=== PATIENT | female | born 1975 | race Caucasian/White ===

== ENCOUNTER 2020-03-25 23:53 | Observation (INO) | payer MEDICARE, SELFPAY ==
[2020-03-25 23:46] VITALS: BP 181/83; PULSE 74; RESP 14; TEMP 36.7; O2SAT 97; BMI 26.5
[2020-03-25 23:50] VITALS: BMI 26.5
--- NOTE | 2020-03-25 23:57 | ECG_ITS ---
APPROVED REPORT Exam: Resting ECG HR:73 bpm ECG Measurements Heart Rate 73 AXES HI 184 P QRSd 102 QRS 105 QT 430 T 101 QTc 473 Conclusion Normal sinus rhythm Rightward axis Nonspecific ST abnormality Abnormal ECG Electronically signed by : Evaristo Aguilar, 03/26/2020 21:08:06
[2020-03-26] VITALS (7 sets, daily range): BP systolic 116–179; BP diastolic 41–89; PULSE 59–69; RESP 14–20; TEMP 36.7–37.1; O2SAT 93–98; BMI 24.0
--- NOTE | 2020-03-26 | CA_ITS ---
APPROVED REPORT Exam: Pharmacologic Technologist: Rosalva Wilder Ht: 5 ft 10 in Wt: 168 lbs BSA: 1.94 m2 HR: 58 bpm BP: 157/76 mmHg Indications: Chest pain Medical History Medications: Omeprazole,,,,, Lispro,,,,, Gabapentin,,,,, Carvedilol,,,,, Fluoxetine,,,,, BuMETANIDE,,,,, RIvaROXABAN,,,,, Aripiprazole,,,,, Degludec,,,,, Stress Test Details Test: LEXISCAN Reversal agent Aminophyline 100.0 mg, given intravenously for nausea. HR Resting HR: 59 bpm Max Heart Rate (APMHR): 174 bpm Max HR Achieved: 94 bpm Target HR (85% APMHR): 147 bpm % of APMHR: 54 Recovery HR: 64 bpm BP Resting BP: 157.0/76.0 mmHg Max BP: 183.0/93.0 mmHg Recovery BP: 179.0/76.0 mmHg ECG Clinical Exercise duration: 04:07 min Highest Stage Achieved: Exercise capacity: 1.0 METs Stress ECG Conclusion Resting EKG: Sinus bradycardia, right axis deviation, cannot rule out old lateral SD, NS ST abnormalities inferiorly. Symptoms: Shortness of air, nausea/vomiting, malaise, chest pain Arrhythmias/Ectopy: Occasional PAC. Rare PVC ST-T Changes: Allowing for motion artifact associated with nausea/vomiting, there does not appear to be any significant changes. Conclusion: Unremarkable Lexiscan stress. Myoview images reported separately. Test Summary REST 04:23 . . 59 . 157/ 76 . . Stage 1 . . . . . . . Myoview Injected Stage 1 01:00 . . 82 . . . . Stage 2 01:00 . . 80 . 168/ 82 . . Stage 3 01:00 . . 77 . 183/ 93 . . Stage 4 01:00 . . 60 . . . . Stage 4 01:07 . . 65 . . . Stop exercise at 04:07 RECOVERY 01:00 . . 70 . . . . RECOVERY 02:00 . . 84 . 111/ 81 . . RECOVERY 03:00 . . 69 . 111/ 81 . . RECOVERY 04:00 . . 70 . 111/ 81 . . RECOVERY 05:00 . . 62 . 111/ 81 . . RECOVERY 06:00 . . 62 . 111/ 81 . . RECOVERY 07:00 . . 65 . 111/ 81 . . RECOVERY 08:00 . . 67 . 111/ 81 . . RECOVERY 09:00 . . 68 . 111/ 81 . . RECOVERY 10:00 . . 60 . 111/ 81 . . RECOVERY . . . . . . . Chest pain RECOVERY 11:00 . . 65 . 170/ 66 . . RECOVERY 11:56 . . 66 . 179/ 76 . . Electronically signed by : Bryan Iyer, 03/26/2020 18:13:36
--- NOTE | 2020-03-26 00:11 | XR_ITS ---
PROCEDURE: XR CHEST PORTABLE CLINICAL HISTORY: chest pain COMPARISON: CR CXR CHEST(2 VIEWS-NOT PORTABLE) from 04/17/2013 CR CXR CHEST(2 VIEWS-NOT PORTABLE) from 12/18/2013 CR CXR1 CHEST-PORTABLE from 12/11/2014 FINDINGS: Has been a prior median sternotomy with valve replacement. Pacemaker is present with lead in the region of the right ventricle. There is mild cardiomegaly without failure. Consolidation is noted in the right lower lobe consistent with pneumonia. There is also increased density overlying the left lower chest. This may be due to overlying soft tissue attenuation. Bone plate is present in the lower cervical spine in there is a MALLET AND DIE CUTTER shunt traverses the right hemithorax. No acute bony abnormalities. IMPRESSION: Right lower lobe pneumonia Dictated by: Liam Parrish MD 03/26/2020 05:19 Liam Parrish MD in [place] 03/26/2020 05:19
--- NOTE | 2020-03-26 00:14 | HMH.EDCP ---
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 The time I documented below is in addition to time spent performing reported procedures but includes the following listed in this critical care notation. Medical Decision Making - Medical Records Medical records reviewed: Yes: I reviewed the patient's medical records. - Mp Inquiry Pt receiving controlled substance: No Vital Signs: 03/25/20 23:46 03/26/20 00:46 03/26/20 02:00 Temperature 98.1 F Temperature Source Oral Pulse Rate [Right] 74 69 65 Respiratory Rate 14 Blood Pressure [Right Arm] 181/83 H 116/41 L 179/80 H Blood Pressure Mean [Right Arm] 115 66 113 02 Sat by Pulse Oximetry 97 93 L 98 Oxygen Delivery Method Room Air Room Air 03/26/20 02:30 Temperature Temperature Source Pulse Rate [Right] 67 Respiratory Rate Blood Pressure [Right Arm] 145/76 H Blood Pressure Mean [Right Arm] 99 02 Sat by Pulse Oximetry 93 L Oxygen Delivery Method - Lab Data Lab results reviewed: Yes: I reviewed the patient's lab results. Lab Results 03/26/20 00:25: WBC 10.5, RBC 4.47, Hgb 12.4, Hct 39.7, MCV 88.8, MCH 27.8, MCHC 31.3 L, RDW 16.7, Plt Count 360, MPV 8.0, Neut % (Auto) 75.4, Lymph % (Auto) 18.3, [place] % (Auto) 3.8, Eos % (Auto) 2.0, Baso % (Auto) 0.4, Neut # (Auto) 7.9 H, Lymph # (Auto) 1.9, [place] # (Auto) 0.4, Eos # (Auto) 0.2, Baso # (Auto) 0.0 03/26/20 00:25: Sodium 136, Potassium 3.5, Chloride 104, Carbon Dioxide 24, Anion Gap 11.5, BUN 6 L, Creatinine 0.40 L, Estimated Creat Clear 233, Estimated GFR 172, Est GFR ( Amer) 208, Glucose 334 H, Calcium 8.8, Troponin I < 0.01 03/26/20 00:25: Total Bilirubin 0.3, Direct Bilirubin 0.3, Conjugated Bilirubin 0.0, Indirect Bilirubin 0.0, Unconjugated Bilirubin 0.0, AST 16, ALT 13, Alkaline Phosphatase 128 H, C-Reactive Protein 37.2 H, Total Protein 8.0, Albumin 3.9 03/26/20 00:25: SARS-CoV-2 IgG Ab (Rapid) Positive A, SARS-CoV-2 IgM Ab (Rapid) Positive A 03/26/20 00:25: ESR 84 H 03/26/20 00:25: Procalcitonin < 0.030 03/26/20 01:20: Chlamy pneumoniae PCR Not detected, Adenovirus (PCR) Not detected, B. pertussis DNA (PCR) Not detected, Coronavirus OC43 (PCR) Not detected, Coronavirus HKU1 (PCR) Not detected, Coronavirus 229E (PCR) Not detected, SARS-CoV-2 (PCR) Not detected, Coronavirus NL63 (PCR) Not detected, Human Metapneumovir PCR Not detected, Influenza A (H1) PCR Not detected, Influ A (H1N1/09) PCR Not detected, Influenza A (H3) PCR Not detected, Influenza Type A (PCR) Not detected, Influenza Type B (PCR) Not detected, M. pneumoniae (PCR) Not detected, Parainfluenza 1 (PCR) Not detected, Parainfluenza 2 (PCR) Not detected, Parainfluenza 3 (PCR) Not detected, Parainfluenza 4 (PCR) Not detected, RSV (PCR) Not detected, Entero/Rhino (PCR) Not detected 03/26/20 02:45: Troponin I < 0.01 Result diagrams: 03/26/20 00:25 03/26/20 00:25 Orders (Tests/Meds): ED MEDICATIONS Generic Name Dose Route Start Last Admin Trade Name Freq PRN Reason Stop Dose Admin Sodium Chloride 1,000 mls @ 999 mls/hr 03/25/20 23:45 03/26/20 00:01 Sod Chlor 0.9% 1000ml Bag IV 03/26/20 00:45 999 mls/hr .Q1H1M ALEX Administration Sodium Chloride 8 ml 03/25/20 23:57 Sodium Chloride 0.9% 10ml Vial IV 0
[2020-03-26 00:39] LABS: Basophils % 0.4 % (0.1-2.0); Eosinophils # 0.2 K/mm3 (0.0-0.4); Hematocrit 39.7 % (37.0-47.0); Hemoglobin 12.4 g/dL (12.2-16.2); Lymphocytes # 1.9 K/mm3 (0.7-4.5); Lymphocytes % 18.3 % (10-50); Mean Corpuscular HGB Conc 31.3 g/dL (31.8-35.4); Mean Corpuscular Hemoglobin 27.8 pg (27.0-31.2); Mean Corpuscular Volume 88.8 fl (81-99); Monocytes # 0.4 K/mm3 (0.1-1.0); Monocytes % 3.8 % (1.7-9.3); Neutrophils # 7.9 K/mm3 (1.8-7.8); Neutrophils % 75.4 % (37.0-80.0); Platelet Count 360 K/mm3 (142-424); Red Blood Count 4.47 M/mm3 (4.20-5.40); Red Cell Distribution Width 16.7 % (11.5-17.5); White Blood Count 10.5 K/mm3 (4.8-10.8)
[2020-03-26 00:46] LABS: Alanine Aminotransferase 13 U/L (12-78); Albumin Level 3.9 g/dl (3.5-5.0); Alkaline Phosphatase 128 U/L (38-126); Anion Gap 11.5 mEq/L (5-15); Aspartate Amino Transferase 16 U/L (14-36); Bilirubin,Direct 0.3 mg/dl (0.0-0.4); Bilirubin,Total 0.3 mg/dl (0.2-1.3); Blood Urea Nitrogen 6 mg/dl (7-17); Calcium 8.8 mg/dl (8.4-10.2); Carbon Dioxide 24 mmol/L (22.0-30.0); Chloride 104 mmol/L (98-107); Creatinine Clearance Estimated 233 mL/min (50-200); Estimated Glomerular Filt Rate 172 ml/min (>60); GFR (African American) 208 ML/MIN (>60); Glucose 334 mg/dl (74-100); Potassium 3.5 mmoL/L (3.5-5.1); Sodium 136 mmol/L (136-145)
[2020-03-26 00:51] LABS: C-Reactive Protein 37.2 mg/L (0-4)
[2020-03-26 01:13] LABS: Coronavirus 19 IgG Antibody Positive (Negative)
[2020-03-26 01:14] LABS: Coronavirus 19 IgM Antibody Positive (Negative)
[2020-03-26 01:17] LABS: Procalcitonin < 0.030 ng/mL (0.0-2.0); Troponin I < 0.01 ng/ml (0.00-0.034)
[2020-03-26 01:43] LABS: Erythrocyte Sedimentation Rate 84 mm/hr (0-20)
[2020-03-26 02:44] LABS: Adenovirus,PCR Not Detected (NotDetected); Bordetella Pertussis Not Detected (NotDetected); Chlamydophila Pneumoniae, PCR Not Detected (NotDetected); Coronavirus 19, PCR Not Detected (NotDetected); Coronavirus 229E Not Detected (NotDetected); Coronavirus NL63 Not Detected (NotDetected); Coronavirus OC43 Not Detected (NotDetected); Coronovirus HKU1,PCR Not Detected (NotDetected); Human Metapneumovirus Not Detected (NotDetected); Influenza A, PCR Not Detected (NotDetected); Influenza AH1, 2009 Not Detected (NotDetected); Influenza AH1, PCR Not Detected (NotDetected); Influenza AH3,PCR Not Detected (NotDetected); Influenza B, PCR Not Detected (NotDetected); Mycoplasma Pneumoniae, PCR Not Detected (NotDetected); Parainfluenza 1, PCR Not Detected (NotDetected); Parainfluenza 2, PCR Not Detected (NotDetected); Parainfluenza 3, PCR Not Detected (NotDetected); Parainfluenza 4, PCR Not Detected (NotDetected); Respiratory Syncytial Virus Not Detected (NotDetected); Rhinovirus/Enterovirus Not Detected (NotDetected)
[2020-03-26 03:20] LABS: Troponin I < 0.01 ng/ml (0.00-0.034)
--- NOTE | 2020-03-26 03:20 | PC.NURSE ---
paged dr hooper for service call.
--- NOTE | 2020-03-26 03:21 | PC.NURSE ---
CRISTI Solares on phone with dr hooper @ this time
[2020-03-26 03:53] LABS: Hemoglobin A1C 10.1 % (4.0-6.0)
--- NOTE | 2020-03-26 04:07 | PC.NURSE ---
spoke with sandie for admit
--- NOTE | 2020-03-26 04:16 | PC.NURSE ---
patient up to floor via wheelchair.
[2020-03-26 06:26] LABS: POC Glucose,Bedside 204 (70-110)
--- NOTE | 2020-03-26 08:00 | CA_ITS ---
APPROVED REPORT EXAM: Comprehensive 2D, Doppler, and color-flow Echocardiogram Engineer Steam: Jana Brooke CRT Ht: 5 ft 10 in Wt: 185lbs BSA: 2.02 BP: 145/76 mmHg Indications: Chest Pain, smoker, DM, Defib, MVR x 2 in 2018 Pig valve 2D Dimensions LVOT 1.97 cm (M/F) 1.5-2.5 M-Mode Dimensions LA Diam 3.44 cm (1.9-4.0) LVDd 4.87 cm (3.5-5.7) Ao Diam 3.01 cm (2.0-3.7) LVDs 2.97 cm (3.5-5.7) IVSd 1.25 cm (0.6-1.1) PWd 1.07 cm (0.6-1.1) EF (Teich) 69.20% FS 39.00% EDV (Teich) 111.20 mL ESV (Teich) 34.20 mL LV Diastology E Decel Time 286.00 (160-240 msec) E/A Ratio 2.73 MED E' 6.90 (< 7 cm/sec) MED A' 3.50 cm/s E'/MED E' Ratio 26.68 (>14) LAT E' 7.10 (<10 cm/sec) LAT A' 3.40 cm/s E/LAT E' Ratio 25.93 (>14) Aortic Valve LVOT Max 161.20 (70-110 cm/s) LVOT VTI 35.05 cm AoV Peak Sherif. 201.40 (50-130 cm/s) AO Peak GR. 16.20 mmHg AO Mean GR. 6.80 (<5 mmHg) AO VTI 36.72 (18-25 cm) NIHARIKA (VTI) 2.91 (2.5-4.5 cm2) Mitral Valve MV E Max Sherif. 184.10 (40-130 cm/s) MV A Velocity 67.40 (40-130 cm/s) E/A Ratio 2.73 MV Decel. Time 286.00 (160-240 ms) MV Mean Gr. 5.30 (<2mmHg) MV PHT 84.00 ms Pulmonary Valve PV Peak Velocity 158.70 (50-150 cm/s) Tricuspid Valve TR P. Velocity 427.60 cm/s Left Ventricle Left atrium is mildly enlarged, left ventricle is normal size, there is no concentric left ventricular hypertrophy, visually estimated ejection fraction 55%, there is abnormal septal motion. Diastolic parameters are inconclusive. Right Ventricle Right atrium and right ventricle are normal size and contractility there is a pacemaker or AICD leads in the right ventricle. Aortic Valve Aortic valve is minimally thickened and fibrosed, there is no aortic stenosis or aortic insufficiency. Mitral Valve There is a bioprosthetic valve in the mitral position, the valve is well-seated, the mean gradient and pressure half-time is not accurately calculated to evaluate prosthetic valve function. There is no significant mitral regurgitation. Tricuspid Valve Tricuspid valve is grossly normal, there is mild tricuspid regurgitation, tricuspid regurgitation jet velocity is inadequate for calculation of the right ventricular systolic pressure. Pulmonic Valve Pulmonic valve is poorly visualized. Great Vessels Aortic root is normal size. Pericardium No significant pericardial effusion noted. Conclusion 1. Mildly enlarged left atrium, normal left ventricular size, preserved left ventricular systolic function, visually estimated ejection fraction 55% with abnormal septal motion. Diastolic parameters are inconclusive. 2. Bioprosthetic valve in the mitral position, the mean gradient and pressure half-time is not calculated accurately to evaluate valvular function, repeat study focused on mitral inflow velocities and pressure half-time is recommended. There is no significant mitral regurgitation. 3. Mild tricuspid regurgitation. 4. No significant pericardial effusion noted. Electronically signed by : Bryan Iyer, 03/27/2020 06:19:13
--- NOTE | 2020-03-26 08:32 | NM_ITS ---
APPROVED REPORT Exam: Nuclear Stress Test Indication: Chest pain, SOB, Fatigue, CAD, CABG, HTN, DM, High cholesterol, Tobacco use, Family history Patient Location: Outpatient Stress Tech: Rosalvakaren Wilder AR Tech:RACHELE KanT, RT (R)(N) Ht: 5 ft 10 in Wt: 165 lbs Bra Size: 42D HR: 58 bpm BP: 157/76 mmHg BSA: 1.92 m2 BMI: 23.6 History: Chest pain, SOB, Fatigue, CAD, CABG, HTN, DM, High cholesterol, Tobacco use, Family history Procedure: Patient received a 0.4 mg of intravenous Lexiscan, resting heart rate 58 bpm, resting blood pressure 157/76 mmHg, with Lexiscan maximum heart rate achived was 84 bpm which is % of the maximum predicted heart rate and blood pressure was 168/82 mmHg. Cardiac Stress and Resting SPECT Images: Cardiac Stress and Resting SPECT images were obtained using technetium 99m Myoview 32.3 mCi stress and 10.64 mCi at rest. EF 57% with no wall motion abnormalities No fixed or reversible defects Conclusion: EF 57% with no wall motion abnormalities No fixed or reversible defects Electronically signed by : Liam Parrish MD 03/26/2020 15:11:50
--- NOTE | 2020-03-26 08:35 | HMH.CNCARD ---
History of Present Illness Consult date: 03/26/20 Requesting physician: Blayne Borges Consult reason: chest pain Chief complaint: chest pain History of present illness: This is a 45-year-old white female who presented to the emergency department with complaints of chest pain. The patient states that she woke up in the middle of the night with sudden onset of chest pain. She states that this was a sharp, stabbing, pressure sensation in the substernal aspect of her chest. She states that the pain did not radiate. It was associated with shortness of breath, nausea, vomiting and diaphoresis. The patient states that the pain was an 8 out of 10 in intensity. Nothing worsened the chest pain and nothing was helping to improve the chest pain. She states that it lasted for at least an hour before her chest pain resolved. She states that she is still having intermittent episodes of the chest pain. She also has some fluttering of the heart. She denies any fever, chills, diarrhea, PND or orthopnea. The patient does have a history of valvular heart disease and is status post permanent pacemaker placement. She did undergo left cardiac catheterization in 2015 here at [facility] and was found to have normal coronary arteries. She states that she smokes 1 pack/day. She is diabetic with a hemoglobin A1c of 10.1. She reports that her father had heart disease as well. She has known hypertension, hyperlipidemia, and diabetes. She has recently moved back to [place] from [place] and does not have any physicians currently and states that she does not know when she had her last cardiology evaluation or pacemaker interrogation. [facility] History I have reviewed the patient's past medical history: Yes Medical History: Reports:: Congestive Heart Failure, Diabetes Mellitus Type 2, Hyperlipidemia, Hypertension, Internal Pacemaker, MRSA Denies:: Cancer, Diabetes Mellitus Type 1 *Have you ever received a pneumonia vaccine?: Yes *Have you received a flu vaccine this season?: Yes Laterality Cases: Bilateral: Tonsillectomy Other Surgeries: Yes: Cardiac Catheterization, Cholecystectomy, , Hysterectomy-Total, Mitral Valve Replacement, Pacemaker Amputation: No Fractures: No - *Social History Last grade of school completed: High school graduate Smoking Status: Current every day smoker # Packs/Day (cigarettes): 1 Alcohol Intake: former *Occupational Status:: disabled Household Members: significant other, children *Travel in the last 8 weeks: None Family Hx:: Diabetes, Heart Attack, Hypertension, Stroke Meds Home Medications Medication Instructions Recorded Confirmed Type ARIPiprazole [Aripiprazole 20mg 20 mg PO DAILY 03/26/20 03/26/20 History Tablet] Bumetanide 2 mg PO DAILY 03/26/20 03/26/20 History Fluoxetine HCl 40 mg PO DAILY 03/26/20 03/26/20 History Gabapentin [Gabapentin 400mg Cap] 400 mg PO DAILY 03/26/20 03/26/20 History Insulin Degludec [Tresiba] 0 unit SQ DAILY 03/26/20 03/26/20 History Insulin Lispro [Humalog] 0 unit SQ DAILY 03/26/20 03/26/20 History Omeprazole [Omeprazole 40mg 40 mg PO DAILY 03/26/20 03/26/20 History Capsule] Rivaroxaban [Xarelto 20mg Tablet*] 20 mg PO DAILY 03/26/20 03/26/20 History carvediloL [Carvedilol 6.25mg Tab] 1.5 tab PO BID 03/26/20 03/26/20 History Allergies Allergy/AdvReac Type Severity Reaction Status Date / Time morphine [MORPHINE] Allergy Mild Verified 03/26/20 00:01 hydrocodone [From LORTAB] Allergy Unknown Verified 03/26/20 00:01 ketorolac [From TORADOL] Allergy Unknown Verified 03/26/20 00:01 azithromycin Allergy Verified 03/26/20 07:27 bupropion [From Wellbutrin] Allergy Verified 03/26/20 07:27 Exam Vital signs and Labs for Last 24 Hours: Temp Pulse Resp BP Pulse Ox 98.8 F 66 20 161/87 H 97 03/26/20 04:45 03/26/20 04:45 03/26/20 04:45 03/26/20 04:45 03/26/20 04:45 Laboratory Results - last 24 hr 03/26/20 00:25: WBC 10.5, RBC 4.47, Hgb 12.4,
--- NOTE | 2020-03-26 08:44 | HMH.PHAVTE ---
[facility] Pharmacy VTE Monitoring - Patient Demographics Admission date: 03/26/20 Report Date: 03/26/20 Time: 08:44 Allergies/Adverse Reactions: Patient Allergies morphine [MORPHINE] Allergy (Mild, Verified 03/26/20 00:01) hydrocodone [From LORTAB] Allergy (Unknown, Verified 03/26/20 00:01) ketorolac [From TORADOL] Allergy (Unknown, Verified 03/26/20 00:01) azithromycin Allergy (Verified 03/26/20 07:27) bupropion [From Wellbutrin] Allergy (Verified 03/26/20 07:27) Height: 1.78 m Weight: 76.204 kg Patient Problems: Current Active Problems Chest pain (Acute) Diabetes (Acute) Tobacco use (Acute) - VTE Risk Labs: VTE Related Lab Results Hgb 12.4 g/dL (12.2-16.2) 03/26/20 00:25 Hct 39.7 % (37.0-47.0) 03/26/20 00:25 Plt Count 360 K/mm3 (142-424) 03/26/20 00:25 BUN 6 mg/dl (7-17) L 03/26/20 00:25 Creatinine 0.40 mg/dl (0.52-1.04) L 03/26/20 00:25 Estimated Creat Clear 233 mL/min (50-200) 03/26/20 00:25 Was VTE Risk Assessment Performed: Yes VTE Score: 7 VTE Risk Level: Moderate Risk Clinical Trial Participant: No - Prophylaxis VTE Prophylaxis Ordered?: Yes Types of VTE Prophylaxis: TEDS Knee High
[2020-03-26 08:58] LABS: Troponin I < 0.01 ng/ml (0.00-0.034)
--- NOTE | 2020-03-26 10:08 | HMH.HP ---
*Admission Date: 03/26/20 <ChiDonna - 03/26/20 10:21> *Chief complaint: Chest pain <ChiYeseniaDonna 03/26/20 10:21> *History of present illness: Ms. Shaikh is a 45-year-old female who has recently moved to [place] and has been here about a month who presented to [facility] last night after awakening with midsternal sharp chest pain. She denies radiation but the pain was associated with shortness of breath, nausea, palpitations, and diaphoresis. She is unable to tell me how long the pain lasted but is not present now. She arrived to this room about 0500 and has been sleeping; She does have a history of previous SC with valvular heart replacement in 2018 and also has a pacer/defibrillator. She has a history of at fib. She was hospitalized in December 2019 with Covid pneumonia. Cardiology has seen the pt and notes a Left cardiac cath in 2014 at [facility] with normal coronary arteries. She does have a Positive family History. Pt also has a history of DM and now with A1C of 10.1, HTN, HLD , AVM and pseudotumor cerebri. She has recently moved back to this area from [place] and does not have a physician. She does not recall when she last saw her cleaning attendant On admission electrolytes are normal. Blood sugar was 334. Kidney function is not elevated. A1c is 10.1. Liver function studies show a slightly elevated alkaline phosphatase at 128 and otherwise normal. Troponin I 0.01x2. Echocardiogram is pending chest x-ray shows prior median sternotomy with valve replacement. Pacemaker is present. There is mild cardiomegaly without failure. Consolidation is noted in the right lower lobe consistent with a pneumonia. After evaluation in the emergency room she was admitted with a cardiology consult. <AlonYeseniaDonna 03/26/20 10:53> [facility] History Medical History: Reports:: Congestive Heart Failure, Diabetes Mellitus Type 2, Hyperlipidemia, Hypertension, Internal Pacemaker, MRSA Denies:: Cancer, Diabetes Mellitus Type 1 <Donna Chi 03/26/20 10:53> *Have you ever received a pneumonia vaccine?: Yes <Donna Chi 03/26/20 10:21> *Have you received a flu vaccine this season?: Yes <Donna Chi 03/26/20 10:21> Other Medical History: Reports: Arthritis <Donna Chi 03/26/20 10:21> Comment:: AVM; pseudotumor cercbri <Donna Chi 03/26/20 10:53> Laterality Cases: Bilateral: Tonsillectomy <Donna Chi 03/26/20 10:21> Other Surgeries: Yes: Cardiac Catheterization, Cholecystectomy, , Hysterectomy-Total, Mitral Valve Replacement, Pacemaker <Donna Chi 03/26/20 10:21> Amputation: No <Donna Chi 03/26/20 10:21> Fractures: No <Donna Chi 03/26/20 10:21> - *Social History Last grade of school completed: High school graduate <Donna Chi 03/26/20 10:21> Smoking Status: Current every day smoker <Donna Chi 03/26/20 10:21> # Packs/Day (cigarettes): 1 <Donna Chi 03/26/20 10:21> Alcohol Intake: former <Donna Chi 03/26/20 10:21> *Occupational Status:: disabled <Donna Chi 03/26/20 10:21> Household Members: significant other, children <Donna Chi 03/26/20 10:21> *Travel in the last 8 weeks: None <Donna Chi 03/26/20 10:21> Family Hx:: Diabetes, Heart Attack, Hypertension, Stroke <Donna Chi 03/26/20 10:21> Review of Systems - Constitutional Denies headache(s), Denies weakness <Donna Chi 03/26/20 10:21> - Eyes Denies change in vision <Donna Chi 03/26/20 10:21> - ENT Denies ear pain, Denies post nasal drip, Denies sore throat <Donna Chi 03/26/20 10:21> - *Cardiovascular Reports chest pain, Reports shortness of breath <Donna Chi 03/26/20 10:21> - *Respiratory Reports shortness of breath, Denies cough <Donna Chi 03/26/20 10:21> - *Gastrointestinal Reports nausea, Reports vomiting, Denies abdominal pain, Denies change in stools <Donna Chi - 03/26/20 10:21> - *Genitourinary Denies difficult
[2020-03-26 10:29] LABS: Alanine Aminotransferase 11 U/L (12-78); Albumin Level 3.8 g/dl (3.5-5.0); Alkaline Phosphatase 113 U/L (38-126); Aspartate Amino Transferase 18 U/L (14-36); Bilirubin,Direct 0.3 mg/dl (0.0-0.4); Bilirubin,Indirect 0.2 mg/dL (0.0-0.9); Bilirubin,Total 0.5 mg/dl (0.2-1.3); Bilirubin,Unconjugated 0.1 mg/dL (0.0-1.1); Total Protein,Serum 8.2 g/dl (6.3-8.2)
[2020-03-26 11:43] LABS: Microscopic, Urine URINE MICROSCOPIC (MICROSCOPIC)
[2020-03-26 11:58] LABS: Amphetamine/Metha Screen,Urine Negative ng/ml (<1000); Barbiturates Screen,Urine Negative ng/ml (<200)
[2020-03-26 11:59] LABS: Benzodiazepines Screen,Urine Negative ng/ml (<200)
[2020-03-26 12:02] LABS: Cannabinoid Screen,Urine Positive ng/ml (<50); Cocaine Screen,Urine Negative ng/ml (<300)
[2020-03-26 12:03] LABS: Methadone Screen,Urine Negative ng/ml (<300)
[2020-03-26 12:04] LABS: Opiate Screen,Urine Negative ng/ml (<300)
--- NOTE | 2020-03-26 12:04 | HMH.PHAINT ---
MEDICATION RECONCILIATION COMPLETED ON PATIENT BY CALLING [facility] AND [facility] IN [place]. PATIENT HAS HISTORY OF NON-COMPLIANCE. UPDATED HOME MED LIST FROM MOST RECENT FILLS. -PATTI RAMIREZ PHARMD
[2020-03-26 12:05] LABS: Appearance,Urine CLEAR (Clear); Bilirubin,Urine Negative (Negative); Blood, Urine Negative (Negative); Color,Urine YELLOW (Yellow); Glucose,Urine (UA) TRACE (Negative); Ketones,Urine Negative (Negative); Leukocyte Esterase,Urine Negative (Negative); Nitrate,Urine Negative (Negative); Phencyclidine Screen,Urine Negative ng/ml (<25); Protein,Urine Negative (Negative); Specific Gravity, Urine 1.015 (1.005-1.030); Squamous Epithelial Cell,Urine Occasional #/hpf (0-5); Urobilinogen,Urine 0.2 EU/dl (0.2)
[2020-03-26 16:16] LABS: Mycoplasma Pneumo IGM (Rapid) Reactive (Non-Reactiv)
--- NOTE | 2020-03-26 17:34 | PC.NURSE ---
PATIENT ARRIVED ON FLOOR FROM RADIOLOGY, PATIENT REQUESTED THIS RN. WHEN THIS RN APPROACHED PATIENT WAS SITTING UP IN BED CRYING REQUESTING PAIN MEDICATION. PATIENT STATED ANYTHING BUT TYLENOL. THIS RN SPOKE WITH DR. DORSEY, ORDERED HOME DOSE OF SUBOXONE. THIS RN EXPLAINED WHAT MEDICATION WAS BEING ORDERED AND PATIENT STATED, OH, THAT'S FOR PAIN. THIS RN STATED THAT IS WHAT THE MD ORDERED. PATIENT STATED OKAY. WHEN THIS RN HANDED THE MEDICATION PATIENT ASKED, WHAT IS THIS? THIS RN STATED,IT IS YOUR SUBOXONE. PATIENT ASKED, HOW MUCH? THIS RN STATED 3 JUST LIKE WHAT YOU TAKE AT HOME. PATIENT STATED I AM OUT OF HERE, I TAKE 20/8. THIS RN STATED, YOUR HOME LIST STATES 3. PATIENT STATED NO, IT IS 12/8. THIS RN OFFERED TO PHONE MD AND REQUEST A DOSE CHANGE. PATIENT STATED, NO, I CAN TAKE THIS AT HOME WITH MY TYLENOL. THIS RN SPOKE WITH DR. DORSEY, INFORMED MD THAT PATIENT WAS LEAVING [place]. PER MD, MAKE A FOLLOW UP APPOINTMENT WITH DR. DEL REAL. APPOINTMENT MADE, PROVIDED FOR PATIENT BEFORE LEAVING.
--- NOTE | 2020-03-27 12:48 | HMH.DCSUM ---
General - General Admission date:: 03/26/20 Discharge date: 03/26/20 HPI HPI: Ms. Shaikh is a 45-year-old female who has recently moved to [place] and has been here about a month who presented to [facility] last night after awakening with midsternal sharp chest pain. She denies radiation but the pain was associated with shortness of breath, nausea, palpitations, and diaphoresis. She is unable to tell me how long the pain lasted but is not present now. She arrived to this room about 0500 and has been sleeping; She does have a history of previous CA with valvular heart replacement in 2018 and also has a pacer/defibrillator. She has a history of at fib. She was hospitalized in December 2019 with Covid pneumonia. Cardiology has seen the pt and notes a Left cardiac cath in 2014 at [facility] with normal coronary arteries. She does have a Positive family History. Pt also has a history of DM and now with A1C of 10.1, HTN, HLD , AVM and pseudotumor cerebri. She has recently moved back to this area from [place] and does not have a physician. 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 Blood sugar was 334. Kidney function is not elevated. A1c is 10.1. Liver function studies show a slightly elevated alkaline phosphatase at 128 and otherwise normal. Troponin I 0.01x2. Echocardiogram is pending chest x-ray shows prior median sternotomy with valve replacement. Pacemaker is present. There is mild cardiomegaly without failure. Consolidation is noted in the right lower lobe consistent with a pneumonia. After evaluation in the emergency room she was admitted with a cardiology consult. Hospital Course Hospital Course: Cardiology saw the patient and planned a stress test. She was started on Levaquin for her pneumonia as well as duo nebs. Her blood pressure was elevated and she was started on Norvasc 10 mg daily in addition to her carvedilol. Her Myoview showed an EF of 57% with no wall motion abnormalities and no fixed or reversible defects. Cardiology had no further recommendations from a cardiac standpoint and felt she could follow-up in their clinic in 1 to 2 weeks. Her echo showed an EF of 55% with abnormal septal motion. The patient was apparently on Suboxone at home and called requesting pain medication. Dr. Crow was contacted and her home dose of Suboxone was ordered. Apparently, when the patient was given her Suboxone, she stated she was leaving and she left AMA. Objective Vital signs: Temp Pulse Resp BP Pulse Ox 98.1 F 59 L 18 139/74 98 03/26/20 08:00 03/26/20 08:00 03/26/20 08:00 03/26/20 08:00 03/26/20 08:00 Narrative: - Constitutional no acute distress Comments: Walk to the bathroom during exam and did well without chest pain. - *Routine HEENT Exam Head: Present: normocephalic, atraumatic Eye: Present: PERRL ENT: Present: mucous membranes moist, oropharynx clear - *Routine Neck Exam Present: supple. Absent: carotid bruit, lymphadenopathy, thyromegaly - *Routine Respiratory Exam Present: CTA bilaterally (Anteriorly and posteriorly) - *Routine Cardiovascular Exam Present: RRR Comments: Monitor showing sinus rhythm. - *Routine Abdominal Exam Present: soft, normoactive bowel sounds. Absent: tenderness, distended - *Routine Extremities Exam Present: pulses intact. Absent: edema, calf tenderness - *Routine Neurological Exam Present: alert, oriented X3 Results Labs on day of discharge: Labs from last 24 hours 03/26/20 03/26/20 14:30 14:30 Lactate 1.0 Mycoplasma pneumon IgM Reactive A DS: Diagnosis - Discharge Diagnosis (1) Chest pain Status: Acute (2) HTN (hypertension) Status: Chronic (3) HLD (hyperlipidemia) Status: Chronic (4) Pacemaker Status: Chronic (5) Abnormal EKG Status: Acute (6) Diabetes Status: Chronic
== END 2020-03-26 15:15 | disposition left against medical advice (07) ==
LOC: ER 03-26 01:17 → 2ND 03-26 03:26
PROVIDERS: Nurse Practitioner Family; Admitting Provider Family Medicine; Emergency Provider Emergency Medicine; Visit Provider Family Medicine
DX: I48.0 Paroxysmal atrial fibrillation (principal); R07.9 Chest pain, unspecified; I11.0 Hypertensive heart disease with heart failure; I50.9 Heart failure, unspecified; E11.9 Type 2 diabetes mellitus without complications; Z95.810 Presence of automatic (implantable) cardiac defibrillator; Z72.0 Tobacco use; Z88.5 Allergy status to narcotic agent; Z88.8 Allergy status to other drugs, medicaments and biological substances; Z79.01 Long term (current) use of anticoagulants; Z79.4 Long term (current) use of insulin; Z79.899 Other long term (current) drug therapy
CPT/HCPCS: 36415; 71045; 78452; 80048; 80076; 80305; 81001; 82962; 83036; 83605; 84145; 84484; 85025; 85651; 86140; 86328; 86738; 87040; 87581; 87633; 87798; 93005; 93017; 93306; 96365; 96375; 99284; A9502; G0378; J2785

== ENCOUNTER 2020-04-01 14:19 | Emergency (ER) | payer MEDICARE, SELFPAY ==
[2020-04-01 14:25] VITALS: BP 145/98; PULSE 87; RESP 16; TEMP 36.6; O2SAT 98; BMI 28.7
--- NOTE | 2020-04-01 15:13 | XR_ITS ---
PROCEDURE: XR FOOT RT MIN 3V CLINICAL INDICATION: foot pain COMPARISON: CR FTR3 FOOT-RT-3 VIEWS from 03/18/2012 CR FTL3 FOOT-LT-3 VIEWS from 09/06/2013 FINDINGS: No fracture or dislocation. No lytic or blastic change. There is normal mineralization. The joint spaces are well-preserved. No significant degenerative/arthritic changes. No erosive changes evident. Other findings:There is nonspecific small area of calcification along the plantar surface the foot at the area of the plantar fascia posteriorly not significantly changed. Mild osteoarthritic changes are present at the talonavicular and navicular cuneiform joint. IMPRESSION: No change no acute finding Dictated by: Liam Parrish MD 04/01/2020 16:26 Liam Parrish MD in [place] 04/01/2020 16:26
[2020-04-01 15:16] VITALS: BP 118/74; PULSE 82; RESP 16; TEMP 36.9; O2SAT 94; BMI 23.5
--- NOTE | 2020-04-01 15:45 | HMH.EDUTC ---
[facility] [place] Clinical Impression: Right foot pain Disposition: Home, Self-Care Condition on Discharge: Good Instructions: DI for Foot Pain Additional Instructions: Rest the extremity, Elevate the extremity as tolerated while you are resting. Continue to take tylenol for pain. Follow up with Dr. Carpenter (podiatry). I put in a referral but you need to call his office and schedule an appointment. Follow up with your regular doctor. GO TO THE ER FOR ANY WORSENING SYMPTOMS Referrals: PCP,No [Primary Care Provider] - Sonia Carpenter DPM [Staff Physician] - Time of Disposition: 16:06 Medical Decision Making - Medical Records Medical records reviewed: No: I reviewed the patient's medical records. - Mp Inquiry Pt receiving controlled substance: No Vital Signs: 04/01/20 14:25 04/01/20 15:16 04/01/20 16:12 Temperature 98 F 98.5 F 98.3 F Temperature Source Oral Oral Pulse Rate 83 Pulse Rate [Right] 87 82 Respiratory Rate 16 16 16 Blood Pressure 120/76 Blood Pressure [Right Arm] 145/98 H 118/74 Blood Pressure Mean [Right Arm] 113 88 Blood Pressure Source [Right Arm] Automatic Cuff Blood Pressure Position [Right Arm] Sitting 02 Sat by Pulse Oximetry 98 94 L Oxygen Delivery Method Room Air Room Air - Radiology Data #1 Image(s): Foot/Toes Image Reviewed: Yes I reviewed the patient's radiology image, Yes I have reviewed radiologist's interpretation Preliminary Findings: Normal/NAD, No Fracture Seen PROCEDURE: XR FOOT RT MIN 3V CLINICAL INDICATION: foot pain COMPARISON: CR FTR3 FOOT-RT-3 VIEWS from 03/18/2012 CR FTL3 FOOT-LT-3 VIEWS from 09/06/2013 FINDINGS: No fracture or dislocation. No lytic or blastic change. There is normal mineralization. The joint spaces are well-preserved. No significant degenerative/arthritic changes. No erosive changes evident. Other findings:There is nonspecific small area of calcification along the plantar surface the foot at the area of the plantar fascia posteriorly not significantly changed. Mild osteoarthritic changes are present at the talonavicular and navicular cuneiform joint. IMPRESSION: No change no acute finding Dictated by: Liam Parrish MD 04/01/2020 16:26 Liam Parrish MD in [place] 04/01/2020 16:26 [facility] [place] - General Stated complaint: AO 03/29/20 0800 injury right foot Time Seen by Provider: 04/01/20 15:45 Mode of Arrival: Ambulatory Source of Information: Patient Limitations: No Limitations Description of Symptoms (Recalled from Triage Doc. by RN): when pt stepped out of bed this morning her right foot was hurting and she was having trouble putting weight on it. no injury known. HEENT Symptoms (Recalled from RN notes): No Resp Symptoms (Recalled from RN notes): No Skin Symptoms (Recalled from RN notes): No MS Symptoms (Recalled from RN notes): Yes (right foot pain) Functional Status (Recalled from RN notes): na - History of Present Illness Provider Complaint: she states that for the past 2 days she has had left foot pain. She denies any known injury. She states her pain began when she put her foot on the floor first thing that morning. - Related Data Home Medications Medication Instructions Recorded Confirmed ARIPiprazole [Aripiprazole 20mg 20 mg PO DAILY 03/26/20 03/26/20 Tablet] Bumetanide 2 mg PO BID 03/26/20 03/26/20 Buprenorphine HCl/Naloxone HCl 1 each SL DAILY 03/26/20 03/26/20 [Suboxone 12 mg-3 mg Sl Film] Fluoxetine HCl 80 mg PO DAILY 03/26/20 03/26/20 Gabapentin [Gabapentin 400mg Cap] 800 mg PO TID 03/26/20 03/26/20 Insulin Degludec [Tresiba] 76 unit SQ DAILY 03/26/20 03/26/20 Insulin Lispro [Humalog] 0 unit SQ DAILY 03/26/20 03/26/20 Omeprazole [Omeprazole 40mg 40 mg PO DAILY 03/26/20 03/26/20 Capsule] Rivaroxaban [Xarelto 20mg Tablet*] 20 mg PO QPMWM 03/26/20 03/26/20 carvediloL [Carvedilol 6.25mg Tab] 9.375 mg PO BID 03/26/20 03/26/20
[2020-04-01 16:12] VITALS: BP 120/76; PULSE 83; RESP 16; TEMP 36.8
== END 2020-04-01 16:13 | disposition home or self-care (01) ==
PROVIDERS: Emergency Provider Nurse Practitioner Family
DX: M79.671 Pain in right foot (principal); E11.9 Type 2 diabetes mellitus without complications; E78.5 Hyperlipidemia, unspecified; I10 Essential (primary) hypertension; I50.9 Heart failure, unspecified; Z95.0 Presence of cardiac pacemaker; F17.210 Nicotine dependence, cigarettes, uncomplicated; Z79.899 Other long term (current) drug therapy
CPT/HCPCS: G0463; 73630; 99202

== ENCOUNTER 2020-04-27 17:33 | Emergency (ER) | payer MEDICARE, SELFPAY ==
[2020-04-27 17:36] VITALS: BP 134/80; PULSE 97; RESP 18; TEMP 36.6; O2SAT 97; BMI 22.9
[2020-04-27 18:06] VITALS: BP 160/96; PULSE 94; RESP 18; O2SAT 98
[2020-04-27 18:14] LABS: Microscopic, Urine URINE MICROSCOPIC (MICROSCOPIC)
[2020-04-27 18:15] LABS: Appearance,Urine CLEAR (Clear); Blood, Urine 1+ (Negative); Color,Urine YELLOW (Yellow); Glucose,Urine (UA) 2+ (Negative); Ketones,Urine 1+ (Negative); Leukocyte Esterase,Urine Negative (Negative); Nitrate,Urine Negative (Negative); Protein,Urine 3+ (Negative); Specific Gravity, Urine >= 1.030 (1.005-1.030); Urobilinogen,Urine 0.2 EU/dl (0.2)
[2020-04-27 18:16] LABS: Basophils # 0.1 K/mm3 (0-0.2); Basophils % 0.7 % (0.1-2.0); Chloride 103 mmol/L (98-107); Eosinophils # 0.1 K/mm3 (0.0-0.4); Eosinophils % 0.7 % (0.1-12.0); Hematocrit 50.8 % (37.0-47.0); Hemoglobin 16.1 g/dL (12.2-16.2); Lymphocytes # 1.9 K/mm3 (0.7-4.5); Lymphocytes % 16.4 % (10-50); Mean Corpuscular HGB Conc 31.8 g/dL (31.8-35.4); Mean Corpuscular Hemoglobin 28.1 pg (27.0-31.2); Mean Corpuscular Volume 88.4 fl (81-99); Mean Platelet Volume 9.4 fl (7.4-10.4); Monocytes # 0.5 K/mm3 (0.1-1.0); Monocytes % 4.1 % (1.7-9.3); Neutrophils # 9.1 K/mm3 (1.8-7.8); Neutrophils % 78.1 % (37.0-80.0); Platelet Count 353 K/mm3 (142-424); Potassium 4.5 mmoL/L (3.5-5.1); Red Blood Count 5.74 M/mm3 (4.20-5.40); Red Cell Distribution Width 16.7 % (11.5-17.5); Sodium 137 mmol/L (136-145); White Blood Count 11.6 K/mm3 (4.8-10.8)
[2020-04-27 18:19] LABS: Alanine Aminotransferase 19 U/L (12-78); Albumin Level 5.4 g/dl (3.5-5.0); Alkaline Phosphatase 164 U/L (38-126); Anion Gap 18.5 mEq/L (5-15); Aspartate Amino Transferase 36 U/L (14-36); Bilirubin,Total 1.1 mg/dl (0.2-1.3); Blood Urea Nitrogen 17 mg/dl (7-17); Carbon Dioxide 20 mmol/L (22.0-30.0); Creatinine Clearance Estimated 161 mL/min (50-200); Estimated Glomerular Filt Rate 133 ml/min (>60); GFR (African American) 161 ML/MIN (>60); Globulin 5.5 g/dL (1.3-3.2); Total Protein,Serum 10.9 g/dl (6.3-8.2)
[2020-04-27 18:20] LABS: Bilirubin,Urine Negative (Negative); Calcium 10.5 mg/dl (8.4-10.2); Glucose 395 mg/dl (74-100)
[2020-04-27 18:23] LABS: Amorphous Sediment,Urine 1+ /lpf; Hyaline Casts,Urine Occasional #/lpf (0); Mucus,Urine 1+ /lpf; WBC,Urine Occasional #/hpf (0-3)
[2020-04-27 18:27] LABS: Barbiturates Screen,Urine Negative ng/ml (<200); Benzodiazepines Screen,Urine Negative ng/ml (<200)
[2020-04-27 18:28] LABS: Amphetamine/Metha Screen,Urine Negative ng/ml (<1000)
[2020-04-27 18:29] LABS: Cannabinoid Screen,Urine Positive ng/ml (<50); Cocaine Screen,Urine Negative ng/ml (<300)
[2020-04-27 18:30] VITALS: BP 169/87; PULSE 98; RESP 19; O2SAT 97
[2020-04-27 18:30] LABS: Methadone Screen,Urine Negative ng/ml (<300); Opiate Screen,Urine Negative ng/ml (<300)
[2020-04-27 18:31] LABS: Phencyclidine Screen,Urine Negative ng/ml (<25)
[2020-04-27 18:40] LABS: Acetone, Serum (Rapid) None Detected (None Detect)
[2020-04-27 18:46] LABS: VBG Base Excess -4.1 mmol/L (-2.4-2.3); VBG Oxygen Saturation 98.3 % (50-70); VBG PCO2 24.7 mmol/L (35-51); VBG Total CO2 19.8 mmol/L (23-27)
--- NOTE | 2020-04-27 18:48 | PC.NURSE ---
Dr Noonan speaking with Dr Steen at this time.
--- NOTE | 2020-04-27 18:55 | HMH.EDGENADL ---
ED Disposition Clinical Impression: Opiate withdrawal, Hyperglycemia Disposition: Home, Self-Care Condition on Discharge: Good Instructions: DI for Drug or Alcohol Withdrawal, DI for Hyperglycemia -- Adult Additional Instructions: Oxycodone as prescribed. Zofran as needed for nausea and vomiting. See Dr. Bingham in his office on Wednesday. Additional instructions for CONTROLLED SUBSTANCES: You have been prescribed a medication that is a controlled substance. Controlled substances include pain medications known as opiates and sedative nerve medications known as benzodiazepines. Tramadol, fioricet, and gabapentin are also controlled substances. Some common opiates include: Codeine (such as Tylenol #3) Hydrocodone (Vicodin, Lortab, Lorcet, [place]) Oxycodone (Percocet, Percodan, Oxycodone, Oxy IR) Some common benzodiazepines include: Diazepam (Valium) Lorazepam (Ativan) Alprazolam (Xanax) Clonazepam (Klonopin) Oxazepam (Serax) All of these controlled substances are highly addictive and frequently abused. Misuse can and frequently does lead to addiction as well as overdose and . Medication should be stored in a locked cabinet or other secure storage unit. Do not store the medication in a motor vehicle. Short term supplies, 3 days or less, are prescribed because of the highly addictive nature of the medication. Any of the controlled substance medication NOT taken should be disposed of properly and NOT SAVED. The recommended method of disposing of unused medications is: Place the medicines in a sealable plastic bag. If the medicine is a solid, crush it or add water to dissolve it. Add something undesirable (cat litter, coffee grounds, etc.) Dispose of sealed bag in household trash Do not flush or pour unused medicines down a sink or drain. Controlled substances should not be shared, given away or sold. Because of the addictive nature and frequent abuse, these medications are sometimes stolen. These medications should be kept in a safe place where they cannot be stolen. Do not keep them in your car or purse. Lost or stolen prescriptions for controlled substances WILL NOT BE REFILLED in this emergency department, regardless of whether a police report was filed. Prescriptions: Oxycodone HCl [Oxycodone 5mg tab (IR)] 5 mg PO Q6H #12 tablet Transmission Status: Sent to [facility] #[id number] Ondansetron [Zofran 4mg ODT] 4 mg PO TIDP PRN #10 tab.rapdis PRN Reason: Nausea And Vomiting [id number] Referrals: PCP,No [Primary Care Provider] - Vicente Bingham MD [Staff Physician] - (See on Wednesday04/29/20) - Critical Care Critical Care Time: No Attestation: On 04/27/20, the high probability of a clinically significant, sudden or life threatening deterioration of the following system(s) required my full and direct attention, intervention and personal management. The time I documented below is in addition to time spent performing reported procedures but includes the following listed in this critical care notation. Medical Decision Making - Mp Inquiry Pt receiving controlled substance: Yes Mp was queried for this patient: Yes Risks and benefits of using a controlled substance: were discussed with pt by me Vital Signs: 04/27/20 17:36 04/27/20 18:06 04/27/20 18:30 Temperature 97.9 F Temperature Source Oral Pulse Rate [Left Radial] 97 H 94 H 98 H Respiratory Rate 18 18 19 Blood Pressure [Right Arm] 134/80 160/96 H 169/87 H Blood Pressure Mean [Right Arm] 98 117 114 Blood Pressure Source [Right Arm] Automatic Cuff Automatic Cuff Automatic Cuff Blood Pressure Position [Right Arm] Sitting Sitting Sitting 02 Sat by Pulse Oximetry 97 98 97 Oxygen Delivery Method Room Air Room Air Room Air - Lab Data Lab Results 04/27/20 18:00: Urine Color Yellow, Urine Appearance Clear, Urine pH 6.0, Ur Specific [place] >= 1.030, Urine Protein
[2020-04-27 19:33] VITALS: BP 154/88; PULSE 92; RESP 16; TEMP 36.6; O2SAT 97
== END 2020-04-27 19:36 | disposition home or self-care (01) ==
PROVIDERS: Emergency Provider Emergency Medicine
DX: F11.23 Opioid dependence with withdrawal (principal); E11.65 Type 2 diabetes mellitus with hyperglycemia; I10 Essential (primary) hypertension; E78.5 Hyperlipidemia, unspecified; F12.10 Cannabis abuse, uncomplicated; Z95.0 Presence of cardiac pacemaker; F17.210 Nicotine dependence, cigarettes, uncomplicated; Z88.5 Allergy status to narcotic agent; Z79.899 Other long term (current) drug therapy
CPT/HCPCS: 80053; 80305; 81001; 82009; 82803; 85025; 96365; 96372; 96375; 99283; J2405

== ENCOUNTER 2020-04-29 14:53 | Emergency (ER) | payer MEDICARE, SELFPAY ==
[2020-04-29 14:54] VITALS: BP 125/68; PULSE 107; RESP 24; TEMP 36.6; O2SAT 98; BMI 23.5
[2020-04-29 15:25] VITALS: BP 132/66; PULSE 90; RESP 18; O2SAT 99
[2020-04-29 15:25] LABS: Basophils # 0.1 K/mm3 (0-0.2); Basophils % 0.6 % (0.1-2.0); Eosinophils # 0.1 K/mm3 (0.0-0.4); Eosinophils % 1.3 % (0.1-12.0); Hematocrit 51.8 % (37.0-47.0); Hemoglobin 16.2 g/dL (12.2-16.2); Lymphocytes # 2.1 K/mm3 (0.7-4.5); Lymphocytes % 22.3 % (10-50); Mean Corpuscular HGB Conc 31.2 g/dL (31.8-35.4); Mean Corpuscular Hemoglobin 27.9 pg (27.0-31.2); Mean Corpuscular Volume 89.5 fl (81-99); Mean Platelet Volume 8.2 fl (7.4-10.4); Monocytes # 0.4 K/mm3 (0.1-1.0); Monocytes % 4.6 % (1.7-9.3); Neutrophils # 6.8 K/mm3 (1.8-7.8); Neutrophils % 71.1 % (37.0-80.0); Platelet Count 302 K/mm3 (142-424); Red Blood Count 5.78 M/mm3 (4.20-5.40); Red Cell Distribution Width 16.7 % (11.5-17.5); White Blood Count 9.6 K/mm3 (4.8-10.8)
[2020-04-29 15:37] LABS: Anion Gap 16.7 mEq/L (5-15); Blood Urea Nitrogen 21 mg/dl (7-17); Calcium 10.3 mg/dl (8.4-10.2); Carbon Dioxide 24 mmol/L (22.0-30.0); Chloride 99 mmol/L (98-107); Creatinine Clearance Estimated 118 mL/min (50-200); Estimated Glomerular Filt Rate 90 ml/min (>60); GFR (African American) 109 ML/MIN (>60); Glucose 372 mg/dl (74-100); Potassium 3.7 mmoL/L (3.5-5.1); Sodium 136 mmol/L (136-145)
--- NOTE | 2020-04-29 15:37 | HMH.EDNVD ---
ED Disposition Clinical Impression: Drug-induced nausea and vomiting Diabetes Qualifiers: Diabetes mellitus type: type 1 Diabetes mellitus complication status: with other specified complication Qualified Code(s): E10.69 - Type 1 diabetes mellitus with other specified complication Disposition: Left Against Medical Advice Condition on Discharge: unchanged, patient eloped Instructions: DI for Nausea -- Adult Referrals: PCP,Ariane [Primary Care Provider] - Vicente Bingham MD [Staff Physician] - - Critical Care Critical Care Time: No Attestation: On 04/29/20, the high probability of a clinically significant, sudden or life threatening deterioration of the following system(s) required my full and direct attention, intervention and personal management. The time I documented below is in addition to time spent performing reported procedures but includes the following listed in this critical care notation. Medical Decision Making - Medical Records Medical records reviewed: Yes: I reviewed the patient's medical records. - Mp Inquiry Pt receiving controlled substance: No Mp was queried for this patient: Yes Reference #:: [id number] Vital Signs: 04/29/20 14:54 04/29/20 15:25 Temperature 98 F Temperature Source Oral Pulse Rate [Radial] 107 H 90 Respiratory Rate 24 18 Blood Pressure [Right Arm] 125/68 132/66 Blood Pressure Mean [Right Arm] 87 88 Blood Pressure Position [Right Arm] Sitting 02 Sat by Pulse Oximetry 98 99 Oxygen Delivery Method Room Air - Lab Data Lab Results 04/29/20 15:10: WBC 9.6, RBC 5.78 H, Hgb 16.2, Hct 51.8 H, MCV 89.5, MCH 27.9, MCHC 31.2 L, RDW 16.7, Plt Count 302, MPV 8.2, Neut % (Auto) 71.1, Lymph % (Auto) 22.3, [place] % (Auto) 4.6, Eos % (Auto) 1.3, Baso % (Auto) 0.6, Neut # (Auto) 6.8, Lymph # (Auto) 2.1, [place] # (Auto) 0.4, Eos # (Auto) 0.1, Baso # (Auto) 0.1 04/29/20 15:10: Sodium 136, Potassium 3.7, Chloride 99, Carbon Dioxide 24, Anion Gap 16.7 H, BUN 21 H, Creatinine 0.70 D, Estimated Creat Clear 118, Estimated GFR 90, Est GFR ( Amer) 109 D, Glucose 372 H, Calcium 10.3 H 04/29/20 15:10: Lipase 181 04/29/20 16:21: VBG pH 7.34, VBG pCO2 41.4, VBG pO2 37.2, VBG HCO3 21.8 L, VBG Total CO2 23.1, VBG O2 Saturation 72.6 H, VBG Base Excess -4.0 L Result diagrams: 04/29/20 15:10 04/29/20 15:10 Orders (Tests/Meds): ED MEDICATIONS Discontinued Medications Generic Name Dose Route Start Last Admin Trade Name Freq PRN Reason Stop Dose Admin Acetaminophen 1,000 mg 04/29/20 16:51 04/29/20 17:00 Acetaminophen 500mg Tab PO 04/29/20 16:52 Not Given ONCE ONE Sodium Chloride 1,000 mls @ 999 mls/hr 04/29/20 15:15 04/29/20 15:14 Sod Chlor 0.9% 1000ml Bag IV 04/29/20 16:15 999 mls/hr .Q1H1M ALEX Administration Ondansetron HCl 4 mg 04/29/20 15:08 04/29/20 15:14 Ondansetron 4mg/2ml Vial IV 04/29/20 15:09 4 mg ONCE ONE Administration Promethazine HCl 25 mg 04/29/20 15:24 04/29/20 15:34 Promethazine Hcl 25mg/Ml 1ml Vial IV 04/29/20 15:25 25 mg ONCE ONE Administration Sodium Chloride 25 ml 04/29/20 15:24 04/29/20 15:34 Sodium Chloride 0.9% 25ml Bag IV 04/29/20 15:25 25 ml ONCE ONE Administration ORDERS Category Date Time Status Acetone, Serum (Rapid) Stat Lab 04/29/20 15:10 Received Urinalysis and Microscopic Stat Lab 04/29/20 16:21 Ordered - Reevaluation(s) Time: 17:01 Reevaluation #1: Patient does have elevated glucose as well as a slightly elevated anion gap. I am concerned for possible DKA. Patient was administered fluids. Patient states that she needs something for pain. I did explain to the patient that based on her medication allergies as well as being on Suboxone, I do not believe is appropriate to administer opiate analgesics. The patient states that she needs to have Dilaudid right now. I explained to the patient that this is inappropriate. I would like to continue her medical work-up and add
[2020-04-29 15:42] LABS: Lipase 181 U/L (23-300)
[2020-04-29 16:30] LABS: VBG HCO3 21.8 mmol/L (23-30); VBG Oxygen Saturation 72.6 % (50-70); VBG PCO2 41.4 mmol/L (35-51); VBG PH 7.34 mmol/L (7.31-7.41); VBG PO2 37.2 mmol/L (28-40); VBG Total CO2 23.1 mmol/L (23-27)
--- NOTE | 2020-04-29 17:01 | PC.NURSE ---
p[t refused her tylenol she wanted something to fix her withdrawls , she said they gave me Dilaudid last time i want that again . I advised her that not every MD was gonna order the same meds . she said i want to leave I can get tylenol at home. became very agitated i removed her IV and she walked out
[2020-04-29 17:10] LABS: Acetone, Serum (Rapid) None Detected (None Detect)
[2020-04-29 17:13] VITALS: BP 135/78; PULSE 78; RESP 16; TEMP 36.6; O2SAT 98
== END 2020-04-29 17:15 | disposition left against medical advice (07) ==
PROVIDERS: Emergency Provider Emergency Medicine
DX: R11.2 Nausea with vomiting, unspecified (principal); I10 Essential (primary) hypertension; E78.5 Hyperlipidemia, unspecified; Z95.0 Presence of cardiac pacemaker; E11.65 Type 2 diabetes mellitus with hyperglycemia; I50.9 Heart failure, unspecified; F12.10 Cannabis abuse, uncomplicated; F17.210 Nicotine dependence, cigarettes, uncomplicated
CPT/HCPCS: 80048; 82009; 82803; 83690; 85025; 96365; 96375; 99282; J2405

== ENCOUNTER 2020-05-26 10:32 | Emergency (ER) | payer MEDICARE, SELFPAY ==
[2020-05-26 10:33] VITALS: BP 113/62; PULSE 77; RESP 20; TEMP 36.8; O2SAT 98; BMI 26.5
--- NOTE | 2020-05-26 10:54 | ECG_ITS ---
APPROVED REPORT Exam: Resting ECG HR:79 bpm ECG Measurements Heart Rate 79 AXES PA 144 P QRSd 102 QRS 108 QT 416 T 97 QTc 477 Conclusion Normal sinus rhythm Rightward axis Borderline ECG Electronically signed by : Evaristo Aguilar, 05/26/2020 21:07:35
[2020-05-26 11:00] VITALS: BP 113/62; PULSE 70; RESP 19; O2SAT 95; BMI 26.6
--- NOTE | 2020-05-26 11:00 | HMH.EDGENADL ---
ED Disposition Clinical Impression: CAP (community acquired pneumonia) Qualifiers: Laterality: unspecified laterality Qualified Code(s): J18.9 - Pneumonia, unspecified organism Disposition: Home, Self-Care Condition on Discharge: Fair Instructions: DI for Pneumonia -- Adult Additional Instructions: Levaquin as prescribed. Tessalon Perles for cough. Rest and drink plenty of fluids. Tylenol as needed. You are being provided with a list of physicians available for follow-up of your condition. Please call a physician on this list to arrange a follow-up appointment as soon as possible. Prescriptions: levoFLOXacin [Levaquin 500mg tab] 500 mg PO DAILY #9 tab Transmission Status: Pending to [facility] #[id number] Referrals: PCP,No [Primary Care Provider] - - Critical Care Critical Care Time: No Attestation: On 05/26/20, the high probability of a clinically significant, sudden or life threatening deterioration of the following system(s) required my full and direct attention, intervention and personal management. The time I documented below is in addition to time spent performing reported procedures but includes the following listed in this critical care notation. Medical Decision Making - Medical Records Medical records reviewed: Yes: I reviewed the patient's medical records. MR Comment: Seen by me on 04/27/2020 for opiate withdrawal. She was supposed to see Dr. Bingham 2 days after that, but did not. She says she still does not have a primary care provider. She was seen here on 04/29/2020 in the emergency department for symptoms of opiate withdrawal and signed out AGAINST MEDICAL ADVICE. Admitted to this hospital on 03/26/2020 for chest pain, signed out AGAINST MEDICAL ADVICE. - Mp Inquiry Pt receiving controlled substance: No Vital Signs: 05/26/20 10:33 Temperature 98.3 F Temperature Source Oral Pulse Rate [Left Radial] 77 Respiratory Rate 20 Blood Pressure [Right Arm] 113/62 Blood Pressure Mean [Right Arm] 79 Blood Pressure Source [Right Arm] Automatic Cuff Blood Pressure Position [Right Arm] Sitting 02 Sat by Pulse Oximetry 98 Oxygen Delivery Method Room Air - Lab Data Lab Results 05/26/20 10:50: Troponin I < 0.01 05/26/20 10:50: Lactate 1.0 05/26/20 10:50: WBC 6.8, RBC 5.37, Hgb 14.7, Hct 47.8 H, MCV 88.9, MCH 27.3, MCHC 30.7 L, RDW 16.6, Plt Count 314, MPV 7.6, Neut % (Auto) 77.1, Lymph % (Auto) 15.6, [place] % (Auto) 5.5, Eos % (Auto) 1.4, Baso % (Auto) 0.5, Neut # (Auto) 5.3, Lymph # (Auto) 1.1, [place] # (Auto) 0.4, Eos # (Auto) 0.1, Baso # (Auto) 0.0 05/26/20 10:50: Sodium 135 L, Potassium 3.6, Chloride 104, Carbon Dioxide 22, Anion Gap 12.6, BUN 7, Creatinine 0.50 L, Estimated Creat Clear 166, Estimated GFR 133, Est GFR ( Amer) 161, Glucose 308 H, Calcium 9.4, Total Bilirubin 0.6, AST 28, ALT 15, Alkaline Phosphatase 184 H, Total Protein 9.3 H, Albumin 4.4, Globulin 4.9 H, Albumin/Globulin Ratio 0.9 L Result diagrams: 05/26/20 10:50 05/26/20 10:50 Orders (Tests/Meds): ED MEDICATIONS Discontinued Medications Generic Name Dose Route Start Last Admin Trade Name Freq PRN Reason Stop Dose Admin Ketorolac Tromethamine 30 mg 05/26/20 11:11 05/26/20 11:27 Ketorolac 30mg/Ml Vial IV 05/26/20 11:12 30 mg ONCE ONE Administration Ondansetron HCl 4 mg 05/26/20 11:11 05/26/20 11:27 Ondansetron 4mg/2ml Vial IV 05/26/20 11:12 4 mg ONCE ONE Administration ORDERS Category Date Time Status Full Resp Panel w/COVID ([facility]) Routine Lab 05/26/20 10:50 Received Troponin I Q3H Lab 05/26/20 14:15 Ordered Troponin I Q3H Lab 05/26/20 17:15 Ordered Blood Culture Stat Micro 05/26/20 11:01 Received - Radiology Data #1 Image(s): Chest Image Reviewed: Yes I reviewed the patient's radiology image, Yes I have reviewed radiologist's interpretation PROCEDURE: XR CHEST 2V CLINICAL HISTORY: soa Shortness of air, smoker COMPARISON: CR CXR CHEST(2 VIEWS-N
--- NOTE | 2020-05-26 11:01 | XR_ITS ---
PROCEDURE: XR CHEST 2V CLINICAL HISTORY: soa Shortness of air, smoker COMPARISON: CR CXR CHEST(2 VIEWS-NOT PORTABLE) from 12/18/2013 CR CXR1 CHEST-PORTABLE from 12/11/2014 CR XR CHEST PORTABLE from 03/26/2020 FINDINGS: There has been a prior median sternotomy with mitral valve replacement. Right ventricular pacemaker present from left subclavian approach. Normal heart size. A EEG TECHNOLOGIST shunt traverses the right hemithorax. Mild atelectatic changes are present in the right in left lower lobe. Increased markings are present in the lower lobes on both sides and may be related to areas of atelectasis and/or infiltrate. No acute bony findings. Bone plate is present along the lower cervical spine IMPRESSION: Postsurgical changes with patchy density in both lower lobes which may indicate bilateral infiltrates and/or atelectatic change Dictated by: Liam Parrish MD 05/26/2020 11:49 Liam Parrish MD in [place] 05/26/2020 11:49
[2020-05-26 11:07] LABS: Adenovirus,PCR Not Detected (NotDetected); Bordetella Pertussis Not Detected (NotDetected); Chlamydophila Pneumoniae, PCR Not Detected (NotDetected); Coronavirus 19, PCR Not Detected (NotDetected); Coronavirus 229E Not Detected (NotDetected); Coronavirus NL63 Not Detected (NotDetected); Coronavirus OC43 Not Detected (NotDetected); Coronovirus HKU1,PCR Not Detected (NotDetected); Human Metapneumovirus Not Detected (NotDetected); Influenza A, PCR Not Detected (NotDetected); Influenza AH1, 2009 Not Detected (NotDetected); Influenza AH1, PCR Not Detected (NotDetected); Influenza AH3,PCR Not Detected (NotDetected); Influenza B, PCR Not Detected (NotDetected); Mycoplasma Pneumoniae, PCR Not Detected (NotDetected); Parainfluenza 1, PCR Not Detected (NotDetected); Parainfluenza 2, PCR Not Detected (NotDetected); Parainfluenza 3, PCR Not Detected (NotDetected); Parainfluenza 4, PCR Not Detected (NotDetected); Respiratory Syncytial Virus Not Detected (NotDetected)
--- NOTE | 2020-05-26 11:27 | PC.NURSE ---
pt gone to xray
[2020-05-26 11:30] VITALS: BP 127/81; PULSE 71; RESP 20; O2SAT 94
[2020-05-26 11:33] LABS: Troponin I < 0.01 ng/ml (0.00-0.034)
[2020-05-26 11:43] LABS: Basophils % 0.5 % (0.1-2.0); Eosinophils # 0.1 K/mm3 (0.0-0.4); Eosinophils % 1.4 % (0.1-12.0); Hematocrit 47.8 % (37.0-47.0); Hemoglobin 14.7 g/dL (12.2-16.2); Lymphocytes # 1.1 K/mm3 (0.7-4.5); Lymphocytes % 15.6 % (10-50); Mean Corpuscular HGB Conc 30.7 g/dL (31.8-35.4); Mean Corpuscular Hemoglobin 27.3 pg (27.0-31.2); Mean Corpuscular Volume 88.9 fl (81-99); Mean Platelet Volume 7.6 fl (7.4-10.4); Monocytes # 0.4 K/mm3 (0.1-1.0); Monocytes % 5.5 % (1.7-9.3); Neutrophils # 5.3 K/mm3 (1.8-7.8); Neutrophils % 77.1 % (37.0-80.0); Platelet Count 314 K/mm3 (142-424); Red Blood Count 5.37 M/mm3 (4.20-5.40); Red Cell Distribution Width 16.6 % (11.5-17.5); White Blood Count 6.8 K/mm3 (4.8-10.8)
[2020-05-26 11:46] LABS: Alanine Aminotransferase 15 U/L (12-78); Albumin Level 4.4 g/dl (3.5-5.0); Albumin/Globulin Ratio 0.9 (1.1-1.8); Alkaline Phosphatase 184 U/L (38-126); Anion Gap 12.6 mEq/L (5-15); Aspartate Amino Transferase 28 U/L (14-36); Bilirubin,Total 0.6 mg/dl (0.2-1.3); Blood Urea Nitrogen 7 mg/dl (7-17); Calcium 9.4 mg/dl (8.4-10.2); Carbon Dioxide 22 mmol/L (22.0-30.0); Chloride 104 mmol/L (98-107); Creatinine Clearance Estimated 166 mL/min (50-200); Estimated Glomerular Filt Rate 133 ml/min (>60); GFR (African American) 161 ML/MIN (>60); Globulin 4.9 g/dL (1.3-3.2); Glucose 308 mg/dl (74-100); Potassium 3.6 mmoL/L (3.5-5.1); Sodium 135 mmol/L (136-145); Total Protein,Serum 9.3 g/dl (6.3-8.2)
[2020-05-26 12:15] VITALS: BP 123/76; PULSE 75; RESP 18; O2SAT 96
--- NOTE | 2020-05-26 13:04 | PC.NURSE ---
pt states that her IV is burning and she wants the antibiotic stopped and wants it taken out. She does not want to be restuck for an IV
[2020-05-26 13:06] VITALS: BP 109/69; PULSE 76; RESP 19; TEMP 36.8; O2SAT 98
[2020-05-26 13:47] LABS: Rhinovirus/Enterovirus Detected (NotDetected)
== END 2020-05-26 13:08 | disposition home or self-care (01) ==
PROVIDERS: Emergency Provider Emergency Medicine
DX: J18.9 Pneumonia, unspecified organism (principal); B34.8 Other viral infections of unspecified site; I50.9 Heart failure, unspecified; Z95.2 Presence of prosthetic heart valve; I10 Essential (primary) hypertension; E78.5 Hyperlipidemia, unspecified
CPT/HCPCS: 71046; 80053; 83605; 84484; 85025; 87040; 87581; 87633; 87798; 93005; 96365; 96375; 99284; J1956; J2405

== ENCOUNTER 2020-06-12 18:30 | Emergency (ER) | payer MEDICARE, SELFPAY ==
--- NOTE | 2020-06-12 18:40 | XR_ITS ---
PROCEDURE: XR WRIST LT MIN 3V CLINICAL INDICATION: FALL Posttraumatic pain COMPARISON: No exams were available for comparison FINDINGS: No fracture or dislocation. No lytic or blastic change. There is normal mineralization. The joint spaces are well-preserved. No significant degenerative/arthritic changes. No erosive changes evident. Other findings:None. IMPRESSION: No acute findings. Dictated by: Liam Parrish MD 06/13/2020 05:38 Liam Parrish MD in [place] 06/13/2020 05:38
[2020-06-12 19:09] VITALS: BP 124/65; PULSE 65; RESP 19; TEMP 36.8; O2SAT 99; BMI 22.9
--- NOTE | 2020-06-12 19:20 | HMH.EDUTC ---
[facility] [place] Disposition Clinical Impression: Left wrist sprain Qualifiers: Encounter type: initial encounter Qualified Code(s): S63.502A - Unspecified sprain of left wrist, initial encounter Disposition: Home, Self-Care Condition on Discharge: Good Instructions: DI for Wrist Sprain, How To Perform RICE (Rest, Ice, Compress, Elevate) Additional Instructions: *RICE, Rest the extremity, Ice 15-20 minutes 3-4 times daily, Compress- wear the ganesh wrap as discussed as much as possible to help reduce swelling and pain, Elevate the extremity when at rest *Ganesh wrap/Velcro wrist splint is for support and help control swelling, use it except in the shower. Be sure that is not to tight but not to loose either *Elevate when resting *Ibuprofen every 6-8 hours as needed for pain an inflammation. If need something more can take Tylenol in between doses of Ibuprofen to help Immediately follow up with your family doctor for new or worsening of symptoms, or no noticeable improvement over the next 3-5 days Call back to the [facility] tomorrow for official Radiology Reading of your xray Return if needed Straight to ER if any life threatening symptoms Referrals: PCP,No [Primary Care Provider] - As needed Time of Disposition: 19:25 Medical Decision Making - Mp Inquiry Pt receiving controlled substance: No Mp was queried for this patient: No Vital Signs: 06/12/20 19:09 06/12/20 19:27 Temperature 98.3 F 98.3 F Temperature Source Oral Oral Pulse Rate 65 Pulse Rate [Right Brachial] 65 Respiratory Rate 19 19 Blood Pressure 124/65 Blood Pressure [Right Arm] 124/65 Blood Pressure Mean [Right Arm] 84 Blood Pressure Source Automatic Cuff Blood Pressure Source [Right Arm] Automatic Cuff Blood Pressure Position Sitting Blood Pressure Position [Right Arm] Sitting 02 Sat by Pulse Oximetry 99 Oxygen Delivery Method Room Air Room Air Orders (Tests/Meds): ORDERS Category Date Time Status XR wrist LT min 3V Stat Exams 06/12/20 18:40 Taken - Radiology Data #1 Image(s): Wrist Image Reviewed: Yes I reviewed the patient's radiology image Preliminary Findings: No Fracture Seen will place in velcro wrist splint and have patient call back to [facility] for official reading of xray [facility] [place] HPI - General Stated complaint: Fell hurt left wrist Time Seen by Provider: 06/12/20 19:20 Mode of Arrival: Ambulatory Source of Information: Patient Limitations: No Limitations Description of Symptoms (Recalled from Triage Doc. by RN): Fell at home around 1830 and hurt left wrist HEENT Symptoms (Recalled from RN notes): No Resp Symptoms (Recalled from RN notes): No Skin Symptoms (Recalled from RN notes): No MS Symptoms (Recalled from RN notes): Yes Functional Status (Recalled from RN notes): wnl - History of Present Illness Provider Complaint: Patient states that she fell about 30 min prior to arrival States that she loss her balance and fell on her left wrist area States that ever since she has been having pain with certain ways she moves it States that she is able to move her fingers but pain in wrist is shooting into her hand and she wanted to get it checked - Related Data Home Medications Medication Instructions Recorded Confirmed ARIPiprazole [Aripiprazole 20mg 20 mg PO DAILY 03/26/20 04/27/20 Tablet] Bumetanide 2 mg PO BID 03/26/20 04/27/20 Buprenorphine HCl/Naloxone HCl 1 each SL DAILY 03/26/20 04/27/20 [Suboxone 12 mg-3 mg Sl Film] Fluoxetine HCl 80 mg PO DAILY 03/26/20 04/27/20 Gabapentin [Gabapentin 400mg Cap] 800 mg PO TID 03/26/20 04/27/20 Insulin Degludec [Tresiba] 76 unit SQ DAILY 03/26/20 04/27/20 Insulin Lispro [Humalog] 0 unit SQ DAILY 03/26/20 04/27/20 Omeprazole [Omeprazole 40mg 40 mg PO DAILY 03/26/20 04/27/20 Capsule] Rivaroxaban [Xarelto 20mg Tablet*] 20 mg PO QPMWM 03/26/20 04/27/20 carvediloL [Carvedilol 6.25mg Tab] 9.375 mg PO BID 03/26/20 04/27/20 Previous Rx's Medication Instructions Recorded On
[2020-06-12 19:27] VITALS: BP 124/65; PULSE 65; RESP 19; TEMP 36.8; O2SAT 99
== END 2020-06-12 19:38 | disposition home or self-care (01) ==
PROVIDERS: Emergency Provider Nurse Practitioner
DX: S63.502A Unspecified sprain of left wrist, initial encounter (principal); W01.0XXA Fall on same level from slipping, tripping and stumbling without subsequent striking against object, initial encounter; Y92.019 Unspecified place in single-family (private) house as the place of occurrence of the external cause; E78.5 Hyperlipidemia, unspecified; I10 Essential (primary) hypertension; E11.9 Type 2 diabetes mellitus without complications; I50.9 Heart failure, unspecified; Z95.0 Presence of cardiac pacemaker; F17.210 Nicotine dependence, cigarettes, uncomplicated; Z88.5 Allergy status to narcotic agent; Z79.899 Other long term (current) drug therapy
CPT/HCPCS: 73110; 99202; G0463

== ENCOUNTER 2020-08-26 12:49 | Emergency (ER) | payer MEDICARE, SELFPAY ==
[2020-08-26] VITALS (8 sets, daily range): BP systolic 146–183; BP diastolic 71–104; PULSE 55–65; RESP 11–20; TEMP 36.7–36.8; O2SAT 96–99; BMI 21.8
--- NOTE | 2020-08-26 12:48 | ECG_ITS ---
APPROVED REPORT Exam: Resting ECG HR:64 bpm ECG Measurements Heart Rate 64 AXES QRSd 102 QRS 104 QT 478 T 84 QTc 493 Conclusion Undetermined rhythm Rightward axis Prolonged QT Abnormal ECG Electronically signed by : Evaristo Aguilar, 08/26/2020 17:39:53
--- NOTE | 2020-08-26 12:56 | XR_ITS ---
PROCEDURE: XR CHEST PORTABLE CLINICAL HISTORY: cp Chest pain COMPARISON: CR CXR1 CHEST-PORTABLE from 12/11/2014 CR XR CHEST PORTABLE from 03/26/2020 CR XR CHEST 2V from 05/26/2020 FINDINGS: Prior median sternotomy with mitral valve replacement. Pacemaker is present from left subclavian approach with the tip overlying the right ventricle area. There is a right sided HEAD MILLER shunt traversing the hemithorax. Heart size is normal. No evidence of CHF. The lungs are clear without infiltrates, suspicious nodules, or pleural effusions. Bone plate is present over the lower cervical spine. IMPRESSION: Postsurgical changes, no acute finding Dictated by: Liam Parrish MD 08/26/2020 13:33 Liam Parrish MD in [place] 08/26/2020 13:33
--- NOTE | 2020-08-26 12:58 | HMH.EDCP ---
ED Disposition Clinical Impression: Atypical chest pain Disposition: Home, Self-Care Condition on Discharge: Good Instructions: DI for Atypical Chest Pain Prescriptions: Ondansetron [Zofran 4mg ODT] 4 mg PO TIDP PRN #12 tab PRN Reason: Nausea Prescription Printed Referrals: Provider,Janae, [Primary Care Provider] - Evaristo Salazar MD [Staff Physician] - 3 days - Critical Care Critical Care Time: No Attestation: On , the high probability of a clinically significant, sudden or life threatening deterioration of the following system(s) required my full and direct attention, intervention and personal management. The time I documented below is in addition to time spent performing reported procedures but includes the following listed in this critical care notation. Medical Decision Making - Medical Records Medical records reviewed: Yes: I reviewed the patient's medical records. - Mp Inquiry Pt receiving controlled substance: No Vital Signs: 08/26/20 12:50 08/26/20 13:15 08/26/20 13:30 Temperature 98.2 F Temperature Source Oral Pulse Rate 57 L Pulse Rate [Right] 65 Respiratory Rate 14 12 12 Blood Pressure 146/104 H 158/85 H Blood Pressure [Right Arm] 174/74 H Blood Pressure Mean Blood Pressure Mean [Right Arm] 107 02 Sat by Pulse Oximetry 97 98 Oxygen Delivery Method Room Air 08/26/20 13:51 08/26/20 14:00 08/26/20 14:30 Temperature Temperature Source Pulse Rate 55 L 61 55 L Pulse Rate [Right] Respiratory Rate 11 L 15 17 Blood Pressure 183/85 H 165/84 H 163/81 H Blood Pressure [Right Arm] Blood Pressure Mean 103 108 Blood Pressure Mean [Right Arm] 02 Sat by Pulse Oximetry 99 97 Oxygen Delivery Method 08/26/20 15:00 Temperature Temperature Source Pulse Rate 57 L Pulse Rate [Right] Respiratory Rate 18 Blood Pressure 155/82 H Blood Pressure [Right Arm] Blood Pressure Mean 100 Blood Pressure Mean [Right Arm] 02 Sat by Pulse Oximetry 97 Oxygen Delivery Method - Lab Data Lab results reviewed: Yes: I reviewed the patient's lab results. Lab Results 08/26/20 13:16: WBC 8.1, RBC 4.98, Hgb 14.1, Hct 44.9, MCV 90.3, MCH 28.4, MCHC 31.4 L, RDW 16.4, Plt Count 332, MPV 7.6, Neut % (Auto) 70.8, Lymph % (Auto) 20.8, [place] % (Auto) 6.5, Eos % (Auto) 1.1, Baso % (Auto) 0.8, Neut # (Auto) 5.7, Lymph # (Auto) 1.7, [place] # (Auto) 0.5, Eos # (Auto) 0.1, Baso # (Auto) 0.1 08/26/20 13:16: Sodium 138, Potassium 4.0, Chloride 103, Carbon Dioxide 25, Anion Gap 14.0, BUN 11, Creatinine 0.60, Estimated Creat Clear 128, Estimated GFR 108, Est GFR ( Amer) 130, Glucose 169 H, Calcium 9.1, Total Bilirubin 0.6, AST 21, ALT 15, Alkaline Phosphatase 167 H, Troponin I < 0.01, Total Protein 8.9 H, Albumin 4.6, Globulin 4.3 H, Albumin/Globulin Ratio 1.1, Lipase 93 08/26/20 16:30: Troponin I < 0.01 Result diagrams: 08/26/20 13:16 08/26/20 13:16 Orders (Tests/Meds): ED MEDICATIONS Discontinued Medications Generic Name Dose Route Start Last Admin Trade Name Freq PRN Reason Stop Dose Admin Aspirin 325 mg 08/26/20 12:56 08/26/20 13:21 Aspirin 325mg Tablet PO 08/26/20 12:57 325 mg ONCE ONE Administration Sodium Chloride 500 mls @ 999 mls/hr 08/26/20 13:00 08/26/20 13:19 Sod Chlor 0.9% 1000ml Bag IV 08/26/20 13:30 999 mls/hr .Q31M ALEX Administration Ondansetron HCl 4 mg 08/26/20 12:56 08/26/20 13:20 Ondansetron 4mg/2ml Vial IV 08/26/20 12:57 4 mg ONCE ONE Administration Ondansetron HCl 4 mg 08/26/20 16:35 08/26/20 16:36 Ondansetron 4mg/2ml Vial IV 08/26/20 16:36 4 mg ONCE ONE Administration ORDERS Category Date Time Status Troponin I Q3H Lab 08/26/20 19:00 Ordered Medical Decision Narrative: Benign exam. Atypical chest pain pattern. Patient reports not having insulin for 6 months, however glucose is 157 here. Will not obtain a DKA work-up. We will do normal ACS rule out evaluation and a
--- NOTE | 2020-08-26 13:20 | PC.NURSE ---
Rad at bedside
[2020-08-26 13:40] LABS: Chloride 103 mmol/L (98-107); Sodium 138 mmol/L (136-145)
[2020-08-26 13:43] LABS: Alanine Aminotransferase 15 U/L (12-78); Alkaline Phosphatase 167 U/L (38-126); Aspartate Amino Transferase 21 U/L (14-36); Basophils # 0.1 K/mm3 (0-0.2); Basophils % 0.8 % (0.1-2.0); Bilirubin,Total 0.6 mg/dl (0.2-1.3); Blood Urea Nitrogen 11 mg/dl (7-17); Calcium 9.1 mg/dl (8.4-10.2); Carbon Dioxide 25 mmol/L (22.0-30.0); Creatinine Clearance Estimated 128 mL/min (50-200); Eosinophils # 0.1 K/mm3 (0.0-0.4); Eosinophils % 1.1 % (0.1-12.0); Estimated Glomerular Filt Rate 108 ml/min (>60); GFR (African American) 130 ML/MIN (>60); Glucose 169 mg/dl (74-100); Hematocrit 44.9 % (37.0-47.0); Hemoglobin 14.1 g/dL (12.2-16.2); Lipase 93 U/L (23-300); Lymphocytes # 1.7 K/mm3 (0.7-4.5); Lymphocytes % 20.8 % (10-50); Mean Corpuscular HGB Conc 31.4 g/dL (31.8-35.4); Mean Corpuscular Hemoglobin 28.4 pg (27.0-31.2); Mean Corpuscular Volume 90.3 fl (81-99); Mean Platelet Volume 7.6 fl (7.4-10.4); Monocytes # 0.5 K/mm3 (0.1-1.0); Monocytes % 6.5 % (1.7-9.3); Neutrophils # 5.7 K/mm3 (1.8-7.8); Neutrophils % 70.8 % (37.0-80.0); Platelet Count 332 K/mm3 (142-424); Red Blood Count 4.98 M/mm3 (4.20-5.40); Red Cell Distribution Width 16.4 % (11.5-17.5); White Blood Count 8.1 K/mm3 (4.8-10.8)
[2020-08-26 13:44] LABS: Albumin Level 4.6 g/dl (3.5-5.0); Albumin/Globulin Ratio 1.1 (1.1-1.8); Globulin 4.3 g/dL (1.3-3.2); Total Protein,Serum 8.9 g/dl (6.3-8.2)
[2020-08-26 14:00] LABS: Troponin I < 0.01 ng/ml (0.00-0.034)
[2020-08-26 17:11] LABS: Troponin I < 0.01 ng/ml (0.00-0.034)
[2020-08-26 20:42] LABS: POC Glucose,Bedside 157 (70-110)
== END 2020-08-26 17:45 | disposition home or self-care (01) ==
PROVIDERS: Emergency Provider Emergency Medicine
DX: R07.89 Other chest pain (principal); I48.0 Paroxysmal atrial fibrillation; I10 Essential (primary) hypertension; E78.5 Hyperlipidemia, unspecified; I50.9 Heart failure, unspecified; E11.9 Type 2 diabetes mellitus without complications; Z88.5 Allergy status to narcotic agent; Z79.84 Long term (current) use of oral hypoglycemic drugs
CPT/HCPCS: 71045; 80053; 82962; 83690; 84484; 85025; 93005; 96365; 96375; 99282; 99283; J2405

== ENCOUNTER 2020-09-07 17:53 | Emergency (ER) | payer MEDICARE, SELFPAY ==
[2020-09-07 17:58] VITALS: BP 137/63; PULSE 73; RESP 20; TEMP 37.3; O2SAT 97; BMI 22.4
--- NOTE | 2020-09-07 18:02 | XR_ITS ---
PROCEDURE INFORMATION: Exam: XR Right Ribs with PA Chest Exam date and time: 09/07/2020 6:02 PM Age: 45 years old Clinical indication: Chest wall pain; Right; Prior surgery; Surgery date: 6+ months; Surgery type: Pacemaker and shunt TECHNIQUE: Imaging protocol: XR Right ribs with PA chest. Views: 3 views COMPARISON: CR XR CHEST PORTABLE 08/26/2020 1:23 PM FINDINGS: Tubes, catheters and devices: Catheter tubing projects over the right neck, thorax, and abdomen, likely ventriculoperitoneal shunt tubing. Left subclavian transvenous single lead AICD/pacemaker. Lungs: Calcified right hilar lymph nodes, compatible with prior granulomatous disease. Calcified granulomas within the right lower lobe. Mild bibasilar streaky linear and minimal ground-glass opacities, likely areas of atelectasis/scarring and/or minimal pneumonitis. Pleural spaces: No pneumothorax. Heart/Mediastinum: See Lungs finding. Bones/joints: Surgical changes of prior anterior cervical discectomy and fusion. Changes of prior sternotomy and aortic valve repair. Multilevel thoracic spine degenerative disc disease. IMPRESSION: 1. Mild bibasilar streaky linear and minimal ground-glass opacities, likely areas of atelectasis/scarring and/or minimal pneumonitis. 2. Left subclavian transvenous single lead AICD/pacemaker. No pneumothorax.
--- NOTE | 2020-09-07 18:21 | HMH.EDUTC ---
[facility] [place] Clinical Impression: Contusion of rib on right side Qualifiers: Encounter type: initial encounter Qualified Code(s): S20.211A - Contusion of right front wall of thorax, initial encounter Disposition: Home, Self-Care Condition on Discharge: Good Instructions: DI for Rib Contusion Additional Instructions: rest rotate heat and Ice with cold pack for 20 minutes remove may repeat for comfort every hour- make sure skin is back to room temp before place heat or ice Tylenol every 4 hours as needed as long as her primary care has told he was okayed for you to take both. If improving any do not need to follow-up you can bring begin exercising 2-3 weeks after injury. Follow-up immediately if new or worsening symptoms or no noticeable improvement over the next 3-5 days. follow up with pcp Referrals: Provider,Referral, [Primary Care Provider] - Time of Disposition: 18:40 Medical Decision Making - Mp Inquiry Pt receiving controlled substance: No Vital Signs: 09/07/20 17:58 Temperature 99.1 F Temperature Source Oral Pulse Rate [Left] 73 Respiratory Rate 20 Blood Pressure [Right Arm] 137/63 Blood Pressure Mean [Right Arm] 87 02 Sat by Pulse Oximetry 97 Oxygen Delivery Method Room Air Orders (Tests/Meds): ORDERS Category Date Time Status XR ribs RT min 3V w CXR1V Stat Exams 09/07/20 18:02 Taken - Radiology Data #1 Image(s): Chest Image Reviewed: Yes I reviewed the patient's radiology image w/the ED provider Preliminary Findings: Normal/NAD [facility] [place] - General Chief complaint: [facility] Stated complaint: AO 09/07@1500 injured r Ribs Time Seen by Provider: 09/07/20 18:27 Mode of Arrival: Ambulatory Source of Information: Patient Limitations: No Limitations Description of Symptoms (Recalled from Triage Doc. by RN): pt was leaning over her center console and fell with all her weight on her right ribs. pt is having sharp, shooting and throbbing pain 10/10. pt is breathing shallow. HEENT Symptoms (Recalled from RN notes): No Resp Symptoms (Recalled from RN notes): No Skin Symptoms (Recalled from RN notes): No MS Symptoms (Recalled from RN notes): Yes (R rib pain) Functional Status (Recalled from RN notes): na - History of Present Illness Provider Complaint: 45 yr old female presents for rt rib pain.pt states was leaning over her center console and fell with all her weight on her right ribs. pt is having sharp, shooting and throbbing pain 10/10. pain with breathing - Related Data Previous Rx's Medication Instructions Recorded carvedilol 6.25 mg tablet 6.25 mg PO BID #60 tab 08/29/20 rivaroxaban 20 mg tablet 20 mg PO DAILY #30 tab 09/03/20 Allergies Allergy/AdvReac Type Severity Reaction Status Date / Time morphine [MORPHINE] Allergy Mild Verified 09/07/20 18:28 hydrocodone [From LORTAB] Allergy Unknown Verified 09/07/20 18:28 azithromycin Allergy Verified 09/07/20 18:28 bupropion [From Wellbutrin] Allergy Verified 09/07/20 18:28 - Worker's Comp Is this a Worker's Comp case?: No H History - Hepatitis A Screen Drug use history?: No High risk sexual behaviors?: No History of sexually transmitted infection?: No Currently employed?: No Childcare worker?: No Do you have indoor plumbing?: Yes Do you have electricity?: Yes Attestation statement:: This patient has been screened for Hepatitis A risk factors. I have reviewed the patient's past medical history: Yes Medical History: Reports:: Atrial Fibrillation, Congestive Heart Failure, Diabetes Mellitus Type 2, Hyperlipidemia, Hypertension, Internal Pacemaker, MRSA, Palpitations Denies:: Cancer, Diabetes Mellitus Type 1 Other Medical History: Reports: Arthritis Comment: AVM; pseudotumor cercbri Laterality Cases: Bilateral: Tonsillectomy Other Surgeries: Yes: Cardiac Catheterization, Cardiac Surgery, Cholecystectomy, , Hysterectomy-Total, Mitral Valve Replacement, Pacemaker Amputation: N
[2020-09-07 18:35] VITALS: BP 000/00; PULSE 79; RESP 21; TEMP 37.2
== END 2020-09-07 18:44 | disposition home or self-care (01) ==
PROVIDERS: Emergency Provider Nurse Practitioner Family
DX: S20.211A Contusion of right front wall of thorax, initial encounter (principal); W22.8XXA Striking against or struck by other objects, initial encounter; Y92.9 Unspecified place or not applicable; I48.91 Unspecified atrial fibrillation; E11.9 Type 2 diabetes mellitus without complications; I10 Essential (primary) hypertension; E78.5 Hyperlipidemia, unspecified; I50.9 Heart failure, unspecified; F17.210 Nicotine dependence, cigarettes, uncomplicated; Z79.899 Other long term (current) drug therapy
CPT/HCPCS: G0463; 71101; 99202

== ENCOUNTER 2020-09-12 11:23 | Emergency (ER) | payer MEDICARE, SELFPAY ==
[2020-09-12] VITALS (8 sets, daily range): BP systolic 89–211; BP diastolic 46–100; PULSE 56–68; RESP 15–20; TEMP 36.5; O2SAT 97–99; BMI 22.4; BMI 34.3
--- NOTE | 2020-09-12 11:21 | ECG_ITS ---
APPROVED REPORT Exam: Resting ECG HR:60 bpm ECG Measurements Heart Rate 60 AXES NH 162 P -9 QRSd 94 QRS 105 QT 514 T 94 QTc 514 Conclusion Normal sinus rhythm Rightward axis Anterior changes are old Prolonged QT Abnormal ECG Electronically signed by : Evaristo Aguilar, 09/14/2020 15:24:59
--- NOTE | 2020-09-12 11:26 | XR_ITS ---
PROCEDURE: XR CHEST 2V CLINICAL HISTORY: chest pain COMPARISON: CR XR CHEST 2V from 05/26/2020 CR XR CHEST PORTABLE from 08/26/2020 CR XR RIBS RT MIN 3V W CXR1V from 09/07/2020 FINDINGS: Median sternotomy and mediastinal clips are noted. Aortic valve replacement is noted. Single-chamber pacemaker is noted. There is a tubing noted projecting over the right hemithorax extending from the neck to the upper abdomen, partially visualized, likely represents a SUGARCANE PLANTER shunt. The cardiomediastinal silhouette and pulmonary vascularity are within normal limits. Bilateral mid and lower zone atelectasis, demonstrates no significant interval change compared to prior study. Visualized osseous structures are otherwise unremarkable IMPRESSION: . status post CABG. Bilateral mid and lower zone atelectasis. No significant interval change compared to prior studies. Dictated by: Shauna Gomez 09/12/2020 12:13 Shauna Gomez in [place] 09/12/2020 12:13
[2020-09-12 11:34] LABS: Basophils % 0.4 % (0.1-2.0); Eosinophils # 0.1 K/mm3 (0.0-0.4); Hematocrit 45.4 % (37.0-47.0); Hemoglobin 14.2 g/dL (12.2-16.2); Lymphocytes # 1.4 K/mm3 (0.7-4.5); Lymphocytes % 14.5 % (10-50); Mean Corpuscular HGB Conc 31.3 g/dL (31.8-35.4); Mean Corpuscular Hemoglobin 28.5 pg (27.0-31.2); Mean Corpuscular Volume 90.9 fl (81-99); Mean Platelet Volume 8.1 fl (7.4-10.4); Monocytes # 0.5 K/mm3 (0.1-1.0); Monocytes % 5.5 % (1.7-9.3); Neutrophils # 7.5 K/mm3 (1.8-7.8); Neutrophils % 78.7 % (37.0-80.0); Platelet Count 296 K/mm3 (142-424); Red Cell Distribution Width 16.4 % (11.5-17.5); White Blood Count 9.5 K/mm3 (4.8-10.8)
[2020-09-12 11:42] LABS: Anion Gap 15.7 mEq/L (5-15); Blood Urea Nitrogen 7 mg/dl (7-17); Calcium 9.2 mg/dl (8.4-10.2); Carbon Dioxide 23 mmol/L (22.0-30.0); Chloride 102 mmol/L (98-107); Creatinine Clearance Estimated 201 mL/min (50-200); Estimated Glomerular Filt Rate 133 ml/min (>60); GFR (African American) 161 ML/MIN (>60); Glucose 277 mg/dl (74-100); Potassium 3.7 mmoL/L (3.5-5.1); Sodium 137 mmol/L (136-145)
[2020-09-12 11:47] LABS: Lipase 101 U/L (23-300)
[2020-09-12 11:55] LABS: Troponin I < 0.01 ng/ml (0.00-0.034)
--- NOTE | 2020-09-12 12:02 | PC.NURSE ---
Pt to rad
--- NOTE | 2020-09-12 12:08 | PC.NURSE ---
Pt returned from rad
--- NOTE | 2020-09-12 12:12 | HMH.EDCP ---
ED Disposition Clinical Impression: Dyspepsia Nausea & vomiting Qualifiers: Vomiting type: unspecified Vomiting Intractability: non-intractable Qualified Code(s): R11.2 - Nausea with vomiting, unspecified HTN (hypertension) Qualifiers: Hypertension type: primary hypertension Qualified Code(s): I10 - Essential (primary) hypertension Disposition: Home, Self-Care Condition on Discharge: Good Instructions: DI for Dyspepsia Prescriptions: Promethazine HCl [Phenergan 25mg tab] 25 mg PO Q6H PRN #10 tab PRN Reason: Nausea And Vomiting Transmission Status: Pending to [facility] #[id number] Referrals: Provider,Referral, [Primary Care Provider] - - Critical Care Critical Care Time: No Attestation: On 09/12/20, the high probability of a clinically significant, sudden or life threatening deterioration of the following system(s) required my full and direct attention, intervention and personal management. The time I documented below is in addition to time spent performing reported procedures but includes the following listed in this critical care notation. Medical Decision Making - Medical Records Medical records reviewed: Yes: I reviewed the patient's medical records. - Mp Inquiry Pt receiving controlled substance: No Vital Signs: 09/12/20 11:23 09/12/20 11:31 09/12/20 12:00 Temperature 97.7 F Temperature Source Oral Pulse Rate 61 56 L Pulse Rate [Right Radial] 60 Respiratory Rate 20 15 16 Blood Pressure 208/87 H 201/96 H Blood Pressure [Left Arm] 210/100 H Blood Pressure [Right Arm] 202/88 H Blood Pressure Mean 182 150 Blood Pressure Mean [Left Arm] 136 Blood Pressure Mean [Right Arm] 126 Blood Pressure Source [Left Arm] Manual Cuff/ Auscultation Blood Pressure Source [Right Arm] Automatic Cuff Blood Pressure Position [Left Arm] Sitting Blood Pressure Position [Right Arm] Sitting 02 Sat by Pulse Oximetry 99 98 97 Oxygen Delivery Method Room Air 09/12/20 12:30 09/12/20 13:00 Temperature Temperature Source Pulse Rate 62 61 Pulse Rate [Right Radial] Respiratory Rate 18 18 Blood Pressure 211/100 H 206/91 H Blood Pressure [Left Arm] Blood Pressure [Right Arm] Blood Pressure Mean 137 129 Blood Pressure Mean [Left Arm] Blood Pressure Mean [Right Arm] Blood Pressure Source [Left Arm] Blood Pressure Source [Right Arm] Blood Pressure Position [Left Arm] Blood Pressure Position [Right Arm] 02 Sat by Pulse Oximetry 99 99 Oxygen Delivery Method - Lab Data Lab Results 09/12/20 11:25: WBC 9.5, RBC 5.00, Hgb 14.2, Hct 45.4, MCV 90.9, MCH 28.5, MCHC 31.3 L, RDW 16.4, Plt Count 296, MPV 8.1, Neut % (Auto) 78.7, Lymph % (Auto) 14.5, [place] % (Auto) 5.5, Eos % (Auto) 1.0, Baso % (Auto) 0.4, Neut # (Auto) 7.5, Lymph # (Auto) 1.4, [place] # (Auto) 0.5, Eos # (Auto) 0.1, Baso # (Auto) 0.0 09/12/20 11:25: Sodium 137, Potassium 3.7, Chloride 102, Carbon Dioxide 23, Anion Gap 15.7 H, BUN 7, Creatinine 0.50 L, Estimated Creat Clear 201, Estimated GFR 133, Est GFR ( Amer) 161, Glucose 277 H, Calcium 9.2, Troponin I < 0.01 09/12/20 11:25: Lipase 101 09/12/20 11:25: Acetone Level None detected 09/12/20 12:43: VBG pH 7.50 H, VBG pCO2 26.2 L, VBG pO2 51.2 H, VBG HCO3 19.8 L, VBG Total CO2 20.6 L, VBG O2 Saturation 90.4 H, VBG Base Excess -3.4 L Result diagrams: 09/12/20 11:25 09/12/20 11:25 Orders (Tests/Meds): ED MEDICATIONS Generic Name Dose Route Start Last Admin Trade Name Freq PRN Reason Stop Dose Admin Sodium Chloride 10 ml 09/12/20 12:58 Sodium Chloride 0.9% 10ml Vial IV 10/12/20 12:57 NEEDED PRN to Dilute Lorazepam inj Discontinued Medications Generic Name Dose Route Start Last Admin Trade Name Freq PRN Reason Stop Dose Admin Acetaminophen 650 mg 09/12/20 12:46 09/12/20 12:48 Acetaminophen 325mg Tab PO 09/12/20 12:47 650 mg ONCE ONE Administration Aspirin 324 mg 09/12/20 11:41 09/12/20 11:41
[2020-09-12 12:57] LABS: Acetone, Serum (Rapid) None Detected (None Detect)
[2020-09-12 12:59] LABS: VBG Base Excess -3.4 mmol/L (-2.4-2.3); VBG HCO3 19.8 mmol/L (23-30); VBG Oxygen Saturation 90.4 % (50-70); VBG PCO2 26.2 mmol/L (35-51); VBG PO2 51.2 mmol/L (28-40); VBG Total CO2 20.6 mmol/L (23-27)
--- NOTE | 2020-09-12 13:09 | PC.NURSE ---
Dr Chew spoke with Ashlee Paniagua with cardiology, she is in with pt at this time.
--- NOTE | 2020-09-12 14:14 | PC.NURSE ---
Pt called for a ride. Sitting in bed with no complaints at this time.
== END 2020-09-12 14:23 | disposition home or self-care (01) ==
PROVIDERS: Emergency Provider Emergency Medicine
DX: R10.13 Epigastric pain (principal); I10 Essential (primary) hypertension; E78.5 Hyperlipidemia, unspecified; I48.0 Paroxysmal atrial fibrillation; F17.210 Nicotine dependence, cigarettes, uncomplicated; Z79.899 Other long term (current) drug therapy
CPT/HCPCS: 71046; 80048; 82009; 82803; 83690; 84484; 85025; 93005; 96365; 96366; 96375; 99283

== ENCOUNTER 2020-10-10 13:47 | Emergency (ER) | payer MEDICARE, SELFPAY ==
[2020-10-10 14:12] VITALS: BP 146/87; PULSE 63; RESP 16; TEMP 36.8; O2SAT 98; BMI 24.7
--- NOTE | 2020-10-10 15:07 | HMH.EDUTC ---
[facility] [place]ression: Otitis media Qualifiers: Otitis media type: suppurative Chronicity: acute Laterality: bilateral Recurrence: non-recurrent Spontaneous tympanic membrane rupture: without spontaneous rupture Qualified Code(s): H66.003 - Acute suppurative otitis media without spontaneous rupture of ear drum, bilateral Disposition: Home, Self-Care Condition on Discharge: Good Instructions: Middle Ear Infection Additional Instructions: Drink plenty of fluids. Take tylenol or ibuprofen for pain or fever. Take the medications as directed. Follow up with your regular doctor. GO TO THE ER FOR ANY WORSENING SYMPTOMS Follow your diabetic diet closely while you are on the steroids (prednisone). Prescriptions: Amoxicillin/Potassium Clav [Augmentin 875-125 Tablet] 1 tab PO Q12H 10 Days #20 tab Transmission Status: Received by [facility] [employer] predniSONE [Deltasone 10mg tablet] 10 mg PO BID 8 Days #4 tab Transmission Status: Received by [facility] Referrals: Provider,Referral, MD [Primary Care Provider] - Time of Disposition: 15:15 Medical Decision Making - Medical Records Medical records reviewed: No: I reviewed the patient's medical records. - Mp Inquiry Pt receiving controlled substance: No Vital Signs: 10/10/20 14:12 10/10/20 15:15 Temperature 98.2 F 98.2 F Temperature Source Oral Pulse Rate 63 Pulse Rate [Left Radial] 63 Respiratory Rate 16 16 Blood Pressure 146/87 H Blood Pressure [Left Arm] 146/87 H Blood Pressure Mean [Left Arm] 106 Blood Pressure Source [Left Arm] Automatic Cuff Blood Pressure Position [Left Arm] Sitting 02 Sat by Pulse Oximetry 98 Oxygen Delivery Method Room Air [facility] [place] - General Stated complaint: left ear pain Time Seen by Provider: 10/10/20 15:07 Mode of Arrival: Ambulatory Source of Information: Patient Limitations: No Limitations Description of Symptoms (Recalled from Triage Doc. by RN): pt c/o L ear and jaw pain for approx 3 days. Denies fevers. HEENT Symptoms (Recalled from RN notes): Yes (c/o L ear pain and jaw pain) Resp Symptoms (Recalled from RN notes): No Skin Symptoms (Recalled from RN notes): No MS Symptoms (Recalled from RN notes): No Functional Status (Recalled from RN notes): n/a - History of Present Illness Provider Complaint: She c/o left ear pain for the past 3 days. She states that it is sore around her ear also. She denies any discharge from her ear. - Related Data Previous Rx's Medication Instructions Recorded carvedilol 6.25 mg tablet 6.25 mg PO BID #60 tab 08/29/20 rivaroxaban 20 mg tablet 20 mg PO DAILY #30 tab 09/03/20 Promethazine HCl [Phenergan 25mg 25 mg PO Q6H PRN #10 tab 09/12/20 tab] Amoxicillin/Potassium Clav 1 tab PO Q12H 10 Days #20 tab 10/10/20 [Augmentin 875-125 Tablet] predniSONE [Deltasone 10mg tablet] 10 mg PO BID 8 Days #4 tab 10/10/20 Allergies Allergy/AdvReac Type Severity Reaction Status Date / Time morphine [MORPHINE] Allergy Mild Verified 09/07/20 18:28 hydrocodone [From LORTAB] Allergy Unknown Verified 09/07/20 18:28 azithromycin Allergy Verified 09/07/20 18:28 bupropion [From Wellbutrin] Allergy Verified 09/07/20 18:28 - Worker's Comp Is this a Worker's Comp case?: No [facility] History - Hepatitis A Screen Drug use history?: No High risk sexual behaviors?: No History of sexually transmitted infection?: No Currently employed?: No Childcare worker?: No Do you have indoor plumbing?: Yes Do you have electricity?: Yes Attestation statement:: This patient has been screened for Hepatitis A risk factors. I have reviewed the patient's past medical history: Yes Medical History: Reports:: Atrial Fibrillation, Congestive Heart Failure, Diabetes Mellitus Type 1, Diabetes Mellitus Type 2, Hyperlipidemia, Hypertension, Internal Pacemaker, MRSA, Palpitations Denies:: Cancer Other Medical History: Reports: Arthritis Comment: KENA
[2020-10-10 15:15] VITALS: BP 146/87; PULSE 63; RESP 16; TEMP 36.8; O2SAT 98
== END 2020-10-10 15:18 | disposition home or self-care (01) ==
PROVIDERS: Emergency Provider Nurse Practitioner Family
DX: H66.003 Acute suppurative otitis media without spontaneous rupture of ear drum, bilateral (principal); E11.9 Type 2 diabetes mellitus without complications; I10 Essential (primary) hypertension; I48.0 Paroxysmal atrial fibrillation; I50.9 Heart failure, unspecified; F17.210 Nicotine dependence, cigarettes, uncomplicated
CPT/HCPCS: G0463; 99202

== ENCOUNTER 2020-10-13 11:38 | Emergency (ER) | payer MEDICARE, SELFPAY ==
--- NOTE | 2020-10-13 11:31 | ECG_ITS ---
APPROVED REPORT Exam: Resting ECG HR:57 bpm ECG Measurements Heart Rate 57 AXES [place] 172 P QRSd 98 QRS 92 QT 510 T 95 QTc 496 Conclusion Sinus bradycardia Rightward axis Old anteroseptal changes Abnormal ECG Electronically signed by : Evaristo Aguilar MD 10/14/2020 18:03:05
[2020-10-13 11:39] VITALS: BP 181/73; PULSE 62; RESP 18; TEMP 36.6; O2SAT 97; BMI 23.5
--- NOTE | 2020-10-13 11:43 | XR_ITS ---
PROCEDURE INFORMATION: Exam: XR Chest Exam date and time: 10/13/2020 11:43 AM Age: 45 years old Clinical indication: Prior surgery; Surgery date: 6+ months; Surgery type: Cabg, cardiac stents, pacemaker. ; Patient HX: Cough, smoker, chest hurts. TECHNIQUE: Imaging protocol: XR of the chest. Views: 1 view. COMPARISON: CR XR CHEST 2V 09/12/2020 11:56 AM FINDINGS: Tubes, catheters and devices: Pacer stable. BUTCHER FISH shunt noted. Lungs: Airspace opacities right base and left mid and lower lung zones compatible with multifocal pneumonia. Recommend follow-up to resolution. Pleural spaces: Unremarkable. No pleural effusion. No pneumothorax. Heart/Mediastinum: Unremarkable. No cardiomegaly. Bones/joints: Median sternotomy wires. IMPRESSION: Airspace opacities right base and left mid and lower lung zones compatible with multifocal pneumonia. Recommend follow-up to resolution.
[2020-10-13 11:45] VITALS: BP 177/89; PULSE 47; RESP 12; O2SAT 95
[2020-10-13 11:51] LABS: Basophils # 0.1 K/mm3 (0-0.2); Basophils % 0.6 % (0.1-2.0); Eosinophils # 0.1 K/mm3 (0.0-0.4); Hematocrit 49.5 % (37.0-47.0); Hemoglobin 15.3 g/dL (12.2-16.2); Lymphocytes # 1.4 K/mm3 (0.7-4.5); Lymphocytes % 13.9 % (10-50); Mean Corpuscular Hemoglobin 29.5 pg (27.0-31.2); Mean Corpuscular Volume 95.3 fl (81-99); Mean Platelet Volume 8.4 fl (7.4-10.4); Monocytes # 0.5 K/mm3 (0.1-1.0); Monocytes % 4.5 % (1.7-9.3); Neutrophils % 79.9 % (37.0-80.0); Platelet Count 328 K/mm3 (142-424); Red Blood Count 5.19 M/mm3 (4.20-5.40); Red Cell Distribution Width 15.8 % (11.5-17.5)
[2020-10-13 11:54] LABS: Chloride 104 mmol/L (98-107); Potassium 3.6 mmoL/L (3.5-5.1); Sodium 142 mmol/L (136-145)
[2020-10-13 11:57] LABS: Alanine Aminotransferase 21 U/L (12-78); Albumin Level 4.3 g/dl (3.5-5.0); Alkaline Phosphatase 178 U/L (38-126); Anion Gap 19.6 mEq/L (5-15); Aspartate Amino Transferase 25 U/L (14-36); Bilirubin,Total 0.6 mg/dl (0.2-1.3); Blood Urea Nitrogen 11 mg/dl (7-17); Calcium 9.1 mg/dl (8.4-10.2); Carbon Dioxide 22 mmol/L (22.0-30.0); Creatinine Clearance Estimated 118 mL/min (50-200); Estimated Glomerular Filt Rate 90 ml/min (>60); GFR (African American) 109 ML/MIN (>60); Globulin 4.3 g/dL (1.3-3.2); Glucose 283 mg/dl (74-100); Lipase 96 U/L (23-300); Total Protein,Serum 8.6 g/dl (6.3-8.2)
--- NOTE | 2020-10-13 11:57 | HMH.EDCP ---
ED Disposition Clinical Impression: Chronic abdominal pain Chest pain Qualifiers: Chest pain type: unspecified Qualified Code(s): R07.9 - Chest pain, unspecified Disposition: Left Against Medical Advice Condition on Discharge: Fair Instructions: DI for Chronic Pain -- Adult Referrals: Provider,Referral, [Primary Care Provider] - - Critical Care Critical Care Time: No Attestation: On 10/13/20, the high probability of a clinically significant, sudden or life threatening deterioration of the following system(s) required my full and direct attention, intervention and personal management. The time I documented below is in addition to time spent performing reported procedures but includes the following listed in this critical care notation. Medical Decision Making - Medical Records Medical records reviewed: Yes: I reviewed the patient's medical records. - Mp Inquiry Pt receiving controlled substance: No Vital Signs: 10/13/20 11:39 10/13/20 11:45 10/13/20 12:00 Temperature 97.8 F Temperature Source Oral Pulse Rate 47 L Pulse Rate [Right] 62 Respiratory Rate 18 12 14 Blood Pressure 177/89 H 177/89 H Blood Pressure [Right Arm] 181/73 H Blood Pressure Mean 127 Blood Pressure Mean [Right Arm] 109 02 Sat by Pulse Oximetry 97 95 Oxygen Delivery Method Room Air - Lab Data Lab Results 10/13/20 11:40: WBC 10.0, RBC 5.19, Hgb 15.3, Hct 49.5 H, MCV 95.3, MCH 29.5, MCHC 31.0 L, RDW 15.8, Plt Count 328, MPV 8.4, Neut % (Auto) 79.9, Lymph % (Auto) 13.9, [place] % (Auto) 4.5, Eos % (Auto) 1.0, Baso % (Auto) 0.6, Neut # (Auto) 8.0 H, Lymph # (Auto) 1.4, [place] # (Auto) 0.5, Eos # (Auto) 0.1, Baso # (Auto) 0.1 10/13/20 11:40: Sodium 142, Potassium 3.6, Chloride 104, Carbon Dioxide 22, Anion Gap 19.6 H, BUN 11, Creatinine 0.70, Estimated Creat Clear 118, Estimated GFR 90, Est GFR ( Amer) 109, Glucose 283 H, Calcium 9.1, Total Bilirubin 0.6, AST 25, ALT 21, Alkaline Phosphatase 178 H, Troponin I < 0.01, Total Protein 8.6 H, Albumin 4.3, Globulin 4.3 H, Albumin/Globulin Ratio 1.0 L, Lipase 96 Result diagrams: 10/13/20 11:40 10/13/20 11:40 Orders (Tests/Meds): ED MEDICATIONS Discontinued Medications Generic Name Dose Route Start Last Admin Trade Name Freq PRN Reason Stop Dose Admin Haloperidol Lactate 2 mg 10/13/20 13:14 10/13/20 13:20 Haloperidol Lactate 5 Mg/Ml Vial IV 10/13/20 13:15 2 mg ONCE ONE Administration Sodium Chloride 1,000 mls @ 999 mls/hr 10/13/20 11:45 10/13/20 12:05 Sod Chlor 0.9% 1000ml Bag IV 10/13/20 12:45 999 mls/hr .Q1H1M ALEX Administration Promethazine HCl 25 mg 10/13/20 11:43 10/13/20 12:06 Promethazine Hcl 25mg/Ml 1ml Vial IV 10/13/20 11:44 25 mg ONCE ONE Administration Sodium Chloride 25 ml 10/13/20 11:43 10/13/20 12:06 Sodium Chloride 0.9% 25ml Bag IV 10/13/20 11:44 25 ml ONCE ONE Administration ORDERS Category Date Time Status Troponin I Q3H Lab 10/13/20 14:45 Ordered Troponin I Q3H Lab 10/13/20 17:45 Ordered Urinalysis and Microscopic Stat Lab 10/13/20 11:43 Ordered - Radiology Data #1 Image(s): Chest Image Reviewed: Yes I reviewed the patient's radiology results, Yes I reviewed the patient's radiology image, Yes I have reviewed radiologist's interpretation IMPRESSION: Airspace opacities right base and left mid and lower lung zones compatible with multifocal pneumonia. Recommend follow-up to resolution. - Reevaluation(s) Time: 14:07 Reevaluation #1: On reevaluation, patient is feeling much better. She still has not provided urine. Patient states that she wants to leave right now. She is feeling just fine. I did explain to the patient that I would like to finish her work-up as well as getting respiratory swab given her multifocal pneumonia. Patient states that she is not staying anymore. She wants to sign out AGAINST MEDICAL ADVICE. Medical Decision Narrative: Is a 45-
[2020-10-13 12:00] VITALS: BP 177/89; RESP 14
[2020-10-13 12:10] LABS: Troponin I < 0.01 ng/ml (0.00-0.034)
[2020-10-13 13:16] VITALS: BP 197/96; PULSE 56; RESP 16; O2SAT 99
--- NOTE | 2020-10-13 14:13 | PC.NURSE ---
Pt states that she doesnt feel good and she wants to go home. States we havent done anything for her. Instructed she can always return if needed. MD ward
[2020-10-13 14:17] VITALS: BP 197/96; PULSE 56; RESP 16; TEMP 36.6; O2SAT 99
== END 2020-10-13 14:22 | disposition left against medical advice (07) ==
PROVIDERS: Emergency Provider Emergency Medicine
DX: R10.13 Epigastric pain (principal); R07.9 Chest pain, unspecified; E78.5 Hyperlipidemia, unspecified; I48.0 Paroxysmal atrial fibrillation; I10 Essential (primary) hypertension; Z87.442 Personal history of urinary calculi; F17.210 Nicotine dependence, cigarettes, uncomplicated; E11.65 Type 2 diabetes mellitus with hyperglycemia; Z88.5 Allergy status to narcotic agent; Z79.899 Other long term (current) drug therapy
CPT/HCPCS: 71045; 80053; 83690; 84484; 85025; 93005; 96365; 96375; 99283

== ENCOUNTER 2020-10-31 16:05 | Emergency (ER) | payer MEDICARE, SELFPAY ==
[2020-10-31 16:06] VITALS: BP 169/87; PULSE 82; RESP 16; TEMP 36.6; O2SAT 97; BMI 24.3
--- NOTE | 2020-10-31 16:23 | HMH.EDGENADL ---
ED Disposition Clinical Impression: Opiate withdrawal Disposition: Home, Self-Care Condition on Discharge: Good Additional Instructions: You have been evaluated for symptoms of withdrawal. Please take Suboxone as needed. Follow-up with your primary care doctor and the recovery clinic. Return to the emergency department for any new or worsening symptoms. Prescriptions: Buprenorphine HCl/Naloxone HCl [Suboxone 4 mg-1 mg Sl Film] 1 each SL DAILY #7 film Prescription Printed Referrals: Provider,Referral, [Primary Care Provider] - Time of Disposition: 16:31 - Critical Care Critical Care Time: No Attestation: On 10/31/20, the high probability of a clinically significant, sudden or life threatening deterioration of the following system(s) required my full and direct attention, intervention and personal management. The time I documented below is in addition to time spent performing reported procedures but includes the following listed in this critical care notation. Medical Decision Making - Medical Records Medical records reviewed: Yes: I reviewed the patient's medical records. - Mp Inquiry Pt receiving controlled substance: No Orders (Tests/Meds): ED MEDICATIONS Generic Name Dose Route Start Last Admin Trade Name Freq PRN Reason Stop Dose Admin Buprenorphine/Naloxone 0.5 each 10/31/20 16:30 Buprenorphine/Naloxone 8mg/2mg Odt SL 10/31/20 16:31 ONCE ONE Medical Decision Narrative: In summary this is a 45-year-old female with history of opiate use disorder presenting to the emergency department with feelings of withdrawal, tremulousness. Patient clinically stable on arrival. Vital signs within normal limits. Patient states her feelings are of withdrawal. She denies chest pain or shortness of breath. Doubt other acute abnormality. Will try treating with sublingual Suboxone and reassess. Patient given 4 mg. On reassessment, patient feeling better. Counseled her that we can give her a short course of Suboxone. Recommended she follow-up with her primary care doctor and the recovery clinic. She expressed understanding. Stable for discharge General Adult HPI - General Stated complaint: withdraw from seboxin Time Seen by Provider: 10/31/20 16:23 Mode of Arrival: Ambulatory Source of Information: Patient Limitations: No Limitations - History of Present Illness HPI narrative: 45-year-old female with history of opiate use disorder presenting to the emergency department with jitters and symptoms of withdrawal. She used IV heroin for years. Has not used illicit drugs in almost 1 year. She was going to a recovery clinic where they are prescribing Suboxone. She started out at 16 mg daily, decided to wean herself down. Over the last month she has gone from 16-8 down to 2. She stopped going to her clinic, because she cannot afford it. Now she is out of Suboxone. Feels like she is withdrawing. She feels tremulous, nauseous, uneasy, anxious. No other signs of illness like fevers or chills. No abdominal pain or chest pain. - Related Data Previous Rx's Medication Instructions Recorded carvedilol 6.25 mg tablet 6.25 mg PO BID #60 tab 08/29/20 rivaroxaban 20 mg tablet 20 mg PO DAILY #30 tab 09/03/20 Promethazine HCl [Phenergan 25mg 25 mg PO Q6H PRN #10 tab 09/12/20 tab] Amoxicillin/Potassium Clav 1 tab PO Q12H 10 Days #20 tab 10/10/20 [Augmentin 875-125 Tablet] predniSONE [Deltasone 10mg tablet] 10 mg PO BID 8 Days #4 tab 10/10/20 Buprenorphine HCl/Naloxone HCl 1 each SL DAILY #7 film 10/31/20 [Suboxone 4 mg-1 mg Sl Film] Allergies Allergy/AdvReac Type Severity Reaction Status Date / Time morphine [MORPHINE] Allergy Mild Verified 09/07/20 18:28 hydrocodone [From LORTAB] Allergy Unknown Verified 09/07/20 18:28 azithromycin Allergy Verified 09/07/20 18:28 bupropion [From Wellbutrin] Allergy Verified 09/07/20 18:28 [facility] History - Hepatitis A Screen Attestation statement:: This pa
[2020-10-31 16:49] VITALS: BP 160/82; PULSE 87; RESP 16; TEMP 36.6; O2SAT 98
== END 2020-10-31 16:51 | disposition home or self-care (01) ==
PROVIDERS: Emergency Provider Emergency Medicine
DX: F11.23 Opioid dependence with withdrawal (principal); F41.9 Anxiety disorder, unspecified; I10 Essential (primary) hypertension; I48.0 Paroxysmal atrial fibrillation; E11.9 Type 2 diabetes mellitus without complications; I50.9 Heart failure, unspecified; E78.5 Hyperlipidemia, unspecified; Z88.5 Allergy status to narcotic agent; Z79.899 Other long term (current) drug therapy
CPT/HCPCS: 99282; J0574

== ENCOUNTER 2020-12-12 15:08 | Emergency (ER) | payer MEDICARE, SELFPAY ==
[2020-12-12 15:20] VITALS: BP 183/96; PULSE 59; RESP 17; TEMP 36.6; O2SAT 98; BMI 23.5
--- NOTE | 2020-12-12 15:23 | HMH.EDGENADL ---
ED Disposition Clinical Impression: Migraine Qualifiers: Migraine type: without aura Status migrainosus presence: with status migrainosus Intractability: intractable Qualified Code(s): G43.011 - Migraine without aura, intractable, with status migrainosus Disposition: Home, Self-Care Condition on Discharge: Fair Instructions: DI for Migraine Additional Instructions: Additional instructions for HEADACHE: See a primary care physician and neurologist Dr. Hernández as soon as possible for further evaluation. Return immediately if worsening headache, vomiting, problems with vision or speech, fever, numbness or weakness of the extremities, neck pain or stiffness. You are being provided with a list of physicians available for follow-up of your condition. Please call a physician on this list to arrange a follow-up appointment as soon as possible. Referrals: Provider,MD Janae [Primary Care Provider] - Kamala Hernández MD [Staff Physician] - - Critical Care Critical Care Time: No Attestation: On 12/12/20, the high probability of a clinically significant, sudden or life threatening deterioration of the following system(s) required my full and direct attention, intervention and personal management. The time I documented below is in addition to time spent performing reported procedures but includes the following listed in this critical care notation. Medical Decision Making - Mp Inquiry Pt receiving controlled substance: Yes Mp was queried for this patient: Yes Risks and benefits of using a controlled substance: were discussed with pt by me Vital Signs: 12/12/20 15:20 12/12/20 15:45 Temperature 97.9 F Temperature Source Oral Pulse Rate 77 Pulse Rate [Right Radial] 59 L Respiratory Rate 17 Blood Pressure 151/72 H Blood Pressure [Right Arm] 183/96 H Blood Pressure Mean [Right Arm] 125 Blood Pressure Source [Right Arm] Automatic Cuff Blood Pressure Position [Right Arm] Sitting 02 Sat by Pulse Oximetry 98 99 Oxygen Delivery Method Room Air - Lab Data Lab Results 12/12/20 15:25: WBC 7.8, RBC 5.07, Hgb 15.3, Hct 47.1 H, MCV 92.9, MCH 30.1, MCHC 32.4, RDW 15.3, Plt Count 355, MPV 8.4, Neut % (Auto) 74.3, Lymph % (Auto) 18.6, [place] % (Auto) 5.6, Eos % (Auto) 0.6, Baso % (Auto) 0.8, Neut # (Auto) 5.8, Lymph # (Auto) 1.5, [place] # (Auto) 0.4, Eos # (Auto) 0.1, Baso # (Auto) 0.1 12/12/20 15:25: Sodium 139, Potassium 3.9, Chloride 99, Carbon Dioxide 26, Anion Gap 17.9 H, BUN 5 L, Creatinine 0.50 L, Estimated Creat Clear 165, Estimated GFR 133, Est GFR ( Amer) 161, Glucose 145 H, Calcium 9.3, Total Bilirubin 0.8, AST 25, ALT 18, Alkaline Phosphatase 194 H, Total Protein 9.8 H, Albumin 4.7, Globulin 5.1 H, Albumin/Globulin Ratio 0.9 L Result diagrams: 12/12/20 15:25 12/12/20 15:25 Orders (Tests/Meds): ED MEDICATIONS Discontinued Medications Generic Name Dose Route Start Last Admin Trade Name Freq PRN Reason Stop Dose Admin Diphenhydramine HCl 25 mg 12/12/20 15:38 12/12/20 15:47 Diphenhydramine 50mg/Ml Vial IV 12/12/20 15:39 25 mg ONCE ONE Administration Hydromorphone HCl 1 mg 12/12/20 15:38 12/12/20 15:48 Hydromorphone 2mg/Ml Syringe IV 12/12/20 15:39 1 mg ONCE ONE Administration Prochlorperazine Edisylate 10 mg 12/12/20 15:38 12/12/20 15:49 Prochlorperazine 10mg/2ml Vial IV 12/12/20 15:39 10 mg ONCE ONE Administration - CT Data CT Scan: Head Time Received: 17:[address] Reviewed: Yes: I have viewed the radiologist's interpretation Findings Narrative: PROCEDURE INFORMATION: Exam: CT Head Without Contrast Exam date and time: 12/12/2020 3:29 PM Age: 45 years old Clinical indication: Pain; Headache; Migraine; Prior surgery TECHNIQUE: Imaging protocol: Computed tomography of the head without contrast. Radiation optimization: All CT scans at this facility use at least one of these dose optimization techniques: automated exposure control;
--- NOTE | 2020-12-12 15:29 | CT_ITS ---
PROCEDURE INFORMATION: Exam: CT Head Without Contrast Exam date and time: 12/12/2020 3:29 PM Age: 45 years old Clinical indication: Pain; Headache; Migraine; Prior surgery TECHNIQUE: Imaging protocol: Computed tomography of the head without contrast. Radiation optimization: All CT scans at this facility use at least one of these dose optimization techniques: automated exposure control; mA and/or kV adjustment per patient size (includes targeted exams where dose is matched to clinical indication); or iterative reconstruction. COMPARISON: [facility] CT HEAD W/O CONTRAST 02/26/2015 6:30 AM FINDINGS: Brain: Normal. No hemorrhage. Unremarkable white matter. No mass effect. Cerebral ventricles: Shunt catheter enters the right frontal region with tip in the region of the 3rd ventricle. Paranasal sinuses: Visualized sinuses are unremarkable. No fluid levels. Mastoid air cells: Visualized mastoid air cells are well aerated. Bones/joints: Unremarkable. No acute fracture. Soft tissues: Unremarkable. IMPRESSION: Shunt catheter enters the right frontal region with tip in the region of the 3rd ventricle but no evidence of acute intracranial pathology.
--- NOTE | 2020-12-12 15:31 | PC.NURSE ---
Spoke with vladislav with radiology to request ct head.
[2020-12-12 15:45] VITALS: BP 151/72; PULSE 77; O2SAT 99
[2020-12-12 15:47] LABS: Chloride 99 mmol/L (98-107); Potassium 3.9 mmoL/L (3.5-5.1); Sodium 139 mmol/L (136-145)
[2020-12-12 15:49] LABS: Blood Urea Nitrogen 5 mg/dl (7-17)
[2020-12-12 15:50] LABS: Alanine Aminotransferase 18 U/L (12-78); Albumin Level 4.7 g/dl (3.5-5.0); Albumin/Globulin Ratio 0.9 (1.1-1.8); Alkaline Phosphatase 194 U/L (38-126); Anion Gap 17.9 mEq/L (5-15); Aspartate Amino Transferase 25 U/L (14-36); Bilirubin,Total 0.8 mg/dl (0.2-1.3); Calcium 9.3 mg/dl (8.4-10.2); Carbon Dioxide 26 mmol/L (22.0-30.0); Creatinine Clearance Estimated 165 mL/min (50-200); Estimated Glomerular Filt Rate 133 ml/min (>60); GFR (African American) 161 ML/MIN (>60); Globulin 5.1 g/dL (1.3-3.2); Glucose 145 mg/dl (74-100); Total Protein,Serum 9.8 g/dl (6.3-8.2)
[2020-12-12 15:51] LABS: Basophils # 0.1 K/mm3 (0-0.2); Basophils % 0.8 % (0.1-2.0); Eosinophils # 0.1 K/mm3 (0.0-0.4); Eosinophils % 0.6 % (0.1-12.0); Hematocrit 47.1 % (37.0-47.0); Hemoglobin 15.3 g/dL (12.2-16.2); Lymphocytes # 1.5 K/mm3 (0.7-4.5); Lymphocytes % 18.6 % (10-50); Mean Corpuscular HGB Conc 32.4 g/dL (31.8-35.4); Mean Corpuscular Hemoglobin 30.1 pg (27.0-31.2); Mean Corpuscular Volume 92.9 fl (81-99); Mean Platelet Volume 8.4 fl (7.4-10.4); Monocytes # 0.4 K/mm3 (0.1-1.0); Monocytes % 5.6 % (1.7-9.3); Neutrophils # 5.8 K/mm3 (1.8-7.8); Neutrophils % 74.3 % (37.0-80.0); Platelet Count 355 K/mm3 (142-424); Red Blood Count 5.07 M/mm3 (4.20-5.40); Red Cell Distribution Width 15.3 % (11.5-17.5); White Blood Count 7.8 K/mm3 (4.8-10.8)
--- NOTE | 2020-12-12 16:17 | PC.NURSE ---
Ptis going to CT.
[2020-12-12 17:50] VITALS: BP 140/73; PULSE 51; RESP 17; TEMP 36.7; O2SAT 97
== END 2020-12-12 17:50 | disposition home or self-care (01) ==
PROVIDERS: Emergency Provider Emergency Medicine
DX: G43.011 Migraine without aura, intractable, with status migrainosus (principal); Z95.2 Presence of prosthetic heart valve; I48.0 Paroxysmal atrial fibrillation; Z79.01 Long term (current) use of anticoagulants; E11.9 Type 2 diabetes mellitus without complications; E78.5 Hyperlipidemia, unspecified; I10 Essential (primary) hypertension; F17.210 Nicotine dependence, cigarettes, uncomplicated; Z79.899 Other long term (current) drug therapy
CPT/HCPCS: 70450; 80053; 85025; 96374; 96375; 96376; 99283

== ENCOUNTER 2020-12-26 12:50 | Emergency (ER) | payer MEDICARE, SELFPAY ==
[2020-12-26 12:55] VITALS: BP 182/80; PULSE 71; RESP 20; TEMP 36.8; O2SAT 97; BMI 23.2
--- NOTE | 2020-12-26 13:15 | XR_ITS ---
PROCEDURE: XR CHEST 2V CLINICAL HISTORY: cough, congestion COMPARISON: CR XR RIBS RT MIN 3V W CXR1V from 09/07/2020 CR XR CHEST 2V from 09/12/2020 CR XR CHEST PORTABLE from 10/13/2020 FINDINGS: There has been a prior median sternotomy with mitral valve replacement. There is an RV pacemaker present from left subclavian approach. A STOCK ASSOCIATE shunt traverses the right hemithorax. There is mild cardiomegaly without failure. Right lower lobe pneumonia is present and appears slightly improved compared to 10/13/2020. Left lower lobe pneumonia has improved. No effusions apparent. Bone plate overlies the lower cervical spine. IMPRESSION: Persistent but improved right lower lobe pneumonia. Prior MVR with cardiomegaly. Dictated by: Liam Parrish MD 12/26/2020 13:45 Liam Parrish MD in [place] 12/26/2020 13:45
--- NOTE | 2020-12-26 13:36 | HMH.EDUTC ---
[facility] [place] Clinical Impression: Pneumonia Qualifiers: Pneumonia type: due to unspecified organism Laterality: right Lung location: lower lobe of lung Qualified Code(s): J18.9 - Pneumonia, unspecified organism Disposition: Home, Self-Care Condition on Discharge: Good Instructions: Pneumonia-Adult, Albuterol Oral Inhalation, Levofloxacin Additional Instructions: ? Start antibiotic today. Be sure to complete entire prescription even if feeling better ? Monitor temp. Tylenol every 4 hours as needed and / or ibuprofen every 6 hours as needed ( As long as your primary care physician has told you that it ok to take both. For fever/aches/pains ER if no less than 101 despite Tylenol or Motrin ? Humidifier/vaporizer or hot steamy shower ? Inhaler every 4-6 hours as needed like we discussed. If unsure how to use it, ask pharmacist to demonstrate how. Should help open airways and improve cough, wheezing, and shortness of breath Follow up IMMEDIATELY for new or worsening of symptoms OR no noticeable improvement over the next 48-72 hours. 911 immediately for any life threatening symptoms such as chest pain or difficulty breathing Prescriptions: Albuterol Sulfate [Proventil-HFA 90mcg/puff Inh] 1 - 2 puffs IH Q6HP PRN #1 each PRN Reason: Shortness Of Breath Transmission Status: Received by [facility] levoFLOXacin [Levaquin 750mg tablet] 750 mg PO DAILY 7 Days #7 tab Transmission Status: Received by [facility] Referrals: Provider,Referral, [Primary Care Provider] - As needed Time of Disposition: 14:01 Medical Decision Making - Mp Inquiry Pt receiving controlled substance: No Mp was queried for this patient: No Vital Signs: 12/26/20 12:55 12/26/20 14:14 Temperature 98.2 F 98.2 F Temperature Source Oral Pulse Rate 71 Pulse Rate [Left Brachial] 71 Respiratory Rate 20 20 Blood Pressure 182/80 H Blood Pressure [Left Arm] 182/80 H Blood Pressure Mean [Left Arm] 114 Blood Pressure Source [Left Arm] Automatic Cuff Blood Pressure Position [Left Arm] Sitting 02 Sat by Pulse Oximetry 97 Oxygen Delivery Method Room Air Orders (Tests/Meds): ED MEDICATIONS Discontinued Medications Generic Name Dose Route Start Last Admin Trade Name Freq PRN Reason Stop Dose Admin Albuterol/Ipratropium 3 ml 12/26/20 13:52 12/26/20 13:45 Ipratropium/Albuterol 3 Ml Neb IH 12/26/20 13:53 3 ml ONCE ONE Administration Methylprednisolone Sodium Succinate 125 mg 12/26/20 13:58 12/26/20 14:10 Methylprednisolone Sod Succ 125mg Vial IM 12/26/20 13:59 125 mg ONCE ONE Administration - Radiology Data #1 Image(s): Chest Image Reviewed: Yes I have reviewed radiologist's interpretation IMPRESSION: Persistent but improved right lower lobe pneumonia. Prior MVR with cardiomegaly. Medical Decision Narrative: Medication discussed with pharmacy [facility] [place] - General Stated complaint: possible pna Time Seen by Provider: 12/26/20 13:36 Mode of Arrival: Ambulatory Source of Information: Patient Limitations: No Limitations Description of Symptoms (Recalled from Triage Doc. by RN): PATIENT C/O PRODUCTIVE COUGH, CONGESTION, SOA, AND UPPER BACK PAIN SINCE WEDNESDAY. SHE REPORTS HISTORY OF PNEUMONIA HEENT Symptoms (Recalled from RN notes): Yes Resp Symptoms (Recalled from RN notes): Yes Skin Symptoms (Recalled from RN notes): No MS Symptoms (Recalled from RN notes): No Functional Status (Recalled from RN notes): WNL - History of Present Illness Provider Complaint: Patient state that she is an everday smoker States that on Wednesday she started having a productive cough, nasal congestion, sore throat and pain in her upper back at times when she takes deep breath States that she has had pneumonia in the past and didnt want to wait to long for it to get bad so she came on in wanting to get checked - Related Data Previous Rx's Medication Instructions Recorded ca
[2020-12-26 14:14] VITALS: BP 182/80; PULSE 71; RESP 20; TEMP 36.8; O2SAT 97
== END 2020-12-26 14:21 | disposition home or self-care (01) ==
PROVIDERS: Emergency Provider Nurse Practitioner
DX: J18.9 Pneumonia, unspecified organism (principal); E11.9 Type 2 diabetes mellitus without complications; E78.5 Hyperlipidemia, unspecified; I48.91 Unspecified atrial fibrillation; I10 Essential (primary) hypertension; F17.210 Nicotine dependence, cigarettes, uncomplicated; Z20.822 Contact with and (suspected) exposure to COVID-19
CPT/HCPCS: G0463; 71046; 96372; 99202; C9803; U0003; U0005

== ENCOUNTER 2020-12-28 10:37 | Emergency (ER) | payer MEDICARE, SELFPAY ==
--- NOTE | 2020-12-28 10:37 | ECG_ITS ---
APPROVED REPORT Exam: Resting ECG HR:76 bpm ECG Measurements Heart Rate 76 AXES MS 180 P QRSd 94 QRS 99 QT 446 T 91 QTc 501 Conclusion Sinus rhythm with premature atrial complexes with aberrant conduction Rightward axis Prolonged QT Abnormal ECG Electronically signed by : Evaristo Aguilar MD 12/28/2020 22:14:18
[2020-12-28 10:42] VITALS: BP 160/95; PULSE 80; RESP 18; TEMP 36.5; O2SAT 99; BMI 23.2
--- NOTE | 2020-12-28 10:50 | XR_ITS ---
PROCEDURE INFORMATION: Exam: XR Chest Exam date and time: 12/28/2020 10:50 AM Age: 45 years old Clinical indication: Shortness of breath; Prior surgery; Surgery date: 6+ months; Surgery type: Pacemaker; Additional info: Cp, current pneumonia TECHNIQUE: Imaging protocol: XR of the chest. Views: 2 views. COMPARISON: CR XR CHEST 2V 12/26/2020 1:15 PM FINDINGS: Tubes, catheters and devices: Cardiac rhythm maintenance device is in place. Partially imaged PHARMACEUTICAL PROCESS ENGINEER shunt tubing projecting over the right hemithorax. Lungs: Similar right lower lobe airspace opacity. Similar interstitial opacities in the mid and lower left lung. Pleural spaces: Unremarkable. No pleural effusion. No pneumothorax. Heart/Mediastinum: Prior aortic valve replacement. Bones/joints: ACDF hardware in the cervical spine. IMPRESSION: Similar multifocal pneumonia.
[2020-12-28 10:59] LABS: Basophils # 0.1 K/mm3 (0-0.2); Basophils % 0.5 % (0.1-2.0); Eosinophils # 0.1 K/mm3 (0.0-0.4); Eosinophils % 1.2 % (0.1-12.0); Hematocrit 46.3 % (37.0-47.0); Hemoglobin 14.5 g/dL (12.2-16.2); Lymphocytes % 17.9 % (10-50); Mean Corpuscular HGB Conc 31.3 g/dL (31.8-35.4); Mean Corpuscular Volume 95.8 fl (81-99); Mean Platelet Volume 8.5 fl (7.4-10.4); Monocytes # 0.5 K/mm3 (0.1-1.0); Monocytes % 4.9 % (1.7-9.3); Neutrophils # 8.2 K/mm3 (1.8-7.8); Neutrophils % 75.4 % (37.0-80.0); Platelet Count 310 K/mm3 (142-424); Red Blood Count 4.83 M/mm3 (4.20-5.40); Red Cell Distribution Width 16.2 % (11.5-17.5); White Blood Count 10.9 K/mm3 (4.8-10.8)
--- NOTE | 2020-12-28 11:13 | HMH.EDCP ---
ED Disposition Clinical Impression: Right lower lobe pneumonia Qualifiers: Pneumonia type: due to unspecified organism Qualified Code(s): J18.9 - Pneumonia, unspecified organism Disposition: Home, Self-Care Condition on Discharge: Good Instructions: Pneumonia-Adult Referrals: Provider,Referral, [Primary Care Provider] - - Critical Care Critical Care Time: No Attestation: On 12/28/20, the high probability of a clinically significant, sudden or life threatening deterioration of the following system(s) required my full and direct attention, intervention and personal management. The time I documented below is in addition to time spent performing reported procedures but includes the following listed in this critical care notation. Medical Decision Making - Medical Records Medical records reviewed: Yes: I reviewed the patient's medical records. - Mp Inquiry Pt receiving controlled substance: No Vital Signs: 12/28/20 10:42 Temperature 97.7 F Temperature Source Oral Pulse Rate [Right Radial] 80 Respiratory Rate 18 Blood Pressure [Right Arm] 160/95 H Blood Pressure Mean [Right Arm] 116 Blood Pressure Source [Right Arm] Automatic Cuff Blood Pressure Position [Right Arm] Sitting 02 Sat by Pulse Oximetry 99 Oxygen Delivery Method Room Air - Lab Data Lab Results 12/28/20 10:50: WBC 10.9 H, RBC 4.83, Hgb 14.5, Hct 46.3, MCV 95.8, MCH 30.0, MCHC 31.3 L, RDW 16.2, Plt Count 310, MPV 8.5, Neut % (Auto) 75.4, Lymph % (Auto) 17.9, [place] % (Auto) 4.9, Eos % (Auto) 1.2, Baso % (Auto) 0.5, Neut # (Auto) 8.2 H, Lymph # (Auto) 2.0, [place] # (Auto) 0.5, Eos # (Auto) 0.1, Baso # (Auto) 0.1 12/28/20 10:50: Sodium 139, Potassium 3.9, Chloride 102, Carbon Dioxide 26, Anion Gap 14.9, BUN 9, Creatinine 0.50 L, Estimated Creat Clear 163, Estimated GFR 133, Est GFR ( Amer) 161, Glucose 182 H, Calcium 9.3, Troponin I < 0.01 Result diagrams: 12/28/20 10:50 12/28/20 10:50 Orders (Tests/Meds): ED MEDICATIONS Discontinued Medications Generic Name Dose Route Start Last Admin Trade Name Freq PRN Reason Stop Dose Admin Albuterol/Ipratropium 3 ml 12/28/20 11:10 12/28/20 11:33 Ipratropium/Albuterol 3 Ml Neb IH 12/28/20 11:11 3 ml ONCE ONE Administration ORDERS Category Date Time Status XR chest 2V Stat Exams 12/28/20 10:50 Taken Troponin I Q3H Lab 12/28/20 14:00 Ordered Troponin I Q3H Lab 12/28/20 17:00 Ordered - Radiology Data #1 Image(s): Chest Image Reviewed: Yes I reviewed the patient's radiology results, Yes I reviewed the patient's radiology image Persistent right lower lobe pneumonia - ECG Data Tracing #1 I reviewed this ECG and interpreted as documented below: Normal ventricular rate of 76 bpm, SC interval 180 ms, prolonged QTC at 501 ms. Sinus rhythm with occasional premature atrial conduction, nonspecific changes. ECG initial impression date: 12/28/20 ECG initial impression time: 10:37 - Reevaluation(s) Time: 11:53 Reevaluation #1: On reevaluation, the patient is feeling much better. She has no evidence of hypoxia at this time. We did ambulate the patient and there is no respiratory distress. She will continue her antibiotic therapy as well as her bronchodilators. She was given strict return precautions. Verbalized understanding. Medical Decision Narrative: 45-year-old female presenting with some chest tightness and cough. Findings are consistent with bronchitis. Patient apparently diagnosed with pneumonia. There is no hypoxia or respiratory distress. Work-up initiated. Chest Pain HPI - General Chief Complaint: Chest Pain Stated Complaint: chest pain, back pain congestion Time Seen by Provider: 12/28/20 11:14 Mode of Arrival: Ambulatory Limitations: No Limitations Description of Symptoms (Recalled from ER Triage Doc. by RN): PT STATES THAT SHE WAS DX WITH PNEUMONIA ON WEDNESDAY. ADVISES THAT SINCE, HER INHALER HASNT BEEN WORKING EFFECTIVELY AND C
[2020-12-28 11:24] LABS: Anion Gap 14.9 mEq/L (5-15); Blood Urea Nitrogen 9 mg/dl (7-17); Calcium 9.3 mg/dl (8.4-10.2); Carbon Dioxide 26 mmol/L (22.0-30.0); Chloride 102 mmol/L (98-107); Creatinine Clearance Estimated 163 mL/min (50-200); Estimated Glomerular Filt Rate 133 ml/min (>60); GFR (African American) 161 ML/MIN (>60); Glucose 182 mg/dl (74-100); Potassium 3.9 mmoL/L (3.5-5.1); Sodium 139 mmol/L (136-145)
[2020-12-28 11:37] LABS: Troponin I < 0.01 ng/ml (0.00-0.034)
[2020-12-28 12:22] VITALS: BP 156/84; PULSE 69; RESP 18; TEMP 36.8; O2SAT 95
== END 2020-12-28 12:23 | disposition home or self-care (01) ==
PROVIDERS: Emergency Provider Emergency Medicine; PCP Nurse Practitioner Family
DX: J18.9 Pneumonia, unspecified organism (principal); I48.91 Unspecified atrial fibrillation; E78.5 Hyperlipidemia, unspecified; F17.210 Nicotine dependence, cigarettes, uncomplicated
CPT/HCPCS: 71046; 80048; 84484; 85025; 93005; 99283

== ENCOUNTER 2021-01-01 08:50 | Inpatient (IN) | payer MEDICARE, SELFPAY ==
[2021-01-01] VITALS (9 sets, daily range): BP systolic 142–225; BP diastolic 74–96; PULSE 55–78; RESP 18–19; TEMP 36.3–36.6; O2SAT 94–99; BMI 23.5
[2021-01-01 09:37] LABS: Microscopic, Urine URINE MICROSCOPIC (MICROSCOPIC)
[2021-01-01 09:42] LABS: Appearance,Urine CLEAR (Clear); Bilirubin,Urine Negative (Negative); Blood, Urine TRACE-I (Negative); Color,Urine YELLOW (Yellow); Glucose,Urine (UA) 2+ (Negative); Ketones,Urine Negative (Negative); Leukocyte Esterase,Urine Negative (Negative); Nitrate,Urine Negative (Negative); Protein,Urine 1+ (Negative); Specific Gravity, Urine 1.025 (1.005-1.030); Urobilinogen,Urine 0.2 EU/dl (0.2)
[2021-01-01 09:46] LABS: Basophils # 0.1 K/mm3 (0-0.2); Basophils % 0.9 % (0.1-2.0); Eosinophils # 0.2 K/mm3 (0.0-0.4); Eosinophils % 1.8 % (0.1-12.0); Hematocrit 46.7 % (37.0-47.0); Hemoglobin 14.7 g/dL (12.2-16.2); Mean Corpuscular HGB Conc 31.4 g/dL (31.8-35.4); Mean Corpuscular Hemoglobin 29.5 pg (27.0-31.2); Mean Corpuscular Volume 94.2 fl (81-99); Monocytes # 0.6 K/mm3 (0.1-1.0); Monocytes % 5.6 % (1.7-9.3); Neutrophils # 8.3 K/mm3 (1.8-7.8); Neutrophils % 73.7 % (37.0-80.0); Platelet Count 345 K/mm3 (142-424); Red Blood Count 4.96 M/mm3 (4.20-5.40); Red Cell Distribution Width 16.2 % (11.5-17.5); White Blood Count 11.2 K/mm3 (4.8-10.8)
[2021-01-01 09:51] LABS: Alanine Aminotransferase 17 U/L (12-78); Albumin Level 4.4 g/dl (3.5-5.0); Albumin/Globulin Ratio 1.1 (1.1-1.8); Alkaline Phosphatase 179 U/L (38-126); Anion Gap 15.7 mEq/L (5-15); Aspartate Amino Transferase 25 U/L (14-36); Bilirubin,Total 0.6 mg/dl (0.2-1.3); Blood Urea Nitrogen 11 mg/dl (7-17); Calcium 9.2 mg/dl (8.4-10.2); Carbon Dioxide 22 mmol/L (22.0-30.0); Chloride 103 mmol/L (98-107); Creatinine Clearance Estimated 206 mL/min (50-200); Estimated Glomerular Filt Rate 172 ml/min (>60); GFR (African American) 208 ML/MIN (>60); Globulin 4.1 g/dL (1.3-3.2); Glucose 269 mg/dl (74-100); Lipase 127 U/L (23-300); Potassium 3.7 mmoL/L (3.5-5.1); Sodium 137 mmol/L (136-145); Total Protein,Serum 8.5 g/dl (6.3-8.2)
[2021-01-01 09:52] LABS: Lactic Acid 1.4 mmol/L (0.7-2.1)
[2021-01-01 10:00] LABS: Bacteria,Urine Trace /lpf; RBC,Urine Occasional #/hpf (0-3)
--- NOTE | 2021-01-01 10:19 | CT_ITS ---
PROCEDURE: CT ABDOMEN PELVIS W CON CLINICAL INDICATION: nausea, flank pain COMPARISON: CT ABDPELW/O CT ABD PELVIS W/O CONTRAST from 08/07/2016 TECHNIQUE: IV Contrast: 75ML Isovue 370 Oral Contrast None Axial images obtained with sagittal and coronal reformats. All CT scans at the facility use one or more dose reduction, viz: automated exposure control, ma/kV adjustment per patient size (including targeted exams where dose is matched to indication, i.e. head), or iterative reconstruction technique. FINDINGS: LOWER THORAX: Atelectatic changes are present in both lower lobes and right middle lobe. Artifact is present from patient's pacemaker device. The there is a small amount of perihepatic fluid. The liver is somewhat enlarged measuring 24 cm transverse dimension and 20 cm cephalad caudad. Minimal irregularity of the surface of the liver noted. This raises the suspicion early cirrhosis. There is fatty infiltration of the liver. No focal liver lesion apparent. Unremarkable appearing spleen. The left adrenal gland is enlarged maintaining an adrenal form shape not significantly changed. Unremarkable pancreas. There has been a prior cholecystectomy. The common bile duct and central biliary radicles are slightly prominent. Nonobstructing stones are present involving the left kidney with a 4 mm stone in the mid polar region and a 3 mm stone in the lower pole on the left. No definite ureteral calculus. No hydronephrosis. 3 mm stone lower pole right kidney. A INSURANCE RATER shunt traverses the anterior abdominal wall in the right entering the abdomen to the right of the umbilicus. The shunt is curled in the right lower quadrant with tip in the region the right lower quadrant. No evidence of appendicitis. Small amount fluid is present in the left pericolic gutter. No evidence of diverticulitis. Small amount fluid is present in the pelvis. In the mid abdominal region there are some minimally prominent small bowel loops containing fecal in appearing material. No transition point identified. No acute bony anomalies. Small sclerotic focus involves the left femoral head consistent with a bone island. IMPRESSION: 1. Bilateral renal calculi. No obstructing ureteral calculus evident. 2. Hepatomegaly with some minimal irregularity of the liver surface which could be seen with early cirrhosis. There is a small amount of ascites in the abdomen and pelvis. 3. Mildly prominent small bowel loops in the mid to lower abdominal region a with small bowel feces sign suggesting prolonged transit. No transition point identified. Ileus or partial obstruction would be a consideration. 4. Other nonacute findings as described above. Dictated by: Liam Parrish MD 01/01/2021 13:18 Liam Parrish MD in [place] 01/01/2021 13:18
--- NOTE | 2021-01-01 11:08 | PC.NURSE ---
Pt is on way to CT
--- NOTE | 2021-01-01 11:21 | PC.NURSE ---
Pt is back from CT
--- NOTE | 2021-01-01 12:53 | PC.NURSE ---
contacted radiology to request reading on pt CT abd/pelvis per ER MD request. Spoke with Krishna
--- NOTE | 2021-01-01 13:26 | PC.NURSE ---
waiting magnetic resonance imaging coordinator back from dr. hooks, surgery magnetic resonance imaging coordinator
--- NOTE | 2021-01-01 14:29 | PC.NURSE ---
speaking with Dr. Osorio
--- NOTE | 2021-01-01 14:42 | PC.NURSE ---
notified care management of admission
[2021-01-01 14:52] LABS: Coronavirus 19, PCR Not Detected (NotDetected); Influenza A, PCR Not Detected (NotDetected); Influenza B, PCR Not Detected (NotDetected)
--- NOTE | 2021-01-01 14:56 | PC.NURSE ---
CRISTI MAZARIEGOS speaking with Dr. Osorio again at this time
--- NOTE | 2021-01-01 15:01 | HMH.GSHP ---
HPI HPI: This is a 45-year-old female who presented to emergency department with increasing abdominal pain with some associated nausea/emesis. No fevers. Evaluation included a CT scan that showed mildly prominent small bowel loops consistent with ileus versus partial obstruction. The surgical service was consulted for possible observation admission. [facility] History Medical History: Reports:: Atrial Fibrillation, Congestive Heart Failure, Diabetes Mellitus Type 1, Diabetes Mellitus Type 2, Hyperlipidemia, Hypertension, Internal Pacemaker, MRSA, Palpitations Denies:: Cancer *Have you ever received a pneumonia vaccine?: No *Have you received a flu vaccine this season?: No Other Medical History: Reports: Arthritis Laterality Cases: Bilateral: Tonsillectomy Other Surgeries: Yes: Cardiac Catheterization, Cardiac Surgery, Cholecystectomy, , Hysterectomy-Total, Mitral Valve Replacement, Pacemaker Amputation: No Fractures: No - *Social History Smoking Status: Current every day smoker Tobacco Type: cigarettes # Packs/Day (cigarettes): 1 Alcohol Intake: never Substance Use Type: former substance user *Occupational Status:: other Household Members: significant other, children *Travel in the last 8 weeks: None Family Hx:: Coronary Artery Disease, Diabetes Review of Systems - Constitutional Denies chills - Eyes Denies change in vision - ENT Denies difficulty swallowing - *Cardiovascular Denies chest pain - *Respiratory Denies cough - *Gastrointestinal Reports abdominal pain, Reports nausea, Reports vomiting - *Genitourinary Denies blood in urine - *Musculoskeletal Denies tingling - Integumentary/Breasts Denies itching - *Neurologic Denies confusion - Psychiatric Denies behavioral changes, Denies confusion, Denies difficulty concentrating - Endocrine Denies cold intolerance - Hematologic/Lymphatic Denies easy bleeding - Allergic/Immunologic Denies wheezing Meds Home Medications Medication Instructions Recorded Confirmed Type carvedilol 6.25 mg tablet 6.25 mg PO BID #60 tab 08/29/20 08/29/20 Rx rivaroxaban 20 mg tablet 20 mg PO DAILY #30 tab 09/03/20 Rx Promethazine HCl [Phenergan 25mg 25 mg PO Q6H PRN #10 tab 09/12/20 Rx tab] Amoxicillin/Potassium Clav 1 tab PO Q12H 10 Days #20 tab 10/10/20 Rx [Augmentin 875-125 Tablet] predniSONE [Deltasone 10mg tablet] 10 mg PO BID 8 Days #4 tab 10/10/20 Rx Buprenorphine HCl/Naloxone HCl 1 each SL DAILY #7 film 10/31/20 Rx [Suboxone 4 mg-1 mg Sl Film] Albuterol Sulfate [Proventil-HFA 1 - 2 puffs IH Q6HP PRN #1 each 12/26/20 Rx 90mcg/puff Inh] levoFLOXacin [Levaquin 750mg 750 mg PO DAILY 7 Days #7 tab 12/26/20 Rx tablet] Allergies Allergy/AdvReac Type Severity Reaction Status Date / Time morphine [MORPHINE] Allergy Mild Verified 01/01/21 11:42 hydrocodone [From LORTAB] Allergy Unknown Verified 01/01/21 11:42 azithromycin Allergy Verified 01/01/21 11:42 bupropion [From Wellbutrin] Allergy Verified 01/01/21 11:42 Exam Vital signs and Labs for Last 24 Hours: Temp Pulse Resp BP Pulse Ox 97.9 F 55 L 18 159/74 H 96 01/01/21 09:03 01/01/21 11:32 01/01/21 09:03 01/01/21 11:32 01/01/21 11:32 Laboratory Results - last 24 hr 01/01/21 09:24: Urine Color Yellow, Urine Appearance Clear, Urine pH 8.0, Ur Specific [place] 1.025, Urine Protein 1+, Urine Glucose (UA) 2+, Urine Ketones Negative, Urine Blood Trace-i, Urine Nitrate Negative, Urine Bilirubin Negative, Urine Urobilinogen 0.2, Ur Leukocyte Esterase Negative, Urine RBC Occasional, Urine WBC 3-5, Ur Squamous Epith Cells 3-5, Urine Bacteria Trace 01/01/21 09:24: WBC 11.2 H, RBC 4.96, Hgb 14.7, Hct 46.7, MCV 94.2, MCH 29.5, MCHC 31.4 L, RDW 16.2, Plt Count 345, MPV 9.0, Neut % (Auto) 73.7, Lymph % (Auto) 18.0, [place] % (Auto) 5.6, Eos % (Auto) 1.8, Baso % (Auto) 0.9, Neut # (Auto) 8.3 H, Lymph # (Auto) 2.0, [place] # (Auto) 0.6, Eos # (Auto) 0.2, Bas
--- NOTE | 2021-01-01 15:06 | FL_ITS ---
PROCEDURE INFORMATION: Exam: FL Small Intestine Exam date and time: 01/01/2021 3:06 PM Age: 45 years old Clinical indication: Pain: Abdominal pain, R/O small bowel obstruction per surgeon Dr hooks. ; Additional info: Possible small bowel obstruction TECHNIQUE: Imaging protocol: Radiologic examination, small intestine, includes multiple serial images. Fluoroscopy is included if performed. COMPARISON: CT ABDOMEN PELVIS W CON 01/01/2021 11:13 AM RADIATION DOSE METRICS: Fluoroscopy time (seconds): Not provided Number of fluoro spot images: 14 Reference air kerma (XAVI): Not provided FINDINGS: Meter Technician: Unremarkable. Shunt tubing tip projects near midline in the pelvis. Intestine: Mildly dilated fluid-filled small bowel in the mid abdomen and pelvis as seen on CT scan. Unremarkable small bowel fold pattern. No stricture was identified. Transit time to the colon was within normal limits. IMPRESSION: Redemonstration of mildly dilated segments of small bowel. Differential considerations include mild ileus, partial obstruction, or the baseline appearance for this patient. There is no evidence for high-grade small-bowel obstruction.
--- NOTE | 2021-01-01 15:08 | PC.NURSE ---
Dr. Osorio at [facility]
--- NOTE | 2021-01-01 15:19 | PC.NURSE ---
PT taken to xray and then to be transported to [facility]
--- NOTE | 2021-01-01 16:04 | PC.NURSE ---
Calling report on pt nurse did not answer
--- NOTE | 2021-01-01 16:24 | PC.NURSE ---
Called report to jackson PRESCOTT
--- NOTE | 2021-01-01 16:53 | PC.NURSE ---
Through out the pts stay she kept taking off her b/p cuff, and pulse ox. She was in pain and kept moving around and rolling body in a ball which affected her b/p cuffs. I kept trying to reeducate as to why she needed to keep them on, but she was in pain and didn't want to wear them.
[2021-01-01 18:10] LABS: Lactic Acid 0.9 mmol/L (0.7-2.1); Magnesium 1.5 mg/dl (1.6-2.3)
[2021-01-01 19:01] LABS: POC Glucose,Bedside 193 (70-110)
--- NOTE | 2021-01-01 19:09 | PC.NURSE ---
Called Dr. Osorio ordnance truck installation supervisor in [place] to pt still having pain in abd and R flank. Pt states the toradol hasnt helped pain. Dr. Osorio did schedule toradol, states she has already had hersuboxone today( which he ordered), xarelto to begin now and coreg now, per apr.
[2021-01-02 01:44] LABS: POC Glucose,Bedside 164 (70-110)
[2021-01-02 04:00] VITALS: BP 108/49; PULSE 56; RESP 19; TEMP 36.7; O2SAT 100
[2021-01-02 04:59] VITALS: BMI 23.1
--- NOTE | 2021-01-02 05:11 | PC.NURSE ---
NO ACUTE CHANGES. PT HAS C/O DISCOMFORT TO BACK AND ABDOMEN THIS SHIFT. HAS ALSO C/O NAUSEA. NO EMESIS NOTED. MEDICATED PER APR. PT HAD A SHOWER THIS SHIFT. SHE STATES THAT SHE HAS HAD 2 LOOSE STOOLS. NOT OBSERVED BY STAFF. VSS. BP HAS IMPROVED. nO OTHER CONCERNS. WILL CONTINUE TO MONITOR.
--- NOTE | 2021-01-02 06:00 | XR_ITS ---
PROCEDURE INFORMATION: Exam: XR Complete Acute Abdomen Series Including Chest Exam date and time: 01/02/2021 6:00 AM Age: 45 years old Clinical indication: Pain and screening exam; Other: Possible sbo; Abdominal pain; Generalized; Prior surgery; Surgery type: Hysterectomy, gallbladder; Additional info: Ileus vs. Partial sbo TECHNIQUE: Imaging protocol: XR complete acute abdomen series, including 2 or more views of the abdomen and a single view chest. COMPARISON: CT ABDOMEN PELVIS W CON 01/01/2021 11:13 AM FINDINGS: Tubes, catheters and devices: Cardiac pacing device. PAN TANK WORKER shunt. Lungs: Lungs clear. Pleural spaces: Normal. No pleural effusions. No pneumothorax. Heart/Mediastinum: Cardiac silhouette nonenlarged. Gastrointestinal tract: Small residual contrast in gastric lumen. Little or no contrast remaining in the mostly airless small bowel. Majority of contrast throughout the length of the colon. Mid descending peristalsis. Intraperitoneal space: No free air. Vasculature: Aortic valvuloplasty ring. Bones/joints: Sternotomy wires. Cervical fixation hardware. Bones unremarkable. Soft tissues: Normal. IMPRESSION: No evidence of bowel obstruction.
--- NOTE | 2021-01-02 06:26 | HMH.GSPN ---
Subjective Patient reports: feels better, flatus, bowel movement Narrative: Currently without nausea Progress Note: A&P (1) Abdominal pain Status: Acute (2) Nausea & vomiting Status: Acute (3) Ileus Status: Acute Assessment and Plan for All Diagnoses:: Overall, she has shown significant improvement since admission. Films reveal that she does not have a complete small bowel obstruction. Contrast is noted within the colon. Nausea/vomiting significantly improved. Slowly increase diet Exam Vital signs and Labs for Last 24 Hours: Temp Pulse Resp BP Pulse Ox 98.1 F 56 L 19 108/49 L 100 01/02/21 04:00 01/02/21 04:00 01/02/21 04:00 01/02/21 04:00 01/02/21 04:00 Laboratory Results - last 24 hr 01/01/21 09:24: Urine Color Yellow, Urine Appearance Clear, Urine pH 8.0, Ur Specific [place] 1.025, Urine Protein 1+, Urine Glucose (UA) 2+, Urine Ketones Negative, Urine Blood Trace-i, Urine Nitrate Negative, Urine Bilirubin Negative, Urine Urobilinogen 0.2, Ur Leukocyte Esterase Negative, Urine RBC Occasional, Urine WBC 3-5, Ur Squamous Epith Cells 3-5, Urine Bacteria Trace 01/01/21 09:24: WBC 11.2 H, RBC 4.96, Hgb 14.7, Hct 46.7, MCV 94.2, MCH 29.5, MCHC 31.4 L, RDW 16.2, Plt Count 345, MPV 9.0, Neut % (Auto) 73.7, Lymph % (Auto) 18.0, [place] % (Auto) 5.6, Eos % (Auto) 1.8, Baso % (Auto) 0.9, Neut # (Auto) 8.3 H, Lymph # (Auto) 2.0, [place] # (Auto) 0.6, Eos # (Auto) 0.2, Baso # (Auto) 0.1 01/01/21 09:24: Sodium 137, Potassium 3.7, Chloride 103, Carbon Dioxide 22, Anion Gap 15.7 H, BUN 11, Creatinine 0.40 L, Estimated Creat Clear 206, Estimated GFR 172, Est GFR ( Amer) 208, Glucose 269 H, Calcium 9.2, Total Bilirubin 0.6, AST 25, ALT 17, Alkaline Phosphatase 179 H, Total Protein 8.5 H, Albumin 4.4, Globulin 4.1 H, Albumin/Globulin Ratio 1.1, Lipase 127 01/01/21 09:24: Lactate 1.4 01/01/21 14:43: SARS-CoV-2 (PCR) Not detected, Influenza A Untype (PCR) Not detected, Influenza Type B (PCR) Not detected 01/01/21 17:50: Lactate 0.9 01/01/21 17:50: Magnesium 1.5 L 01/01/21 18:54: POC Glucose 193 H 01/02/21 01:32: POC Glucose 164 H I & O for Last 24 hours: Intake & Output 12/30/20 12/31/20 01/01/21 01/02/21 11:59 11:59 11:59 11:59 Intake Total 0 / 0 Balance 0 / 0 Weight 164 lb 162 lb Radiology Reports for the Last 24 Hours: Contrast within colon noted on follow-up small bowel series and morning flat/upright films. - Constitutional no acute distress - *Routine Respiratory Exam Absent: respiratory distress - *Routine Cardiovascular Exam Absent: tachycardia - *Routine Abdominal Exam Present: soft
[2021-01-02 06:29] LABS: POC Glucose,Bedside 166 (70-110)
[2021-01-02 07:09] LABS: Anion Gap 15.4 mEq/L (5-15); Blood Urea Nitrogen 12 mg/dl (7-17); Calcium 8.9 mg/dl (8.4-10.2); Carbon Dioxide 25 mmol/L (22.0-30.0); Chloride 96 mmol/L (98-107); Creatinine Clearance Estimated 116 mL/min (50-200); Estimated Glomerular Filt Rate 90 ml/min (>60); GFR (African American) 109 ML/MIN (>60); Glucose 181 mg/dl (74-100); Potassium 3.4 mmoL/L (3.5-5.1); Sodium 133 mmol/L (136-145)
--- NOTE | 2021-01-02 07:16 | HMH.PHAVTE ---
[facility] VTE Monitoring - Patient Demographics Admission date: 01/01/21 Report Date: 01/02/21 Time: 07:16 Allergies/Adverse Reactions: Patient Allergies morphine [MORPHINE] Allergy (Mild, Verified 01/01/21 11:42) hydrocodone [From LORTAB] Allergy (Unknown, Verified 01/01/21 11:42) azithromycin Allergy (Verified 01/01/21 11:42) bupropion [From Wellbutrin] Allergy (Verified 01/01/21 11:42) Height: 1.78 m Weight: 73.482 kg Patient Problems: Current Active Problems Nausea & vomiting (Acute) Abdominal pain (Acute) Ileus (Acute) Small bowel obstruction (Acute) - VTE Risk Labs: VTE Related Lab Results Hgb 14.7 g/dL (12.2-16.2) 01/01/21 09:24 Hct 46.7 % (37.0-47.0) 01/01/21 09:24 Plt Count 345 K/mm3 (142-424) 01/01/21 09:24 BUN 11 mg/dl (7-17) 01/01/21 09:24 Creatinine 0.40 mg/dl (0.52-1.04) L 01/01/21 09:24 Estimated Creat Clear 206 mL/min (50-200) 01/01/21 09:24 - Prophylaxis VTE Prophylaxis Ordered?: Yes Types of VTE Prophylaxis: TEDS Knee High, Pharmacological Location of Applied Device: Bilateral Lower Extremeties Pharmacologic Type: Other (XARELTO)
[2021-01-02 08:00] VITALS: BP 105/52; PULSE 62; RESP 16; TEMP 36.8; O2SAT 96
--- NOTE | 2021-01-02 09:53 | HMH.PHAINT ---
Verified home medication list with patient and pharmacy
--- NOTE | 2021-01-02 13:53 | HMH.DCSUM ---
General - General Admission date:: 01/01/21 Discharge date: 01/02/21 HPI HPI: This is a 45-year-old female who presented to emergency department with increasing abdominal pain with some associated nausea/emesis. No fevers. No diarrhea. Last bowel movement on day of evaluation. She states that her bowel movement was pretty normal . Evaluation in the emergency department included a CT scan that showed mildly prominent small bowel loops consistent with ileus versus partial obstruction. The surgical service was consulted for possible observation admission. Hospital Course Hospital Course: The patient convalesced well. She had significant improvement with regard to her pain and nausea within 12 hours of admission. A small bowel follow-through followed by flat/upright films showed no sign of obstruction. Contrast well within the colon was confirmed. At the time of discharge she was afebrile with stable and normal vital signs. She was tolerating advancement of her diet. Objective Vital signs: Temp Pulse Resp BP Pulse Ox 98.3 F 62 16 105/52 L 96 01/02/21 08:00 01/02/21 08:00 01/02/21 08:00 01/02/21 08:00 01/02/21 08:00 no acute distress - *Routine HEENT Exam Head: Present: normocephalic Eye: Present: EOMI ENT: Present: mucous membranes moist - *Routine Neck Exam Present: full ROM - Routine Chest/Breast/Axilla Exam Chest wall: Absent: tenderness - *Routine Respiratory Exam Absent: respiratory distress - *Routine Cardiovascular Exam Absent: tachycardia - *Routine Abdominal Exam Present: soft - *Routine Rectal Exam Patient deferred: visual exam - *Routine Exam Patient deferred: external exam - *Routine Extremities Exam Absent: cyanosis - Routine Back/Spine/Pelvis Exam Back/Spine: Present: full ROM - *Routine Skin Exam Present: intact - *Routine Neurological Exam Present: alert - Routine Psychiatric Exam Absent: agitated Results Labs on day of discharge: Labs from last 24 hours 01/02/21 01/02/21 01/02/21 06:25 05:41 01:32 Sodium 133 L Potassium 3.4 L Chloride 96 L Carbon Dioxide 25 Anion Gap 15.4 H BUN 12 Creatinine 0.70 D Estimated Creat Clear 116 Estimated GFR 90 Est GFR ( Amer) 109 D Glucose 181 H D POC Glucose 166 H 164 H Lactate Calcium 8.9 Magnesium SARS-CoV-2 (PCR) Influenza A Untype (PCR) Influenza Type B (PCR) 01/01/21 01/01/21 01/01/21 18:54 17:50 17:50 Sodium Potassium Chloride Carbon Dioxide Anion Gap BUN Creatinine Estimated Creat Clear Estimated GFR Est GFR ( Amer) Glucose POC Glucose 193 H Lactate 0.9 Calcium Magnesium 1.5 L SARS-CoV-2 (PCR) Influenza A Untype (PCR) Influenza Type B (PCR) 01/01/21 14:43 Sodium Potassium Chloride Carbon Dioxide Anion Gap BUN Creatinine Estimated Creat Clear Estimated GFR Est GFR ( Amer) Glucose POC Glucose Lactate Calcium Magnesium SARS-CoV-2 (PCR) Not detected Influenza A Untype (PCR) Not detected Influenza Type B (PCR) Not detected Preliminary micro results at discharge 01/01/21 09:24 Urine Culture - Preliminary Urethra NO GROWTH AFTER 24 HOURS DS: Diagnosis - Discharge Diagnosis (1) Abdominal pain Status: Acute (2) Nausea & vomiting Status: Acute (3) Ileus Status: Acute Discharge Plan - Patient Discharge Instructions ACTIVITY: Continue current activity DIET: advance to your usual diet Patient Instructions: DI for Diarrhea and Traveler's Diarrhea -- Adult, DI for Diarrhea and Traveler's Diarrhea -- Child, DI for Nausea -- Adult, DI for Nausea -- Child - Follow up Plan Follow up with: Provider,ReferralMD [Primary Care Provider] - Mars Osorio MD [Staff Physician] - 1 week Disposition: Home, Self-Care Condition at discharge:: Improved Home Medications:
--- NOTE | 2021-03-19 12:16 | HMH.EDGENADL ---
ED Disposition Clinical Impression: Small bowel obstruction Disposition: Admitted As Inpatient Condition on Discharge: Good Time of Disposition: 09:55 - Critical Care Critical Care Time: No Attestation: On 01/01/21, the high probability of a clinically significant, sudden or life threatening deterioration of the following system(s) required my full and direct attention, intervention and personal management. The time I documented below is in addition to time spent performing reported procedures but includes the following listed in this critical care notation. Medical Decision Making - Medical Records Medical records reviewed: Yes: I reviewed the patient's medical records. - Mp Inquiry Pt receiving controlled substance: No Vital Signs: 01/01/21 09:03 01/01/21 10:26 01/01/21 10:30 Temperature 97.9 F Temperature Source Oral Pulse Rate Pulse Rate [Right Radial] 67 Respiratory Rate 18 Blood Pressure 221/88 H 214/92 H Blood Pressure [Right Arm] 142/96 H Blood Pressure Mean 110 132 Blood Pressure Mean [Right Arm] 111 Blood Pressure Source [Right Arm] Manual Cuff/ Doppler Blood Pressure Position [Right Arm] Supine 02 Sat by Pulse Oximetry 99 Oxygen Delivery Method Room Air 01/01/21 10:45 01/01/21 11:00 01/01/21 11:25 Temperature Temperature Source Pulse Rate 59 L 60 60 Pulse Rate [Right Radial] Respiratory Rate Blood Pressure 160/92 H 191/87 H Blood Pressure [Right Arm] Blood Pressure Mean 138 121 Blood Pressure Mean [Right Arm] Blood Pressure Source [Right Arm] Blood Pressure Position [Right Arm] 02 Sat by Pulse Oximetry 94 L 96 98 Oxygen Delivery Method Room Air 01/01/21 11:32 Temperature Temperature Source Pulse Rate 55 L Pulse Rate [Right Radial] Respiratory Rate Blood Pressure 159/74 H Blood Pressure [Right Arm] Blood Pressure Mean 106 Blood Pressure Mean [Right Arm] Blood Pressure Source [Right Arm] Blood Pressure Position [Right Arm] 02 Sat by Pulse Oximetry 96 Oxygen Delivery Method Room Air - Lab Data Lab results reviewed: Yes: I reviewed the patient's lab results. Lab Results 01/01/21 09:24: Urine Color Yellow, Urine Appearance Clear, Urine pH 8.0, Ur Specific [place] 1.025, Urine Protein 1+, Urine Glucose (UA) 2+, Urine Ketones Negative, Urine Blood Trace-i, Urine Nitrate Negative, Urine Bilirubin Negative, Urine Urobilinogen 0.2, Ur Leukocyte Esterase Negative, Urine RBC Occasional, Urine WBC 3-5, Ur Squamous Epith Cells 3-5, Urine Bacteria Trace 01/01/21 09:24: WBC 11.2 H, RBC 4.96, Hgb 14.7, Hct 46.7, MCV 94.2, MCH 29.5, MCHC 31.4 L, RDW 16.2, Plt Count 345, MPV 9.0, Neut % (Auto) 73.7, Lymph % (Auto) 18.0, [place] % (Auto) 5.6, Eos % (Auto) 1.8, Baso % (Auto) 0.9, Neut # (Auto) 8.3 H, Lymph # (Auto) 2.0, [place] # (Auto) 0.6, Eos # (Auto) 0.2, Baso # (Auto) 0.1 01/01/21 09:24: Sodium 137, Potassium 3.7, Chloride 103, Carbon Dioxide 22, Anion Gap 15.7 H, BUN 11, Creatinine 0.40 L, Estimated Creat Clear 206, Estimated GFR 172, Est GFR ( Amer) 208, Glucose 269 H, Calcium 9.2, Total Bilirubin 0.6, AST 25, ALT 17, Alkaline Phosphatase 179 H, Total Protein 8.5 H, Albumin 4.4, Globulin 4.1 H, Albumin/Globulin Ratio 1.1, Lipase 127 01/01/21 09:24: Lactate 1.4 01/01/21 14:43: SARS-CoV-2 (PCR) Not detected, Influenza A Untype (PCR) Not detected, Influenza Type B (PCR) Not detected 01/01/21 17:50: Lactate 0.9 01/01/21 17:50: Magnesium 1.5 L 01/01/21 18:54: POC Glucose 193 H Result diagrams: 01/01/21 09:24 01/02/21 06:25 Orders (Tests/Meds): ED MEDICATIONS Discontinued Medications Generic Name Dose Route Start Last Admin Trade Name Freq PRN Reason Stop Dose Admin Acetaminophen 1,000 mg 01/01/21 10:24 01/01/21 10:41 Acetaminophen 500mg Tab PO 01/01/21 10:25 1,000 mg ONCE ONE Administration Acetaminophen 650 mg 01/01/21 17:12 01/01/21 21:25 Acetaminophen 325mg Tab PO 01/31/21 17:11 650 mg
== END 2021-01-02 14:40 | disposition home or self-care (01) | DRG 390 ==
LOC: ER 08:57 → 2ND 14:51
PROVIDERS: Admitting Provider Surgery; Emergency Provider Student in an Organized Health Care Education/Training Program; Visit Provider Surgery
DX: K56.7 Ileus, unspecified (principal); I11.0 Hypertensive heart disease with heart failure; I50.9 Heart failure, unspecified; E11.9 Type 2 diabetes mellitus without complications; I48.91 Unspecified atrial fibrillation; F17.210 Nicotine dependence, cigarettes, uncomplicated; E78.5 Hyperlipidemia, unspecified
CPT/HCPCS: 74021; 74177; 74250; 80048; 80053; 81001; 82962; 83605; 83690; 83735; 85025; 87086; 96365; 96375; 96376; 99284; C9803; G0378; J0574; J2405; Q9967; U0003; U0005

== ENCOUNTER 2021-02-10 13:10 | Emergency (ER) | payer MEDICARE, SELFPAY ==
[2021-02-10 15:25] VITALS: BP 228/106; PULSE 75; RESP 18; TEMP 36.6; O2SAT 97; BMI 25.8
[2021-02-10 15:31] VITALS: BP 186/94; PULSE 67; RESP 16; O2SAT 98
--- NOTE | 2021-02-10 15:41 | XR_ITS ---
PROCEDURE: XR THORACIC SPINE 2V CLINICAL INDICATION: back pain COMPARISON: No exams were available for comparison FINDINGS: No fracture or dislocation. No lytic or blastic change. There is normal mineralization. There is mild midthoracic curvature convex left. There is normal alignment. Incidental note is made of prior MVR, prior median sternotomy, RV pacemaker present, FISH CLEANER MACHINE TENDER shunt the right thoracic approach, and prior anterior cervical disc fusion Other findings:None. IMPRESSION: Minimal midthoracic curvature convex left otherwise negative Dictated by: Liam Parrish MD 02/10/2021 16:29 Liam Parrish MD in [place] 02/10/2021 16:29
--- NOTE | 2021-02-10 15:41 | XR_ITS ---
PROCEDURE: XR LUMBAR SPINE 2-3V CLINICAL INDICATION: back pain COMPARISON: No exams were available for comparison FINDINGS: Normal alignment. No acute fracture or dislocation. There are small anterior osteophytes involving the lumbar vertebra. The disc spaces are well preserved. A LICENSED MARINE ENGINEER shunt is traversing the right hemithorax. The tip is in the region of the right lower quadrant Other findings: A faint calcific density overlies the medial aspect of the right kidney at 4 mm. A 2 mm calcific density overlies the left kidney. IMPRESSION: Minimal degenerative change of the lumbar spine. No acute finding. Bilateral nephrolithiasis Dictated by: Liam Parrish MD 02/10/2021 16:32 Liam Parrish MD in [place] 02/10/2021 16:32
--- NOTE | 2021-02-10 15:41 | HMH.EDGENADL ---
ED Disposition Clinical Impression: Lumbar back pain Disposition: Home, Self-Care Condition on Discharge: Fair Instructions: DI for Low Back Pain, DI for Back Pain With Sciatica Additional Instructions: You have been evaluated for lumbar back pain with radiculopathy. Please take anti-inflammatories like ibuprofen every 6 hours. Take prednisone. Follow-up with your primary care doctor in 1 to 2 days for symptom recheck. Return to the emergency department for any new or worsening symptoms, numbness, weakness, tingling in your legs, difficulty going to the bathroom, fevers, other concerns. Prescriptions: Ibuprofen [Ibuprofen 600mg Tablet] 600 mg PO Q6 #12 tab Transmission Status: Received by [facility] Oxycodone HCl/Acetaminophen [Percocet 5/325mg tablet] 1 tab PO Q6H PRN #6 tab PRN Reason: Severe Pain Transmission Status: Sent to [facility] predniSONE [Prednisone 20mg Tab] 20 mg PO DAILY #5 tab Transmission Status: Received by [facility] Referrals: Era Ricardo APRN [Primary Care Provider] - Time of Disposition: 17:23 - Critical Care Critical Care Time: No Attestation: On 02/10/21, the high probability of a clinically significant, sudden or life threatening deterioration of the following system(s) required my full and direct attention, intervention and personal management. The time I documented below is in addition to time spent performing reported procedures but includes the following listed in this critical care notation. Medical Decision Making - Medical Records Medical records reviewed: Yes: I reviewed the patient's medical records. - Mp Inquiry Pt receiving controlled substance: No Vital Signs: 02/10/21 15:25 02/10/21 15:31 02/10/21 16:34 Temperature 97.9 F Temperature Source Oral Pulse Rate 67 64 Pulse Rate [Left Radial] 75 Respiratory Rate 18 16 20 Blood Pressure 186/94 H 164/81 H Blood Pressure [Right Arm] 228/106 H Blood Pressure Mean 117 108 Blood Pressure Mean [Right Arm] 146 Blood Pressure Source [Right Arm] Automatic Cuff Blood Pressure Position [Right Arm] Sitting 02 Sat by Pulse Oximetry 97 98 99 Oxygen Delivery Method Room Air 02/10/21 17:00 02/10/21 17:30 Temperature Temperature Source Pulse Rate 60 61 Pulse Rate [Left Radial] Respiratory Rate 16 Blood Pressure 161/81 H 148/81 H Blood Pressure [Right Arm] Blood Pressure Mean 115 103 Blood Pressure Mean [Right Arm] Blood Pressure Source [Right Arm] Blood Pressure Position [Right Arm] 02 Sat by Pulse Oximetry 97 92 L Oxygen Delivery Method - Lab Data Lab Results 02/10/21 16:45: Urine Color Yellow, Urine Appearance Clear, Urine pH 7.0, Ur Specific [place] <= 1.005, Urine Protein Negative, Urine Glucose (UA) Negative, Urine Ketones Negative, Urine Blood Negative, Urine Nitrate Negative, Urine Bilirubin Negative, Urine Urobilinogen 0.2, Ur Leukocyte Esterase Negative, Urine RBC None, Urine WBC None, Ur Squamous Epith Cells None, Urine Bacteria None Orders (Tests/Meds): ED MEDICATIONS Generic Name Dose Route Start Last Admin Trade Name Freq PRN Reason Stop Dose Admin Methocarbamol 500 mg 02/10/21 21:00 02/10/21 15:48 Methocarbamol 500mg Tablet PO 03/12/21 20:59 500 mg BID ALEX Administration Discontinued Medications Generic Name Dose Route Start Last Admin Trade Name Freq PRN Reason Stop Dose Admin Hydromorphone HCl 1 mg 02/10/21 15:42 02/10/21 15:48 Hydromorphone 2mg/Ml Syringe IV 02/10/21 15:43 1 mg ONCE ONE Administration - Radiology Data #1 Image(s): T-Spine, L-Spine Image Reviewed: Yes I reviewed the patient's radiology results, Yes I reviewed the patient's radiology image Preliminary Findings: Normal/NAD IMPRESSION: Minimal degenerative change of the lumbar spine. No acute finding. Bilateral nephrolithiasis Medical Decision Narrative: In summary thi
[2021-02-10 16:34] VITALS: BP 164/81; PULSE 64; RESP 20; O2SAT 99
[2021-02-10 17:00] VITALS: BP 161/81; PULSE 60; RESP 16; O2SAT 97
[2021-02-10 17:08] LABS: Microscopic, Urine URINE MICROSCOPIC (MICROSCOPIC)
[2021-02-10 17:10] LABS: Appearance,Urine CLEAR (Clear); Bilirubin,Urine Negative (Negative); Blood, Urine Negative (Negative); Color,Urine YELLOW (Yellow); Glucose,Urine (UA) Negative (Negative); Ketones,Urine Negative (Negative); Leukocyte Esterase,Urine Negative (Negative); Nitrate,Urine Negative (Negative); Protein,Urine Negative (Negative); Specific Gravity, Urine <= 1.005 (1.005-1.030); Urobilinogen,Urine 0.2 EU/dl (0.2)
[2021-02-10 17:30] VITALS: BP 148/81; PULSE 61; O2SAT 92
[2021-02-10 18:28] VITALS: BP 150/80; PULSE 62; RESP 18; TEMP 36.6; O2SAT 93
== END 2021-02-10 18:29 | disposition home or self-care (01) ==
PROVIDERS: Emergency Provider Emergency Medicine; PCP Nurse Practitioner Family
DX: M54.50 Low back pain, unspecified (principal); E11.9 Type 2 diabetes mellitus without complications; I48.0 Paroxysmal atrial fibrillation; I10 Essential (primary) hypertension; E78.5 Hyperlipidemia, unspecified; I25.2 Old myocardial infarction; Z95.0 Presence of cardiac pacemaker; F17.210 Nicotine dependence, cigarettes, uncomplicated
CPT/HCPCS: 72070; 72100; 81001; 96374; 99282

== ENCOUNTER 2021-02-15 09:14 | Emergency (ER) | payer MEDICARE, SELFPAY ==
[2021-02-15 09:30] VITALS: BMI 26.5
[2021-02-15 09:46] VITALS: BP 154/64; PULSE 75; RESP 18; O2SAT 98; BMI 26.5
--- NOTE | 2021-02-15 10:43 | HMH.EDGENADL ---
ED Disposition Clinical Impression: Low back pain Qualifiers: Chronicity: acute Back pain laterality: midline Sciatica presence: with sciatica Sciatica laterality: sciatica of left side Qualified Code(s): M54.42 - Lumbago with sciatica, left side Disposition: Home, Self-Care Condition on Discharge: Fair Instructions: DI for Back Pain With Sciatica Additional Instructions: Percocet as needed for pain. Zofran as needed for nausea. Follow-up with your primary care provider Wednesday. Additional instructions for BACK PAIN: See your physician as soon as possible for further evaluation. Return immediately if back pain becomes intolerable, or if fever, numbness or weakness of your legs, loss of control of your bowels or bladder. Additional instructions for CONTROLLED SUBSTANCES: You have been prescribed a medication that is a controlled substance. Controlled substances include pain medications known as opiates and sedative nerve medications known as benzodiazepines. Tramadol, fioricet, and gabapentin are also controlled substances. Some common opiates include: Codeine (such as Tylenol #3) Hydrocodone (Vicodin, Lortab, Lorcet, [place]) Oxycodone (Percocet, Percodan, Oxycodone, Oxy IR) Some common benzodiazepines include: Diazepam (Valium) Lorazepam (Ativan) Alprazolam (Xanax) Clonazepam (Klonopin) Oxazepam (Serax) All of these controlled substances are highly addictive and frequently abused. Misuse can and frequently does lead to addiction as well as overdose and . Medication should be stored in a locked cabinet or other secure storage unit. Do not store the medication in a motor vehicle. Short term supplies, 3 days or less, are prescribed because of the highly addictive nature of the medication. Any of the controlled substance medication NOT taken should be disposed of properly and NOT SAVED. The recommended method of disposing of unused medications is: Place the medicines in a sealable plastic bag. If the medicine is a solid, crush it or add water to dissolve it. Add something undesirable (cat litter, coffee grounds, etc.) Dispose of sealed bag in household trash Do not flush or pour unused medicines down a sink or drain. Controlled substances should not be shared, given away or sold. Because of the addictive nature and frequent abuse, these medications are sometimes stolen. These medications should be kept in a safe place where they cannot be stolen. Do not keep them in your car or purse. Lost or stolen prescriptions for controlled substances WILL NOT BE REFILLED in this emergency department, regardless of whether a police report was filed. Prescriptions: Oxycodone HCl/Acetaminophen [Percocet 5/325mg tablet] 1 tab PO Q6HP PRN #10 tablet PRN Reason: Moderate To Severe Pain Transmission Status: Sent to [facility] Referrals: Era Ricardo APRN [Primary Care Provider] - - Critical Care Critical Care Time: No Attestation: On 02/15/21, the high probability of a clinically significant, sudden or life threatening deterioration of the following system(s) required my full and direct attention, intervention and personal management. The time I documented below is in addition to time spent performing reported procedures but includes the following listed in this critical care notation. Medical Decision Making - Medical Records Medical records reviewed: Yes: I reviewed the patient's medical records. MR Comment: Reviewed emergency department note from 02/10/2021. Reviewed labs and x-ray reports of the thoracic and lumbar spine. Discharged with prescriptions for prednisone, Percocet, ibuprofen. - Mp Inquiry Pt receiving controlled substance: Yes Mp was queried for this patient: Yes Risks and benefits of using a controlled substance: were discussed with pt by me Vital Signs: 02/15/21 09:46 Pulse Rate [Right Radial] 75 Respiratory Rate 18 Blood Pressure [Right Arm] 154/64
--- NOTE | 2021-02-15 10:57 | CT_ITS ---
PROCEDURE INFORMATION: Exam: CT Lumbar Spine Without Contrast Exam date and time: 02/15/2021 10:57 AM Age: 46 years old Clinical indication: Pain; Other: Mid to low; Prior surgery; Surgery date: 6+ months; Surgery type: Cervical trifusio, brain shunt; Additional info: Baback pain, nerve pain down arms and into L leg. Doctor is concerned about spinal epidural hematomack pain, nerve pain down arms and into L leg TECHNIQUE: Imaging protocol: Computed tomography images of the lumbar spine without contrast. Radiation optimization: All CT scans at this facility use at least one of these dose optimization techniques: automated exposure control; mA and/or kV adjustment per patient size (includes targeted exams where dose is matched to clinical indication); or iterative reconstruction. COMPARISON: CR XR LUMBAR SPINE 2-3V 02/10/2021 3:50 PM FINDINGS: Vertebrae: No acute fracture. Normal alignment. Discs/Spinal canal/Neural foramina: No focal disk protrussion. No foraminal or canal impingement. Soft tissues: Unremarkable. IMPRESSION: Unremarkable lumbar spine.
--- NOTE | 2021-02-15 10:57 | CT_ITS ---
PROCEDURE INFORMATION: Exam: CT Cervical Spine Without Contrast Exam date and time: 02/15/2021 10:57 AM Age: 46 years old Clinical indication: Other: Mid to low back pain; Prior surgery; Surgery date: 6+ months; Surgery type: Cervicle trifusion, brain shunt; Additional info: Back pain, nerve pain down arms and into L legback pain, nerve pain down arms and into L leg. Doctor is concerned about spinal epidural hematoma TECHNIQUE: Imaging protocol: Computed tomography images of the cervical spine without contrast. Radiation optimization: All CT scans at this facility use at least one of these dose optimization techniques: automated exposure control; mA and/or kV adjustment per patient size (includes targeted exams where dose is matched to clinical indication); or iterative reconstruction. COMPARISON: [facility] CT CERVICAL SPINE W/O CONT 02/26/2015 6:30 AM FINDINGS: Bones/joints: Anterior cervical fusion plate spanning C4, C5, C6, and C7. No evidence of loosening or infection of the hardware. Normal alignment. No fractures. Discs/Spinal canal/Neural foramina: Unremarkable. No spinal stenosis. No foraminal narrowing. No obvious disc protrusions. No obvious epidural collections. Lungs: Lung apices are normal. Soft tissues: Unremarkable. IMPRESSION: 1. Anterior cervical fusion without evidence of complication. 2. No fractures or dislocations. 3. Evaluation is limited without intravenous contrast, but no obvious epidural collections.
--- NOTE | 2021-02-15 10:57 | CT_ITS ---
PROCEDURE INFORMATION: Exam: CT Thoracic Spine Without Contrast Exam date and time: 02/15/2021 10:57 AM Age: 46 years old Clinical indication: Prior surgery; Surgery date: 6+ months; Surgery type: C-spine trifusion, brain shunt; Patient HX: Mid ot low back pain lt side numbness; Additional info: Back pain, nerve pain down arms and into L leg. Doctor is concerned about spinal epidural hematoma TECHNIQUE: Imaging protocol: Computed tomography images of the thoracic spine without contrast. Radiation optimization: All CT scans at this facility use at least one of these dose optimization techniques: automated exposure control; mA and/or kV adjustment per patient size (includes targeted exams where dose is matched to clinical indication); or iterative reconstruction. COMPARISON: CR XR THORACIC SPINE 2V 02/10/2021 3:47 PM FINDINGS: Vertebrae: No acute fracture. Normal alignment. Discs/Spinal canal/Neural foramina: No significant disc protrusion. No severe spinal canal stenosis. No significant neural foraminal narrowing. Soft tissues: Unremarkable. IMPRESSION: Unremarkable thoracic spine.
[2021-02-15 11:36] LABS: Basophils # 0.2 K/mm3 (0-0.2); Basophils % 1.9 % (0.1-2.0); Eosinophils # 0.2 K/mm3 (0.0-0.4); Eosinophils % 1.6 % (0.1-12.0); Hematocrit 48.6 % (37.0-47.0); Hemoglobin 15.1 g/dL (12.2-16.2); Lymphocytes # 1.8 K/mm3 (0.7-4.5); Lymphocytes % 18.6 % (10-50); Mean Corpuscular HGB Conc 31.2 g/dL (31.8-35.4); Mean Corpuscular Hemoglobin 29.7 pg (27.0-31.2); Mean Corpuscular Volume 95.4 fl (81-99); Mean Platelet Volume 8.2 fl (7.4-10.4); Monocytes # 0.7 K/mm3 (0.1-1.0); Monocytes % 6.9 % (1.7-9.3); Neutrophils # 6.7 K/mm3 (1.8-7.8); Platelet Count 324 K/mm3 (142-424); Red Blood Count 5.09 M/mm3 (4.20-5.40); Red Cell Distribution Width 16.9 % (11.5-17.5); White Blood Count 9.5 K/mm3 (4.8-10.8)
[2021-02-15 11:38] LABS: Anion Gap 12.7 mEq/L (5-15); Blood Urea Nitrogen 12 mg/dl (7-17); Calcium 9.3 mg/dl (8.4-10.2); Carbon Dioxide 25 mmol/L (22.0-30.0); Chloride 101 mmol/L (98-107); Creatinine Clearance Estimated 154 mL/min (50-200); Estimated Glomerular Filt Rate 107 ml/min (>60); GFR (African American) 130 ML/MIN (>60); Glucose 269 mg/dl (74-100); Potassium 3.7 mmoL/L (3.5-5.1); Sodium 135 mmol/L (136-145)
[2021-02-15 11:45] LABS: Activated Partial Thrombo Time 30.5 seconds (22.8-30.6); INR 1.05 (0.9-1.1); Prothrombin Time 11.8 seconds (10.1-12.5)
[2021-02-15 12:16] LABS: Erythrocyte Sedimentation Rate 16 mm/hr (0-20)
--- NOTE | 2021-02-15 13:59 | PC.NURSE ---
pt is going to CT
--- NOTE | 2021-02-15 14:03 | CT_ITS ---
PROCEDURE INFORMATION: Exam: CT Lumbar Spine With Contrast Exam date and time: 02/15/2021 2:03 PM Age: 46 years old Clinical indication: Low back pain; Patient HX: Cervical trifusion and brain shunt TECHNIQUE: Imaging protocol: Computed tomography images of the lumbar spine with intravenous contrast. Radiation optimization: All CT scans at this facility use at least one of these dose optimization techniques: automated exposure control; mA and/or kV adjustment per patient size (includes targeted exams where dose is matched to clinical indication); or iterative reconstruction. Contrast material: ISOVUE; Contrast volume: 75 ml; Contrast route: IV; COMPARISON: CT LUMBAR SPINE WO CON 02/15/2021 11:56 AM FINDINGS: Vertebrae: No acute fracture. Normal alignment. Discs/Spinal canal/Neural foramina: No focal disk protrussion. No foraminal or canal impingement. Soft tissues: Unremarkable. IMPRESSION: Unremarkable lumbar spine.
--- NOTE | 2021-02-15 15:00 | PC.NURSE ---
pt continues to c/o back pain
--- NOTE | 2021-02-15 16:00 | PC.NURSE ---
pt updated on plan of care continues to c/o pain
[2021-02-15 16:30] VITALS: BP 153/83; PULSE 63; O2SAT 94
[2021-02-15 17:00] VITALS: BP 160/63
[2021-02-15 17:41] VITALS: BP 152/78; PULSE 78; RESP 16; TEMP 36.6; O2SAT 98
== END 2021-02-15 17:44 | disposition home or self-care (01) ==
PROVIDERS: Emergency Provider Emergency Medicine; PCP Nurse Practitioner Family
DX: M54.42 Lumbago with sciatica, left side (principal); I10 Essential (primary) hypertension; E11.9 Type 2 diabetes mellitus without complications; I48.0 Paroxysmal atrial fibrillation; E78.5 Hyperlipidemia, unspecified; Z95.0 Presence of cardiac pacemaker; I25.2 Old myocardial infarction; F17.210 Nicotine dependence, cigarettes, uncomplicated; Z79.899 Other long term (current) drug therapy; Z88.5 Allergy status to narcotic agent
CPT/HCPCS: 72125; 72128; 72131; 72132; 80048; 85025; 85610; 85651; 85730; 86140; 96365; 96375; 96376; 99283; J2405

== ENCOUNTER 2021-03-14 18:58 | Emergency (ER) | payer MEDICARE, SELFPAY ==
[2021-03-14 18:59] VITALS: BP 185/78; PULSE 68; RESP 22; TEMP 36.8; O2SAT 98; BMI 23.2
--- NOTE | 2021-03-14 19:08 | ECG_ITS ---
APPROVED REPORT Exam: Resting ECG HR:69 bpm ECG Measurements Heart Rate 69 AXES NV 178 P -62 QRSd 118 QRS 104 QT 445 T 93 QTc 464 Conclusion ECTOPIC ATRIAL RHYTHM RIGHT AXIS DEVIATION [QRS AXIS > 100] MODERATE INTRAVENTRICULAR CONDUCTION DELAY [110+ ms QRS DURATION] MINIMAL ST DEPRESSION [0.025+ mV ST DEPRESSION] ABNORMAL ECG UNCONFIRMED REPORT Electronically signed by : Evaristo Aguilar MD 03/15/2021 13:46:02
--- NOTE | 2021-03-14 19:22 | CT_ITS ---
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 Radiation optimization: All CT scans at this facility use at least one of these dose optimization techniques: automated exposure control; mA and/or kV adjustment per patient size (includes targeted exams where dose is matched to clinical indication); or iterative reconstruction. COMPARISON: CT HEAD/BRAIN WO CON 12/12/2020 4:24 PM FINDINGS: Brain: No large territorial infarction. No hemorrhage. No mass effect or midline shift. Cerebral ventricles: Ventriculostomy catheter tip terminating near the 3rd ventricle. No ventriculomegaly. Paranasal sinuses: No fluid levels. Mastoid air cells: Visualized mastoid air cells are well aerated. Bones/joints: Evidence of prior Chiari decompression. Soft tissues: No significant soft tissue abnormality. IMPRESSION: No acute intracranial abnormality.
--- NOTE | 2021-03-14 19:22 | CT_ITS ---
PROCEDURE INFORMATION: Exam: CT Angiography Head With Contrast, Arteriography Exam date and time: 03/14/2021 7:22 PM Age: 46 years old Clinical indication: Numbness; Prior surgery; Surgery type: Chairi malformation. Shunt. Fusion c-spine; Additional info: L arm and leg numbness; Migraine; HX hydroceph TECHNIQUE: Imaging protocol: Computed tomography angiography of the head with contrast. Exam focused on the arteries. 3D rendering (Not supervised by radiologist): MIP and/or 3D reconstructed images were created by the technologist. Radiation optimization: All CT scans at this facility use at least one of these dose optimization techniques: automated exposure control; mA and/or kV adjustment per patient size (includes targeted exams where dose is matched to clinical indication); or iterative reconstruction. Contrast material: ISOVUE 370; Contrast volume: 100 ml; Contrast route: INTRAVENOUS (IV); COMPARISON: CT HEAD/BRAIN WO CON 03/14/2021 7:49 PM FINDINGS: ANTERIOR CIRCULATION: Right internal carotid artery: Unremarkable. Intracranial segment is patent with no significant stenosis. No aneurysm. Right middle cerebral artery: Unremarkable. No occlusion or significant stenosis. No aneurysm. Right anterior cerebral artery: Unremarkable. No occlusion or significant stenosis. No aneurysm. Left internal carotid artery: Unremarkable. Intracranial segment is patent with no significant stenosis. No aneurysm. Left middle cerebral artery: Unremarkable. No occlusion or significant stenosis. No aneurysm. Left anterior cerebral artery: Unremarkable. No occlusion or significant stenosis. No aneurysm. POSTERIOR CIRCULATION: Right vertebral artery: Unremarkable. No occlusion or significant stenosis. No aneurysm. Left vertebral artery: Unremarkable. No occlusion or significant stenosis. No aneurysm. Basilar artery: Unremarkable. No occlusion or significant stenosis. No aneurysm. Right posterior cerebral artery: Unremarkable. No occlusion or significant stenosis. No aneurysm. Left posterior cerebral artery: Unremarkable. No occlusion or significant stenosis. No aneurysm. Brain: No acute intracranial hemorrhage. No significant white matter disease. No edema. Cerebral ventricles: No ventriculomegaly. Bones/joints: No acute fracture. Soft tissues: Unremarkable. IMPRESSION: No large vessel stenosis or occlusion.
--- NOTE | 2021-03-14 19:25 | HMH.EDGENADL ---
ED Disposition Clinical Impression: Migraine aura, persistent Qualifiers: Status migrainosus presence: with status migrainosus Intractability: not intractable Qualified Code(s): G43.501 - Persistent migraine aura without cerebral infarction, not intractable, with status migrainosus Disposition: Home, Self-Care Condition on Discharge: Good Instructions: Migraine -- Adult, DI for Migraine Referrals: Era Ricardo APRN [Primary Care Provider] - Time of Disposition: 20:55 - Critical Care Critical Care Time: No Attestation: On 03/14/21, the high probability of a clinically significant, sudden or life threatening deterioration of the following system(s) required my full and direct attention, intervention and personal management. The time I documented below is in addition to time spent performing reported procedures but includes the following listed in this critical care notation. Medical Decision Making - Medical Records Medical records reviewed: Yes: I reviewed the patient's medical records. - Mp Inquiry Pt receiving controlled substance: No Vital Signs: 03/14/21 18:59 Temperature 98.2 F Temperature Source Oral Pulse Rate [Right] 68 Respiratory Rate 22 Blood Pressure [Right Arm] 185/78 H Blood Pressure Mean [Right Arm] 113 Blood Pressure Source [Right Arm] Automatic Cuff 02 Sat by Pulse Oximetry 98 Oxygen Delivery Method Room Air - Lab Data Lab results reviewed: Yes: I reviewed the patient's lab results. Lab Results 03/14/21 19:15: WBC 8.2, RBC 5.08, Hgb 15.4, Hct 49.4 H, MCV 97.4, MCH 30.3, MCHC 31.1 L, RDW 16.5, Plt Count 320, MPV 8.2, Neut % (Auto) 68.5, Lymph % (Auto) 24.1, [place] % (Auto) 5.7, Eos % (Auto) 0.6, Baso % (Auto) 1.0, Neut # (Auto) 5.6, Lymph # (Auto) 2.0, [place] # (Auto) 0.5, Eos # (Auto) 0.1, Baso # (Auto) 0.1 03/14/21 19:15: Sodium 136, Potassium 3.2 L, Chloride 95 L, Carbon Dioxide 31 H, Anion Gap 13.2, BUN 10, Creatinine 0.80, Estimated Creat Clear 101, Estimated GFR 77, Est GFR ( Amer) 93, Glucose 247 H, Calcium 9.5, Total Bilirubin 0.7, AST 25, ALT 22, Alkaline Phosphatase 140 H, C-Reactive Protein 20.4 H, Total Protein 8.7 H, Albumin 4.7, Globulin 4.0 H, Albumin/Globulin Ratio 1.2 Result diagrams: 03/14/21 19:15 03/14/21 19:15 Orders (Tests/Meds): ED MEDICATIONS Generic Name Dose Route Start Last Admin Trade Name Freq PRN Reason Stop Dose Admin Lactated Ringer's 1,000 mls @ 999 mls/hr 03/14/21 19:30 03/14/21 19:54 Lactated Ringer's 1000 Ml Bag IV 03/14/21 20:30 999 mls/hr .Q1H1M ALEX Administration Discontinued Medications Generic Name Dose Route Start Last Admin Trade Name Freq PRN Reason Stop Dose Admin Diphenhydramine HCl 25 mg 03/14/21 19:23 03/14/21 19:53 Diphenhydramine 50mg/Ml Vial IV 03/14/21 19:24 25 mg ONCE ONE Administration Iopamidol 100 ml 03/14/21 20:03 03/14/21 20:04 Iopamidol-370 (76%);100ml Bottle IV 03/14/21 20:04 100 ml ONCE ONE Administration Ketorolac Tromethamine 30 mg 03/14/21 19:23 03/14/21 19:54 Ketorolac 30mg/Ml Vial IV 03/14/21 19:24 30 mg ONCE ONE Administration Metoclopramide HCl 10 mg 03/14/21 19:23 03/14/21 19:53 Metoclopramide Hcl 10mg/2ml Vial IVP 03/14/21 19:24 10 mg ONCE ONE Administration Sodium Chloride 50 ml 03/14/21 20:03 03/14/21 20:04 0.9 % Sodium Chloride 50 Ml Vial IV 03/14/21 20:04 50 ml ONCE ONE Administration Sodium Chloride 10 ml 03/14/21 20:03 03/14/21 20:04 Sodium Chloride 0.9% 10ml Syr (Rad Only) IV 03/14/21 20:04 10 ml ONCE ONE Administration ORDERS Category Date Time Status C-Reactive Protein Stat Lab 03/14/21 19:15 Received Complete Blood Count Auto Diff Stat Lab 03/14/21 19:15 Results Comprehensive Metabolic Panel Stat Lab 03/14/21 19:15 Received Erythrocyte Sedimentation Rate Stat Lab 03/14/21 19:15 Results Procalcitonin Stat Lab 03/14/21 19:15 Received Medical Decision Narrative: 46-year-old female
[2021-03-14 20:32] LABS: Basophils # 0.1 K/mm3 (0-0.2); Eosinophils # 0.1 K/mm3 (0.0-0.4); Eosinophils % 0.6 % (0.1-12.0); Hematocrit 49.4 % (37.0-47.0); Hemoglobin 15.4 g/dL (12.2-16.2); Lymphocytes % 24.1 % (10-50); Mean Corpuscular HGB Conc 31.1 g/dL (31.8-35.4); Mean Corpuscular Hemoglobin 30.3 pg (27.0-31.2); Mean Corpuscular Volume 97.4 fl (81-99); Mean Platelet Volume 8.2 fl (7.4-10.4); Monocytes # 0.5 K/mm3 (0.1-1.0); Monocytes % 5.7 % (1.7-9.3); Neutrophils # 5.6 K/mm3 (1.8-7.8); Neutrophils % 68.5 % (37.0-80.0); Platelet Count 320 K/mm3 (142-424); Red Blood Count 5.08 M/mm3 (4.20-5.40); Red Cell Distribution Width 16.5 % (11.5-17.5); White Blood Count 8.2 K/mm3 (4.8-10.8)
[2021-03-14 20:37] LABS: Alanine Aminotransferase 22 U/L (12-78); Albumin Level 4.7 g/dl (3.5-5.0); Albumin/Globulin Ratio 1.2 (1.1-1.8); Alkaline Phosphatase 140 U/L (38-126); Anion Gap 13.2 mEq/L (5-15); Aspartate Amino Transferase 25 U/L (14-36); Bilirubin,Total 0.7 mg/dl (0.2-1.3); Blood Urea Nitrogen 10 mg/dl (7-17); Calcium 9.5 mg/dl (8.4-10.2); Carbon Dioxide 31 mmol/L (22.0-30.0); Chloride 95 mmol/L (98-107); Creatinine Clearance Estimated 101 mL/min (50-200); Estimated Glomerular Filt Rate 77 ml/min (>60); GFR (African American) 93 ML/MIN (>60); Glucose 247 mg/dl (74-100); Potassium 3.2 mmoL/L (3.5-5.1); Sodium 136 mmol/L (136-145); Total Protein,Serum 8.7 g/dl (6.3-8.2)
[2021-03-14 20:42] LABS: C-Reactive Protein 20.4 mg/L (0-4)
[2021-03-14 21:07] LABS: Erythrocyte Sedimentation Rate 11 mm/hr (0-20)
[2021-03-14 21:25] VITALS: BP 180/70; PULSE 78; RESP 20; TEMP 36.7; O2SAT 98
== END 2021-03-14 21:35 | disposition home or self-care (01) ==
PROVIDERS: Emergency Medicine; Emergency Provider Emergency Medicine; PCP Nurse Practitioner Family
DX: G43.501 Persistent migraine aura without cerebral infarction, not intractable, with status migrainosus (principal); I48.0 Paroxysmal atrial fibrillation; E11.9 Type 2 diabetes mellitus without complications; E78.5 Hyperlipidemia, unspecified; I10 Essential (primary) hypertension; Z95.0 Presence of cardiac pacemaker; I25.2 Old myocardial infarction; F17.210 Nicotine dependence, cigarettes, uncomplicated
CPT/HCPCS: 70450; 70496; 80053; 84145; 85025; 85651; 86140; 93005; 96365; 96375; 99283; Q9967

== ENCOUNTER 2021-03-30 12:09 | Emergency (ER) | payer MEDICARE, SELFPAY ==
[2021-03-30] VITALS (15 sets, daily range): BP systolic 144–226; BP diastolic 87–119; PULSE 62–71; RESP 15–22; TEMP 36.4; O2SAT 95–100; BMI 25.8
--- NOTE | 2021-03-30 12:53 | HMH.EDGENADL ---
ED Disposition Clinical Impression: Neck pain, Left arm pain, Hypertension, uncontrolled Headache Qualifiers: Headache type: unspecified Headache chronicity pattern: acute headache Intractability: not intractable Qualified Code(s): R51.9 - Headache, unspecified Vomiting Qualifiers: Vomiting type: unspecified Nausea presence: with nausea Qualified Code(s): R11.2 - Nausea with vomiting, unspecified Disposition: Home, Self-Care Condition on Discharge: Fair Instructions: DI for Vomiting -- Adult, DI for Headache, DI for Chronic Neck Pain, DI for High Blood Pressure Additional Instructions: Take your regularly scheduled blood pressure medication this evening. Robaxin and Zofran as needed. Call your primary care provider tomorrow to arrange appointment this week for further care. Prescriptions: methocarbamoL [Methocarbamol] 750 mg PO TIDP PRN #10 tab PRN Reason: Muscle Spasm Transmission Status: Pending to [id number] Ondansetron [Zofran 4mg ODT] 4 mg PO TIDP PRN #10 tab PRN Reason: Nausea And Vomiting Transmission Status: Pending to [facility] Referrals: Era Ricardo APRN [Primary Care Provider] - - Critical Care Critical Care Time: No Attestation: On 03/30/21, the high probability of a clinically significant, sudden or life threatening deterioration of the following system(s) required my full and direct attention, intervention and personal management. The time I documented below is in addition to time spent performing reported procedures but includes the following listed in this critical care notation. Medical Decision Making - Medical Records Medical records reviewed: Yes: I reviewed the patient's medical records. MR Comment: Reviewed discharge summary from recent admission at [facility] 02/26/2021 through 03/07/2021. Reviewed imaging performed. Had CTs and MRIs of her entire of her spine as well as MRI of brain with and without contrast. The patient has failed to follow-up appointments scheduled since then. Also seen by me in this emergency department on 02/15/20[address]s of her entire spine. Seen in this emergency department on 03/14/[address] angiogram of brain. - Mp Inquiry Pt receiving controlled substance: Yes Mp was queried for this patient: Yes Risks and benefits of using a controlled substance: were discussed with pt by me Vital Signs: 03/30/21 12:10 03/30/21 12:21 03/30/21 12:25 Temperature 97.6 F Temperature Source Oral Pulse Rate 62 67 Pulse Rate [Left Radial] 66 Respiratory Rate 18 16 17 Blood Pressure 226/98 H 144/119 H Blood Pressure [Right Arm] 144/119 H Blood Pressure Mean 140 127 Blood Pressure Mean [Right Arm] 127 Blood Pressure Source Blood Pressure Source [Right Arm] Automatic Cuff Blood Pressure Position Blood Pressure Position [Right Arm] Sitting 02 Sat by Pulse Oximetry 100 99 100 Oxygen Delivery Method Room Air 03/30/21 12:33 03/30/21 13:01 03/30/21 13:36 Temperature Temperature Source Pulse Rate 63 64 69 Pulse Rate [Left Radial] Respiratory Rate 15 15 22 Blood Pressure 223/102 H 204/94 H 205/102 H Blood Pressure [Right Arm] Blood Pressure Mean 142 130 151 Blood Pressure Mean [Right Arm] Blood Pressure Source Blood Pressure Source [Right Arm] Blood Pressure Position Blood Pressure Position [Right Arm] 02 Sat by Pulse Oximetry 100 100 98 Oxygen Delivery Method 03/30/21 13:48 03/30/21 13:58 03/30/21 14:00 Temperature Temperature Source Pulse Rate 64 69 Pulse Rate [Left Radial] Respiratory Rate 21 15 Blood Pressure 224/94 H 218/108 H 212/101 H Blood Pressure [Right Arm] Blood Pressure Mean 137 138 Blood Pressure Mean [Right Arm] Blood Pressure Source Manual Cuff/ Auscultation Automatic Cuff Blood Pressure Source [Right Arm] Blood Pressure Position Sitting Supine Blood Pressure Position [Right Arm] 02 Sat b
[2021-03-30 12:56] LABS: Chloride 100 mmol/L (98-107); Sodium 132 mmol/L (136-145)
[2021-03-30 12:57] LABS: Basophils # 0.1 K/mm3 (0-0.2); Basophils % 1.5 % (0.1-2.0); Eosinophils # 0.1 K/mm3 (0.0-0.4); Eosinophils % 1.5 % (0.1-12.0); Hematocrit 52.4 % (37.0-47.0); Hemoglobin 16.3 g/dL (12.2-16.2); Lymphocytes # 1.2 K/mm3 (0.7-4.5); Lymphocytes % 15.3 % (10-50); Mean Corpuscular HGB Conc 31.2 g/dL (31.8-35.4); Mean Corpuscular Hemoglobin 29.6 pg (27.0-31.2); Mean Platelet Volume 8.4 fl (7.4-10.4); Monocytes # 0.4 K/mm3 (0.1-1.0); Monocytes % 5.7 % (1.7-9.3); Neutrophils # 5.9 K/mm3 (1.8-7.8); Platelet Count 267 K/mm3 (142-424); Potassium 3.4 mmoL/L (3.5-5.1); Red Blood Count 5.52 M/mm3 (4.20-5.40); Red Cell Distribution Width 16.2 % (11.5-17.5); White Blood Count 7.8 K/mm3 (4.8-10.8)
[2021-03-30 12:59] LABS: Alanine Aminotransferase 24 U/L (12-78); Albumin Level 4.9 g/dl (3.5-5.0); Alkaline Phosphatase 206 U/L (38-126); Anion Gap 13.4 mEq/L (5-15); Aspartate Amino Transferase 31 U/L (14-36); Bilirubin,Total 1.2 mg/dl (0.2-1.3); Blood Urea Nitrogen 9 mg/dl (7-17); Calcium 9.9 mg/dl (8.4-10.2); Carbon Dioxide 22 mmol/L (22.0-30.0); Creatinine Clearance Estimated 179 mL/min (50-200); Estimated Glomerular Filt Rate 132 ml/min (>60); GFR (African American) 160 ML/MIN (>60); Globulin 4.7 g/dL (1.3-3.2); Glucose 309 mg/dl (74-100); Total Protein,Serum 9.6 g/dl (6.3-8.2)
== END 2021-03-30 16:15 | disposition home or self-care (01) ==
PROVIDERS: Emergency Provider Emergency Medicine; PCP Nurse Practitioner Family
DX: R51.9 Headache, unspecified (principal); M79.602 Pain in left arm; I10 Essential (primary) hypertension; R11.10 Vomiting, unspecified
CPT/HCPCS: 80053; 85025; 96365; 96375; 96376; 99282; J2405

== ENCOUNTER 2021-06-09 11:03 | Emergency (ER) | payer MEDICARE, SELFPAY ==
[2021-06-09] VITALS (8 sets, daily range): BP systolic 104–219; BP diastolic 58–88; PULSE 55–76; RESP 18–20; TEMP 36.5; O2SAT 94–100; BMI 24.3
--- NOTE | 2021-06-09 11:03 | ECG_ITS ---
APPROVED REPORT Exam: Resting ECG HR:53 bpm ECG Measurements Heart Rate 53 AXES SD 173 P -61 QRSd 114 QRS 99 QT 527 T 94 QTc 511 Conclusion SINUS BRADYCARDIA BORDERLINE RIGHT AXIS DEVIATION [QRS AXIS > 90] MODERATE INTRAVENTRICULAR CONDUCTION DELAY [110+ ms QRS DURATION] PROLONGED QT INTERVAL CRITICAL TEST RESULT UNCONFIRMED REPORT Electronically signed by : Evaristo Aguilar MD 06/11/2021 10:14:36
--- NOTE | 2021-06-09 11:11 | XR_ITS ---
FINAL REPORT CLINICAL HISTORY: cough COMPARISON: January 02, 2021 FINDINGS: A right shunt catheter is present. Cardiomegaly is noted. There has been prior median sternotomy. There is worsening right base atelectasis or pneumonia. There is no pleural effusion. There is no pneumothorax. Postoperative changes are seen in the lower cervical spine. IMPRESSION: Worsening right lung base atelectasis or pneumonia. Reviewed, Interpreted and Dictated by Gareth Serrano III, MD Transcribed by Farhan Kraus Authenticated by Gareth Serrano III, MD on 06/09/2021 12:35:[address] [facility]
[2021-06-09 11:52] LABS: Basophils # 0.1 K/mm3 (0-0.2); Eosinophils # 0.1 K/mm3 (0.0-0.4); Eosinophils % 0.6 % (0.1-12.0); Hematocrit 46.6 % (37.0-47.0); Hemoglobin 15.3 g/dL (12.2-16.2); Lymphocytes % 10.5 % (10-50); Mean Corpuscular HGB Conc 32.8 g/dL (31.8-35.4); Mean Corpuscular Hemoglobin 31.2 pg (27.0-31.2); Mean Platelet Volume 8.8 fl (7.4-10.4); Monocytes # 0.4 K/mm3 (0.1-1.0); Monocytes % 4.6 % (1.7-9.3); Neutrophils # 7.7 K/mm3 (1.8-7.8); Neutrophils % 83.3 % (37.0-80.0); Platelet Count 271 K/mm3 (142-424); Red Blood Count 4.91 M/mm3 (4.20-5.40); Red Cell Distribution Width 15.9 % (11.5-17.5); White Blood Count 9.2 K/mm3 (4.8-10.8)
[2021-06-09 11:54] LABS: Chloride 104 mmol/L (98-107)
[2021-06-09 11:55] LABS: Chloride 102 mmol/L (98-107); Potassium 3.3 mmoL/L (3.5-5.1); Sodium 135 mmol/L (136-145)
[2021-06-09 11:56] LABS: Potassium 3.3 mmoL/L (3.5-5.1); Sodium 134 mmol/L (136-145)
[2021-06-09 11:57] LABS: Blood Urea Nitrogen 10 mg/dl (7-17)
[2021-06-09 11:58] LABS: Alanine Aminotransferase 27 U/L (12-78); Alkaline Phosphatase 179 U/L (38-126); Anion Gap 13.3 mEq/L (5-15); Aspartate Amino Transferase 30 U/L (14-36); Blood Urea Nitrogen 9 mg/dl (7-17); Calcium 8.5 mg/dl (8.4-10.2); Carbon Dioxide 21 mmol/L (22.0-30.0); Carbon Dioxide 22 mmol/L (22.0-30.0); Creatinine Clearance Estimated 212 mL/min (50-200); Estimated Glomerular Filt Rate 171 ml/min (>60); GFR (African American) 207 ML/MIN (>60); Glucose 273 mg/dl (74-100)
[2021-06-09 11:59] LABS: Albumin Level 4.6 g/dl (3.5-5.0); Calcium 8.6 mg/dl (8.4-10.2); Globulin 4.6 g/dL (1.3-3.2); Glucose 274 mg/dl (74-100); Lipase 92 U/L (23-300); Total Protein,Serum 9.2 g/dl (6.3-8.2)
[2021-06-09 12:07] LABS: NT Pro Brain Natriuretic Pep. 693 pg/mL (0-125)
[2021-06-09 12:10] LABS: Troponin I < 0.01 ng/ml (0.00-0.034)
--- NOTE | 2021-06-09 12:17 | HMH.EDCP ---
ED Disposition Clinical Impression: Vomiting Qualifiers: Vomiting type: unspecified Nausea presence: with nausea Qualified Code(s): R11.2 - Nausea with vomiting, unspecified CAP (community acquired pneumonia) Qualifiers: Laterality: right Lung location: lower lobe of lung Qualified Code(s): J18.9 - Pneumonia, unspecified organism Disposition: Home, Self-Care Condition on Discharge: Good Instructions: Pneumonia-Adult Prescriptions: Doxycycline Monohydrate [Doxycycline [place] 100mg Tab] 100 mg PO Q12 #20 tab Transmission Status: Pending to [facility] Promethazine HCl [Phenergan 25mg tab] 25 mg PO BID #12 tab Transmission Status: Pending to [facility] Referrals: Provider,Referral, [Primary Care Provider] - - Critical Care Critical Care Time: No Attestation: On 06/09/21, the high probability of a clinically significant, sudden or life threatening deterioration of the following system(s) required my full and direct attention, intervention and personal management. The time I documented below is in addition to time spent performing reported procedures but includes the following listed in this critical care notation. Medical Decision Making - Medical Records Medical records reviewed: Yes: I reviewed the patient's medical records. - Mp Inquiry Pt receiving controlled substance: No Vital Signs: 06/09/21 11:04 06/09/21 12:00 06/09/21 12:31 Temperature 97.7 F Temperature Source Oral Pulse Rate 60 Pulse Rate [Left Radial] 55 L Respiratory Rate 20 Blood Pressure 186/81 H 123/60 Blood Pressure [Right Arm] 219/88 H Blood Pressure Mean 116 81 Blood Pressure Mean [Right Arm] 131 Blood Pressure Source [Right Arm] Automatic Cuff Blood Pressure Position [Right Arm] Sitting 02 Sat by Pulse Oximetry 100 94 L 98 Oxygen Delivery Method Room Air 06/09/21 13:00 06/09/21 13:30 Temperature Temperature Source Pulse Rate 74 68 Pulse Rate [Left Radial] Respiratory Rate 18 Blood Pressure 141/70 H 142/75 H Blood Pressure [Right Arm] Blood Pressure Mean 88 94 Blood Pressure Mean [Right Arm] Blood Pressure Source [Right Arm] Blood Pressure Position [Right Arm] 02 Sat by Pulse Oximetry 100 98 Oxygen Delivery Method - Lab Data Lab Results 06/09/21 11:34: Sodium 135 L, Potassium 3.3 L, Chloride 104, Carbon Dioxide 21 L, Anion Gap 13.3, BUN 10, Creatinine 0.40 L, Estimated Creat Clear 212, Estimated GFR 171, Est GFR ( Amer) 207, Glucose 273 H, Calcium 8.5, Troponin I < 0.01 06/09/21 11:34: WBC 9.2, RBC 4.91, Hgb 15.3, Hct 46.6, MCV 95.0, MCH 31.2, MCHC 32.8, RDW 15.9, Plt Count 271, MPV 8.8, Neut % (Auto) 83.3 H, Lymph % (Auto) 10.5, [place] % (Auto) 4.6, Eos % (Auto) 0.6, Baso % (Auto) 1.0, Neut # (Auto) 7.7, Lymph # (Auto) 1.0, [place] # (Auto) 0.4, Eos # (Auto) 0.1, Baso # (Auto) 0.1 06/09/21 11:34: Sodium 134 L, Potassium 3.3 L, Chloride 102, Carbon Dioxide 22, Anion Gap 13.3, BUN 9, Creatinine 0.40 L, Estimated Creat Clear 212, Estimated GFR 171, Est GFR ( Amer) 207, Glucose 274 H, Calcium 8.6, Total Bilirubin 1.0, AST 30, ALT 27, Alkaline Phosphatase 179 H, NT-Pro-B Natriuret Pep 693 H, Total Protein 9.2 H, Albumin 4.6, Globulin 4.6 H, Albumin/Globulin Ratio 1.0 L, Lipase 92 06/09/21 14:20: Troponin I < 0.01 Result diagrams: 06/09/21 11:34 06/09/21 11:34 Orders (Tests/Meds): ED MEDICATIONS Generic Name Dose Route Start Last Admin Trade Name Freq PRN Reason Stop Dose Admin Sodium Chloride 10 ml 06/09/21 11:11 Sodium Chloride 0.9% 10ml Flush Syringe IV 07/09/21 11:10 NEEDED PRN Maintain IV Site Sodium Chloride 10 ml 06/09/21 11:12 Sodium Chloride 0.9% 10ml Vial IV 07/09/21 11:11 NEEDED PRN to Dilute Lorazepam inj Discontinued Medications Generic Name Dose Route Start Last Admin Trade Name Freq PRN Reason Stop Dose Admin Diphenhydramine HCl 25 mg 06/09/21 11:11
[2021-06-09 15:02] LABS: Troponin I < 0.01 ng/ml (0.00-0.034)
== END 2021-06-09 15:27 | disposition home or self-care (01) ==
PROVIDERS: Emergency Provider Emergency Medicine
DX: J18.9 Pneumonia, unspecified organism (principal); R00.2 Palpitations; R11.2 Nausea with vomiting, unspecified; I11.0 Hypertensive heart disease with heart failure; I50.9 Heart failure, unspecified; I48.91 Unspecified atrial fibrillation; I25.2 Old myocardial infarction; E78.5 Hyperlipidemia, unspecified; E11.9 Type 2 diabetes mellitus without complications; M19.90 Unspecified osteoarthritis, unspecified site; F17.210 Nicotine dependence, cigarettes, uncomplicated; Z79.51 Long term (current) use of inhaled steroids; Z79.84 Long term (current) use of oral hypoglycemic drugs; Z79.899 Other long term (current) drug therapy; Z88.0 Allergy status to penicillin; Z88.1 Allergy status to other antibiotic agents; Z88.3 Allergy status to other anti-infective agents; Z88.5 Allergy status to narcotic agent; Z88.6 Allergy status to analgesic agent; Z88.8 Allergy status to other drugs, medicaments and biological substances; Z95.0 Presence of cardiac pacemaker; Z86.14 Personal history of Methicillin resistant Staphylococcus aureus infection; Z82.49 Family history of ischemic heart disease and other diseases of the circulatory system
CPT/HCPCS: 36415; 71045; 80048; 80053; 83690; 83880; 84484; 85025; 93005; 96374; 96375; 99285

== ENCOUNTER 2021-06-11 09:13 | Inpatient (IN) | payer MEDICARE, SELFPAY ==
[2021-06-11] VITALS (22 sets, daily range): BP systolic 82–235; BP diastolic 49–119; PULSE 66–88; RESP 16–17; TEMP 36.4–36.9; O2SAT 92–100; BMI 22.9
--- NOTE | 2021-06-11 09:23 | PC.NURSE ---
Ramya Beebe RN at BS
--- NOTE | 2021-06-11 09:29 | HMH.EDGENADL ---
ED Disposition Clinical Impression: Intractable vomiting, Abdominal pain, left upper quadrant, Pulmonary infiltrates, Uncontrolled hypertension Pulmonary edema Qualifiers: Chronicity: acute Qualified Code(s): J81.0 - Acute pulmonary edema Disposition: Admitted as Observation Condition on Discharge: Fair - Critical Care Critical Care Time: Yes Attestation: On 06/11/21, the high probability of a clinically significant, sudden or life threatening deterioration of the following system(s) required my full and direct attention, intervention and personal management. The time I documented below is in addition to time spent performing reported procedures but includes the following listed in this critical care notation. Total Critical Care Time: 45 Vital system(s) involved:: Circulatory Failure My critical care processes included: Assessment & monitoring of V/S, Initial and Re-exams, Data Review/Interpretation, Coordinating Care, Medication Orders and management, Documentation Medical Decision Making - Medical Records Medical records reviewed: Yes: I reviewed the patient's medical records. MR Comment: Reviewed most recent echocardiogram result, see below. - Mp Inquiry Pt receiving controlled substance: Yes Mp was queried for this patient: Yes Risks and benefits of using a controlled substance: were not discussed with pt by me Vital Signs: 06/11/21 09:28 06/11/21 09:30 06/11/21 10:00 Temperature 98.5 F Temperature Source Oral Pulse Rate 68 71 Pulse Rate [Left Radial] 70 Respiratory Rate 17 Blood Pressure 233/113 H 235/98 H Blood Pressure [Right Arm] 207/119 H Blood Pressure Mean 143 Blood Pressure Mean [Right Arm] 148 Blood Pressure Source Blood Pressure Position 02 Sat by Pulse Oximetry 100 99 99 Oxygen Delivery Method Room Air Room Air 06/11/21 10:39 06/11/21 11:56 06/11/21 12:21 Temperature Temperature Source Pulse Rate 71 70 73 Pulse Rate [Left Radial] Respiratory Rate Blood Pressure 198/86 H 209/96 H 213/94 H Blood Pressure [Right Arm] Blood Pressure Mean 142 116 Blood Pressure Mean [Right Arm] Blood Pressure Source Blood Pressure Position 02 Sat by Pulse Oximetry 98 95 Oxygen Delivery Method Room Air Room Air 06/11/21 12:30 06/11/21 13:00 06/11/21 13:28 Temperature Temperature Source Pulse Rate 66 78 Pulse Rate [Left Radial] Respiratory Rate 16 Blood Pressure 202/94 H 215/108 H 174/96 H Blood Pressure [Right Arm] Blood Pressure Mean 130 124 Blood Pressure Mean [Right Arm] Blood Pressure Source Automatic Cuff Blood Pressure Position Sitting 02 Sat by Pulse Oximetry 94 L 95 Oxygen Delivery Method Room Air Room Air - Lab Data Lab Results 06/11/21 09:30: WBC 6.8 D, RBC 5.10, Hgb 15.9, Hct 49.4 H, MCV 96.8, MCH 31.1, MCHC 32.2, RDW 16.0, Plt Count 248, MPV 8.7, Neut % (Auto) 73.2, Lymph % (Auto) 17.1, [place] % (Auto) 6.6, Eos % (Auto) 1.1, Baso % (Auto) 2.0, Neut # (Auto) 5.0, Lymph # (Auto) 1.2, [place] # (Auto) 0.4, Eos # (Auto) 0.1, Baso # (Auto) 0.1 06/11/21 09:30: Sodium 137, Potassium 3.3 L, Chloride 104, Carbon Dioxide 24, Anion Gap 12.3, BUN 17 D, Creatinine 0.50 L D, Estimated Creat Clear 159, Estimated GFR 132, Est GFR ( Amer) 160 D, Glucose 253 H, Calcium 8.6, Total Bilirubin 0.6, AST 25, ALT 23, Alkaline Phosphatase 159 H, Troponin I < 0.01, Total Protein 8.7 H, Albumin 4.5, Globulin 4.2 H, Albumin/Globulin Ratio 1.1, Lipase 131 06/11/21 09:30: NT-Pro-B Natriuret Pep 607 H 06/11/21 09:52: Urine Color Yellow, Urine Appearance Clear, Urine pH 7.5, Ur Specific [place] 1.020, Urine Protein 1+, Urine Glucose (UA) 2+, Urine Ketones Negative, Urine Blood Negative, Urine Nitrate Negative, Urine Bilirubin Negative, Urine Urobilinogen 0.2, Ur Leukocyte Esterase Negative, Urine RBC None, Urine WBC 3-5, Ur Squamous Epith Cells 3-5, Urine Bacteria 2+ 06/11/21 09:52: Urine Opiates Screen Negative, Urine Methadone Scree
--- NOTE | 2021-06-11 09:33 | PC.NURSE ---
ED MD at BS; Family at BS
--- NOTE | 2021-06-11 09:41 | CT_ITS ---
FINAL REPORT CLINICAL HISTORY: LUQ abdo pain, vomiting, hematemesis COMPARISON: 01/01/2021 FINDINGS: CT OF THE ABDOMEN AND PELVIS WITH CONTRAST Axial CT images of the abdomen and pelvis were obtained after the administration of oral and iv contrast. Coronal reformatted images were also obtained and reviewed.This study was performed with techniques to keep radiation doses as low as reasonably achievable (ALARA). Individualized dose reduction techniques using automated exposure control or adjustment of mA and/or kV according to the patient's size were employed. Abdomen: There are ground-glass opacities and interstitial thickening in the lung bases favored to represent pulmonary edema. The heart is normal in size. The liver has an unremarkable appearance, without evidence of mass or biliary ductal dilatation. There is a small amount of ascites in the right perihepatic region. The patient is status post cholecystectomy. The spleen is unremarkable. There is mild bilateral adrenal gland enlargement favored to represent hyperplasia. The pancreas has an unremarkable appearance. There is a 15 mm cyst in the posterior right kidney. There are several less than 3 mm nonobstructing left renal stones. There are moderate vascular calcifications. There is moderate stenosis of the left common iliac artery. There is no free fluid or adenopathy. A shunt catheter is present. Pelvis: The appendix normal. The patient is status post hysterectomy. The urinary bladder is unremarkable. No inflammatory process is seen. There is no evidence of mass or adenopathy. There is no evidence of bowel obstruction. IMPRESSION: Pulmonary edema. Small amount of ascites in the right perihepatic region. Renal cyst. 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 Reviewed, Interpreted and Dictated by Gareth Serrano III, MD Transcribed by Luz Marina Suazo Authenticated by Gareth Serrano III, MD on 06/11/2021 11:12:37 AM [facility]
[2021-06-11 09:48] LABS: Chloride 104 mmol/L (98-107)
--- NOTE | 2021-06-11 09:48 | PC.NURSE ---
Ramya Beebe RN at BS
[2021-06-11 09:49] LABS: Potassium 3.3 mmoL/L (3.5-5.1); Sodium 137 mmol/L (136-145)
[2021-06-11 09:51] LABS: Blood Urea Nitrogen 17 mg/dl (7-17); Creatinine Clearance Estimated 159 mL/min (50-200); Estimated Glomerular Filt Rate 132 ml/min (>60); GFR (African American) 160 ML/MIN (>60)
[2021-06-11 09:52] LABS: Alanine Aminotransferase 23 U/L (12-78); Albumin Level 4.5 g/dl (3.5-5.0); Albumin/Globulin Ratio 1.1 (1.1-1.8); Alkaline Phosphatase 159 U/L (38-126); Anion Gap 12.3 mEq/L (5-15); Aspartate Amino Transferase 25 U/L (14-36); Basophils # 0.1 K/mm3 (0-0.2); Bilirubin,Total 0.6 mg/dl (0.2-1.3); Calcium 8.6 mg/dl (8.4-10.2); Carbon Dioxide 24 mmol/L (22.0-30.0); Eosinophils # 0.1 K/mm3 (0.0-0.4); Eosinophils % 1.1 % (0.1-12.0); Globulin 4.2 g/dL (1.3-3.2); Glucose 253 mg/dl (74-100); Hematocrit 49.4 % (37.0-47.0); Hemoglobin 15.9 g/dL (12.2-16.2); Lipase 131 U/L (23-300); Lymphocytes # 1.2 K/mm3 (0.7-4.5); Lymphocytes % 17.1 % (10-50); Mean Corpuscular HGB Conc 32.2 g/dL (31.8-35.4); Mean Corpuscular Hemoglobin 31.1 pg (27.0-31.2); Mean Corpuscular Volume 96.8 fl (81-99); Mean Platelet Volume 8.7 fl (7.4-10.4); Monocytes # 0.4 K/mm3 (0.1-1.0); Monocytes % 6.6 % (1.7-9.3); Neutrophils % 73.2 % (37.0-80.0); Platelet Count 248 K/mm3 (142-424); Total Protein,Serum 8.7 g/dl (6.3-8.2); White Blood Count 6.8 K/mm3 (4.8-10.8)
[2021-06-11 09:58] LABS: Microscopic, Urine URINE MICROSCOPIC (MICROSCOPIC)
[2021-06-11 09:59] LABS: Appearance,Urine CLEAR (Clear); Bilirubin,Urine Negative (Negative); Blood, Urine Negative (Negative); Color,Urine YELLOW (Yellow); Glucose,Urine (UA) 2+ (Negative); Ketones,Urine Negative (Negative); Leukocyte Esterase,Urine Negative (Negative); Nitrate,Urine Negative (Negative); PH,Urine 7.5 (5.0-8.5); Protein,Urine 1+ (Negative); Urobilinogen,Urine 0.2 EU/dl (0.2)
--- NOTE | 2021-06-11 10:07 | ECG_ITS ---
APPROVED REPORT Exam: Resting ECG HR:70 bpm ECG Measurements Heart Rate 70 AXES QRSd 113 QRS 96 QT 439 T 80 QTc 459 Conclusion ATRIAL FIBRILLATION BORDERLINE RIGHT AXIS DEVIATION [QRS AXIS > 90] MODERATE INTRAVENTRICULAR CONDUCTION DELAY [110+ ms QRS DURATION] MINIMAL ST DEPRESSION [0.025+ mV ST DEPRESSION] ABNORMAL RHYTHM ECG UNCONFIRMED REPORT Electronically signed by : Evaristo Aguilar MD 06/12/2021 11:48:59
[2021-06-11 10:08] LABS: Troponin I < 0.01 ng/ml (0.00-0.034)
[2021-06-11 10:12] LABS: Bacteria,Urine 2+ /lpf
--- NOTE | 2021-06-11 11:09 | PC.NURSE ---
Pt rang call light and requested additional pain medicine at this time. Notified MD. No new orders at this time.
--- NOTE | 2021-06-11 11:19 | XR_ITS ---
FINAL REPORT CLINICAL HISTORY: possible pulm edema on CT abdo COMPARISON: June 09, 2021 FINDINGS: A single view of the chest was obtained. A left subclavian ICD is noted. The heart is normal in size. The patient is status post median sternotomy. There is worsening pulmonary opacity worrisome for pulmonary edema. There is no pneumothorax. There is no acute osseous abnormality. There are postoperative changes in the lower cervical spine. A shunt catheter is noted. IMPRESSION: Worsening pulmonary opacity, worrisome for pulmonary edema. Reviewed, Interpreted and Dictated by Gareth Serrano III, MD Transcribed by Luz Marina Suazo Authenticated by Gareth Serrano III, MD on 06/11/2021 01:36:58 PM [facility]
--- NOTE | 2021-06-11 11:24 | PC.NURSE ---
Notified lab of BNP add on
[2021-06-11 11:46] LABS: NT Pro Brain Natriuretic Pep. 607 pg/mL (0-125)
--- NOTE | 2021-06-11 12:01 | PC.NURSE ---
Paged on service for ED
--- NOTE | 2021-06-11 12:08 | PC.NURSE ---
CRISTI MAZARIEGOS speaking with Dr Espinoza
--- NOTE | 2021-06-11 12:16 | PC.NURSE ---
patient ambulatory to restroom without complications
--- NOTE | 2021-06-11 12:18 | PC.NURSE ---
notified care management of admission, spoke with laura
--- NOTE | 2021-06-11 12:19 | PC.NURSE ---
patient back from restroom back to ED room 6 without complications
--- NOTE | 2021-06-11 12:19 | PC.NURSE ---
Pt has been up to bathroom multiple times but has no new needs at this time. Advised her she was going to be admitted.
[2021-06-11 12:25] LABS: Coronavirus 19, PCR Not Detected (NotDetected); Influenza A, PCR Not Detected (NotDetected); Influenza B, PCR Not Detected (NotDetected)
--- NOTE | 2021-06-11 12:25 | PC.NURSE ---
ED MD at for update on POC
[2021-06-11 12:34] LABS: Benzodiazepines Screen,Urine Negative ng/ml (<200)
[2021-06-11 12:35] LABS: Amphetamine/Metha Screen,Urine Negative ng/ml (<1000)
[2021-06-11 12:36] LABS: Barbiturates Screen,Urine Negative ng/ml (<200); Cannabinoid Screen,Urine Positive ng/ml (<50)
[2021-06-11 12:37] LABS: Cocaine Screen,Urine Negative ng/ml (<300); Methadone Screen,Urine Negative ng/ml (<300)
[2021-06-11 12:38] LABS: Opiate Screen,Urine Negative ng/ml (<300)
[2021-06-11 12:39] LABS: Phencyclidine Screen,Urine Negative ng/ml (<25)
--- NOTE | 2021-06-11 13:01 | PC.NURSE ---
pt given lunch tray, pt states she is not hungry at this time, tray placed on bedside table for pt. will continue to monitor
--- NOTE | 2021-06-11 13:09 | PC.NURSE ---
report given to nataliia marley on OB unit at this time
--- NOTE | 2021-06-11 13:10 | PC.NURSE ---
notified ER of bp gave verbal order for hydralazine 10 mg IVP once
--- NOTE | 2021-06-11 13:29 | HMH.PHAVTE ---
[facility] VTE Monitoring - Patient Demographics Admission date: 06/11/21 Report Date: 06/11/21 Time: 13:29 Allergies/Adverse Reactions: Patient Allergies morphine [MORPHINE] Allergy (Mild, Verified 01/01/21 11:42) hydrocodone [From LORTAB] Allergy (Unknown, Verified 01/01/21 11:42) azithromycin Allergy (Verified 01/01/21 11:42) bupropion [From Wellbutrin] Allergy (Verified 01/01/21 11:42) Height: 1.78 m Weight: 72.575 kg Patient Problems: Current Active Problems Hypertension, uncontrolled (Acute) Intractable vomiting (Acute) Abdominal pain, left upper quadrant (Acute) Pulmonary infiltrates (Acute) - VTE Risk Labs: VTE Related Lab Results Hgb 15.9 g/dL (12.2-16.2) 06/11/21 09:30 Hct 49.4 % (37.0-47.0) H 06/11/21 09:30 Plt Count 248 K/mm3 (142-424) 06/11/21 09:30 BUN 17 mg/dl (7-17) D 06/11/21 09:30 Creatinine 0.50 mg/dl (0.52-1.04) L D 06/11/21 09:30 Estimated Creat Clear 159 mL/min (50-200) 06/11/21 09:30 - Prophylaxis VTE Prophylaxis Ordered?: Yes Types of VTE Prophylaxis: TEDS Knee High Location of Applied Device: Bilateral Lower Extremeties
--- NOTE | 2021-06-11 13:41 | PC.NURSE ---
notified donell in OB of most recent bp after medication
--- NOTE | 2021-06-11 15:29 | HMH.HP ---
*Admission Date: 06/11/21 *Chief complaint: vomiting, abdominal pain, diarrhea, chest pain *History of present illness: States that she has been sick since Wednesday, 2 days ago. Complains of intractable vomiting, left upper quadrant pain. States this morning she vomited up what she thinks was a small amount of blood, she thinks maybe 1 tablespoon. Denies any melena or hematochezia. Seen in this emergency department 2 days ago for the symptoms. Diagnosed with pneumonia. She is on doxycycline and Zofran. States Zofran is not helping. Unable to hold down her medicines because of vomiting. Pulmonary infiltrates noted 2 days ago by radiologist on chest x-ray, treated as pneumonia. Today both the CT scan of the abdomen and the chest x-ray are read as most likely pulmonary edema. She will be given a dose of Lasix. Patient states she has a history of congestive heart failure, but is not on any diuretics. I also note that she has a listed diagnosis of diabetes. She says she was previously on medications for that but no longer has to take diabetes medications. (above as per ER physician) Further to above history, the patient has had 2 heart attacks and 4 strokes in the past. She also has rheumatic heart disease and pseudotumor cerebri. Most of her specialist are at . She states she was seeing Dr. Cortes for cardiology but they no longer take her insurance. She has been diagnosed with heart failure in the past but does not currently take any diuretics. Her blood pressure has been elevated. [facility] History I have reviewed the patient's past medical history: Yes Medical History: Reports:: Atrial Fibrillation, Cardiomyopathy, Congestive Heart Failure, Cerebrovascular Accident, Diabetes Mellitus Type 2, Hyperlipidemia, Hypertension, Internal Pacemaker, Myocardial Infarction, Palpitations, Valvular Heart Disease Denies:: Cancer, Diabetes Mellitus Type 1, MRSA *Have you ever received a pneumonia vaccine?: Yes *Have you received a flu vaccine this season?: Yes Other Medical History: Reports: Arthritis Laterality Cases: Bilateral: Tonsillectomy Other Surgeries: Yes: Cardiac Catheterization, Cardiac Surgery, Cholecystectomy, , Hysterectomy-Total, Mitral Valve Replacement, Open Heart Surgery (x2 4 months apart in 2018), Pacemaker Amputation: No Fractures: No - *Social History Last grade of school completed: High school graduate Smoking Status: Current every day smoker Tobacco Type: cigarettes # Packs/Day (cigarettes): 1 Alcohol Intake: never Substance Use Type: opiates, painkillers, prescription drug *Occupational Status:: disabled Housing: house Household Members: children *Travel in the last 8 weeks: None Family Hx:: Diabetes, Heart Attack Review of Systems - Constitutional Denies chills, Denies fever(s) - Eyes Denies blurry vision, Denies double vision - ENT Reports dizziness, Denies nasal congestion, Denies sore throat - *Cardiovascular Reports chest pain, Reports shortness of breath, Denies leg swelling - *Respiratory Reports cough, Reports shortness of breath, Reports excessive phlegm production - *Gastrointestinal Reports abdominal pain (left sided), Reports loose stools, Reports nausea, Reports vomiting - *Genitourinary Reports other (urinary frequency), Denies difficulty urinating - *Musculoskeletal Denies body aches - *Neurologic Reports headache(s), Reports dizziness Meds Home Medications Medication Instructions Recorded Confirmed Type Albuterol Sulfate [Proventil-HFA 1 - 2 puffs IH Q6HP PRN #1 each 12/26/20 06/11/21 Rx 90mcg/puff Inh] Fluticasone Propion/Salmeterol 1 puff PO Q12 01/01/21 06/11/21 History [Fluticasone-Salmeterol 250-50] Omeprazole [Omeprazole 40mg 40 mg PO DAILY 01/01/21 06/11/21 History Capsule] Rivaroxaban [Xarelto 20mg Tablet*] 20 mg PO DAILY 01/01/21 06/11/21 History Doxycycline Monohydrate 100 mg PO BID 06/11/21 06/11/21 History [Doxycycline [place] 100mg Ta
--- NOTE | 2021-06-11 15:35 | PC.NURSE ---
pt requesting to get into shower. iv wrapped. pt just received iv pain medication and promethazine. educated her on this and getting up- pt in shower now.
--- NOTE | 2021-06-11 17:33 | PC.NURSE ---
paged dr terry r/t bp
--- NOTE | 2021-06-11 17:56 | PC.NURSE ---
PATIENT LYING IN BED ASLEEP. WOKEN UP FOR BP. UPDATED ON POC AND PATIENT AGREEABLE. NO DISTRESS NOTED. BP STILL ELEVATED.
--- NOTE | 2021-06-11 18:30 | PC.NURSE ---
PT TRANSFERRED TO ROOM 219. JESSICA TO CALL FOR REPORT
[2021-06-12] VITALS (11 sets, daily range): BP systolic 97–152; BP diastolic 45–85; PULSE 58–70; RESP 16–22; TEMP 36.6–37.2; O2SAT 94–99; BMI 22.8
--- NOTE | 2021-06-12 05:21 | PC.NURSE ---
Pt has c/o abdominal pain. She describes it as sharp and throbbing. Pt has requested pain medication x2. She also has had n/v. Green bile noted. Pt is scheduled phenergan. She has remained off Nipride gtt. Pt was started on Nipride early in shift and gtt was discontinued within 45 min. VS currently stable. MD Espinoza notified of pt status this shift. New orders received to start pt on carvedilol 3.125 mg BID. 1/2 NS @ 125 ml/hr. Pt has been up to BR. Has had a shower. She has also had chicken broth. No other concerns. Will continue to monitor.
[2021-06-12 07:07] LABS: Basophils # 0.1 K/mm3 (0-0.2); Basophils % 1.3 % (0.1-2.0); Eosinophils # 0.1 K/mm3 (0.0-0.4); Hematocrit 46.6 % (37.0-47.0); Hemoglobin 14.7 g/dL (12.2-16.2); Lymphocytes # 1.6 K/mm3 (0.7-4.5); Lymphocytes % 17.8 % (10-50); Mean Corpuscular HGB Conc 31.6 g/dL (31.8-35.4); Mean Corpuscular Hemoglobin 31.2 pg (27.0-31.2); Mean Corpuscular Volume 98.7 fl (81-99); Mean Platelet Volume 9.5 fl (7.4-10.4); Monocytes # 0.9 K/mm3 (0.1-1.0); Monocytes % 9.4 % (1.7-9.3); Neutrophils # 6.5 K/mm3 (1.8-7.8); Neutrophils % 70.6 % (37.0-80.0); Platelet Count 235 K/mm3 (142-424); Red Blood Count 4.72 M/mm3 (4.20-5.40); Red Cell Distribution Width 16.2 % (11.5-17.5); White Blood Count 9.2 K/mm3 (4.8-10.8)
[2021-06-12 07:18] LABS: Chloride 99 mmol/L (98-107); Sodium 135 mmol/L (136-145)
[2021-06-12 07:21] LABS: Blood Urea Nitrogen 17 mg/dl (7-17); Creatinine Clearance Estimated 66 mL/min (50-200); Estimated Glomerular Filt Rate 48 ml/min (>60); GFR (African American) 58 ML/MIN (>60)
[2021-06-12 07:22] LABS: Anion Gap 12.8 mEq/L (5-15); Calcium 7.9 mg/dl (8.4-10.2); Carbon Dioxide 26 mmol/L (22.0-30.0); Glucose 139 mg/dl (74-100)
[2021-06-12 08:09] LABS: Potassium 2.8 mmoL/L (3.5-5.1)
--- NOTE | 2021-06-12 09:55 | HMH.ACPN2 ---
Internal Medicine - PN: Subj *Date: 06/12/21 *Time: 09:55 Interval history: Overall the patient is improved this morning, but continues to complain of abdominal cramping. I do not think she is vomiting anymore however. The Phenergan was scheduled and seems to be effective. She has no cardiac complaints. She has no respiratory complaints. Exam Vital signs and Labs for Last 24 Hours: Temp Pulse Resp BP Pulse Ox 98.5 F 60 22 151/79 H 96 06/12/21 04:00 06/12/21 08:08 06/12/21 08:00 06/12/21 08:00 06/12/21 08:08 Laboratory Results - last 24 hr 06/11/21 09:30: WBC 6.8 D, RBC 5.10, Hgb 15.9, Hct 49.4 H, MCV 96.8, MCH 31.1, MCHC 32.2, RDW 16.0, Plt Count 248, MPV 8.7, Neut % (Auto) 73.2, Lymph % (Auto) 17.1, [place] % (Auto) 6.6, Eos % (Auto) 1.1, Baso % (Auto) 2.0, Neut # (Auto) 5.0, Lymph # (Auto) 1.2, [place] # (Auto) 0.4, Eos # (Auto) 0.1, Baso # (Auto) 0.1 06/11/21 09:30: Troponin I < 0.01 06/11/21 09:30: NT-Pro-B Natriuret Pep 607 H 06/11/21 09:52: Urine Color Yellow, Urine Appearance Clear, Urine pH 7.5, Ur Specific [place] 1.020, Urine Protein 1+, Urine Glucose (UA) 2+, Urine Ketones Negative, Urine Blood Negative, Urine Nitrate Negative, Urine Bilirubin Negative, Urine Urobilinogen 0.2, Ur Leukocyte Esterase Negative, Urine RBC None, Urine WBC 3-5, Ur Squamous Epith Cells 3-5, Urine Bacteria 2+ 06/11/21 09:52: Urine Opiates Screen Negative, Urine Methadone Screen Negative, Ur Barbituates Screen Negative, Ur Phencyclidine Scrn Negative, Ur Amphetamines Screen Negative, U Benzodiazepines Scrn Negative, Urine Cocaine Screen Negative, U Marijuana (THC) Screen Positive H 06/11/21 12:18: SARS-CoV-2 (PCR) Not detected, Influenza A Untype (PCR) Not detected, Influenza Type B (PCR) Not detected 06/12/21 05:52: WBC 9.2 D, RBC 4.72, Hgb 14.7, Hct 46.6, MCV 98.7, MCH 31.2, MCHC 31.6 L, RDW 16.2, Plt Count 235, MPV 9.5, Neut % (Auto) 70.6, Lymph % (Auto) 17.8, [place] % (Auto) 9.4 H, Eos % (Auto) 1.0, Baso % (Auto) 1.3, Neut # (Auto) 6.5, Lymph # (Auto) 1.6, [place] # (Auto) 0.9, Eos # (Auto) 0.1, Baso # (Auto) 0.1 06/12/21 05:52: Sodium 135 L, Potassium 2.8 L*, Chloride 99, Carbon Dioxide 26, Anion Gap 12.8, BUN 17, Creatinine 1.20 H D, Estimated Creat Clear 66, Estimated GFR 48 L, Est GFR ( Amer) 58 L D, Glucose 139 H D, Calcium 7.9 L I & O for Last 24 hours: Intake & Output 06/09/21 06/10/21 06/11/21 06/12/21 11:59 11:59 11:59 11:59 Weight 160 lb 160 lb 1 oz - Constitutional no acute distress, mild distress - *Routine HEENT Exam Head: Present: normocephalic Eye: Present: EOMI, PERRL ENT: Present: mucous membranes moist - *Routine Neck Exam Present: supple. Absent: JVD, lymphadenopathy - *Routine Respiratory Exam Present: CTA bilaterally - *Routine Cardiovascular Exam Present: RRR - *Routine Abdominal Exam Present: soft, normoactive bowel sounds. Absent: tenderness - *Routine Extremities Exam Absent: cyanosis, clubbing, edema - *Routine Skin Exam Present: warm. Absent: rash - *Routine Neurological Exam Present: alert, oriented X3 Assessment and Plan (1) Abdominal pain, left upper quadrant Status: Acute Category: Medical Code(s): R10.12 - Left upper quadrant pain (2) Intractable vomiting Status: Acute Category: Medical Code(s): R11.10 - Vomiting, unspecified (3) Hypertension, uncontrolled Status: Acute Category: Medical Code(s): I10 - Essential (primary) hypertension (4) Pulmonary edema Status: Acute Qualifiers: Chronicity: acute Qualified Code(s): J81.0 - Acute pulmonary edema Category: Medical Code(s): J81.1 - Chronic pulmonary edema (5) Pulmonary infiltrates Status: Acute Category: Medical Code(s): R91.8 - Other nonspecific abnormal finding of lung field (6) Atypical chest pain Status: Acute Category: Medical Code(s): R07.89 - Other chest pain (7) Hyperglycemia Status: Acute Category: Medical Code(s): R73.9 - Hyperglycemia,
--- NOTE | 2021-06-12 11:50 | PC.NURSE ---
Clarified with dr terry at approx 1015 that pt is able to be transferred out of stepdown to regular tele bed.
--- NOTE | 2021-06-12 11:57 | HMH.CNCARD ---
History of Present Illness Consult date: 06/12/21 Requesting physician: Will Espinoza Consult reason: chest pain, shortness of breath Chief complaint: N/V, SOB and chest pain History of present illness: This is a 46-year-old white female who presented to the emergency department with complaints of nausea, vomiting chest pain and shortness of breath. The patient states that on Wednesday of this week she got to feeling sick. She was having nausea and vomiting with left upper quadrant pain. She came to the emergency department 2 days prior to admission and was told she had pneumonia. She was given antibiotics and Zofran and discharged home. The patient states that her symptoms continued to worsen. She states that yesterday she started vomiting and had a small amount of blood. She states that she did not feel well she was having a lot of pressure in her chest with shortness of breath especially on exertion. She states that her symptoms got severe and she came back to the emergency department. The patient was found to be in pulmonary edema and had a malignantly elevated blood pressure. The patient was given IV Lasix. She states that her chest pain has resolved but she is still really short of breath. She states that this is significantly worsened with exertion. It improves with rest but does not completely resolve at times. She states that she still does not feel very well. She was started on night pride drip yesterday and her blood pressure significantly improved and the night pride drip was stopped. She is now on carvedilol today and while I am in the room with her her blood pressure is 119 systolic. She denies any fever, chills, PND or orthopnea. The patient does have a history of coronary artery disease and is status post AICD placement. She states that she has been getting an alert on her AICD every day at 11 AM. [facility] History I have reviewed the patient's past medical history: Yes Medical History: Reports:: Atrial Fibrillation, Cardiomyopathy, Congestive Heart Failure, Cerebrovascular Accident, Diabetes Mellitus Type 2, Hyperlipidemia, Hypertension, Internal Pacemaker, Myocardial Infarction, Palpitations, Valvular Heart Disease Denies:: Cancer, Diabetes Mellitus Type 1, MRSA *Have you ever received a pneumonia vaccine?: Yes *Have you received a flu vaccine this season?: Yes Other Medical History: Reports: Arthritis Laterality Cases: Bilateral: Tonsillectomy Other Surgeries: Yes: Cardiac Catheterization, Cardiac Surgery, Cholecystectomy, , Hysterectomy-Total, Mitral Valve Replacement, Open Heart Surgery (x2 4 months apart in 2018), Pacemaker Amputation: No Fractures: No - *Social History Last grade of school completed: High school graduate Smoking Status: Current every day smoker Tobacco Type: cigarettes # Packs/Day (cigarettes): 1 Alcohol Intake: never Substance Use Type: opiates, painkillers, prescription drug *Occupational Status:: disabled Housing: house Household Members: children *Travel in the last 8 weeks: None Family Hx:: Diabetes, Heart Attack Meds Home Medications Medication Instructions Recorded Confirmed Type Albuterol Sulfate [Proventil-HFA 1 - 2 puffs IH Q6HP PRN #1 each 12/26/20 06/11/21 Rx 90mcg/puff Inh] Fluticasone Propion/Salmeterol 1 puff PO BID 01/01/21 06/12/21 History [Fluticasone-Salmeterol 250-50] Omeprazole [Omeprazole 40mg 40 mg PO DAILY 01/01/21 06/11/21 History Capsule] Rivaroxaban [Xarelto 20mg Tablet*] 20 mg PO DAILY 01/01/21 06/11/21 History Doxycycline Monohydrate 100 mg PO BID 06/11/21 06/11/21 History [Doxycycline [place] 100mg Tab] Fluoxetine HCl [Prozac] 60 mg PO DAILY 06/11/21 06/12/21 History Promethazine HCl [Phenergan 25mg 12.5 mg PO Q6HP PRN 06/11/21 06/12/21 History tab] Atorvastatin Calcium [Lipitor 80mg 80 mg PO HS 06/12/21 06/12/21 History Tablet*] carvediloL [Carvedilol 6.25mg Tab] 6.25 mg PO BID 06/12/21 06/12/21 History Allergi
--- NOTE | 2021-06-12 11:59 | CA_ITS ---
APPROVED REPORT EXAM: Comprehensive 2D, Doppler, and color-flow Echocardiogram Commonwealth Attorney: Christina Elmore RT(R) Ht: 5 ft 8 in Wt: 160lbs BSA: 1.86 BP: 151/79 mmHg Indications: smoker, palpiations, DM, SOB, hyperlipidemia, CHF, MVR x 2 pig valve (2018), AICD, AFIB, hx CM 2D Dimensions LVOT 1.59 cm (M/F) 1.5-2.5 LVEF (Gerber's) 57.00 % F: 54 - 74 LV Volume 102.50 mL F: 46 - 106 LV Volume Index 55.10 mL/m2 F: 29 - 61 M-Mode Dimensions RVDd 3.19 cm (0.9-2.6) LA Diam 2.97 cm (1.9-4.0) LVDd 5.61 cm (3.5-5.7) Ao Diam 2.21 cm (2.0-3.7) LVDs 4.17 cm (3.5-5.7) IVSd 0.68 cm (0.6-1.1) PWd 0.64 cm (0.6-1.1) EF (Teich) 49.90% FS 25.70% EDV (Teich) 154.30 mL ESV (Teich) 77.30 mL LV Diastology E Decel Time 367.00 (160-240 msec) E/A Ratio 2.6 MED E' 6.80 (< 7 cm/sec) E'/MED E' Ratio 27.71 (>14) LAT E' 5.30 (<10 cm/sec) E/LAT E' Ratio 35.55 (>14) Aortic Valve AO VTI 133.06 (18-25 cm) Mitral Valve MV E Max Sherif. 188.00 (40-130 cm/s) MV A Velocity 72.00 (40-130 cm/s) E/A Ratio 2.63 MV Decel. Time 367.00 (160-240 ms) MV PHT 107.00 ms Left Ventricle Left atrium is mildly enlarged, left ventricle is normal size, there is no concentric left ventricular hypertrophy, estimated ejection fraction 55% with no regional wall motion abnormality, diastolic parameters are inconclusive. Right Ventricle Right atrium and right ventricle are mildly enlarged with normal contractility. Aortic Valve Aortic valve is minimally thickened and fibrosed there is no aortic stenosis or aortic insufficiency. Mitral Valve There is bioprosthetic valve noted in the mitral position, the mitral inflow velocities are not accurately recorded, the valve area is 2.2 cm by pressure half-time, there appears to be no significant mitral inflow obstruction, there is no significant mitral regurgitation. Tricuspid Valve Tricuspid valve grossly normal, there is mild tricuspid regurgitation, tricuspid regurgitation jet velocity is inadequate for calculation of the right ventricular systolic pressure. Pulmonic Valve Pulmonic valve is poorly visualized. Great Vessels Aortic root is normal size. Inferior vena cava is normal size with normal inspiratory collapse. Pericardium No significant pericardial effusion noted. Conclusion 1. Mild biatrial enlargement, normal left ventricular size, estimated ejection fraction 55% with no regional wall motion abnormality, diastolic parameters are inconclusive. 2. Bioprosthetic valve in the mitral position likely normal function, valve area is 2.2 cm By pressure half-time. There is no significant mitral regurgitation seen. 3. Mild tricuspid regurgitation. 4. No significant pericardial effusion. 5. Right ventricle is mildly enlarged with normal contractility. 6. Inferior vena cava is normal size with normal inspiratory collapse. Electronically signed by : Bryan Iyer MD 06/13/2021 09:30:02
--- NOTE | 2021-06-12 13:40 | HMH.PHAINT ---
Home medication list was verified using the [employer] claim history, med-rec from patient's PCP, and information provided by the patient.
--- NOTE | 2021-06-12 14:16 | PC.NURSE ---
0840 notified c amandeep maldonado face to face of pt critical lab value: k+ 2.8
--- NOTE | 2021-06-12 18:21 | PC.NURSE ---
intake noted to be from multiple shifts, pt has rested in bed for most of this shift. she has requested pain medication every 4 hours when it is available. pt has also eaten solid foods at mealtimes and states that she feels worse after eating. states that she tolerates chicken broth/clears well without pain. lung sounds are clear, bowel sounds are active.
[2021-06-13] VITALS: BP 140/71; PULSE 53; PULSE 60; RESP 21; TEMP 36.7; O2SAT 99
[2021-06-13 04:00] VITALS: BP 182/75; PULSE 50; PULSE 61; RESP 20; TEMP 36.6; O2SAT 99
[2021-06-13 05:00] VITALS: BMI 23.3
[2021-06-13 07:01] LABS: Chloride 103 mmol/L (98-107); Potassium 3.3 mmoL/L (3.5-5.1); Sodium 136 mmol/L (136-145)
[2021-06-13 07:04] LABS: Anion Gap 12.3 mEq/L (5-15); Blood Urea Nitrogen 32 mg/dl (7-17); Carbon Dioxide 24 mmol/L (22.0-30.0); Creatinine Clearance Estimated 101 mL/min (50-200); Estimated Glomerular Filt Rate 77 ml/min (>60); GFR (African American) 93 ML/MIN (>60); Glucose 192 mg/dl (74-100)
[2021-06-13 07:14] LABS: Chol/HDL Ratio 5.1 (1-3.5); Cholesterol 216 mg/dl (140-200); HDL Cholesterol 42 mg/dl (40-60); Triglycerides 214 mg/dl (30-150); VLDL Cholesterol 43 mg/dL (0-40)
[2021-06-13 07:25] LABS: Direct LDL Cholesterol 121.34 mg/dL (100-129)
[2021-06-13 07:27] LABS: Basophils # 0.2 K/mm3 (0-0.2); Basophils % 2.7 % (0.1-2.0); Eosinophils # 0.1 K/mm3 (0.0-0.4); Eosinophils % 2.1 % (0.1-12.0); Hematocrit 46.1 % (37.0-47.0); Hemoglobin 14.7 g/dL (12.2-16.2); Lymphocytes # 2.1 K/mm3 (0.7-4.5); Lymphocytes % 30.6 % (10-50); Mean Corpuscular HGB Conc 31.8 g/dL (31.8-35.4); Mean Corpuscular Hemoglobin 30.4 pg (27.0-31.2); Mean Corpuscular Volume 95.8 fl (81-99); Mean Platelet Volume 9.1 fl (7.4-10.4); Monocytes # 0.6 K/mm3 (0.1-1.0); Monocytes % 8.8 % (1.7-9.3); Neutrophils # 3.8 K/mm3 (1.8-7.8); Neutrophils % 55.8 % (37.0-80.0); Platelet Count 250 K/mm3 (142-424); Red Blood Count 4.82 M/mm3 (4.20-5.40); Red Cell Distribution Width 15.9 % (11.5-17.5); White Blood Count 6.8 K/mm3 (4.8-10.8)
[2021-06-13 08:00] VITALS: BP 146/73; PULSE 102; PULSE 56; RESP 18; TEMP 37.3; O2SAT 98
[2021-06-13 08:08] VITALS: PULSE 56; O2SAT 96
--- NOTE | 2021-06-13 10:21 | HMH.ACPN2 ---
Internal Medicine - PN: Subj *Date: 06/13/21 *Time: 10:34 Interval history: The patient states she is feeling a little bit better today. She has had no vomiting but continues with left middle quadrant abdominal pain. She was able to sleep last night but still cannot eat. Exam Vital signs and Labs for Last 24 Hours: Temp Pulse Resp BP Pulse Ox 99.2 F 102 H 18 146/73 H 98 06/13/21 08:00 06/13/21 08:00 06/13/21 08:00 06/13/21 08:00 06/13/21 08:00 Laboratory Results - last 24 hr 06/13/21 05:41: WBC 6.8 D, RBC 4.82, Hgb 14.7, Hct 46.1, MCV 95.8, MCH 30.4, MCHC 31.8, RDW 15.9, Plt Count 250, MPV 9.1, Neut % (Auto) 55.8, Lymph % (Auto) 30.6, [place] % (Auto) 8.8, Eos % (Auto) 2.1, Baso % (Auto) 2.7 H, Neut # (Auto) 3.8, Lymph # (Auto) 2.1, [place] # (Auto) 0.6, Eos # (Auto) 0.1, Baso # (Auto) 0.2 06/13/21 05:41: Sodium 136, Potassium 3.3 L, Chloride 103, Carbon Dioxide 24, Anion Gap 12.3, BUN 32 H D, Creatinine 0.80 D, Estimated Creat Clear 101, Estimated GFR 77, Est GFR ( Amer) 93 D, Glucose 192 H D, Calcium 8.0 L 06/13/21 05:41: Triglycerides 214 H, Cholesterol 216 H, LDL Cholesterol Direct 121.34, VLDL Cholesterol 43 H, HDL Cholesterol 42, Cholesterol/HDL Ratio 5.1 H I & O for Last 24 hours: Intake & Output 06/10/21 06/11/21 06/12/21 06/13/21 11:59 11:59 11:59 11:59 Intake Total 1420 / 1420 Output Total 1500 / 1500 Balance -80 / -80 Weight 160 lb 160 lb 0.889 oz 163 lb Microbiology Reports for the Last 24 Hours: Microbiology 06/11/21 09:52 Urine,Clean Catch Urine Culture - Final NO GROWTH AFTER 48 HOURS - Constitutional no acute distress - *Routine Respiratory Exam Present: CTA bilaterally - *Routine Cardiovascular Exam Present: RRR - *Routine Abdominal Exam Present: soft, normoactive bowel sounds, tenderness (Left middle quadrant) - *Routine Extremities Exam Absent: cyanosis, clubbing, edema - *Routine Skin Exam Present: warm. Absent: rash - *Routine Neurological Exam Present: alert, oriented X3 Assessment and Plan (1) Pulmonary edema Status: Acute Qualifiers: Chronicity: acute Qualified Code(s): J81.0 - Acute pulmonary edema Category: Medical Code(s): J81.1 - Chronic pulmonary edema (2) Abdominal pain, left upper quadrant Status: Acute Category: Medical Code(s): R10.12 - Left upper quadrant pain (3) Intractable vomiting Status: Acute Category: Medical Code(s): R11.10 - Vomiting, unspecified (4) Hypertension, uncontrolled Status: Acute Category: Medical Code(s): I10 - Essential (primary) hypertension (5) Pulmonary infiltrates Status: Acute Category: Medical Code(s): R91.8 - Other nonspecific abnormal finding of lung field (6) Atypical chest pain Status: Acute Category: Medical Code(s): R07.89 - Other chest pain (7) Hyperglycemia Status: Acute Category: Medical Code(s): R73.9 - Hyperglycemia, unspecified (8) S/P MVR (mitral valve replacement) Status: Chronic Category: Surgical Code(s): Z95.2 - Presence of prosthetic heart valve (9) HLD (hyperlipidemia) Status: Chronic Qualifiers: Hyperlipidemia type: unspecified Qualified Code(s): E78.5 - Hyperlipidemia, unspecified Category: Medical Code(s): E78.5 - Hyperlipidemia, unspecified (10) HTN (hypertension) Status: Chronic Qualifiers: Hypertension type: primary hypertension Qualified Code(s): I10 - Essential (primary) hypertension Category: Medical Code(s): I10 - Essential (primary) hypertension (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
--- NOTE | 2021-06-13 10:43 | HMH.PNCARD ---
Subjective Date: 06/13/21 Time: 09:00 Principal diagnosis: chf, pulmon edema Interval history: This is a 46-year-old white female presented to the emergency department complaints of nausea, vomiting, chest pain and shortness of breath. The patient was found to be in pulmonary edema and also had a malignantly elevated blood pressure. Her blood pressure has now improved but is still on the high side today after starting carvedilol. The patient is getting IV diuresis with Lasix for the pulmonary edema. She denies any chest pain or pressure this morning. She states that she is still short really short of breath with exertion but she is laying flat when I walk in the room without any difficulty breathing. She has no edema. The patient still states that she is very nauseated and feels like she is going to vomit. She denies any fever or chills. Exam Vital signs and Labs for Last 24 Hours: Temp Pulse Resp BP Pulse Ox 99.2 F 102 H 18 146/73 H 98 06/13/21 08:00 06/13/21 08:00 06/13/21 08:00 06/13/21 08:00 06/13/21 08:00 Laboratory Results - last 24 hr 06/13/21 05:41: WBC 6.8 D, RBC 4.82, Hgb 14.7, Hct 46.1, MCV 95.8, MCH 30.4, MCHC 31.8, RDW 15.9, Plt Count 250, MPV 9.1, Neut % (Auto) 55.8, Lymph % (Auto) 30.6, [place] % (Auto) 8.8, Eos % (Auto) 2.1, Baso % (Auto) 2.7 H, Neut # (Auto) 3.8, Lymph # (Auto) 2.1, [place] # (Auto) 0.6, Eos # (Auto) 0.1, Baso # (Auto) 0.2 06/13/21 05:41: Sodium 136, Potassium 3.3 L, Chloride 103, Carbon Dioxide 24, Anion Gap 12.3, BUN 32 H D, Creatinine 0.80 D, Estimated Creat Clear 101, Estimated GFR 77, Est GFR ( Amer) 93 D, Glucose 192 H D, Calcium 8.0 L 06/13/21 05:41: Triglycerides 214 H, Cholesterol 216 H, LDL Cholesterol Direct 121.34, VLDL Cholesterol 43 H, HDL Cholesterol 42, Cholesterol/HDL Ratio 5.1 H I & O for Last 24 hours: Intake & Output 06/10/21 06/11/21 06/12/21 06/13/21 23:59 23:59 23:59 23:59 Intake Total 1130 / 1130 290 / 290 Output Total 900 / 900 600 / 600 Balance 230 / 230 -310 / -310 Weight 160 lb 160 lb 0.889 oz 163 lb Microbiology Reports for the Last 24 Hours: Microbiology 06/11/21 09:52 Urine,Clean Catch Urine Culture - Final NO GROWTH AFTER 48 HOURS Narrative: Echo shows: 1. Mild biatrial enlargement, normal left ventricular size, estimated ejection fraction 55% with no regional wall motion abnormality, diastolic parameters are inconclusive. 2. Bioprosthetic valve in the mitral position likely normal function, valve area is 2.2 cm By pressure half-time. There is no significant mitral regurgitation seen. 3. Mild tricuspid regurgitation. 4. No significant pericardial effusion. 5. Right ventricle is mildly enlarged with normal contractility. 6. Inferior vena cava is normal size with normal inspiratory collapse. - Constitutional no acute distress, average body habitus - *Routine HEENT Exam Head: Present: normocephalic, atraumatic Eye: Present: EOMI, PERRL ENT: Present: mucous membranes moist - *Routine Neck Exam Present: supple, full ROM, carotid bruit (Left carotid bruit), normal carotid upstroke. Absent: lymphadenopathy - *Routine Respiratory Exam Present: CTA bilaterally - *Routine Cardiovascular Exam Present: RRR, Normal S1, Normal S2. Absent: murmur - *Routine Abdominal Exam Present: soft, normoactive bowel sounds. Absent: tenderness, distended - *Routine Extremities Exam Present: full ROM, pulses intact, normal capillary refill. Absent: cyanosis, clubbing, edema - *Routine Skin Exam Present: intact, warm. Absent: erythema, rash - *Routine Neurological Exam Present: alert, oriented X3, CN II-XII intact. Absent: sensory deficit, motor deficit Progress Note: A&P (1) CHF (congestive heart failure) Status: Acute (2) Pulmonary edema Status: Acute (3) Abdominal pain, left upper quadrant Status: Acute (4) Intractable vomiting Status: Acute (5) Pulmonary
--- NOTE | 2021-06-13 11:01 | CA_ITS ---
FINAL REPORT TECHNIQUE: Color Doppler, duplex Doppler and levin scale sonography of the bilateral neck arterial vasculature was performed. Velocities were measured in the carotid arteries. Stenosis evaluation based on the validated velocity criteria. CLINICAL HISTORY: Left carotid bruit,SMOKER,HTN,HLD,DM FINDINGS: The peak systolic velocity of the right common carotid artery is 77 cm/s. The peak systolic velocity of the right internal carotid artery is 143 cm/s and end diastolic velocity 32 cm/s. The ICA/CCA ratio is 1.94. A mild amount of plaque is present. The right external carotid artery is patent. The right vertebral artery is patent with antegrade flow. The peak systolic velocity of the left common carotid artery is 92 cm/s. The peak systolic velocity of the left internal carotid artery is 98 cm/s and end diastolic velocity 23 cm/s. The ICA/CCA ratio is 1.07. A mild amount of plaque is present. The left external carotid artery is patent.The left vertebral artery is patent with antegrade flow. IMPRESSION: Less than 50% bilateral carotid stenosis. Bilateral patent vertebral arteries with antegrade flow. Reviewed, Interpreted and Dictated by Gareth Serrano III, MD Transcribed by Siomara Espinoza Authenticated by Gareth Serrano III, MD on 06/13/2021 12:49:17 PM [facility]
[2021-06-13 12:00] VITALS: BP 147/65; PULSE 55; PULSE 57; RESP 20; TEMP 36.6; O2SAT 99
--- NOTE | 2021-06-13 14:22 | PC.NURSE ---
1418 Pt called out for nurse to come to room. pt states that the pain medication (administered 15min prior at 1403) was not working for her. she wants to go home. if she is going to be miserable, she would rather go home and be miserable
--- NOTE | 2021-06-17 13:33 | HMH.DCSUM ---
General - General Admission date:: 06/11/21 Discharge date: 06/13/21 HPI HPI: States that she has been sick since Wednesday, 2 days ago. Complains of intractable vomiting, left upper quadrant pain. States this morning she vomited up what she thinks was a small amount of blood, she thinks maybe 1 tablespoon. Denies any melena or hematochezia. Seen in this emergency department 2 days ago for the symptoms. Diagnosed with pneumonia. She is on doxycycline and Zofran. States Zofran is not helping. Unable to hold down her medicines because of vomiting. Pulmonary infiltrates noted 2 days ago by radiologist on chest x-ray, treated as pneumonia. Today both the CT scan of the abdomen and the chest x-ray are read as most likely pulmonary edema. She will be given a dose of Lasix. Patient states she has a history of congestive heart failure, but is not on any diuretics. I also note that she has a listed diagnosis of diabetes. She says she was previously on medications for that but no longer has to take diabetes medications. (above as per ER physician) Further to above history, the patient has had 2 heart attacks and 4 strokes in the past. She also has rheumatic heart disease and pseudotumor cerebri. Most of her specialists are at . She states she was seeing Dr. Cortes for cardiology but they no longer take her insurance. She has been diagnosed with heart failure in the past but does not currently take any diuretics. Her blood pressure has been elevated. Hospital Course Hospital Course: The patient continued with elevated blood pressures and was transferred to the medical floor from the OB unit. A nitroprusside drip was ordered and Phenergan dosing was scheduled for vomiting. She continued to complain of abdominal pain but had no respiratory complaints. Her diet was advanced. Cardiology was consulted. She had been given a dose of IV Lasix and did diurese well. They started her on Lasix 40 mg IV twice daily for diuresis. Her IV fluids were discontinued. Her nitroprusside drip was stopped as her blood pressure improved. She was started on carvedilol 3.125 mg twice daily. The patient's AICD was interrogated. She did have some episodes of atrial fibrillation. She had an echo showing an EF of 55%. She also had a left carotid bruit and a carotid duplex was ordered. It showed less than 50% bilateral carotid stenosis. Cardiology switched the patient over to oral Lasix. The patient's vomiting subsided, but her abdominal pain continued. She had difficulty eating. She was taking Dilaudid regularly and her dose was decreased. She was encouraged to be up and about. After her pain medication dose was decreased, the patient left AMA. . Objective Vital signs: Temp Pulse Resp BP Pulse Ox 97.8 F 57 L 20 147/65 H 99 06/13/21 12:00 06/13/21 12:00 06/13/21 12:00 06/13/21 12:00 06/13/21 12:00 Narrative: - Constitutional no acute distress - *Routine HEENT Exam Head: Present: normocephalic Eye: Present: EOMI, PERRL ENT: Present: mucous membranes dry - *Routine Neck Exam Present: supple. Absent: lymphadenopathy - *Routine Respiratory Exam Present: rhonchi (bilaterally) - *Routine Cardiovascular Exam Present: RRR - *Routine Abdominal Exam Present: soft, normoactive bowel sounds, tenderness (left upper and lower quadrants) - *Routine Rectal Exam Rectal:: deferred - *Routine Genitalia Exam Genitalia:: deferred - *Routine Extremities Exam Absent: cyanosis, clubbing, edema - *Routine Skin Exam Present: warm. Absent: rash - *Routine Neurological Exam Present: alert, oriented X3 DS: Diagnosis - Discharge Diagnosis (1) CHF (congestive heart failure) Status: Acute (2) Pulmonary edema Status: Acute (3) Abdominal pain, left upper quadrant Status: Acute (4) Intractable vomiting Status: Acute (5) Pulmonary infiltrates Status: Acute (6) Atypical chest pain Status:
== END 2021-06-13 17:30 | disposition left against medical advice (07) | DRG 391 ==
LOC: ER 12:17 → OB 12:55 → 2ND 06-12 03:14 → OB 06-12 15:35 → ICU 06-13 07:27 → 2ND 06-13 07:53
PROVIDERS: Nurse Practitioner Family; Admitting Provider Family Medicine; Emergency Provider Emergency Medicine; PCP Nurse Practitioner Family; Visit Provider Family Medicine
DX: R10.12 Left upper quadrant pain (principal); J81.0 Acute pulmonary edema; J18.9 Pneumonia, unspecified organism; Z20.822 Contact with and (suspected) exposure to COVID-19; E11.9 Type 2 diabetes mellitus without complications; I11.0 Hypertensive heart disease with heart failure; I50.9 Heart failure, unspecified; I48.0 Paroxysmal atrial fibrillation; E87.6 Hypokalemia; Z95.2 Presence of prosthetic heart valve; I25.2 Old myocardial infarction; R09.89 Other specified symptoms and signs involving the circulatory and respiratory systems; I65.23 Occlusion and stenosis of bilateral carotid arteries
CPT/HCPCS: 36415; 71045; 74177; 80048; 80053; 80061; 80305; 81001; 83690; 83880; 84484; 85025; 87086; 93005; 93306; 93880; 96374; 96375; 99285; 99291; C9803; J2405; Q9967; U0003; U0005

== ENCOUNTER 2021-06-13 18:59 | Emergency (ER) | payer MEDICARE, SELFPAY ==
[2021-06-13 19:00] VITALS: PULSE 70; RESP 18; TEMP 36.7; O2SAT 100; BMI 23.6
--- NOTE | 2021-06-13 20:10 | ECG_ITS ---
APPROVED REPORT Exam: Resting ECG HR:67 bpm ECG Measurements Heart Rate 67 AXES SC 138 P -67 QRSd 114 QRS 101 QT 453 T 80 QTc 468 Conclusion JUNCTIONAL RHYTHM RIGHT AXIS DEVIATION [QRS AXIS > 100] MODERATE INTRAVENTRICULAR CONDUCTION DELAY [110+ ms QRS DURATION] ABNORMAL ECG UNCONFIRMED REPORT Electronically signed by : Evaristo Aguilar MD 06/14/2021 12:07:25
--- NOTE | 2021-06-13 20:39 | HMH.EDNVD ---
ED Disposition Clinical Impression: Abdominal pain, left upper quadrant HTN (hypertension) Qualifiers: Hypertension type: primary hypertension Qualified Code(s): I10 - Essential (primary) hypertension Disposition: Home, Self-Care Condition on Discharge: Fair Instructions: DI for Nausea -- Adult Additional Instructions: see pcp for follow up Referrals: Era Ricardo APRN [Primary Care Provider] - - Critical Care Critical Care Time: No Attestation: On 06/13/21, the high probability of a clinically significant, sudden or life threatening deterioration of the following system(s) required my full and direct attention, intervention and personal management. The time I documented below is in addition to time spent performing reported procedures but includes the following listed in this critical care notation. Medical Decision Making - Medical Records Medical records reviewed: Yes: I reviewed the patient's medical records. - Mp Inquiry Pt receiving controlled substance: No Vital Signs: 06/13/21 19:00 Temperature 98.1 F Temperature Source Oral Pulse Rate [Left] 70 Respiratory Rate 18 02 Sat by Pulse Oximetry 100 Oxygen Delivery Method Room Air - Lab Data Lab results reviewed: Yes: I reviewed the patient's lab results. - ECG Data Tracing #1 Normal Sinus Rhythm: Yes Ischemic changes: non-specific ST-T wave changes Medical Decision Narrative: pt declined eval and admit at this time Nausea/Vomiting/Diarrhea HPI - General Chief complaint: Nausea/Vomiting/Diarrhea Stated complaint: vomiting, stomach pain Time Seen by Provider: 06/13/21 20:39 Mode of Arrival: Ambulatory Source of Information: Patient, Medical Record Limitations: No Limitations Description of Symptoms (Recalled from ER Triage Doc. by RN): pt states she signed out AMA today and was unable to sustain a self care - History of Present Illness HPI Narrative: left ama today because needed to go home sec to daughters prom - pt has abd pain and has elevated bp - MD complaint: vomiting, abdominal pain Onset (ago): hour(s) Associated Abdominal Pain: Yes Location of pain: diffuse Severity: moderate Associated symptoms: denies other symptoms - Related Data Home Medications Medication Instructions Recorded Confirmed Fluticasone Propion/Salmeterol 1 puff PO Q12H 01/01/21 06/12/21 [Fluticasone-Salmeterol 250-50] Rivaroxaban [Xarelto 20mg Tablet*] 20 mg PO DAILY 01/01/21 06/11/21 Doxycycline Monohydrate 100 mg PO BID 06/11/21 06/11/21 [Doxycycline [place] 100mg Tab] Promethazine HCl [Phenergan 25mg 25 mg PO BIDP PRN 06/11/21 06/12/21 tab] Albuterol Sulfate [Proventil-HFA 1 - 2 puffs IH Q4HP PRN 06/12/21 06/12/21 90mcg/puff Inh] Atorvastatin Calcium [Lipitor 80mg 80 mg PO HS 06/12/21 06/12/21 Tablet*] Buprenorphine HCl/Naloxone HCl 2 tab SL DAILY 06/12/21 06/12/21 [Buprenorphine-Nalox 8-2 mg Tab] Fluoxetine HCl [Prozac] 60 mg PO DAILY 06/12/21 06/12/21 Omeprazole [Omeprazole 40mg 40 mg PO AM 06/12/21 06/12/21 Capsule] carvediloL [Carvedilol 6.25mg Tab] 6.25 mg PO BID 06/12/21 06/12/21 Allergies Allergy/AdvReac Type Severity Reaction Status Date / Time morphine [MORPHINE] Allergy Mild Verified 01/01/21 11:42 hydrocodone [From LORTAB] Allergy Unknown Verified 01/01/21 11:42 azithromycin Allergy Verified 01/01/21 11:42 bupropion [From Wellbutrin] Allergy Verified 01/01/21 11:42 ketorolac AdvReac Verified 06/13/21 20:32 [facility] History - Hepatitis A Screen Drug use history?: No High risk sexual behaviors?: No History of sexually transmitted infection?: No Currently employed?: No Childcare worker?: No Do you have indoor plumbing?: Yes Do you have electricity?: Yes Attestation statement:: This patient has been screened for Hepatitis A risk factors. I have reviewed the patient's past medical history: Yes Medical History: Reports:: Atrial Fibrillation, Cardiomyopathy
[2021-06-13 21:39] VITALS: BP 141/75; PULSE 72; RESP 16; TEMP 36.7; O2SAT 99
== END 2021-06-13 21:40 | disposition home or self-care (01) ==
PROVIDERS: Emergency Provider Emergency Medicine; PCP Nurse Practitioner Family
DX: R10.12 Left upper quadrant pain (principal); I10 Essential (primary) hypertension; R11.2 Nausea with vomiting, unspecified; I48.91 Unspecified atrial fibrillation; E11.9 Type 2 diabetes mellitus without complications; Z79.899 Other long term (current) drug therapy; E78.5 Hyperlipidemia, unspecified; I25.2 Old myocardial infarction; F17.210 Nicotine dependence, cigarettes, uncomplicated
CPT/HCPCS: 93005; 96374; 96375; 99284

== ENCOUNTER 2021-06-14 13:40 | Observation (INO) | payer MEDICARE, SELFPAY ==
[2021-06-14] VITALS (8 sets, daily range): BP systolic 108–174; BP diastolic 60–83; PULSE 64–86; RESP 16–21; TEMP 37–37.1; O2SAT 95–100; BMI 23.6; BMI 22.6
--- NOTE | 2021-06-14 13:58 | HMH.EDGENADL ---
ED Disposition Clinical Impression: Vomiting Qualifiers: Vomiting type: unspecified Nausea presence: unspecified Qualified Code(s): R11.10 - Vomiting, unspecified Disposition: Admitted As Inpatient Condition on Discharge: [facility] - Critical Care Critical Care Time: No Attestation: On 06/14/21, the high probability of a clinically significant, sudden or life threatening deterioration of the following system(s) required my full and direct attention, intervention and personal management. The time I documented below is in addition to time spent performing reported procedures but includes the following listed in this critical care notation. Medical Decision Making - Mp Inquiry Pt receiving controlled substance: No Vital Signs: 06/14/21 13:41 06/14/21 15:31 06/14/21 17:56 Temperature 98.6 F Temperature Source Oral Pulse Rate 85 86 Pulse Rate [Radial] 65 Respiratory Rate 16 18 16 Blood Pressure 136/71 128/63 Blood Pressure [Right Arm] 174/83 H Blood Pressure Mean 92 84 Blood Pressure Mean [Right Arm] 113 Blood Pressure Position [Right Arm] Sitting 02 Sat by Pulse Oximetry 98 100 98 Oxygen Delivery Method Room Air 06/14/21 18:01 06/14/21 18:30 06/14/21 19:21 Temperature Temperature Source Pulse Rate 83 72 64 Pulse Rate [Radial] Respiratory Rate 16 21 16 Blood Pressure 121/60 108/60 L 109/66 L Blood Pressure [Right Arm] Blood Pressure Mean 74 71 75 Blood Pressure Mean [Right Arm] Blood Pressure Position [Right Arm] 02 Sat by Pulse Oximetry 98 96 95 Oxygen Delivery Method 06/14/21 19:35 Temperature 98.7 F Temperature Source Oral Pulse Rate 73 Pulse Rate [Radial] Respiratory Rate 16 Blood Pressure 109/66 L Blood Pressure [Right Arm] Blood Pressure Mean Blood Pressure Mean [Right Arm] Blood Pressure Position [Right Arm] 02 Sat by Pulse Oximetry Oxygen Delivery Method Room Air - Lab Data Lab Results 06/14/21 14:04: VBG pH 7.48 H, VBG pCO2 27.3 L, VBG pO2 63.6 H, VBG HCO3 20.0 L, VBG Total CO2 20.9 L, VBG O2 Saturation 94.4 H, VBG Base Excess -3.4 L 06/14/21 14:50: Urine Color Yellow, Urine Appearance Clear, Urine pH 7.5, Ur Specific [place] 1.015, Urine Protein 3+, Urine Glucose (UA) 3+, Urine Ketones Negative, Urine Blood 1+, Urine Nitrate Negative, Urine Bilirubin Negative, Urine Urobilinogen 0.2, Ur Leukocyte Esterase Negative, Urine RBC Occasional, Urine WBC Occasional, Ur Squamous Epith Cells 3-5, Urine Bacteria None 06/14/21 14:50: WBC 15.5 H D, RBC 5.76 H, Hgb 17.8 H, Hct 53.3 H, MCV 92.6, MCH 31.0, MCHC 33.4, RDW 15.8, Plt Count 313 D, MPV 9.1, Neut % (Auto) 82.5 H, Lymph % (Auto) 8.6 L, [place] % (Auto) 6.0, Eos % (Auto) 0.7, Baso % (Auto) 2.4 H, Neut # (Auto) 12.8 H, Lymph # (Auto) 1.3, [place] # (Auto) 0.9, Eos # (Auto) 0.1, Baso # (Auto) 0.4 H, Total Counted 100, Neutrophils % (Manual) 76, Lymphocytes % (Manual) 17, Monocytes % (Manual) 4, Eosinophils % (Manual) 1, Basophils % (Manual) 2.0 H, Platelet Estimate Normal, RBC Morphology Normal 06/14/21 14:50: Sodium 134 L, Potassium 4.2 D, Chloride 100, Carbon Dioxide 20 L, Anion Gap 18.2 H, BUN 15 D, Creatinine 0.40 L D, Estimated Creat Clear 205, Estimated GFR 171, Est GFR ( Amer) 207 D, Glucose 286 H, Calcium 10.4 H, Total Bilirubin 2.2 H, AST 38 H, ALT 29, Alkaline Phosphatase 190 H, Total Protein 9.9 H, Albumin 5.2 H, Globulin 4.7 H, Albumin/Globulin Ratio 1.1 06/14/21 14:50: Lipase 158 06/14/21 14:50: Lactate 2.1 06/14/21 14:50: Acetone Level None detected 06/14/21 18:05: SARS-CoV-2 (PCR) Not detected, Influenza A Untype (PCR) Not detected, Influenza Type B (PCR) Not detected 06/14/21 19:25: Lactate 1.9 Result diagrams: 06/14/21 14:50 06/14/21 14:50 Orders (Tests/Meds): ED MEDICATIONS Generic Name Dose Route Start Last Admin Trade Name Freq PRN Reason Stop Dose Admin Hydromorphone HCl 0.5 mg 06/14/21 20:13 Hydromorphone 2mg/Ml Syringe IV 07/14/21 20:12 Q3HP PRN FOR [place]
[2021-06-14 14:58] LABS: Microscopic, Urine URINE MICROSCOPIC (MICROSCOPIC)
[2021-06-14 15:01] LABS: Basophils # 0.4 K/mm3 (0-0.2); Basophils % 2.4 % (0.1-2.0); Eosinophils # 0.1 K/mm3 (0.0-0.4); Eosinophils % 0.7 % (0.1-12.0); Hematocrit 53.3 % (37.0-47.0); Hemoglobin 17.8 g/dL (12.2-16.2); Lymphocytes # 1.3 K/mm3 (0.7-4.5); Lymphocytes % 8.6 % (10-50); Mean Corpuscular HGB Conc 33.4 g/dL (31.8-35.4); Mean Corpuscular Volume 92.6 fl (81-99); Mean Platelet Volume 9.1 fl (7.4-10.4); Monocytes # 0.9 K/mm3 (0.1-1.0); Neutrophils # 12.8 K/mm3 (1.8-7.8); Neutrophils % 82.5 % (37.0-80.0); Platelet Count 313 K/mm3 (142-424); Red Blood Count 5.76 M/mm3 (4.20-5.40); Red Cell Distribution Width 15.8 % (11.5-17.5); White Blood Count 15.5 K/mm3 (4.8-10.8)
[2021-06-14 15:10] LABS: Lactic Acid 2.1 mmol/L (0.7-2.1); MANUAL DIFFERENTIAL MANUAL DIFFERENTIAL (MANUAL DIFF)
[2021-06-14 15:14] LABS: Alanine Aminotransferase 29 U/L (12-78); Albumin Level 5.2 g/dl (3.5-5.0); Albumin/Globulin Ratio 1.1 (1.1-1.8); Alkaline Phosphatase 190 U/L (38-126); Anion Gap 18.2 mEq/L (5-15); Aspartate Amino Transferase 38 U/L (14-36); Bilirubin,Total 2.2 mg/dl (0.2-1.3); Blood Urea Nitrogen 15 mg/dl (7-17); Calcium 10.4 mg/dl (8.4-10.2); Carbon Dioxide 20 mmol/L (22.0-30.0); Chloride 100 mmol/L (98-107); Creatinine Clearance Estimated 205 mL/min (50-200); Estimated Glomerular Filt Rate 171 ml/min (>60); GFR (African American) 207 ML/MIN (>60); Globulin 4.7 g/dL (1.3-3.2); Glucose 286 mg/dl (74-100); Potassium 4.2 mmoL/L (3.5-5.1); Sodium 134 mmol/L (136-145); Total Protein,Serum 9.9 g/dl (6.3-8.2)
[2021-06-14 15:29] LABS: Lipase 158 U/L (23-300)
--- NOTE | 2021-06-14 15:53 | PC.NURSE ---
Pt given PO challenge
[2021-06-14 16:07] LABS: Appearance,Urine CLEAR (Clear); Bilirubin,Urine Negative (Negative); Blood, Urine 1+ (Negative); Color,Urine YELLOW (Yellow); Glucose,Urine (UA) 3+ (Negative); Ketones,Urine Negative (Negative); Leukocyte Esterase,Urine Negative (Negative); Nitrate,Urine Negative (Negative); PH,Urine 7.5 (5.0-8.5); Protein,Urine 3+ (Negative); Specific Gravity, Urine 1.015 (1.005-1.030); Urobilinogen,Urine 0.2 EU/dl (0.2)
--- NOTE | 2021-06-14 16:14 | PC.NURSE ---
Pt re assessed for po todd she said first drink stayed down so far, told her to try another drink
[2021-06-14 16:42] LABS: Acetone, Serum (Rapid) None Detected (None Detect)
[2021-06-14 16:43] LABS: RBC,Urine Occasional #/hpf (0-3); WBC,Urine Occasional #/hpf (0-3)
[2021-06-14 16:59] LABS: Eosinophils % 1 % (0-3); Lymphocytes % 17 % (10-50); Monocytes % 4 % (2-9); Neutrophils % 76 % (42-76); Platelet Estimate Normal; RBC Morphology Normal; Total Cells Counted 100
--- NOTE | 2021-06-14 17:06 | PC.NURSE ---
9472 DR. DORSEY ON FOR SERVICE , PAGED AT THIS TIME
--- NOTE | 2021-06-14 17:09 | PC.NURSE ---
Dr Smith speaking with Dr Crow
--- NOTE | 2021-06-14 17:11 | PC.NURSE ---
1710 CORRECTIONAL MAINTENANCE TECHNICIAN NOTIFIED OF ADMISSION
--- NOTE | 2021-06-14 17:13 | PC.NURSE ---
art installer contacted for bed, pt to be admitted to 208, admissions notified
[2021-06-14 17:18] LABS: VBG Base Excess -3.4 mmol/L (-2.4-2.3); VBG Oxygen Saturation 94.4 % (50-70); VBG PCO2 27.3 mmol/L (35-51); VBG PH 7.48 mmol/L (7.31-7.41); VBG PO2 63.6 mmol/L (28-40); VBG Total CO2 20.9 mmol/L (23-27)
[2021-06-14 18:14] LABS: Coronavirus 19, PCR Not Detected (NotDetected); Influenza A, PCR Not Detected (NotDetected); Influenza B, PCR Not Detected (NotDetected)
--- NOTE | 2021-06-14 18:37 | PC.NURSE ---
REPORT CALLED TO FLOOR
--- NOTE | 2021-06-14 18:44 | PC.NURSE ---
COVID SWAB NOT RESULTED AT THIS TIME
[2021-06-14 18:57] LABS: Reflex Lactic Add Lactic Reflex
--- NOTE | 2021-06-14 19:27 | PC.NURSE ---
PT ARRIVED TO FLOOR VIA W/C FROM ED W/STAFF @ 192
[2021-06-14 19:42] LABS: Lactic Acid Follow Up (RFLX 1) 1.9 mmol/L (0.7-2.1)
[2021-06-15 04:00] VITALS: BP 118/62; PULSE 60; RESP 20; TEMP 36.7; O2SAT 100
[2021-06-15 05:00] VITALS: BMI 22.4
[2021-06-15 07:47] LABS: Basophils # 0.1 K/mm3 (0-0.2); Basophils % 0.6 % (0.1-2.0); Eosinophils # 0.2 K/mm3 (0.0-0.4); Eosinophils % 2.3 % (0.1-12.0); Hematocrit 47.7 % (37.0-47.0); Lymphocytes # 2.5 K/mm3 (0.7-4.5); Lymphocytes % 27.1 % (10-50); Mean Corpuscular HGB Conc 32.7 g/dL (31.8-35.4); Mean Corpuscular Volume 91.9 fl (81-99); Mean Platelet Volume 8.6 fl (7.4-10.4); Monocytes # 0.9 K/mm3 (0.1-1.0); Monocytes % 9.5 % (1.7-9.3); Neutrophils # 5.5 K/mm3 (1.8-7.8); Neutrophils % 60.5 % (37.0-80.0); Platelet Count 228 K/mm3 (142-424); Red Blood Count 5.19 M/mm3 (4.20-5.40); Red Cell Distribution Width 14.9 % (11.5-17.5); White Blood Count 9.1 K/mm3 (4.8-10.8)
[2021-06-15 07:52] VITALS: O2SAT 98
[2021-06-15 07:57] LABS: Chloride 102 mmol/L (98-107); Hemoglobin 15.8 g/dL (12.2-16.2); Sodium 135 mmol/L (136-145)
[2021-06-15 08:00] VITALS: BP 104/52; PULSE 60; RESP 17; TEMP 36.8; O2SAT 99
[2021-06-15 08:00] LABS: Blood Urea Nitrogen 26 mg/dl (7-17); Creatinine Clearance Estimated 87 mL/min (50-200); Estimated Glomerular Filt Rate 67 ml/min (>60); GFR (African American) 81 ML/MIN (>60); Potassium 3.5 mmoL/L (3.5-5.1)
[2021-06-15 08:01] LABS: Anion Gap 11.5 mEq/L (5-15); Calcium 8.2 mg/dl (8.4-10.2); Carbon Dioxide 25 mmol/L (22.0-30.0); Glucose 144 mg/dl (74-100)
--- NOTE | 2021-06-15 10:59 | HMH.HP ---
*Chief complaint: Nausea and vomiting *History of present illness: 46-year-old female presents emergency department with history of gastroparesis with many episodes of vomiting overnight.The patient was recently admitted to [facility] with the symptoms along with shortness of breath. She was receiving Dilaudid for pain but when this dose was decreased the patient left AGAINST MEDICAL ADVICE. Patient on that admission had CT abdomen pelvis which was nonactionable. Patient had elevated white blood cell count in ER which is nonspecific. Negative urinalysis and nonactionable metabolic panel. Patient was given Dilaudid for pain control and Phenergan for antiemesis control with patient unable to tolerate p.o. and ultimately readmitted to the hospital for further treatment. The patient has cardiac history with a mitral valve replacement. She denies shortness of breath or chest pain at this admission. [facility] History Medical History: Reports:: Atrial Fibrillation, Cardiomyopathy, Congestive Heart Failure, Cerebrovascular Accident, Diabetes Mellitus Type 2, Hyperlipidemia, Hypertension, Internal Pacemaker, Myocardial Infarction, Palpitations, Valvular Heart Disease Denies:: Cancer, Diabetes Mellitus Type 1, MRSA *Have you ever received a pneumonia vaccine?: No *Have you received a flu vaccine this season?: Yes Other Medical History: Reports: Arthritis Laterality Cases: Bilateral: Tonsillectomy Other Surgeries: Yes: Cardiac Catheterization, Cardiac Surgery, Cholecystectomy, , Hysterectomy-Total, Mitral Valve Replacement, Open Heart Surgery, Pacemaker Amputation: No Fractures: No - *Social History Smoking Status: Current every day smoker Tobacco Type: cigarettes # Packs/Day (cigarettes): 2 Alcohol Intake: never Substance Use Type: opiates *Occupational Status:: disabled Housing: house Household Members: family *Travel in the last 8 weeks: None Family Hx:: Diabetes, Heart Attack Review of Systems - Constitutional Denies body ache(s), Denies chills, Denies fever(s) - Eyes Denies blurry vision - ENT Denies abnormal hearing, Denies dizziness, Denies difficulty swallowing - *Cardiovascular Denies chest pain - *Respiratory Denies chest congestion - *Gastrointestinal Reports abdominal pain, Reports cramping, Denies coffee ground vomit, Denies excessive passing of gas, Denies bright, red blood in stools, Denies black, tarry stools - *Genitourinary Denies abnormal periods - *Musculoskeletal Denies abnormal walking - Integumentary/Breasts Denies bleeding lesions - *Neurologic Denies confusion, Denies seizure-like activity, Denies dizziness - Psychiatric Denies hearing things others do not hear, Denies behavioral changes - Endocrine Denies cold intolerance, Denies rapid, pounding, or irregular heartbeat - Allergic/Immunologic Reports GI upset with certain foods Meds Home Medications Medication Instructions Recorded Confirmed Type Fluticasone Propion/Salmeterol 1 puff PO Q12H 01/01/21 06/12/21 History [Fluticasone-Salmeterol 250-50] Rivaroxaban [Xarelto 20mg Tablet*] 20 mg PO DAILY 01/01/21 06/15/21 History Doxycycline Monohydrate 100 mg PO BID 06/11/21 06/11/21 History [Doxycycline [place] 100mg Tab] Promethazine HCl [Phenergan 25mg 25 mg PO BIDP PRN 06/11/21 06/15/21 History tab] Albuterol Sulfate [Proventil-HFA 1 - 2 puffs IH Q4HP PRN 06/12/21 06/15/21 History 90mcg/puff Inh] Atorvastatin Calcium [Lipitor 80mg 80 mg PO HS 06/12/21 06/15/21 History Tablet*] Buprenorphine HCl/Naloxone HCl 2 tab SL DAILY 06/12/21 06/12/21 History [Buprenorphine-Nalox 8-2 mg Tab] Fluoxetine HCl [Prozac] 60 mg PO DAILY 06/12/21 06/15/21 History Omeprazole [Omeprazole 40mg 40 mg PO AM 06/12/21 06/15/21 History Capsule] carvediloL [Carvedilol 6.25mg Tab] 6.25 mg PO BID 06/12/21 06/15/21 History Allergies Allergy/AdvReac Type Severity Reaction Status Date / Time m
--- NOTE | 2021-06-15 13:25 | HMH.PHAVTE ---
[facility] Pharmacy VTE Monitoring - Patient Demographics Admission date: 06/15/21 Report Date: 06/15/21 Time: 13:25 Allergies/Adverse Reactions: Patient Allergies morphine [MORPHINE] Allergy (Mild, Verified 01/01/21 11:42) hydrocodone [From LORTAB] Allergy (Unknown, Verified 01/01/21 11:42) azithromycin Allergy (Verified 01/01/21 11:42) bupropion [From Wellbutrin] Allergy (Verified 01/01/21 11:42) ketorolac Adverse Reaction (Verified 06/13/21 20:32) Height: 1.78 m Weight: 71.123 kg Patient Problems: Current Active Problems Abdominal pain (Acute) Vomiting (Acute) - VTE Risk Labs: VTE Related Lab Results Hgb 15.8 g/dL (12.2-16.2) D 06/15/21 06:52 Hct 47.7 % (37.0-47.0) H 06/15/21 06:52 Plt Count 228 K/mm3 (142-424) D 06/15/21 06:52 BUN 26 mg/dl (7-17) H D 06/15/21 06:52 Creatinine 0.90 mg/dl (0.52-1.04) D 06/15/21 06:52 Estimated Creat Clear 87 mL/min (50-200) 06/15/21 06:52 VTE Score: 4 VTE Risk Level: Low Risk - Prophylaxis Types of VTE Prophylaxis: TEDS Knee High Location of Applied Device: Bilateral Lower Extremeties (CANDY HOSE ORDER PLACED.)
--- NOTE | 2021-06-15 15:27 | PC.NURSE ---
aox4, able to make needs known to staff, ambulates independently in room to restroom. has tolerated diet well and consistently eats everything on tray. requests pain medication at frequent intervals. also requests nausea medication. no vomiting has been noted thus far. denies diarrhea. bowel sounds active x4. does not require o2 support. has spent most of the shift in bed.
[2021-06-15 15:40] VITALS: BP 124/63; PULSE 64; RESP 16; TEMP 36.6; O2SAT 100
[2021-06-15 20:00] VITALS: BP 117/58; PULSE 65; RESP 21; TEMP 36.6; O2SAT 98
[2021-06-16 05:00] VITALS: BMI 54.5
[2021-06-16 06:52] LABS: Basophils % 0.7 % (0.1-2.0); Eosinophils # 0.2 K/mm3 (0.0-0.4); Monocytes # 0.7 K/mm3 (0.1-1.0)
[2021-06-16 07:02] LABS: Chloride 104 mmol/L (98-107); Potassium 3.3 mmoL/L (3.5-5.1); Sodium 135 mmol/L (136-145)
[2021-06-16 07:05] LABS: Anion Gap 9.3 mEq/L (5-15); Blood Urea Nitrogen 19 mg/dl (7-17); Calcium 8.8 mg/dl (8.4-10.2); Carbon Dioxide 25 mmol/L (22.0-30.0); Creatinine Clearance Estimated 125 mL/min (50-200); Estimated Glomerular Filt Rate 107 ml/min (>60); GFR (African American) 130 ML/MIN (>60); Glucose 140 mg/dl (74-100)
[2021-06-16 08:00] VITALS: BP 128/71; PULSE 61; RESP 22; TEMP 37.1; O2SAT 98
[2021-06-16 08:10] LABS: Eosinophils % 2.7 % (0.1-12.0); Hematocrit 39.3 % (37.0-47.0); Lymphocytes # 2.6 K/mm3 (0.7-4.5); Lymphocytes % 39.8 % (10-50); Mean Corpuscular HGB Conc 33.1 g/dL (31.8-35.4); Mean Corpuscular Hemoglobin 30.4 pg (27.0-31.2); Mean Corpuscular Volume 91.9 fl (81-99); Mean Platelet Volume 8.4 fl (7.4-10.4); Monocytes % 11.1 % (1.7-9.3); Neutrophils % 45.7 % (37.0-80.0); Platelet Count 192 K/mm3 (142-424); Red Blood Count 4.27 M/mm3 (4.20-5.40); Red Cell Distribution Width 14.8 % (11.5-17.5); White Blood Count 6.5 K/mm3 (4.8-10.8)
--- NOTE | 2021-06-16 08:54 | HMH.ACPN2 ---
Internal Medicine - PN: Subj *Date: 06/16/21 *Time: 08:54 Interval history: Patient continues to have abdominal pain with nausea. She is unable to eat but is drinking fluids. She denies vomiting. She states her breathing is just fine. She denies chest pain. CBC is normal this morning. Sodium is 135 and potassium is 3.3 this morning. Exam Vital signs and Labs for Last 24 Hours: Temp Pulse Resp BP Pulse Ox 97.8 F 65 21 117/58 L 98 06/15/21 20:00 06/15/21 20:00 06/15/21 20:00 06/15/21 20:00 06/15/21 20:00 Laboratory Results - last 24 hr 06/16/21 06:30: WBC 6.5 D, RBC 4.27, Hgb 13.0 D, Hct 39.3, MCV 91.9, MCH 30.4, MCHC 33.1, RDW 14.8, Plt Count 192, MPV 8.4, Neut % (Auto) 45.7, Lymph % (Auto) 39.8, [place] % (Auto) 11.1 H, Eos % (Auto) 2.7, Baso % (Auto) 0.7, Neut # (Auto) 3.0, Lymph # (Auto) 2.6, [place] # (Auto) 0.7, Eos # (Auto) 0.2, Baso # (Auto) 0.0 06/16/21 06:30: Sodium 135 L, Potassium 3.3 L, Chloride 104, Carbon Dioxide 25, Anion Gap 9.3, BUN 19 H D, Creatinine 0.60 D, Estimated Creat Clear 125, Estimated GFR 107, Est GFR ( Amer) 130 D, Glucose 140 H, Calcium 8.8 I & O for Last 24 hours: Intake & Output 06/13/21 06/14/21 06/15/21 06/16/21 11:59 11:59 11:59 11:59 Intake Total 300 / 300 1080 / 1080 Balance 300 / 300 1080 / 1080 Weight 156 lb 12.8 oz 380 lb 11.813 oz Microbiology Reports for the Last 24 Hours: Microbiology 06/16/21 03:45 Vaginal Wet Prep - Final Assessment and Plan (1) Vomiting Status: Acute Qualifiers: Vomiting type: unspecified Nausea presence: unspecified Qualified Code(s): R11.10 - Vomiting, unspecified Category: Medical Code(s): R11.10 - Vomiting, unspecified (2) Abdominal pain Status: Acute Category: Medical Code(s): R10.9 - Unspecified abdominal pain (3) Hypokalemia Status: Acute Category: Medical Code(s): E87.6 - Hypokalemia - Assessment and plan all Dx Assessment and Plan for all problems:: We will add p.o. potassium.
[2021-06-16 16:00] VITALS: BP 145/65; PULSE 69; RESP 20; TEMP 37.2; O2SAT 100
[2021-06-16 16:21] VITALS: BMI 54.3
[2021-06-16 20:00] VITALS: BP 154/79; PULSE 65; RESP 18; TEMP 36.8; O2SAT 99
--- NOTE | 2021-06-16 20:11 | PC.NURSE ---
pt reported diarrhea today. Stated that she has had x9 episodes since 1pm. Hat in toilet at this time. Pt did have a yellow/green slimy frothy stool. slight odor. Page placed for Dr. Borges (incident response manager) to determine if stool sample needed.
[2021-06-16 20:34] LABS: Adenovirus F 40/41, stool Not Detected (NotDetected); Astrovirus Not Detected (NotDetected); Campylobacter Not Detected (NotDetected); Clostridium Difficile A/B, PCR Not Detected (NotDetected); Cryptosporidium Not Detected (NotDetected); Cyclospora Cayetanesis Not Detected (NotDetected); Entamoeba histolytica Not Detected (NotDetected); Enteroaggregative E coli Not Detected (NotDetected); Enteropathogenic E coli Not Detected (NotDetected); Enterotoxigenic E coli Not Detected (NotDetected); Giardia lamblia Not Detected (NotDetected); Norovirus Not Detected (NotDetected); Plesimonas Shigalloides, PCR Not Detected (NotDetected); Rotavirus A Not Detected (NotDetected); Salmonella, PCR Not Detected (NotDetected); Sapovirus Not Detected (NotDetected); Shiga-like toxin E coli Not Detected (NotDetected); Shigella Enterovasive E coli Not Detected (NotDetected); Vibrio Cholerae Not Detected (NotDetected); Vibrio, PCR Not Detected (NotDetected); Yersinia Entercolitica, PCR Not Detected (NotDetected)
[2021-06-17 04:00] VITALS: BP 133/66; PULSE 59; RESP 16; TEMP 36.7; O2SAT 98
[2021-06-17 04:40] VITALS: BMI 22.0
--- NOTE | 2021-06-17 04:46 | PC.NURSE ---
pt c/o diarrhea x2 this shift. stool is a yellow/green mucus liquid with a foul odor. sample sent for diarrhea panel. pain medication given periodically. PT stated that she had cramping with abd discomfort. warm blanket and pain medication effective for pain control.
[2021-06-17 08:00] VITALS: BP 179/86; PULSE 77; RESP 16; TEMP 36.8; O2SAT 98
--- NOTE | 2021-06-17 09:08 | P.PN_ITS ---
Internal Medicine - PN: Subj *Date: 06/17/21 *Time: 09:08 Interval history: Her vomiting has resolved. She is tolerating p.o. diet. She has developed some diarrhea. Her potassium was 3.3 yesterday. Lab work this morning is pending. Exam Vital signs and Labs for Last 24 Hours: Temp Pulse Resp BP Pulse Ox 98.0 F 59 L 16 133/66 98 06/17/21 04:00 06/17/21 04:00 06/17/21 04:00 06/17/21 04:00 06/17/21 04:00 Laboratory Results - last 24 hr 06/16/21 20:18: Stl Aeromonas (PCR) Not detected, Stl C. cayetanensis PCR Not detected, Stool Rotavirus (PCR) Not detected, Stl Adenov F 40/41 PCR Not detected, Stool Astrovirus (PCR) Not detected, Stool Campylobacter PCR Not detected, Stl C.difficile Tox PCR Not detected, Stool Cryptosporidium PCR Not detected, Stl E.coli Shiga Tox PCR Not detected, Stool E coli O157 PCR Not detected, Stl Enterotoxigenic E PCR Not detected, Stool EPEC (PCR) Not detected, Stool EAEC (PCR) Not detected, Stl E. histolytica PCR Not detected, Stool Giardia Lamblia PCR Not detected, Stool Salmonella PCR Not detected, Stool Sapovirus (PCR) Not detected, Stl P. shigelloides PCR Not detected, Stl Shigella/EIEC PCR Not detected, St Y.enterocolitica PCR Not detected, Stool Vib beau (PCR) Not detected, Stl Vibrio cholerae PCR Not detected, Stl Norovirus GI/GII PCR Not detected I & O for Last 24 hours: Intake & Output 06/14/21 06/15/21 06/16/21 06/17/21 11:59 11:59 11:59 11:59 Intake Total 300 / 300 1320 / 1320 1879 / 0 Balance 300 / 300 1320 / 1320 1879 / 1879 Weight 156 lb 12.8 oz 380 lb 11.813 oz 154 lb - Constitutional no acute distress - *Routine HEENT Exam Head: Present: normocephalic Eye: Present: EOMI, PERRL ENT: Present: mucous membranes moist - *Routine Neck Exam Present: supple. Absent: lymphadenopathy - *Routine Respiratory Exam Present: CTA bilaterally - *Routine Cardiovascular Exam Present: RRR, ectopic - *Routine Abdominal Exam Present: soft, normoactive bowel sounds. Absent: tenderness - *Routine Extremities Exam Absent: cyanosis, clubbing, edema - *Routine Skin Exam Present: intact, warm. Absent: rash - *Routine Neurological Exam Present: alert, oriented X3 Assessment and Plan (1) Vomiting Status: Acute Qualifiers: Vomiting type: unspecified Nausea presence: unspecified Qualified Code(s): R11.10 - Vomiting, unspecified Category: Medical Code(s): R11.10 - Vomiting, unspecified (2) Abdominal pain Status: Acute Category: Medical Code(s): R10.9 - Unspecified abdominal pain (3) Hypokalemia Status: Acute Category: Medical Code(s): E87.6 - Hypokalemia (4) Diarrhea Status: Acute Category: Medical Code(s): R19.7 - Diarrhea, unspecified - Assessment and plan all Dx Assessment and Plan for all problems:: Await labs. Saline lock.
[2021-06-17 09:30] LABS: Basophils # 0.2 K/mm3 (0-0.2); Basophils % 2.6 % (0.1-2.0); Eosinophils # 0.2 K/mm3 (0.0-0.4); Eosinophils % 2.4 % (0.1-12.0); Hematocrit 38.2 % (37.0-47.0); Hemoglobin 12.6 g/dL (12.2-16.2); Lymphocytes # 1.6 K/mm3 (0.7-4.5); Lymphocytes % 26.2 % (10-50); Mean Corpuscular HGB Conc 33.1 g/dL (31.8-35.4); Mean Corpuscular Hemoglobin 31.6 pg (27.0-31.2); Mean Corpuscular Volume 95.4 fl (81-99); Mean Platelet Volume 8.8 fl (7.4-10.4); Monocytes # 0.6 K/mm3 (0.1-1.0); Monocytes % 9.1 % (1.7-9.3); Neutrophils # 3.7 K/mm3 (1.8-7.8); Neutrophils % 59.7 % (37.0-80.0); Platelet Count 201 K/mm3 (142-424); Red Blood Count 4.01 M/mm3 (4.20-5.40); Red Cell Distribution Width 15.6 % (11.5-17.5); White Blood Count 6.2 K/mm3 (4.8-10.8)
[2021-06-17 09:38] LABS: Chloride 107 mmol/L (98-107); Potassium 3.6 mmoL/L (3.5-5.1); Sodium 138 mmol/L (136-145)
[2021-06-17 09:41] LABS: Anion Gap 10.6 mEq/L (5-15); Blood Urea Nitrogen 9 mg/dl (7-17); Carbon Dioxide 24 mmol/L (22.0-30.0); Creatinine Clearance Estimated 128 mL/min (50-200); Estimated Glomerular Filt Rate 107 ml/min (>60); GFR (African American) 130 ML/MIN (>60); Glucose 272 mg/dl (74-100)
[2021-06-17 09:42] LABS: Calcium 9.2 mg/dl (8.4-10.2)
--- NOTE | 2021-06-17 12:02 | PC.NURSE ---
Called at this time and spoke w/ Dr. Espinoza's office in [place] advancing diet from full liquids, awaiting cb at this time.
[2021-06-17 16:00] VITALS: BP 153/67; PULSE 63; RESP 15; TEMP 36.7; O2SAT 99
[2021-06-17 20:00] VITALS: BP 167/83; PULSE 63; RESP 16; TEMP 36.6; O2SAT 98
[2021-06-17 20:35] VITALS: BP 184/97; PULSE 71; RESP 18; TEMP 37.3; O2SAT 98
--- NOTE | 2021-06-17 20:35 | PC.NURSE ---
PT C/O ABD PAIN ON HER LEFT SIDE,TENDER TO TOUCH,B/P ELEVATED,PT ASKED WHEN HER NEXT DOSE OF PAIN MEDICINE WAS AROUND 11 PM AND I TOLD HER YES PT AWARE OF TIMES FOR PAIN MEDICINE.RATES PAIN A 7 BUT SAID SHE COULD TOLERATE IT.IV LEAKING WILL CHANGE IT,TOLD HER THAT MAY BE ABLE TO GIVE MEDICINE AT 2230 SINCE SHE MAY HAVE NOT GOTTEN FULL DOSE AT 1900,PT V/U
[2021-06-17 23:30] VITALS: BP 159/81; PULSE 64; RESP 17; TEMP 36.6; O2SAT 98
[2021-06-18 04:00] VITALS: BP 160/97; PULSE 65; RESP 18; TEMP 36.3; O2SAT 97
--- NOTE | 2021-06-18 04:00 | PC.NURSE ---
PT HAD JUST RETURNED TO BED,HER B/P WAS ELEVATED 160/97,P-65,R-18,T-97.4,SAT LEVEL 97% RA,LUNGS CLEAR,PT DENIES ANY NAUSEA,VOMITING OR DIARRHEA TONIGHT,MANAGER PROCESS AND PAIN IN THE LEFT SIDE OF ABD.PT HAS BEEN MEDICATED WITH DILAUDID SEVERAL TIME TONIGHT.
[2021-06-18 05:00] VITALS: BMI 23.2
[2021-06-18 08:00] VITALS: BP 161/91; PULSE 69; RESP 16; TEMP 36.7; O2SAT 98
--- NOTE | 2021-06-18 08:25 | HMH.ACPN2 ---
Internal Medicine - PN: Subj *Date: 06/18/21 *Time: 08:25 Interval history: Patient states she tried to eat this morning and is now extremely nauseated and having worse abdominal pain. She has not vomited or had any diarrhea. The pain is all localized on the left side of her abdomen. She was able to rest last night. Exam Vital signs and Labs for Last 24 Hours: Temp Pulse Resp BP Pulse Ox 97.4 F L 65 18 160/97 H 97 06/18/21 04:00 06/18/21 04:00 06/18/21 04:00 06/18/21 04:00 06/18/21 04:00 Laboratory Results - last 24 hr 06/17/21 09:02: WBC 6.2, RBC 4.01 L, Hgb 12.6, Hct 38.2, MCV 95.4, MCH 31.6 H, MCHC 33.1, RDW 15.6, Plt Count 201, MPV 8.8, Neut % (Auto) 59.7, Lymph % (Auto) 26.2, [place] % (Auto) 9.1, Eos % (Auto) 2.4, Baso % (Auto) 2.6 H, Neut # (Auto) 3.7, Lymph # (Auto) 1.6, [place] # (Auto) 0.6, Eos # (Auto) 0.2, Baso # (Auto) 0.2 06/17/21 09:02: Sodium 138, Potassium 3.6, Chloride 107, Carbon Dioxide 24, Anion Gap 10.6, BUN 9 D, Creatinine 0.60, Estimated Creat Clear 128, Estimated GFR 107, Est GFR ( Amer) 130, Glucose 272 H, Calcium 9.2 I & O for Last 24 hours: Intake & Output 06/15/21 06/16/21 06/17/21 06/18/21 11:59 11:59 11:59 11:59 Intake Total 300 / 300 1320 / 1320 2360 / 2360 720 / 720 Balance 300 / 300 1320 / 1320 2360 / 2360 720 / 720 Weight 156 lb 12.8 oz 380 lb 11.813 oz 154 lb 162 lb 7 oz - Constitutional no acute distress - *Routine Respiratory Exam Present: CTA bilaterally - *Routine Cardiovascular Exam Present: RRR - *Routine Abdominal Exam Present: soft, normoactive bowel sounds, tenderness (Left upper and middle quadrant) - *Routine Extremities Exam Absent: cyanosis, clubbing, edema - *Routine Skin Exam Present: warm. Absent: rash - *Routine Neurological Exam Present: alert, oriented X3 Assessment and Plan (1) Vomiting Status: Acute Qualifiers: Vomiting type: unspecified Nausea presence: unspecified Qualified Code(s): R11.10 - Vomiting, unspecified Category: Medical Code(s): R11.10 - Vomiting, unspecified (2) Abdominal pain Status: Acute Category: Medical Code(s): R10.9 - Unspecified abdominal pain (3) Hypokalemia Status: Acute Category: Medical Code(s): E87.6 - Hypokalemia (4) Diarrhea Status: Acute Category: Medical Code(s): R19.7 - Diarrhea, unspecified - Assessment and plan all Dx Assessment and Plan for all problems:: Patient's labs have all improved. Her stool panel was negative. She continues with abdominal pain needing frequent doses of Dilaudid. Will discuss further care with Dr. Espinoza.
--- NOTE | 2021-06-18 10:02 | HMH.PHAINT ---
I spoke with the patient today about their medication list. Went over the new medications being sent in for the patient, the medications the patient was to continue on at home, and the medication the patient was to stop taking. When we spoke, the patient did not have any questions or concerns. 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
--- NOTE | 2021-06-18 12:05 | PC.NURSE ---
Discharge education provided. Questions encouraged and answered. Pt. V/U IV removed from L Upper arm. Pt. tolerated well. 2X2 with coban in place.
--- NOTE | 2021-06-18 12:10 | PC.NURSE ---
Pt. left unit ambulatory per pt. request.
--- NOTE | 2021-06-18 15:57 | HMH.DCSUM ---
General - General Admission date:: 06/14/21 Discharge date: 06/18/21 HPI HPI: 46-year-old female presents emergency department with history of gastroparesis with many episodes of vomiting overnight.The patient was recently admitted to [facility] with the symptoms along with shortness of breath. She was receiving Dilaudid for pain but when this dose was decreased the patient left AGAINST MEDICAL ADVICE. Patient on that admission had CT abdomen pelvis which was nonactionable. Patient had elevated white blood cell count in ER which is nonspecific. Negative urinalysis and nonactionable metabolic panel. Patient was given Dilaudid for pain control and Phenergan for antiemesis control with patient unable to tolerate p.o. and ultimately readmitted to the hospital for further treatment. The patient has cardiac history with a mitral valve replacement. She denies shortness of breath or chest pain at this admission. Hospital Course Hospital Course: The patient was admitted and started on metronidazole 500 mg IV 3 times a day and metoclopramide 5 mg every 6 hours. She continued with abdominal pain and nausea, but her vomiting subsided. Her CBC normalized. Potassium was added for hypokalemia. The addition of Flagyl and metoclopramide were helpful for her gut. Her diet was advanced. She tolerated a diet and did develop some diarrhea. Diarrhea panel was done and was negative. By 06/18/2021 she was still complaining of nausea and left-sided abdominal pain. She continued to request pain medication. She was stable for discharge and will be continued on metronidazole and metoclopramide. She will follow-up with her PCP and was encouraged to get in touch with [facility] cardiology for follow-up. Objective Vital signs: Temp Pulse Resp BP Pulse Ox 98.1 F 69 16 161/91 H 98 06/18/21 08:00 06/18/21 08:00 06/18/21 08:00 06/18/21 08:00 06/18/21 08:00 Narrative: - Constitutional no acute distress - *Routine HEENT Exam Head: Present: normocephalic Eye: Present: EOMI, PERRL ENT: Present: mucous membranes moist - *Routine Neck Exam Present: supple. Absent: lymphadenopathy - *Routine Respiratory Exam Present: CTA bilaterally - *Routine Cardiovascular Exam Present: RRR - *Routine Abdominal Exam Present: soft, normoactive bowel sounds, tenderness (Tenderness is most prominent on the left side.). Absent: distended - *Routine Rectal Exam Rectal:: deferred - *Routine Genitalia Exam Genitalia:: deferred - *Routine Extremities Exam Absent: cyanosis, clubbing, edema - *Routine Skin Exam Present: warm. Absent: rash - *Routine Neurological Exam Present: alert, oriented X3 DS: Diagnosis - Discharge Diagnosis (1) Vomiting Status: Acute (2) Abdominal pain Status: Acute (3) Hypokalemia Status: Acute (4) Diarrhea Status: Acute Discharge Plan - Patient Discharge Instructions ACTIVITY: Continue current activity DIET: advance to your usual diet Patient Instructions: DI for Abdominal Pain-Adult, DI for Vomiting -- Adult - Follow up Plan Follow up with: Era Ricardo APRN [Primary Care Provider] - 06/25/21 1:00 pm (Call her office for appointment.) Disposition: Home, Self-Care Condition at discharge:: Stable Home Medications: Home Medications Medication Instructions Recorded Confirmed Type Fluticasone Propion/Salmeterol 1 puff PO Q12H 01/01/21 06/15/21 History [Fluticasone-Salmeterol 250-50] Rivaroxaban [Xarelto 20mg Tablet*] 20 mg PO DAILY 01/01/21 06/15/21 History Promethazine HCl [Phenergan 25mg 25 mg PO BIDP PRN 06/11/21 06/15/21 History tab] Albuterol Sulfate [Proventil-HFA 1 - 2 puffs IH Q4HP PRN 06/12/21 06/15/21 History 90mcg/puff Inh] Atorvastatin Calcium [Lipitor 80mg 80 mg PO HS 06/12/21 06/15/21 History Tablet*] Fluoxetine HCl [Prozac] 60 mg PO DAILY 06/12/21 06/15/21 History Omeprazole [Omeprazole
== END 2021-06-18 12:10 | disposition home or self-care (01) ==
LOC: ER 13:52 → 2ND 17:22 → OB 06-17 20:14
PROVIDERS: Family Medicine; Admitting Provider Family Medicine; Emergency Provider Student in an Organized Health Care Education/Training Program; PCP Nurse Practitioner Family; Visit Provider Family Medicine
DX: R11.10 Vomiting, unspecified (principal); E87.6 Hypokalemia; R10.9 Unspecified abdominal pain; R19.7 Diarrhea, unspecified; Z79.899 Other long term (current) drug therapy; Z79.01 Long term (current) use of anticoagulants; I48.91 Unspecified atrial fibrillation; I42.9 Cardiomyopathy, unspecified; I11.0 Hypertensive heart disease with heart failure; I50.9 Heart failure, unspecified; E11.9 Type 2 diabetes mellitus without complications; Z95.0 Presence of cardiac pacemaker; F17.210 Nicotine dependence, cigarettes, uncomplicated; Z95.2 Presence of prosthetic heart valve; Z20.822 Contact with and (suspected) exposure to COVID-19
CPT/HCPCS: 96365; G0378; 36415; 80048; 80053; 81001; 82009; 82803; 83605; 83690; 85007; 85025; 87210; 87506; 96375; 96376; 99285; C9803; J2405; U0003; U0005

== ENCOUNTER 2021-06-19 08:12 | Emergency (ER) | payer MEDICARE, SELFPAY ==
[2021-06-19] VITALS (21 sets, daily range): BP systolic 109–231; BP diastolic 54–145; PULSE 65–84; RESP 12–20; TEMP 36.8–36.9; O2SAT 94–100; BMI 25.0
--- NOTE | 2021-06-19 08:06 | PC.NURSE ---
ED MD at
--- NOTE | 2021-06-19 08:22 | PC.NURSE ---
Sejal Colon, RN at
--- NOTE | 2021-06-19 08:25 | HMH.EDGENADL ---
ED Disposition Condition on Discharge: Good - Critical Care Critical Care Time: No <Fransisco Wallace - Last Filed: 06/19/21 20:10> <Vicente Bingham - Last Filed: 06/20/21 01:29> Clinical Impression: Gastroparesis, Uncontrolled hypertension, Hyperglycemia Nausea & vomiting Qualifiers: Vomiting type: unspecified Qualified Code(s): R11.2 - Nausea with vomiting, unspecified CHF (congestive heart failure) Qualifiers: Heart failure type: unspecified Heart failure chronicity: chronic Qualified Code(s): I50.9 - Heart failure, unspecified Disposition: Xfer Short-Term Hosp Instructions: DI for Acute Abdominal Pain Referrals: Era Ricardo APRN [Primary Care Provider] - Forms: Transfer Record - ED Attestation: On 06/19/21, the high probability of a clinically significant, sudden or life threatening deterioration of the following system(s) required my full and direct attention, intervention and personal management. The time I documented below is in addition to time spent performing reported procedures but includes the following listed in this critical care notation. Medical Decision Making - Medical Records Medical records reviewed: Yes: I reviewed the patient's medical records. - Mp Inquiry Pt receiving controlled substance: No - Lab Data Result diagrams: 06/19/21 08:30 06/19/21 08:30 <Fransisco Wallace - Last Filed: 06/19/21 20:10> - Lab Data Result diagrams: 06/19/21 08:30 06/19/21 08:30 <Vicente Bingham - Last Filed: 06/20/21 01:29> Vital Signs: 06/19/21 08:01 06/19/21 08:34 06/19/21 08:42 Temperature 98.4 F Temperature Source Oral Pulse Rate Pulse Rate [Left Radial] 67 Respiratory Rate 20 Blood Pressure 218/96 H 206/101 H Blood Pressure [Right Arm] 194/109 H Blood Pressure Mean 132 136 Blood Pressure Mean [Right Arm] 137 Blood Pressure Source Blood Pressure Source [Right Arm] Automatic Cuff Blood Pressure Position Blood Pressure Position [Right Arm] Sitting 02 Sat by Pulse Oximetry 97 98 99 Oxygen Delivery Method Room Air 06/19/21 09:15 06/19/21 09:30 06/19/21 09:51 Temperature Temperature Source Pulse Rate 82 83 82 Pulse Rate [Left Radial] Respiratory Rate Blood Pressure 221/144 H 204/145 H 231/120 H Blood Pressure [Right Arm] Blood Pressure Mean 168 164 Blood Pressure Mean [Right Arm] Blood Pressure Source Blood Pressure Source [Right Arm] Blood Pressure Position Sitting Blood Pressure Position [Right Arm] 02 Sat by Pulse Oximetry 100 97 96 Oxygen Delivery Method 06/19/21 09:57 06/19/21 10:00 06/19/21 10:13 Temperature Temperature Source Pulse Rate 73 69 73 Pulse Rate [Left Radial] Respiratory Rate 18 16 16 Blood Pressure 216/92 H 208/106 H 187/103 H Blood Pressure [Right Arm] Blood Pressure Mean 175 140 131 Blood Pressure Mean [Right Arm] Blood Pressure Source Blood Pressure Source [Right Arm] Blood Pressure Position Blood Pressure Position [Right Arm] 02 Sat by Pulse Oximetry 98 96 98 Oxygen Delivery Method Room Air Room Air Room Air 06/19/21 10:30 06/19/21 11:15 06/19/21 11:31 Temperature Temperature Source Pulse Rate 78 77 71 Pulse Rate [Left Radial] Respiratory Rate 16 16 16 Blood Pressure 205/92 H 206/107 H 194/83 H Blood Pressure [Right Arm] Blood Pressure Mean 129 140 120 Blood Pressure Mean [Right Arm] Blood Pressure Source Blood Pressure Source [Right Arm] Blood Pressure Position Blood Pressure Position [Right Arm] 02 Sat by Pulse Oximetry 96 97 98 Oxygen Delivery Method Room Air Room Air Room Air 06/19/21 12:01 06/19/21 12:31 06/19/21 13:17 Temperature Temperature Source Pulse Rate 84 72 72 Pulse Rate [Left Radial] Respiratory Rate 14 12 20 Blood Pressure 185/110 H 142/67 H 132/72 Blood Pressure [Right Arm] Blood Pressure Mean 130 Blood Pressure Mean [Right Arm] Blood Pressure Source A
[2021-06-19 08:46] LABS: Chloride 103 mmol/L (98-107); Potassium 3.3 mmoL/L (3.5-5.1); Sodium 138 mmol/L (136-145)
[2021-06-19 08:49] LABS: Alanine Aminotransferase 37 U/L (12-78); Alkaline Phosphatase 189 U/L (38-126); Anion Gap 18.3 mEq/L (5-15); Aspartate Amino Transferase 37 U/L (14-36); Bilirubin,Total 1.2 mg/dl (0.2-1.3); Blood Urea Nitrogen 11 mg/dl (7-17); Carbon Dioxide 20 mmol/L (22.0-30.0); Creatinine Clearance Estimated 144 mL/min (50-200); Estimated Glomerular Filt Rate 107 ml/min (>60); GFR (African American) 130 ML/MIN (>60); Globulin 4.9 g/dL (1.3-3.2); Glucose 299 mg/dl (74-100); Lipase 292 U/L (23-300); Total Protein,Serum 9.9 g/dl (6.3-8.2)
[2021-06-19 09:04] LABS: Microscopic, Urine URINE MICROSCOPIC (MICROSCOPIC)
[2021-06-19 09:07] LABS: Appearance,Urine CLEAR (Clear); Bilirubin,Urine Negative (Negative); Blood, Urine Negative (Negative); Color,Urine YELLOW (Yellow); Glucose,Urine (UA) 3+ (Negative); Ketones,Urine Negative (Negative); Leukocyte Esterase,Urine Negative (Negative); Nitrate,Urine Negative (Negative); PH,Urine 8.5 (5.0-8.5); Protein,Urine 2+ (Negative); Urobilinogen,Urine 0.2 EU/dl (0.2)
--- NOTE | 2021-06-19 09:12 | PC.NURSE ---
Covid swab sent to lab
[2021-06-19 09:15] LABS: Acetone, Serum (Rapid) None Detected (None Detect)
[2021-06-19 09:16] LABS: Coronavirus 19, PCR Not Detected (NotDetected); Influenza A, PCR Not Detected (NotDetected); Influenza B, PCR Not Detected (NotDetected)
[2021-06-19 09:18] LABS: VBG Base Excess -1.7 mmol/L (-2.4-2.3); VBG HCO3 19.5 mmol/L (23-30); VBG Oxygen Saturation 99.2 % (50-70); VBG PO2 132.7 mmol/L (28-40); VBG Total CO2 20.1 mmol/L (23-27)
--- NOTE | 2021-06-19 09:19 | PC.NURSE ---
ED MD at speaking with patient
--- NOTE | 2021-06-19 09:21 | CT_ITS ---
FINAL REPORT TECHNIQUE: After the administration of intravenous contrast, axial images were obtained through the abdomen and pelvis by computed tomography. The study was performed with techniques to keep radiation dose as low as reasonably achievable, (ALARA). Individual dose reduction techniques using automated exposure control or adjustment of mA and/or kV according to the patient's size were employed. CLINICAL HISTORY: llq abd pain, NAUSEA, VOMITING FINDINGS: Abdomen: There are bulky calcified granulomas in the right lung base. There are mild ground-glass opacities in the lung bases. The liver parenchyma is homogeneous. The gallbladder is surgically absent. There are calcified granulomas in the spleen. The pancreas is unremarkable. There is moderate adrenal hyperplasia. There are nonobstructing stones in both renal collecting systems. The aorta is normal in caliber. There is fluid throughout multiple loops of mildly distended small bowel. The distal small bowel is relatively decompressed. There is a [employer] shunt looped in the right hemiabdomen. Pelvis: The appendix is normal. The urinary bladder is unremarkable. There is no free fluid or adenopathy. There are phleboliths in the pelvis. IMPRESSION: Fluid-filled, mildly distended mid and small bowel. Segmental ileus versus low-grade partial obstruction. Small bilateral nonobstructing kidney stones. Bilateral adrenal hyperplasia. Reviewed, Interpreted and Dictated by Rodrigo Moscoso MD Transcribed by Farhan Kraus Authenticated by Rodrigo Moscoso MD on 06/19/2021 10:56:37 AM [facility]
[2021-06-19 09:23] LABS: VBG PCO2 19.4 mmol/L (35-51); VBG PH 7.62 mmol/L (7.31-7.41)
--- NOTE | 2021-06-19 09:23 | PC.NURSE ---
aware of critical PH
[2021-06-19 09:26] LABS: RBC,Urine Occasional #/hpf (0-3); WBC,Urine Occasional #/hpf (0-3)
--- NOTE | 2021-06-19 09:26 | PC.NURSE ---
patient ambulatory to restroom without complications
--- NOTE | 2021-06-19 09:30 | PC.NURSE ---
pt ambulatory back from restroom without complications
[2021-06-19 09:32] LABS: NT Pro Brain Natriuretic Pep. 3260 pg/mL (0-125)
--- NOTE | 2021-06-19 09:32 | PC.NURSE ---
pt to radiology by wheelchair with RAD techs
--- NOTE | 2021-06-19 09:41 | PC.NURSE ---
patient back from radiology by wheelchair; patient ambulated to the restroom and ambulated back to ED room 8 without complications; May, RN at BS
--- NOTE | 2021-06-19 09:45 | PC.NURSE ---
Addendum entered by Nikole Matthews RN 06/19/21 09:46: late entry, lab staff notified us of this at approx 0900 Original Note: per lab staff cbc analyzer in [facility], specimens are being sent to [facility] for analysis, results will be delayed. CRISTI MAZARIEGOS has been notified
[2021-06-19 10:47] LABS: POC Glucose,Bedside 277 (70-110)
--- NOTE | 2021-06-19 10:49 | PC.NURSE ---
called radiology to see if they can get CT report read for us
[2021-06-19 10:55] LABS: Hematocrit 47.5 % (37.0-47.0); Hemoglobin 16.4 g/dL (12.2-16.2); Mean Corpuscular HGB Conc 34.5 g/dL (31.8-35.4); Mean Corpuscular Hemoglobin 30.4 pg (27.0-31.2); Mean Corpuscular Volume 88.1 fl (81-99); Red Blood Count 5.39 M/mm3 (4.20-5.40)
[2021-06-19 10:57] LABS: Mean Platelet Volume 11.5 fl (7.4-10.4); Platelet Count 285 K/mm3 (142-424); Red Cell Distribution Width 13.9 % (11.5-17.5)
[2021-06-19 10:58] LABS: Basophils % 0.4 % (0.1-2.0); Eosinophils # 0.1 K/mm3 (0.0-0.4); Eosinophils % 0.8 % (0.1-12.0); Lymphocytes # 2.3 K/mm3 (0.7-4.5); Lymphocytes % 15.7 % (10-50); Monocytes # 1.2 K/mm3 (0.1-1.0); Monocytes % 8.1 % (1.7-9.3); Neutrophils # 10.8 K/mm3 (1.8-7.8); Neutrophils % 74.7 % (37.0-80.0)
--- NOTE | 2021-06-19 10:58 | PC.NURSE ---
ED MD at speaking with patient
[2021-06-19 10:59] LABS: Basophils # 0.1 K/mm3 (0-0.2)
--- NOTE | 2021-06-19 11:00 | PC.NURSE ---
Contacting Dr. Borges for ED MD
--- NOTE | 2021-06-19 11:01 | PC.NURSE ---
GIL MAZARIEGOS speaking with Dr. Borges
[2021-06-19 11:02] LABS: White Blood Count 14.5 K/mm3 (4.8-10.8)
--- NOTE | 2021-06-19 11:07 | PC.NURSE ---
Contacting [facility] for possible patient transfer
--- NOTE | 2021-06-19 11:11 | PC.NURSE ---
requested radiology power share images with on pt r/t calling for possible transfer.
--- NOTE | 2021-06-19 11:18 | PC.NURSE ---
Dr. Wallace on phone with MDs
--- NOTE | 2021-06-19 11:48 | PC.NURSE ---
Contacting [facility] call center for possible patient transfer to [place]
--- NOTE | 2021-06-19 11:54 | PC.NURSE ---
[facility] has no beds available; contacting [facility]
--- NOTE | 2021-06-19 12:09 | PC.NURSE ---
Spoke with [facility] call center to be put on wait list for transfer; awaiting call back from specialist/hospitalist
--- NOTE | 2021-06-19 12:12 | PC.NURSE ---
Dr. Wallace speaking with [facility]
[2021-06-19 12:52] LABS: POC Glucose,Bedside 229 (70-110)
--- NOTE | 2021-06-19 12:58 | PC.NURSE ---
Patient has been accepted to [facility] as well but is currently on a wait list; patient has been updated and has no needs at this time
--- NOTE | 2021-06-19 13:16 | PC.NURSE ---
Face sheet faxed to [facility]
--- NOTE | 2021-06-19 13:31 | PC.NURSE ---
pt up to restroom, ambulated independently, no difficulties. Pt sitting in chair beside bed. will continue to monitor
--- NOTE | 2021-06-19 14:37 | PC.NURSE ---
ED MD at speaking with patient
--- NOTE | 2021-06-19 14:58 | PC.NURSE ---
contacted [facility] to check on bed status, spoke with [facility], states no bed available at this time (they are currently trying to place pts from their ED), states unknown estimated time of when a bed will be available.
--- NOTE | 2021-06-19 15:11 | PC.NURSE ---
contacted [facility] to check on status of bed assignment, spoke with transfer center ([facility]) states no beds available at this time, states no estimated time on when a bed will be available. Gave updated VS to [facility] who requested pt condition update.
--- NOTE | 2021-06-19 16:58 | PC.NURSE ---
pt resting in bed, TV on. Notified her we are still waiting on transfer bed assignment. Call light within reach will continue to monitor
== END 2021-06-19 21:34 | disposition short-term general hospital (02) ==
PROVIDERS: Emergency Provider Emergency Medicine; PCP Nurse Practitioner Family
DX: E11.43 Type 2 diabetes mellitus with diabetic autonomic (poly)neuropathy (principal); K31.84 Gastroparesis; K57.90 Diverticulosis of intestine, part unspecified, without perforation or abscess without bleeding; R00.2 Palpitations; R11.2 Nausea with vomiting, unspecified; Z20.822 Contact with and (suspected) exposure to COVID-19; I11.0 Hypertensive heart disease with heart failure; I50.9 Heart failure, unspecified; I25.10 Atherosclerotic heart disease of native coronary artery without angina pectoris; I48.91 Unspecified atrial fibrillation; E78.5 Hyperlipidemia, unspecified; G93.2 Benign intracranial hypertension; M19.90 Unspecified osteoarthritis, unspecified site; F17.210 Nicotine dependence, cigarettes, uncomplicated; Z79.01 Long term (current) use of anticoagulants; Z79.51 Long term (current) use of inhaled steroids; Z79.84 Long term (current) use of oral hypoglycemic drugs; Z79.899 Other long term (current) drug therapy; Z88.0 Allergy status to penicillin; Z88.1 Allergy status to other antibiotic agents; Z88.3 Allergy status to other anti-infective agents; Z88.5 Allergy status to narcotic agent; Z88.6 Allergy status to analgesic agent; Z88.8 Allergy status to other drugs, medicaments and biological substances; Z86.73 Personal history of transient ischemic attack (TIA), and cerebral infarction without residual deficits; Z95.0 Presence of cardiac pacemaker
CPT/HCPCS: 74177; 80053; 81001; 82009; 82803; 82962; 83690; 83880; 85025; 96374; 96375; 96376; 99285; C9803; J2405; Q9967; U0003; U0005

== ENCOUNTER 2021-06-24 09:55 | Emergency (ER) | payer MEDICARE, MEDICAID, SELFPAY ==
[2021-06-24] VITALS (8 sets, daily range): BP systolic 155–193; BP diastolic 78–116; PULSE 60–73; RESP 11–18; TEMP 36.7; O2SAT 94–100; BMI 22.9
--- NOTE | 2021-06-24 09:52 | ECG_ITS ---
APPROVED REPORT Exam: Resting ECG HR:66 bpm ECG Measurements Heart Rate 66 AXES CO 158 P -51 QRSd 101 QRS 101 QT 437 T 110 QTc 451 Conclusion SINUS RHYTHM RIGHT AXIS DEVIATION [QRS AXIS > 100] ST ELEVATION, PROBABLY EARLY REPOLARIZATION [ST ELEVATION WITH NORMALLY INFLECTED T-WAVE] NONSPECIFIC ST & T-WAVE ABNORMALITY ABNORMAL ECG UNCONFIRMED REPORT Electronically signed by : Evaristo Aguilar MD 06/25/2021 17:56:46
--- NOTE | 2021-06-24 10:14 | HMH.EDGENADL ---
ED Disposition Clinical Impression: Paroxysmal A-fib, Non-intractable vomiting, Uncontrolled hypertension Disposition: Home, Self-Care Condition on Discharge: Good Additional Instructions: follow up cardiology and GI as scheduled, return here for worse Referrals: Era Ricardo APRN [Primary Care Provider] - Terrance Jama MD [Staff Physician] - - Critical Care Critical Care Time: No Attestation: On 06/24/21, the high probability of a clinically significant, sudden or life threatening deterioration of the following system(s) required my full and direct attention, intervention and personal management. The time I documented below is in addition to time spent performing reported procedures but includes the following listed in this critical care notation. Medical Decision Making - Medical Records Medical records reviewed: Yes: I reviewed the patient's medical records. - Mp Inquiry Pt receiving controlled substance: No Vital Signs: 06/24/21 09:55 06/24/21 10:22 06/24/21 10:43 Temperature 98.1 F Temperature Source Oral Pulse Rate 63 62 Pulse Rate [Right Radial] 67 Respiratory Rate 18 11 L 14 Blood Pressure 189/91 H 160/80 H Blood Pressure [Right Arm] 172/86 H Blood Pressure Mean [Right Arm] 114 Blood Pressure Source Automatic Cuff Automatic Cuff Blood Pressure Source [Right Arm] Automatic Cuff Blood Pressure Position Sitting Sitting Blood Pressure Position [Right Arm] Sitting 02 Sat by Pulse Oximetry 100 98 99 Oxygen Delivery Method Room Air Room Air Room Air 06/24/21 11:00 06/24/21 11:09 06/24/21 11:30 Temperature Temperature Source Pulse Rate 61 60 63 Pulse Rate [Right Radial] Respiratory Rate 12 12 18 Blood Pressure 157/116 H 175/78 H 155/83 H Blood Pressure [Right Arm] Blood Pressure Mean [Right Arm] Blood Pressure Source Automatic Cuff Automatic Cuff Automatic Cuff Blood Pressure Source [Right Arm] Blood Pressure Position Sitting Sitting Sitting Blood Pressure Position [Right Arm] 02 Sat by Pulse Oximetry 96 96 96 Oxygen Delivery Method Room Air Room Air Room Air - Lab Data Lab Results 06/24/21 10:02: WBC 11.0 H, RBC 4.70, Hgb 15.1, Hct 44.9, MCV 95.6, MCH 32.1 H, MCHC 33.6, RDW 15.5, Plt Count 312, MPV 9.1, Neut % (Auto) 72.3, Lymph % (Auto) 18.1, [place] % (Auto) 6.0, Eos % (Auto) 2.0, Baso % (Auto) 1.5, Neut # (Auto) 8.0 H, Lymph # (Auto) 2.0, [place] # (Auto) 0.7, Eos # (Auto) 0.2, Baso # (Auto) 0.2 06/24/21 10:02: Sodium 137, Potassium 4.0, Chloride 105, Carbon Dioxide 22, Anion Gap 14.0, BUN 15, Creatinine 0.60, Estimated Creat Clear 133, Estimated GFR 107, Est GFR ( Amer) 130, Glucose 392 H, Calcium 9.6, Total Bilirubin 0.5, AST 28, ALT 30, Alkaline Phosphatase 156 H, Troponin I < 0.01, Total Protein 7.9, Albumin 4.2, Globulin 3.7 H, Albumin/Globulin Ratio 1.1 Result diagrams: 06/24/21 10:02 06/24/21 10:02 Orders (Tests/Meds): ED MEDICATIONS Discontinued Medications Generic Name Dose Route Start Last Admin Trade Name Antoineq PRN Reason Stop Dose Admin Hydrocodone Bitart/Acetaminophen 1 tab 06/24/21 10:12 06/24/21 10:26 Hydrocodone/Apap 5/325 Mg Tablet PO 06/24/21 10:13 1 tab ONCE ONE Administration Clonidine HCl 0.1 mg 06/24/21 10:12 Clonidine 0.1mg Tablet PO 06/24/21 10:13 ONCE ONE Metoclopramide HCl 10 mg 06/24/21 10:12 06/24/21 10:26 Metoclopramide 10mg Tablet PO 06/24/21 10:13 10 mg ONCE ONE Administration Promethazine HCl 12.5 mg 06/24/21 11:34 Promethazine Hcl 25mg/Ml 1ml Vial IV 06/24/21 11:35 ONCE ONE Sodium Chloride 25 ml 06/24/21 11:34 Sodium Chloride 0.9% 25ml Bag IV 06/24/21 11:35 ONCE ONE Medical Decision Narrative: ekg by me nsr, rad, non spec st change 1135 reeval, n/v in room says the hydrocodone made her sick, requesting phenergan iv, neuro intact, no c/o headache vss, bp imroved and chronic uncontrolled, ok with plan to f/u cardiology and gi for fu
[2021-06-24 10:26] LABS: Basophils # 0.2 K/mm3 (0-0.2); Basophils % 1.5 % (0.1-2.0); Eosinophils # 0.2 K/mm3 (0.0-0.4); Hematocrit 44.9 % (37.0-47.0); Hemoglobin 15.1 g/dL (12.2-16.2); Lymphocytes % 18.1 % (10-50); Mean Corpuscular HGB Conc 33.6 g/dL (31.8-35.4); Mean Corpuscular Hemoglobin 32.1 pg (27.0-31.2); Mean Corpuscular Volume 95.6 fl (81-99); Mean Platelet Volume 9.1 fl (7.4-10.4); Monocytes # 0.7 K/mm3 (0.1-1.0); Neutrophils % 72.3 % (37.0-80.0); Platelet Count 312 K/mm3 (142-424); Red Cell Distribution Width 15.5 % (11.5-17.5)
[2021-06-24 10:31] LABS: Chloride 105 mmol/L (98-107); Sodium 137 mmol/L (136-145)
[2021-06-24 10:34] LABS: Alanine Aminotransferase 30 U/L (12-78); Albumin Level 4.2 g/dl (3.5-5.0); Albumin/Globulin Ratio 1.1 (1.1-1.8); Alkaline Phosphatase 156 U/L (38-126); Aspartate Amino Transferase 28 U/L (14-36); Bilirubin,Total 0.5 mg/dl (0.2-1.3); Blood Urea Nitrogen 15 mg/dl (7-17); Carbon Dioxide 22 mmol/L (22.0-30.0); Creatinine Clearance Estimated 133 mL/min (50-200); Estimated Glomerular Filt Rate 107 ml/min (>60); GFR (African American) 130 ML/MIN (>60); Globulin 3.7 g/dL (1.3-3.2); Total Protein,Serum 7.9 g/dl (6.3-8.2)
[2021-06-24 10:35] LABS: Calcium 9.6 mg/dl (8.4-10.2); Glucose 392 mg/dl (74-100)
[2021-06-24 10:47] LABS: Troponin I < 0.01 ng/ml (0.00-0.034)
--- NOTE | 2021-06-24 11:07 | PC.NURSE ---
KENYON Agustin at BS
--- NOTE | 2021-06-24 11:53 | PC.NURSE ---
patient ambulatory to restroom without complications
--- NOTE | 2021-06-24 11:55 | PC.NURSE ---
patient ambulatory back from the restroom without complications; KENYON Agustin at BS
== END 2021-06-24 12:31 | disposition home or self-care (01) ==
PROVIDERS: Emergency Provider Emergency Medicine; PCP Nurse Practitioner Family
DX: I48.0 Paroxysmal atrial fibrillation (principal); R07.9 Chest pain, unspecified; R00.2 Palpitations; R11.2 Nausea with vomiting, unspecified; I11.0 Hypertensive heart disease with heart failure; I50.9 Heart failure, unspecified; I25.10 Atherosclerotic heart disease of native coronary artery without angina pectoris; I25.2 Old myocardial infarction; E78.5 Hyperlipidemia, unspecified; E11.9 Type 2 diabetes mellitus without complications; F17.210 Nicotine dependence, cigarettes, uncomplicated; Z79.51 Long term (current) use of inhaled steroids; Z79.899 Other long term (current) drug therapy; Z79.84 Long term (current) use of oral hypoglycemic drugs; Z86.73 Personal history of transient ischemic attack (TIA), and cerebral infarction without residual deficits; Z82.49 Family history of ischemic heart disease and other diseases of the circulatory system; Z83.3 Family history of diabetes mellitus; Z88.0 Allergy status to penicillin; Z88.1 Allergy status to other antibiotic agents; Z88.3 Allergy status to other anti-infective agents; Z88.5 Allergy status to narcotic agent; Z88.6 Allergy status to analgesic agent; Z88.8 Allergy status to other drugs, medicaments and biological substances; Z95.0 Presence of cardiac pacemaker; Z95.4 Presence of other heart-valve replacement
CPT/HCPCS: 80053; 84484; 85025; 93005; 96374; 99285

== ENCOUNTER 2021-06-30 12:35 | Emergency (ER) | payer MEDICARE, MEDICAID, SELFPAY ==
[2021-06-30 12:29] VITALS: BP 192/98; PULSE 78; RESP 19; TEMP 37.1; O2SAT 99; BMI 22.2
--- NOTE | 2021-06-30 12:34 | HMH.EDSYNC ---
ED Disposition Clinical Impression: Left against medical advice, Syncope Disposition: Left Against Medical Advice Condition on Discharge: Undetermined Instructions: DI for Syncope in Adults (Fainting) Referrals: Era Ricardo APRN [Primary Care Provider] - - Critical Care Critical Care Time: No Attestation: On , the high probability of a clinically significant, sudden or life threatening deterioration of the following system(s) required my full and direct attention, intervention and personal management. The time I documented below is in addition to time spent performing reported procedures but includes the following listed in this critical care notation. Medical Decision Making - Medical Records Medical records reviewed: Yes: I reviewed the patient's medical records. - Mp Inquiry Pt receiving controlled substance: No Vital Signs: 06/30/21 12:29 06/30/21 13:31 06/30/21 13:54 Temperature 98.8 F 98.5 F Temperature Source Oral Oral Pulse Rate 75 75 Pulse Rate [Left Radial] 78 Respiratory Rate 19 20 16 Blood Pressure 180/81 H 180/81 H Blood Pressure [Left Arm] 192/98 H Blood Pressure Mean 114 Blood Pressure Mean [Left Arm] 129 Blood Pressure Source Automatic Cuff Blood Pressure Source [Left Arm] Automatic Cuff Blood Pressure Position Sitting Blood Pressure Position [Left Arm] Sitting 02 Sat by Pulse Oximetry 99 98 Oxygen Delivery Method Room Air Room Air Orders (Tests/Meds): ED MEDICATIONS Discontinued Medications Generic Name Dose Route Start Last Admin Trade Name Freq PRN Reason Stop Dose Admin Dicyclomine HCl 20 mg 06/30/21 12:35 06/30/21 13:09 Dicyclomine 20 Mg/2ml Vial IM 06/30/21 12:36 Not Given ONCE ONE Ondansetron HCl 4 mg 06/30/21 12:35 06/30/21 13:09 Ondansetron 4mg/2ml Vial IV 06/30/21 12:36 4 mg ONCE ONE Administration ORDERS Category Date Time Status XR chest portable Stat Exams 06/30/21 12:35 Taken Complete Blood Count Auto Diff Stat Lab 06/30/21 12:35 Ordered Comprehensive Metabolic Panel Stat Lab 06/30/21 12:35 Ordered - ECG Data Tracing #1 I reviewed this ECG and interpreted as documented below: The patient is EKG was performed at 12:45 PM. It shows an ectopic atrial rhythm with a ventricular rate of 73 bpm. Right axis deviation. Specific ST elevations in V4 and V5. Normal. No evidence of acute ischemia. Medical Decision Narrative: The patient left AGAINST MEDICAL ADVICE. She continued to ask for pain medication. She has a history of this emergency department for similar behavior. The medication she wanted was for abdominal pain. I offered her Bentyl which she refused. After that she became somewhat belligerent in the emergency department and left AGAINST MEDICAL ADVICE refusing to sign of the paperwork. Syncope HPI - General Stated Complaint: Syncope, Abd pain Time Seen by Provider: 06/30/21 12:34 Mode of Arrival: EMS - History of Present Illness HPI narrative: The patient presents to the emergency department via EMS from her primary care physician's office after having had a syncopal episode 2 times. The patient states that she has a history of mitral valve replacement. She also has a history of congestive heart failure, gastroparesis. She complains of nausea and abdominal pain and has requested pain medicine. She states that she felt palpitations prior to her syncope. She has no other complaints. - Related Data Home Medications Medication Instructions Recorded Confirmed Fluticasone Propion/Salmeterol 1 puff PO Q12H 01/01/21 06/19/21 [Fluticasone-Salmeterol 250-50] Rivaroxaban [Xarelto 20mg Tablet*] 20 mg PO DAILY 01/01/21 06/19/21 Promethazine HCl [Phenergan 25mg 25 mg PO BIDP PRN 06/11/21 06/19/21 tab] Albuterol Sulfate [Proventil-HFA 1 - 2 puffs IH Q4HP PRN 06/12/21 06/19/21 90mcg/puff Inh] Atorvastatin Calcium [Lipitor 80mg 80 mg PO HS 06/12/21 06/19/21
--- NOTE | 2021-06-30 12:35 | XR_ITS ---
FINAL REPORT TECHNIQUE: Single view chest CLINICAL HISTORY: syncope COMPARISON: 06/11/2021 FINDINGS: A single view of the chest was obtained. The heart is enlarged. Patient is status post median sternotomy. A left subclavian ICD and right-sided shunt are in place. There is right base atelectasis or scarring. There is no pneumothorax. Osseous structures demonstrate postoperative changes to the lower cervical spine. IMPRESSION: Right base atelectasis or scarring. Reviewed, Interpreted and Dictated by Gareth Serrano III, MD Transcribed by Yaneth Herrera Authenticated by Gareth Serrano III, MD on 06/30/2021 02:27:16 PM [facility]
--- NOTE | 2021-06-30 12:45 | ECG_ITS ---
APPROVED REPORT Exam: Resting ECG HR:73 bpm ECG Measurements Heart Rate 73 AXES ND 157 P -82 QRSd 109 QRS 100 QT 422 T 109 QTc 448 Conclusion ECTOPIC ATRIAL RHYTHM BORDERLINE RIGHT AXIS DEVIATION [QRS AXIS > 90] ST DEVIATION AND MODERATE T-WAVE ABNORMALITY, CONSIDER LATERAL ISCHEMIA [-0.1+ mV T-WAVE IN I/aVL/V5/V6] ABNORMAL ECG UNCONFIRMED REPORT Electronically signed by : Evaristo Aguilar MD 07/01/2021 21:10:02
[2021-06-30 13:31] VITALS: BP 180/81; PULSE 75; RESP 20; O2SAT 98
--- NOTE | 2021-06-30 13:45 | PC.NURSE ---
Went in to speak with patient and advise her that MD was not going to order any pain medication at this time. Pt became upset and started yelling You can take this fucking IV out if you are not going to treat me I advised pt to please lower her voice and watch her language due to other patients being able to hear her. Pt continued to yell and use curse words. I removed her IV and bandaged the site, pt was still cursing at me. I advised her we could only do what the MD ordered and at this time he was not going to order her pain medication. Pt refused to sign AMA form at this time, came out of room 2 and was cursing. I told her she needed to lower her voice immediately and watch her language out of respect for the other patient's. Pt used the phone to call her ride and left without other incident.
[2021-06-30 13:54] VITALS: BP 180/81; PULSE 75; RESP 16; TEMP 36.9; O2SAT 98
== END 2021-06-30 13:55 | disposition left against medical advice (07) ==
PROVIDERS: Emergency Provider Emergency Medicine; PCP Nurse Practitioner Family
DX: R55 Syncope and collapse (principal); R11.0 Nausea; I50.9 Heart failure, unspecified; I34.0 Nonrheumatic mitral (valve) insufficiency; I10 Essential (primary) hypertension; E78.5 Hyperlipidemia, unspecified; I48.0 Paroxysmal atrial fibrillation; E11.9 Type 2 diabetes mellitus without complications; F17.210 Nicotine dependence, cigarettes, uncomplicated; Z79.899 Other long term (current) drug therapy
CPT/HCPCS: 71045; 93005; 96374; 99284; J2405

== ENCOUNTER 2021-07-02 14:27 | Observation (INO) | payer MEDICARE, MEDICAID, SELFPAY ==
[2021-07-02 14:31] VITALS: BMI 21.9
[2021-07-02 14:41] VITALS: BP 147/73; PULSE 74; RESP 16; TEMP 37; O2SAT 99
--- NOTE | 2021-07-02 14:58 | HMH.CNCARD ---
History of Present Illness Consult date: 07/02/21 Requesting physician: Vicente Bingham Chief complaint: syncope Additional Medical History:: 1. Severe mitral valve regurgitation with normal coronary arteries A. History of mechanical mitral valve placement and subsequent removal due to clotting B. Mechanical MVR replaced with bioprosthetic MVR, [place], [place], 2018 C. Saulo myoview, 03/2020, no ischemia, EF 57% 2. History of paroxysmal atrial fibrillation A. Prior Xarelto use but some non-compliance due to finances 3. Gastroparesis A. CT of abdomen/pelvis, 05/2021, Fluid-filled, mildly distended mid and small bowel. Segmental ileus versus low-grade partial obstruction. Small bilateral nonobstructing kidney stones. Bilateral adrenal hyperplasia. Reviewed, Interpreted and Dictated by Rodrigo Moscoso MD Transcribed by Farhan Kraus Authenticated by Rodrigo Moscoso MD on 06/19/2021 10:56:37 AM 4. History of Chiari malformation surgery with ventriculostomy shunt placement, approximately 2004 5. History of AICD for VT/VF arrest, 2018. This is then identified as a recall device and we are unable to communicate with it on 07/02/2021. 6. Hypertension 7. Hyperlipidemia 8. Diabetes mellitus type 2 9. History of congestive heart failure, diastolic A. Echo, 05/2021, 1. Mild biatrial enlargement, normal left ventricular size, estimated ejection fraction 55% with no regional wall motion abnormality, diastolic parameters are inconclusive. 2. Bioprosthetic valve in the mitral position likely normal function, valve area is 2.2 cm By pressure half-time. There is no significant mitral regurgitation seen. 3. Mild tricuspid regurgitation. 4. No significant pericardial effusion. 5. Right ventricle is mildly enlarged with normal contractility. 6. Inferior vena cava is normal size with normal inspiratory collapse. Electronically signed by : Bryan Iyer MD 06/13/2021 09:30:02 10. Cervical Tri fusion, approx 07/2020 A.. Evaluation for mid back pain with thoracic, lumbar and cervical CT spines unremarkable, 02/10/2021 11. History of left carotid bruit A. Carotid ultrasound, 05/2021, less than 50% ICA stenosis bilaterally History of present illness: 46-year-old white female seen in the office today for recurrent syncope. Patient has a prior mechanical mitral valve that was replaced with a bioprosthetic valve due to thrombus and inability to maintain adequate anticoagulation with warfarin in [place], [place]. She has an AICD that was put in place for VT/VF arrest in 2018 but apparently the device is no longer working and is noted to be a recall device. We were unable to communicate with the device in our office today. Patient relates recent frequent episodes of fast heart rates after which she becomes lightheaded and weak and sometimes passes out. Patient was very emotional in the office and states she is just tired of being sick. She was agreeable to admission and replacement of her AICD. She has been out of her Xarelto for several days. She has a long history of gastroparesis with chronic recurrent nausea despite taking Reglan, omeprazole and Zofran. Patient has not seen a veterans employment representative in a couple of years due to insurance reasons. Patient relates having a cranial shunt placed approximately 2004. [facility] History Medical History: Reports:: Atrial Fibrillation, Cardiomyopathy, Congestive Heart Failure, Cerebrovascular Accident, Diabetes Mellitus Type 2, Hyperlipidemia, Hypertension, Internal Pacemaker, Myocardial Infarction, Palpitations, Valvular Heart Disease Denies:: Cancer, Diabetes Mellitus Type 1, MRSA *Have you ever received a pneumonia vaccine?: No *Have you received a flu vaccine this season?: Yes Other Medical History: Reports: Arthritis Laterality Cases: Bilateral: Tonsillectomy Other Surgeries: Yes: Cardiac Catheterization, Cardiac Surgery, Cholecystectomy, , Hysterectomy-Total, Mitral Valve Re
[2021-07-02 15:06] VITALS: BMI 21.9
--- NOTE | 2021-07-02 15:07 | HMH.PHAVTE ---
[facility] Pharmacy VTE Monitoring - Patient Demographics Admission date: 07/02/21 Report Date: 07/02/21 Time: 15:07 Allergies/Adverse Reactions: Patient Allergies morphine [MORPHINE] Allergy (Mild, Verified 07/02/21 13:33) hydrocodone [From LORTAB] Allergy (Unknown, Verified 07/02/21 13:33) azithromycin Allergy (Verified 07/02/21 13:33) bupropion [From Wellbutrin] Allergy (Verified 07/02/21 13:33) ketorolac Adverse Reaction (Verified 07/02/21 13:33) Height: 1.78 m Weight: 69.485 kg - VTE Risk Was VTE Risk Assessment Performed: No Clinical Trial Participant: No - Prophylaxis VTE Prophylaxis Ordered?: Yes Types of VTE Prophylaxis: TEDS Knee High Location of Applied Device: Bilateral Lower Extremeties
--- NOTE | 2021-07-02 15:23 | XR_ITS ---
PROCEDURE INFORMATION: Exam: XR Chest Exam date and time: 07/02/2021 3:43 PM Age: 46 years old Clinical indication: Shortness of breath; Additional info: Azul, RIVKA, fritz TECHNIQUE: Imaging protocol: XR of the chest. Views: 2 views. COMPARISON: CR XR CHEST PORTABLE 06/30/2021 12:50 PM FINDINGS: Tubes, catheters and devices: Single chamber cardioverter-defibrillator appears in place. Shunt catheter tubing courses through the right hemithorax. Airway: Central airways are patent. Lungs: Mild vascular prominence in the right infrahilar region, similar to the reference exam. Lungs are otherwise clear. Pleural spaces: No pleural effusions or pneumothorax. Heart/Mediastinum: Prior valve replacement. Normal heart size. Upper mediastinum is normal. Bones/joints: Partially visualized lower cervical spine fixation hardware without discrete complications. No acute skeletal abnormality or aggressive osseous lesion. IMPRESSION: Right infrahilar findings are most probably related to prominence of vascular structures/scarring and chronic in etiology. Consider superimposed infectious/inflammatory pneumonia in the appropriate clinical setting. Otherwise, the examination is stable as compared to the reference exam.
--- NOTE | 2021-07-02 15:35 | DIET.NUTRFU ---
Addendum entered by Racheal Maldonado RD, LD 07/02/21 15:44: phenergan and reglan switched to IV. Reviewing previous admits, wt on 06/16 was 72kg. She reports she continues to smoke, denies any EtOH or caffeine. Has been able to tolerate gingerale. Reviewed gastroparasis recommendations. She also reports no BM in 5 days, but only consuming clear liquids. Will continue to follow diet tolerance and meal intake Original Note: RD consulted d/t gastroparasis for last couple weeks. Not able to keep anything down, having nausea and vomiting. Also c/o a stabing pain to side of stomach- reported to nursing. Was given something for nausea upon admit and throw it up. Labs reviewed glucose elevated at 392 and 229H, BNP 3260. Came from cardiac apt. Started on reglan, protonix and phenegan in place. Requested clear liquids for dinner- chicken broth, jello, ginerale and agreed to try boost breeze for additional calories and protein. Reports 16# weight loss over last couple weeks. She does trigger for PCM, will notify provider.
--- NOTE | 2021-07-02 15:39 | PC.NURSE ---
PO phenergan administered, pt immediately vomited pill, CHITRA Mesa notified ad esequiel and regayala switched to IV; He says it's ok to administer another dose of phenergan since pt immediately vomited pill.
--- NOTE | 2021-07-02 15:39 | PC.NURSE ---
PO phergan administered, pt immediately vomited pill, CHITRA Mesa notified ad phergan and reglan switched to IV; He says it's ok to administer another dose of phenergan since pt immediately vomited pill.
[2021-07-02 16:00] VITALS: PULSE 70
[2021-07-02 16:49] LABS: Chloride 105 mmol/L (98-107); Potassium 3.7 mmoL/L (3.5-5.1); Sodium 139 mmol/L (136-145)
[2021-07-02 16:51] LABS: Bilirubin,Unconjugated 0.4 mg/dL (0.0-1.1); Blood Urea Nitrogen 17 mg/dl (7-17); Creatinine Clearance Estimated 152 mL/min (50-200); Estimated Glomerular Filt Rate 132 ml/min (>60); GFR (African American) 160 ML/MIN (>60)
[2021-07-02 16:52] LABS: Alanine Aminotransferase 28 U/L (12-78); Albumin Level 4.2 g/dl (3.5-5.0); Alkaline Phosphatase 158 U/L (38-126); Anion Gap 13.7 mEq/L (5-15); Aspartate Amino Transferase 30 U/L (14-36); Bilirubin,Direct 0.3 mg/dl (0.0-0.4); Bilirubin,Indirect 0.3 mg/dL (0.0-0.9); Bilirubin,Total 0.6 mg/dl (0.2-1.3); Carbon Dioxide 24 mmol/L (22.0-30.0); Chol/HDL Ratio 5.2 (1-3.5); Cholesterol 227 mg/dl (140-200); Glucose 162 mg/dl (74-100); HDL Cholesterol 44 mg/dl (40-60); Total Protein,Serum 8.2 g/dl (6.3-8.2); Triglycerides 136 mg/dl (30-150); VLDL Cholesterol 27 mg/dL (0-40)
[2021-07-02 16:53] LABS: POC Glucose,Bedside 171 (70-110)
[2021-07-02 17:01] LABS: NT Pro Brain Natriuretic Pep. 369 pg/mL (0-125)
[2021-07-02 17:03] LABS: Direct LDL Cholesterol 115.57 mg/dL (100-129)
[2021-07-02 17:04] LABS: Basophils # 0.2 K/mm3 (0-0.2); Basophils % 1.7 % (0.1-2.0); Eosinophils # 0.1 K/mm3 (0.0-0.4); Eosinophils % 1.5 % (0.1-12.0); Hematocrit 43.2 % (37.0-47.0); Hemoglobin 14.7 g/dL (12.2-16.2); Lymphocytes # 1.7 K/mm3 (0.7-4.5); Lymphocytes % 19.4 % (10-50); Mean Corpuscular Hemoglobin 31.9 pg (27.0-31.2); Mean Corpuscular Volume 93.8 fl (81-99); Mean Platelet Volume 8.9 fl (7.4-10.4); Monocytes # 0.5 K/mm3 (0.1-1.0); Monocytes % 6.1 % (1.7-9.3); Neutrophils # 6.2 K/mm3 (1.8-7.8); Neutrophils % 71.2 % (37.0-80.0); Platelet Count 249 K/mm3 (142-424); Red Cell Distribution Width 15.5 % (11.5-17.5); White Blood Count 8.7 K/mm3 (4.8-10.8)
[2021-07-02 17:30] LABS: Hemoglobin A1C 8.7 % (4.0-6.0)
[2021-07-02 19:56] VITALS: BP 120/65; PULSE 72; RESP 18; TEMP 36.3; O2SAT 99
[2021-07-02 20:00] VITALS: PULSE 70; O2SAT 97
[2021-07-02 20:43] LABS: POC Glucose,Bedside 222 (70-110)
[2021-07-02 23:53] VITALS: BP 111/59; PULSE 63; RESP 20; TEMP 36.4; O2SAT 98
[2021-07-03] VITALS (19 sets, daily range): BP systolic 102–149; BP diastolic 52–89; PULSE 50–67; RESP 16–20; TEMP 36.4–36.7; O2SAT 90–100; BMI 22.9
--- NOTE | 2021-07-03 | IR_ITS ---
APPROVED REPORT Patient Location: Inpatient Family And Consumer Education Teacher: AHSAN Phillip RT (R) PROCEDURES 1. Pocket Revision 2. Removal of chronic Pacemaker 3. Implant of Right Atrial Lead 4. Implant of Permanent Pacemaker Informed consent was obtained prior to the procedure. COMPLICATIONS NONE Estimated Blood Loss: LESS THAN 10 ML TECHNIQUE 1% lidocaine with epinephrine used to anesthetize the left anterior aspect of the chest. Scalpel was used to make the initial cutaneous incision and then used to dissect down to the existing pacemaker generator. The generator was removed from the existing pocket. Digital manipulation was required along with intermittent usage of scalpel in order to revise the pocket. The lead was removed from the chronic generator. The subclavian vein was accessed once via the Selinger technique, there is one wire in the vein. A 6 [place] sheath was placed under fluoroscopic guidance into the subclavian vein over the wire. The dilator was removed from the sheath. Using fluoroscopic guidance, the atrial lead was the placed into the right atrial appendage and screwed and secured in place. Electrical interrogation demonstrated acceptable thresholds and voltage number. The atrial lead was then secured into place using 3-0 silk. 1 gram of Ancef was used to flush the pocket. The new generator was screwed to the existing leads and secured into place. Electronic interrogation proved acceptable thresholds and voltage within the lead. The pacemaker was secured using 3-0 silk into the newly revised pocket. Monocryl was used to close the subcutaneous tissue and then onesimo were placed on the cutaneous area in order to approximate the incision. Patient was transferred to the postop holding area in stable condition. INTERROGATION Generator Model number: Perciva ICD DF4-DR D413 Generator Serial number: [id number] Atrial lead model number: Ingevity + IS-1 Bi Positive Fix RA/RV 45 cm 7840 Atrial lead serial number: [id number] P-wave: 3.5 mV Impedence: 445 Ohms Threshold: 0.2V @ 0.4ms Current: 0.5 mA Right Ventricular lead model number: 4935M Right Ventricular lead serial number: [id number] R-wave: 20.0 mV Impedence: 458 Ohms Threshold: 1.0V @ 0.4ms Shock Impedence: 87 Ohms Current: 2.2 mA Pacing Parameters: Mode: DDDR Base/Max Track:60 ppm / 130 ppm VF: 220 bpm VT: 180 bpm VT-1: 160 bpm Quick Convert, 41Jx8 ATP,41Jx6 No diaphragmatic stimulation at 10 volts. IMPRESSION 1. Successful Pocket Revision 2. Successful Removal of chronic Pacemaker 3. Successful Implant of Right Atrial Lead 4. Successful Implant of Permanent Pacemaker PLAN 1. Post Op Wound Care Electronically signed by : Jere Cortes MD 07/03/2021 14:21:02
--- NOTE | 2021-07-03 03:11 | PC.NURSE ---
Patient has not rested well this RN's shift. Patient has been up most of the night with abdominal pain and nausea. Patient states most of the abdominal pain is in her left side. Patient reports last bowel movement on 06/27/21. Patient has not had any emesis episodes. Patient has been sinus arrhythmia to normal sinus on telemetry.
[2021-07-03 05:26] LABS: POC Glucose,Bedside 159 (70-110)
--- NOTE | 2021-07-03 08:16 | PC.NURSE ---
Ok to use labs from 07/02 for preop checklist per Juan Pablo Rodriguez PA
--- NOTE | 2021-07-03 09:33 | HMH.HP ---
*Admission Date: 07/02/21 *Chief complaint: Syncope *History of present illness: 46-year-old female patient admitted to [facility] from cardiology. Patient does have a history of prior mechanical valve replaced with a bioprosthetic valve due to thrombus and inability to maintain anticoagulation with warfarin in [facility]. She had a VT/VF arrest in 2018 and had an AICD placed that is no longer working. Device was unable to be interrogated in cardiology clinic. Patient reports frequent episodes of rapid heart rate, lightheadedness, weakness, and occasionally passing out. She also reports a longstanding problem with gastroparesis and has not seen a resident engineer in several years due to lack of insurance. Sitting up in bed she reports having abdominal cramping/bloating and reports this is how it feels with her gastroparesis. She is also voicing depression and anxiety over her current medical status and states I am sick and tired of being sick and tired . She denies any HI/SI and is open to behavioral health referral. [facility] History I have reviewed the patient's past medical history: Yes Medical History: Reports:: Arrhythmia, Atrial Fibrillation, Cardiomyopathy, Congestive Heart Failure, Cerebrovascular Accident, Diabetes Mellitus Type 2, Hyperlipidemia, Hypertension, Internal Pacemaker, MRSA, Myocardial Infarction, Palpitations, Valvular Heart Disease Denies:: Cancer, Diabetes Mellitus Type 1 *Have you ever received a pneumonia vaccine?: Yes *Have you received a flu vaccine this season?: Yes Other Medical History: Reports: Arthritis Laterality Cases: Bilateral: Tonsillectomy Other Surgeries: Yes: CABG, Cardiac Catheterization, Cardiac Surgery, Cholecystectomy, , Hysterectomy-Total, Mitral Valve Replacement, Open Heart Surgery (x2), Pacemaker Amputation: No Fractures: No - *Social History Last grade of school completed: High school graduate Smoking Status: Current every day smoker Tobacco Type: cigarettes # Packs/Day (cigarettes): 1 Alcohol Intake: never Substance Use Type: opiates, painkillers, prescription drug *Occupational Status:: disabled Housing: house Household Members: children *Travel in the last 8 weeks: [place] the [place] Family Hx:: Diabetes, Heart Attack Review of Systems - Review of Systems Review of systems:: pertinent systems reviewed and negative unless documented below - Constitutional Denies anorexia, Denies fatigue - Eyes Denies blurry vision, Denies double vision - ENT Denies lip swelling, Denies pain with swallowing - *Cardiovascular Reports shortness of breath, Reports shortness of breath with activity, Reports rapid, pounding, or irregular heartbeat - *Respiratory Reports shortness of breath, Reports shortness of breath with activity - *Gastrointestinal Reports constipation, Denies abdominal pain - *Musculoskeletal Denies abnormal walking, Denies muscle weakness - Integumentary/Breasts Denies change in skin color, Denies new lesions - *Neurologic Reports dizziness, Reports frequent falls, Reports fainting, Reports weakness - Psychiatric Reports anxiety, Reports depression, Reports irritability, Denies hearing things others do not hear - Endocrine Denies cold intolerance, Denies increased thirst - Hematologic/Lymphatic Denies easy bleeding, Denies easy bruising - Allergic/Immunologic Denies GI upset with certain foods, Denies tongue swelling Meds Home Medications Medication Instructions Recorded Confirmed Type Fluticasone Propion/Salmeterol 1 puff PO Q12H 01/01/21 07/02/21 History [Fluticasone-Salmeterol 250-50] Rivaroxaban [Xarelto 20mg Tablet*] 20 mg PO DAILY 01/01/21 07/02/21 History Promethazine HCl [Phenergan 25mg 25 mg PO Q4HP PRN 06/11/21 07/02/21 History tab] Albuterol Sulfate [Proventil-HFA 1 - 2 puffs IH Q4HP PRN 06/12/21 07/02/21 History 90mcg/puff Inh] Fluoxetine HCl [Prozac] 60 mg PO DAILY 06/12/21
--- NOTE | 2021-07-03 09:39 | HMH.PHAINT ---
HOME MEDICATION LIST VERIFIED USING LIST FROM OUTPATIENT PHARMACY
--- NOTE | 2021-07-03 10:16 | HMH.PNCARD ---
Subjective Date: 07/03/21 Time: 10:16 Principal diagnosis: Syncope, AICD recall Interval history: 46-year-old white female in bed in no acute distress. Denies any chest pain, pressure or tightness. Some abdominal discomfort and relates last bowel movement 5 to 7 days ago. Questions regarding AICD generator change answered. Exam Vital signs and Labs for Last 24 Hours: Temp Pulse Resp BP Pulse Ox 97.5 F L 57 L 18 149/75 H 100 07/03/21 07:31 07/03/21 07:31 07/03/21 07:31 07/03/21 07:31 07/03/21 07:31 Laboratory Results - last 24 hr 07/02/21 16:20: WBC 8.7, RBC 4.60, Hgb 14.7, Hct 43.2, MCV 93.8, MCH 31.9 H, MCHC 34.0, RDW 15.5, Plt Count 249, MPV 8.9, Neut % (Auto) 71.2, Lymph % (Auto) 19.4, Yell % (Auto) 6.1, Eos % (Auto) 1.5, Baso % (Auto) 1.7, Neut # (Auto) 6.2, Lymph # (Auto) 1.7, Yell # (Auto) 0.5, Eos # (Auto) 0.1, Baso # (Auto) 0.2 07/02/21 16:20: Sodium 139, Potassium 3.7, Chloride 105, Carbon Dioxide 24, Anion Gap 13.7, BUN 17, Creatinine 0.50 L, Estimated Creat Clear 152, Estimated GFR 132, Est GFR ( Amer) 160, Glucose 162 H, Calcium 10.0, Total Bilirubin 0.6, Direct Bilirubin 0.3, Conjugated Bilirubin 0.0, Indirect Bilirubin 0.3, Unconjugated Bilirubin 0.4, AST 30, ALT 28, Alkaline Phosphatase 158 H, NT-Pro-B Natriuret Pep 369 H, Total Protein 8.2, Albumin 4.2, Triglycerides 136, Cholesterol 227 H, LDL Cholesterol Direct 115.57, VLDL Cholesterol 27, HDL Cholesterol 44, Cholesterol/HDL Ratio 5.2 H 07/02/21 16:20: Hemoglobin A1c 8.7 H 07/02/21 16:44: POC Glucose 171 H 07/02/21 20:24: POC Glucose 222 H 07/03/21 05:18: POC Glucose 159 H I & O for Last 24 hours: Intake & Output 06/30/21 07/01/21 07/02/21 07/03/21 11:59 11:59 11:59 11:59 Intake Total 971 / 971 Balance 971 / 971 Weight 160 lb 6 oz Microbiology Reports for the Last 24 Hours: Microbiology 07/02/21 15:54 Nasopharyngeal Coronavirus COVID-19 PCR - Final - Constitutional no acute distress - *Routine Respiratory Exam Present: CTA bilaterally - *Routine Cardiovascular Exam Present: RRR - *Routine Extremities Exam Absent: cyanosis, clubbing, edema - *Routine Neurological Exam Present: alert, oriented X3 Progress Note: A&P (1) Syncope and collapse Status: Acute (2) History of mitral valve replacement with bioprosthetic valve Status: Acute (3) Diastolic congestive heart failure Status: Acute (4) Abnormal EKG Status: Acute (5) Gastroparesis Status: Acute (6) Nausea & vomiting Status: Acute (7) HLD (hyperlipidemia) Status: Chronic (8) HTN (hypertension) Status: Chronic (9) Paroxysmal atrial fibrillation Status: Chronic (10) Presence of power washer-recalled cardiac pacemaker generator Status: Acute (11) 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 Recurrent syncope in a patient with known history of VT/VF cardiac arrest and recalled AICD generator. Proceed with AICD generator change in upgrade to dual-chamber device with implantation of atrial lead today. 2. History of paroxysmal atrial fibrillation, holding Xarelto. Continue to monitor on telemetry. Rate controlled on bisoprolol therapy. 3. History of normal coronary arteries 4. Diabetes with diabetic gastroparesis and possible ileus by CT of the abdomen 05/2021. Discussed with Dr. Lake who will evaluate further. 5. Ventriculoperitoneal shunt with history of Chiari malformation surgery 6. Bioprosthetic mitral valve, functioning appropriately by echocardiogram 2 weeks ago. 7. Hypertension, stable 8. Hyperlipidemia, continue statin therapy 9. Fatigue, multifactorial
[2021-07-03 12:14] LABS: Basophils # 0.2 K/mm3 (0-0.2); Basophils % 3.2 % (0.1-2.0); Eosinophils # 0.2 K/mm3 (0.0-0.4); Eosinophils % 2.7 % (0.1-12.0); Hematocrit 45.7 % (37.0-47.0); Hemoglobin 14.4 g/dL (12.2-16.2); Lymphocytes # 2.2 K/mm3 (0.7-4.5); Lymphocytes % 33.3 % (10-50); Mean Corpuscular HGB Conc 31.6 g/dL (31.8-35.4); Mean Corpuscular Hemoglobin 30.3 pg (27.0-31.2); Mean Corpuscular Volume 95.8 fl (81-99); Mean Platelet Volume 9.1 fl (7.4-10.4); Monocytes # 0.4 K/mm3 (0.1-1.0); Monocytes % 6.6 % (1.7-9.3); Neutrophils # 3.6 K/mm3 (1.8-7.8); Neutrophils % 54.3 % (37.0-80.0); Platelet Count 275 K/mm3 (142-424); Red Blood Count 4.76 M/mm3 (4.20-5.40); Red Cell Distribution Width 15.2 % (11.5-17.5); White Blood Count 6.6 K/mm3 (4.8-10.8)
[2021-07-03 12:18] LABS: Anion Gap 10.5 mEq/L (5-15); Blood Urea Nitrogen 16 mg/dl (7-17); Calcium 9.4 mg/dl (8.4-10.2); Carbon Dioxide 32 mmol/L (22.0-30.0); Chloride 100 mmol/L (98-107); Creatinine Clearance Estimated 133 mL/min (50-200); Estimated Glomerular Filt Rate 107 ml/min (>60); GFR (African American) 130 ML/MIN (>60); Glucose 153 mg/dl (74-100); Potassium 3.5 mmoL/L (3.5-5.1); Sodium 139 mmol/L (136-145)
--- NOTE | 2021-07-03 12:39 | PC.NURSE ---
Pt off floor for procedure
--- NOTE | 2021-07-03 12:43 | P.PN_ITS ---
[facility] Anesthesia Checklist - Patient Identification Patient Identification: Arm Band - Structural Data Admitted From: Inpatient Planned Operative Procedure/s: AICD Consent for Planned Operative Procedure(s) Verified: Yes - NPO Status Verified Time NPO: 00:00 - Airway Assessment C-Spine Mobility Assessed: Yes TMJ Mobility Assessed: Yes Dentition: Edentulous - Neurological Assessment Level of Consciousness: Awake Hx Seizures: No Numbness or tingling in extremities: No - Anesthesia Plan Anesthesia Risk discussed: Yes Anesthesia Plan: Verified ASA Class: III Anesthesia Type: MAC [facility] History I have reviewed the patient's past medical history: Yes Medical History: Reports:: Arrhythmia, Atrial Fibrillation, Cardiomyopathy, Congestive Heart Failure, Cerebrovascular Accident, Diabetes Mellitus Type 2, Hyperlipidemia, Hypertension, Internal Pacemaker, MRSA, Myocardial Infarction, Palpitations, Valvular Heart Disease Denies:: Cancer, Diabetes Mellitus Type 1 *Have you ever received a pneumonia vaccine?: Yes *Have you received a flu vaccine this season?: Yes Other Medical History: Reports: Arthritis Anesthesia experience/problems:: None Laterality Cases: Bilateral: Tonsillectomy Other Surgeries: Yes: CABG, Cardiac Catheterization, Cardiac Surgery, Cholecystectomy, , Hysterectomy-Total, Mitral Valve Replacement, Open Heart Surgery (x2), Pacemaker Amputation: No Fractures: No - *Social History Last grade of school completed: High school graduate Smoking Status: Current every day smoker Tobacco Type: cigarettes # Packs/Day (cigarettes): 1 Alcohol Intake: never Substance Use Type: opiates, painkillers, prescription drug *Occupational Status:: disabled Housing: house Household Members: children *Travel in the last 8 weeks: Inside the [facility] Family Hx:: Diabetes, Heart Attack
--- NOTE | 2021-07-03 13:41 | XR_ITS ---
FINAL REPORT CLINICAL HISTORY: Confirm pacemaker/AID placement COMPARISON: July 02, 2021 FINDINGS: ONE-VIEW CHEST The heart size is enlarged. There has been prior median sternotomy. A left subclavian pacemaker is noted. A right-sided shunt catheter is present. There is worsening pulmonary vascular congestion. There are bibasilar pulmonary opacities, favor atelectasis.. There is no pleural effusion. There is no pneumothorax. IMPRESSION: Left subclavian pacemaker noted. Worsening pulmonary vascular congestion. Bibasilar pulmonary opacities, favor atelectasis. Reviewed, Interpreted and Dictated by Gareth Serrano III, MD Transcribed by Franny Das Authenticated by Gareth Serrano III, MD on 07/03/2021 02:50:[address] [facility]
--- NOTE | 2021-07-03 14:29 | PC.NURSE ---
Pt is alert and oriented x4. Lungs are clear, bowel sounds hypoactive x4. She ambulates independently to the bathroom. She is s/p pacemaker placement. She just arrived back to the floor, dressing to left upper chest is clean, dry and intact. She has required pain meds around the clock. No vomiting as of yet. Family is at bedside and supportive.
--- NOTE | 2021-07-03 14:33 | SUR.PHASEII ---
Called Dr Cortes because pt was requesting another dose of her IV pain medication even though it is to early, stated to give her a one time dose of 1mg dilaudid.
[2021-07-04] VITALS: PULSE 65
[2021-07-04 00:48] VITALS: BP 118/77; PULSE 62; RESP 16; TEMP 36.5; O2SAT 96
[2021-07-04 04:00] VITALS: BP 102/58; PULSE 60; RESP 16; TEMP 36.4; O2SAT 99
[2021-07-04 05:00] VITALS: BMI 24.0
--- NOTE | 2021-07-04 05:00 | PC.NURSE ---
IV RESTARTED THIS SHIFT, PACEMAKER SITE WITH DRSG CDI, MILD SWELLING AND BRUISING NOTED AROUND SITE, SITE TENDER AND SORE TO TOUCH, PT REQUIRING PAIN MEDS SCEDULED FOR COMPLAINTS OF ABD PAIN, TELEMETRY REVEALS PACED RYTHM, PT AMBULATES WITHOUT DIFFICULTY IN [place] SEVERAL TIMES THROUGH THE NIGHT, NO OTHER ISSUES NOTED. VSS
[2021-07-04 06:46] LABS: Anion Gap 13.7 mEq/L (5-15); Blood Urea Nitrogen 16 mg/dl (7-17); Calcium 8.6 mg/dl (8.4-10.2); Carbon Dioxide 23 mmol/L (22.0-30.0); Chloride 105 mmol/L (98-107); Creatinine Clearance Estimated 139 mL/min (50-200); Estimated Glomerular Filt Rate 107 ml/min (>60); GFR (African American) 130 ML/MIN (>60); Glucose 263 mg/dl (74-100); Potassium 3.7 mmoL/L (3.5-5.1); Sodium 138 mmol/L (136-145)
[2021-07-04 07:24] VITALS: BP 130/72; PULSE 62; RESP 22; TEMP 36.4; O2SAT 98
[2021-07-04 07:28] LABS: Basophils # 0.2 K/mm3 (0-0.2); Basophils % 2.5 % (0.1-2.0); Eosinophils # 0.2 K/mm3 (0.0-0.4); Eosinophils % 2.4 % (0.1-12.0); Hematocrit 38.7 % (37.0-47.0); Lymphocytes % 26.9 % (10-50); Mean Corpuscular HGB Conc 32.5 g/dL (31.8-35.4); Mean Corpuscular Hemoglobin 31.6 pg (27.0-31.2); Mean Corpuscular Volume 97.2 fl (81-99); Mean Platelet Volume 8.7 fl (7.4-10.4); Monocytes # 0.6 K/mm3 (0.1-1.0); Monocytes % 7.9 % (1.7-9.3); Neutrophils # 4.4 K/mm3 (1.8-7.8); Neutrophils % 60.3 % (37.0-80.0); Platelet Count 205 K/mm3 (142-424); Red Blood Count 3.98 M/mm3 (4.20-5.40); Red Cell Distribution Width 15.4 % (11.5-17.5); White Blood Count 7.3 K/mm3 (4.8-10.8)
[2021-07-04 07:42] LABS: Hemoglobin 12.7 g/dL (12.2-16.2)
[2021-07-04 08:00] VITALS: O2SAT 98
--- NOTE | 2021-07-04 09:40 | DIET.NUTRFU ---
During rounds today, provider asked patient why she was only consuming clear liquids. Patient is afraid to advance her diet d/t her reported issues of nausea and vomiting. She continues on reglan and PPI tx to help with gastroparasis, this RD educated her on gastroparasis diet, avoiding carbonated beverages nothing spicy or greasy. Patient still afraid to advance her diet. She is also receiving boost breeze to help with caloric intake, she did report weight loss upon admit. Provider decided to order a scope of GI to rule out any bowl issues, when PA listened she felt bowels sounded good. Will follow up with any dietary needs, possible discharge today
[2021-07-04 10:00] LABS: Lipase 131 U/L (23-300)
--- NOTE | 2021-07-04 10:13 | HMH.DCSUM ---
General - General Admission date:: 07/02/21 Discharge date: 07/04/21 HPI HPI: 46-year-old female patient admitted to [facility] from cardiology. Patient does have a history of prior mechanical valve replaced with a bioprosthetic valve due to thrombus and inability to maintain anticoagulation with warfarin in [facility]. She had a VT/VF arrest in 2018 and had an AICD placed that is no longer working. Device was unable to be interrogated in cardiology clinic. Patient reports frequent episodes of rapid heart rate, lightheadedness, weakness, and occasionally passing out. 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 Sitting up in bed she reports having abdominal cramping/bloating and reports this is how it feels with her gastroparesis. She is also voicing depression and anxiety over her current medical status and states I am sick and tired of being sick and tired . She denies any HI/SI and is open to behavioral health referral. Hospital Course Hospital Course: Abnormal Lab Results 07/03/21 09:14: MCHC 31.6 L, Baso % (Auto) 3.2 H 07/03/21 09:14: Carbon Dioxide 32 H, Glucose 153 H 07/04/21 05:15: Glucose 263 H D 07/04/21 06:55: RBC 3.98 L, MCH 31.6 H, Baso % (Auto) 2.5 H Microbiology 07/02/21 15:54 Nasopharyngeal Coronavirus COVID-19 PCR - Final Status: Acute Assessment and Plan for All Diagnoses:: 1. Recurrent syncope in a patient with known history of VT/VF cardiac arrest and recalled AICD generator. Proceed with AICD generator change in upgrade to dual-chamber device with implantation of atrial lead today. 2. History of paroxysmal atrial fibrillation, holding Xarelto. Continue to monitor on telemetry. Rate controlled on bisoprolol therapy. 3. History of normal coronary arteries 4. Diabetes with diabetic gastroparesis and possible ileus by CT of the abdomen 05/2021. Discussed with Dr. Lake who will evaluate further. 5. Ventriculoperitoneal shunt with history of Chiari malformation surgery 6. Bioprosthetic mitral valve, functioning appropriately by echocardiogram 2 weeks ago. 7. Hypertension, stable 8. Hyperlipidemia, continue statin therapy 9. Fatigue, multifactorial Discharge Plan (1) Syncope and collapse-AICD generator changed in upgrade to dual-chamber device with implantation of atrial lead. (2) History of mitral valve replacement with bioprosthetic valve-functioning appropriately by echocardiogram 2 weeks ago. follow up with cardiology (3) Diastolic congestive heart failure-, per echo: normal left ventricular size, estimated ejection fraction 55% with no regional wall motion abnormality (4) Abnormal EKG-History of paroxysmal atrial fibrillation-Rate controlled on bisoprolol therapy. follow up with cardiology next week (5) Gastroparesis-Small bowel follow though not able to be done inpt will arrange out pt (6) Nausea & vomiting- Per staff pt is eating all night long, zofran and reglan, low residue bland diet, out pt small bowel follow through (7) HLD (hyperlipidemia)-continue statin therapy (8) HTN (hypertension)-stable (9) Paroxysmal atrial fibrillation-Xarelto holding for 2days restart Wednesday. Rate controlled on bisoprolol therapy. 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 (11) MANAGER STERILE (ventriculoperitoneal) shunt status-history of Chiari malformation surgery, follow up with neurosurgery Objective Vital signs: Temp Pulse Resp BP Pulse Ox 97.5 F L 62 22 130/72 98 07/04/21 07:24 07/04/21 07:24 07/04/21 07:24 07/04/21 07:24 07/04/21 07:24 no acute distress - *Routine HEENT Exam Head: Present: normocephalic Eye: Present: PERRL ENT: Present: mucous membranes moist - *Routine Neck Exa
--- NOTE | 2021-07-04 10:19 | HMH.PNCARD ---
Subjective Date: 07/04/21 Time: 10:19 Principal diagnosis: Syncope, AICD recall Interval history: 46-year-old white female in bed in no acute distress. Denies chest pain except at the surgical site for the defibrillator changed out. Still having some abdominal discomfort but able to tolerate pudding and ice cream last evening per nursing. She denies any bowel movement over the last 7 days. Exam Vital signs and Labs for Last 24 Hours: Temp Pulse Resp BP Pulse Ox 97.5 F L 62 22 130/72 98 07/04/21 07:24 07/04/21 07:24 07/04/21 07:24 07/04/21 07:24 07/04/21 07:24 Laboratory Results - last 24 hr 07/03/21 09:14: WBC 6.6, RBC 4.76, Hgb 14.4, Hct 45.7, MCV 95.8, MCH 30.3, MCHC 31.6 L, RDW 15.2, Plt Count 275, MPV 9.1, Neut % (Auto) 54.3, Lymph % (Auto) 33.3, [place] % (Auto) 6.6, Eos % (Auto) 2.7, Baso % (Auto) 3.2 H, Neut # (Auto) 3.6, Lymph # (Auto) 2.2, [place] # (Auto) 0.4, Eos # (Auto) 0.2, Baso # (Auto) 0.2 07/03/21 09:14: Sodium 139, Potassium 3.5, Chloride 100, Carbon Dioxide 32 H, Anion Gap 10.5, BUN 16, Creatinine 0.60, Estimated Creat Clear 133, Estimated GFR 107, Est GFR ( Amer) 130, Glucose 153 H, Calcium 9.4 07/04/21 05:15: Sodium 138, Potassium 3.7, Chloride 105, Carbon Dioxide 23, Anion Gap 13.7, BUN 16, Creatinine 0.60, Estimated Creat Clear 139, Estimated GFR 107, Est GFR ( Amer) 130, Glucose 263 H D, Calcium 8.6 07/04/21 06:55: WBC 7.3, RBC 3.98 L, Hgb 12.7 D, Hct 38.7, MCV 97.2, MCH 31.6 H, MCHC 32.5, RDW 15.4, Plt Count 205 D, MPV 8.7, Neut % (Auto) 60.3, Lymph % (Auto) 26.9, [place] % (Auto) 7.9, Eos % (Auto) 2.4, Baso % (Auto) 2.5 H, Neut # (Auto) 4.4, Lymph # (Auto) 2.0, [place] # (Auto) 0.6, Eos # (Auto) 0.2, Baso # (Auto) 0.2 07/04/21 06:55: Lipase 131 I & O for Last 24 hours: Intake & Output 07/01/21 07/02/21 07/03/21 07/04/21 11:59 11:59 11:59 11:59 Intake Total 971 / 971 1291 / 1291 Balance 971 / 971 1291 / 1291 Weight 160 lb 6 oz 167 lb 14.4 oz - Constitutional no acute distress - *Routine Respiratory Exam Present: CTA bilaterally - *Routine Cardiovascular Exam Present: RRR - *Routine Extremities Exam Absent: cyanosis, clubbing, edema - *Routine Neurological Exam Present: alert, oriented X3 Progress Note: A&P (1) Syncope and collapse Status: Acute (2) History of mitral valve replacement with bioprosthetic valve Status: Acute (3) Diastolic congestive heart failure Status: Acute (4) Abnormal EKG Status: Acute (5) Gastroparesis Status: Acute (6) Nausea & vomiting Status: Acute (7) HLD (hyperlipidemia) Status: Chronic (8) HTN (hypertension) Status: Chronic (9) Paroxysmal atrial fibrillation Status: Chronic (10) 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 Recurrent syncope in a patient with known history of VT/VF cardiac arrest and recalled AICD generator. AICD generator replaced with implantation of atrial lead. No further episodes of syncope during hospitalization noted. 2. History of paroxysmal atrial fibrillation, holding Xarelto. Rate controlled on bisoprolol therapy. Patient noted to be in sinus rhythm. She can hold Xarelto for 2 more days and then restart on 07/06/2021. We will use the AICD for monitoring of atrial activity. 3. History of normal coronary arteries 4. Diabetes with diabetic gastroparesis and possible ileus by CT of the abdomen 05/2021. Further work-up per primary. 5. Ventriculoperitoneal shunt with history of Chiari malformation surgery 6. Bioprosthetic mitral valve, functioning appropriately by echocardiogram 2 weeks ago. 7. Hypertension, stable 8. Hyperlipidemia, continue statin therapy 9. Fatigue, multifactorial Okay from cardiac standpoint for discharge home. Home me
--- NOTE | 2021-07-04 11:50 | PC.NURSE ---
Reviewed discharge papers with patient; discussed each appointment made. Patient refused to take paperwork with her when she left.
--- NOTE | 2021-07-04 12:10 | PC.NURSE ---
Tried to contact patient to notify her that she left her discharge paperwork and dentures, no answer, no way to leave voicemail.
[2021-07-05 04:44] LABS: POC Glucose,Bedside 168 (70-110)
--- NOTE | 2021-07-07 15:16 | CARE MANAGER ---
Spoke with patient in post-discharge phone call and patient states that she just got out of [facility] [place], the pain was so bad from her pacemaker and gastroperesis has got the best of her. She does say that she came to see Dr. Cortes today and he made her feel better.
== END 2021-07-04 11:38 | disposition home or self-care (01) ==
PROVIDERS: Internal Medicine; Nurse Practitioner Family; Physician Assistant; Admitting Provider Emergency Medicine; PCP Emergency Medicine; Visit Provider Emergency Medicine
PROC: 0JH608Z Insertion of Defibrillator Generator into Chest Subcutaneous Tissue and Fascia, Open Approach (ICD-10-PCS; CPT 33249; principal; 2021-07-03 12:00)
DX: I50.31 Acute diastolic (congestive) heart failure (principal); I48.0 Paroxysmal atrial fibrillation; E11.9 Type 2 diabetes mellitus without complications; T82.111A Breakdown (mechanical) of cardiac pulse generator (battery), initial encounter; I11.0 Hypertensive heart disease with heart failure; I42.9 Cardiomyopathy, unspecified; Z20.822 Contact with and (suspected) exposure to COVID-19; Z79.01 Long term (current) use of anticoagulants; Y83.1 Surgical operation with implant of artificial internal device as the cause of abnormal reaction of the patient, or of later complication, without mention of misadventure at the time of the procedure; Z95.3 Presence of xenogenic heart valve; Z79.84 Long term (current) use of oral hypoglycemic drugs; Z98.2 Presence of cerebrospinal fluid drainage device
CPT/HCPCS: G0378; 33263; 36415; 71045; 71046; 80048; 80061; 80076; 82962; 83036; 83690; 83880; 85025; 94640; C1721; C1898; C9803; J2405; U0003; U0005

== ENCOUNTER 2021-07-05 15:55 | Emergency (ER) | payer MEDICARE, MEDICAID, SELFPAY ==
[2021-07-05 15:56] VITALS: BP 113/74; PULSE 62; RESP 14; TEMP 36.6; O2SAT 97; BMI 22.2
--- NOTE | 2021-07-05 16:06 | XR_ITS ---
PROCEDURE INFORMATION: Exam: XR Chest Exam date and time: 07/05/2021 4:11 PM Age: 46 years old Clinical indication: Fever; Prior surgery; Surgery date: 3-7 days post-operative; Surgery type: Pace maker placed TECHNIQUE: Imaging protocol: XR of the chest. Views: 1 view. COMPARISON: CR XR CHEST PORTABLE 07/03/2021 1:57 PM FINDINGS: Tubes, catheters and devices: A pacemaker device is present, and its leads are in appropriate position. There are sternal wires consistent with previous sternotomy incision. Right-sided AS400 PROGRAMMER shunt catheter is present. Lungs: Bilateral hyperinflation is present. Atelectatic changes noted within both lung bases. Pleural spaces: There is no evidence of pneumothorax. There are no pleural effusions present. Heart/Mediastinum: Unremarkable. No cardiomegaly. Bones/joints: Postoperative changes of the lower cervical spine. Soft tissues: Skin onesimo are present. IMPRESSION: 1. A pacemaker device is present, and its leads are in appropriate position. 2. Bilateral hyperinflation is present. 3. Atelectatic changes noted within both lung bases.
--- NOTE | 2021-07-05 16:06 | HMH.EDGENADL ---
ED Disposition Clinical Impression: Fever Qualifiers: Fever type: unspecified Qualified Code(s): R50.9 - Fever, unspecified Disposition: Home, Self-Care Condition on Discharge: Good Additional Instructions: follow up with your surgeon, return for worse Prescriptions: cephALEXin [cephALEXin 500mg capsule*] 500 mg PO Q6H #40 cap Transmission Status: Received by [facility] Referrals: Era Ricardo APRN [Primary Care Provider] - - Critical Care Critical Care Time: No Attestation: On 07/05/21, the high probability of a clinically significant, sudden or life threatening deterioration of the following system(s) required my full and direct attention, intervention and personal management. The time I documented below is in addition to time spent performing reported procedures but includes the following listed in this critical care notation. Medical Decision Making - Medical Records Medical records reviewed: Yes: I reviewed the patient's medical records. - Mp Inquiry Pt receiving controlled substance: No Vital Signs: 07/05/21 15:56 Temperature 97.9 F Temperature Source Oral Pulse Rate [Left Radial] 62 Respiratory Rate 14 Blood Pressure [Right Arm] 113/74 Blood Pressure Mean [Right Arm] 87 Blood Pressure Source [Right Arm] Automatic Cuff Blood Pressure Position [Right Arm] Sitting 02 Sat by Pulse Oximetry 97 Oxygen Delivery Method Room Air - Lab Data Lab Results 07/05/21 16:20: WBC 9.2 D, RBC 4.53, Hgb 14.2, Hct 42.8, MCV 94.5, MCH 31.3 H, MCHC 33.1, RDW 15.4, Plt Count 231, MPV 8.6, Neut % (Auto) 73.7, Lymph % (Auto) 16.3, [place] % (Auto) 6.4, Eos % (Auto) 1.9, Baso % (Auto) 1.8, Neut # (Auto) 6.8, Lymph # (Auto) 1.5, [place] # (Auto) 0.6, Eos # (Auto) 0.2, Baso # (Auto) 0.2 07/05/21 16:20: Sodium 139, Potassium 3.6, Chloride 105, Carbon Dioxide 24, Anion Gap 13.6, BUN 14, Creatinine 0.60, Estimated Creat Clear 129, Estimated GFR 107, Est GFR ( Amer) 130, Glucose 271 H, Calcium 9.4, Total Bilirubin 0.6, AST 24, ALT 29, Alkaline Phosphatase 169 H, Total Protein 8.2, Albumin 4.2, Globulin 4.0 H, Albumin/Globulin Ratio 1.1 Result diagrams: 07/05/21 16:20 07/05/21 16:20 Orders (Tests/Meds): ED MEDICATIONS Generic Name Dose Route Start Last Admin Trade Name Freq PRN Reason Stop Dose Admin Hydrocodone Bitart/Acetaminophen 1 tab 07/05/21 16:58 Hydrocodone/Apap 5/325 Mg Tablet PO 07/05/21 16:59 ONCE ONE ORDERS Category Date Time Status XR chest AP Stat Exams 07/05/21 16:06 Taken Urinalysis-Acute [Urinalysis and Microscopic] Stat Lab 07/05/21 16:06 Ordered General Adult HPI - General Stated complaint: redness around pacemaker Time Seen by Provider: 07/05/21 16:06 - History of Present Illness HPI narrative: fever today 3 days post op pacer implant Radiation: non-radiation Severity: moderate Quality: constant Consistency: intermittent Relieving factors: none Exacerbating factors: none Associated symptoms: denies other symptoms, fever/chills - Related Data Home Medications Medication Instructions Recorded Confirmed Fluticasone Propion/Salmeterol 1 puff PO Q12H 01/01/21 07/02/21 [Fluticasone-Salmeterol 250-50] Rivaroxaban [Xarelto 20mg Tablet*] 20 mg PO DAILY 01/01/21 07/02/21 Promethazine HCl [Phenergan 25mg 25 mg PO Q4HP PRN 06/11/21 07/02/21 tab] Albuterol Sulfate [Proventil-HFA 1 - 2 puffs IH Q4HP PRN 06/12/21 07/02/21 90mcg/puff Inh] Fluoxetine HCl [Prozac] 60 mg PO DAILY 06/12/21 07/02/21 Omeprazole [Omeprazole 40mg 40 mg PO AM 06/12/21 07/02/21 Capsule] Buspirone HCl [Buspar 10mg 10 mg PO BID 07/02/21 07/02/21 tablet] Metformin HCl [Glucophage 500mg 500 mg PO BID 07/02/21 07/02/21 Tablet] Sucralfate [Sucralfate 1gm 1 gm PO ACHS 07/02/21 07/02/21 Tab] Rosuvastatin Calcium 40 mg PO HS 07/03/21 07/03/21 carvediloL [Carvedilol 6.25mg Tab] 6.25 mg PO BID 07/03/21 07/03/21 Previous Rx's
--- NOTE | 2021-07-05 16:19 | PC.NURSE ---
Rad at bedside
--- NOTE | 2021-07-05 16:22 | PC.NURSE ---
lab leaving bedside
[2021-07-05 16:35] LABS: Basophils # 0.2 K/mm3 (0-0.2); Basophils % 1.8 % (0.1-2.0); Eosinophils # 0.2 K/mm3 (0.0-0.4); Eosinophils % 1.9 % (0.1-12.0); Hematocrit 42.8 % (37.0-47.0); Hemoglobin 14.2 g/dL (12.2-16.2); Lymphocytes # 1.5 K/mm3 (0.7-4.5); Lymphocytes % 16.3 % (10-50); Mean Corpuscular HGB Conc 33.1 g/dL (31.8-35.4); Mean Corpuscular Hemoglobin 31.3 pg (27.0-31.2); Mean Corpuscular Volume 94.5 fl (81-99); Mean Platelet Volume 8.6 fl (7.4-10.4); Monocytes # 0.6 K/mm3 (0.1-1.0); Monocytes % 6.4 % (1.7-9.3); Neutrophils # 6.8 K/mm3 (1.8-7.8); Neutrophils % 73.7 % (37.0-80.0); Platelet Count 231 K/mm3 (142-424); Red Blood Count 4.53 M/mm3 (4.20-5.40); Red Cell Distribution Width 15.4 % (11.5-17.5); White Blood Count 9.2 K/mm3 (4.8-10.8)
[2021-07-05 16:37] LABS: Chloride 105 mmol/L (98-107); Potassium 3.6 mmoL/L (3.5-5.1); Sodium 139 mmol/L (136-145)
[2021-07-05 16:40] LABS: Alanine Aminotransferase 29 U/L (12-78); Albumin Level 4.2 g/dl (3.5-5.0); Albumin/Globulin Ratio 1.1 (1.1-1.8); Alkaline Phosphatase 169 U/L (38-126); Anion Gap 13.6 mEq/L (5-15); Aspartate Amino Transferase 24 U/L (14-36); Bilirubin,Total 0.6 mg/dl (0.2-1.3); Blood Urea Nitrogen 14 mg/dl (7-17); Carbon Dioxide 24 mmol/L (22.0-30.0); Creatinine Clearance Estimated 129 mL/min (50-200); Estimated Glomerular Filt Rate 107 ml/min (>60); GFR (African American) 130 ML/MIN (>60); Total Protein,Serum 8.2 g/dl (6.3-8.2)
[2021-07-05 16:41] LABS: Calcium 9.4 mg/dl (8.4-10.2); Glucose 271 mg/dl (74-100)
[2021-07-05 17:16] VITALS: BP 119/74; PULSE 60; RESP 17; TEMP 36.6; O2SAT 96
== END 2021-07-05 17:19 | disposition home or self-care (01) ==
PROVIDERS: Emergency Provider Emergency Medicine; PCP Nurse Practitioner Family
DX: R50.9 Fever, unspecified (principal); E11.9 Type 2 diabetes mellitus without complications; I48.91 Unspecified atrial fibrillation; I10 Essential (primary) hypertension; E78.5 Hyperlipidemia, unspecified; Z95.0 Presence of cardiac pacemaker; Z72.0 Tobacco use; Z88.5 Allergy status to narcotic agent; Z79.899 Other long term (current) drug therapy
CPT/HCPCS: 36415; 71045; 80053; 85025; 99283

== ENCOUNTER 2021-07-10 15:25 | Emergency (ER) | payer MEDICARE, MEDICAID, SELFPAY ==
[2021-07-10 15:26] VITALS: BP 159/57; PULSE 60; RESP 16; TEMP 36.8; O2SAT 97; BMI 20.6
--- NOTE | 2021-07-10 15:32 | PC.NURSE ---
ED MD at
--- NOTE | 2021-07-10 15:34 | PC.NURSE ---
KENYON Carlton at [facility]
--- NOTE | 2021-07-10 15:34 | HMH.EDGENADL ---
ED Disposition Clinical Impression: Suicidal ideation Headache Qualifiers: Headache type: unspecified Headache chronicity pattern: chronic headache Intractability: not intractable Qualified Code(s): R51.9 - Headache, unspecified Disposition: Xfer Psychiatric Hosp Condition on Discharge: Good Referrals: Era Ricardo APRN [Primary Care Provider] - - Critical Care Critical Care Time: No Attestation: On , the high probability of a clinically significant, sudden or life threatening deterioration of the following system(s) required my full and direct attention, intervention and personal management. The time I documented below is in addition to time spent performing reported procedures but includes the following listed in this critical care notation. Medical Decision Making - Medical Records Medical records reviewed: Yes: I reviewed the patient's medical records. - Mp Inquiry Pt receiving controlled substance: No Vital Signs: 07/10/21 15:26 07/10/21 16:48 07/10/21 20:19 Temperature 98.2 F 98.2 F Temperature Source Oral Oral Pulse Rate 60 72 Pulse Rate [Right Radial] 60 Respiratory Rate 16 17 Blood Pressure 146/70 H 146/76 H Blood Pressure [Right Arm] 159/57 H Blood Pressure Mean [Right Arm] 91 Blood Pressure Source Automatic Cuff Automatic Cuff Blood Pressure Source [Right Arm] Automatic Cuff Blood Pressure Position Sitting Sitting Blood Pressure Position [Right Arm] Sitting 02 Sat by Pulse Oximetry 97 100 100 Oxygen Delivery Method Room Air Room Air Room Air 07/10/21 20:42 Temperature 98.2 F Temperature Source Pulse Rate 72 Pulse Rate [Right Radial] Respiratory Rate 16 Blood Pressure 142/74 H Blood Pressure [Right Arm] Blood Pressure Mean [Right Arm] Blood Pressure Source Blood Pressure Source [Right Arm] Blood Pressure Position Blood Pressure Position [Right Arm] 02 Sat by Pulse Oximetry Oxygen Delivery Method - Lab Data Lab Results 07/10/21 15:50: WBC 8.6, RBC 4.10 L, Hgb 12.9, Hct 38.9, MCV 95.1, MCH 31.5 H, MCHC 33.2, RDW 15.6, Plt Count 240, MPV 8.9, Neut % (Auto) 71.4, Lymph % (Auto) 21.5, Ogle % (Auto) 5.1, Eos % (Auto) 1.0, Baso % (Auto) 0.9, Neut # (Auto) 6.2, Lymph # (Auto) 1.9, Ogle # (Auto) 0.4, Eos # (Auto) 0.1, Baso # (Auto) 0.1 07/10/21 15:50: Sodium 139, Potassium 3.8, Chloride 104, Carbon Dioxide 27, Anion Gap 11.8, BUN 7, Creatinine 0.40 L, Estimated Creat Clear 179, Estimated GFR 171, Est GFR ( Amer) 207, Glucose 246 H, Calcium 9.4, Total Bilirubin 0.3, AST 26, ALT 28, Alkaline Phosphatase 157 H, Total Protein 7.8, Albumin 4.1, Globulin 3.7 H, Albumin/Globulin Ratio 1.1, Salicylates < 1.0 L, Acetaminophen < 10 L 07/10/21 15:50: Plasma/Serum Alcohol < 10 07/10/21 16:50: Urine Opiates Screen Negative, Urine Methadone Screen Negative, Ur Barbituates Screen Negative, Ur Phencyclidine Scrn Negative, Ur Amphetamines Screen Negative, U Benzodiazepines Scrn Positive H, Urine Cocaine Screen Negative, U Marijuana (THC) Screen Positive H 07/10/21 20:30: SARS-CoV-2 (PCR) Not detected, Influenza A Untype (PCR) Not detected, Influenza Type B (PCR) Not detected Result diagrams: 07/10/21 15:50 07/10/21 15:50 Orders (Tests/Meds): ED MEDICATIONS Discontinued Medications Generic Name Dose Route Start Last Admin Trade Name Mario PRN Reason Stop Dose Admin Acetaminophen 1,000 mg 07/10/21 18:53 07/10/21 18:58 Acetaminophen 500mg Tab PO 07/10/21 18:54 1,000 mg ONCE ONE Administration Metoclopramide HCl 10 mg 07/10/21 18:10 07/10/21 18:18 Metoclopramide Hcl 10mg/2ml Vial IVP 07/10/21 18:11 Not Given ONCE ONE Metoclopramide HCl 10 mg 07/10/21 18:15 07/10/21 18:21 Metoclopramide 10mg Tablet PO 07/10/21 18:16 10 mg ONCE ONE Administration - Reevaluation(s) Time: 17:42 (pt now c/o generalized siddiqui, low back pain, and left arm numbness, sasy she has a h/o hydrocephalus and a shunt, no n/v/viz complaints/gait disturb
--- NOTE | 2021-07-10 15:43 | ECG_ITS ---
APPROVED REPORT Exam: Resting ECG HR:60 bpm ECG Measurements Heart Rate 60 AXES MS 197 P 232 QRSd 114 QRS 101 QT 470 T 107 QTc 470 Conclusion ELECTRONIC ATRIAL PACEMAKER RIGHT AXIS DEVIATION [QRS AXIS > 100] MODERATE INTRAVENTRICULAR CONDUCTION DELAY [110+ ms QRS DURATION] NONSPECIFIC ST & T-WAVE ABNORMALITY ABNORMAL ECG UNCONFIRMED REPORT Electronically signed by : Evaristo Aguilar MD 07/12/2021 16:03:59
--- NOTE | 2021-07-10 15:45 | PC.NURSE ---
Pt placed on one-on-one observation r/t suicidal ideations.
[2021-07-10 16:00] LABS: Basophils # 0.1 K/mm3 (0-0.2); Basophils % 0.9 % (0.1-2.0); Eosinophils # 0.1 K/mm3 (0.0-0.4); Hematocrit 38.9 % (37.0-47.0); Hemoglobin 12.9 g/dL (12.2-16.2); Lymphocytes # 1.9 K/mm3 (0.7-4.5); Lymphocytes % 21.5 % (10-50); Mean Corpuscular HGB Conc 33.2 g/dL (31.8-35.4); Mean Corpuscular Hemoglobin 31.5 pg (27.0-31.2); Mean Corpuscular Volume 95.1 fl (81-99); Mean Platelet Volume 8.9 fl (7.4-10.4); Monocytes # 0.4 K/mm3 (0.1-1.0); Monocytes % 5.1 % (1.7-9.3); Neutrophils # 6.2 K/mm3 (1.8-7.8); Neutrophils % 71.4 % (37.0-80.0); Platelet Count 240 K/mm3 (142-424); Red Cell Distribution Width 15.6 % (11.5-17.5); White Blood Count 8.6 K/mm3 (4.8-10.8)
[2021-07-10 16:09] LABS: Chloride 104 mmol/L (98-107); Potassium 3.8 mmoL/L (3.5-5.1); Sodium 139 mmol/L (136-145)
[2021-07-10 16:11] LABS: Blood Urea Nitrogen 7 mg/dl (7-17); Creatinine Clearance Estimated 179 mL/min (50-200); Estimated Glomerular Filt Rate 171 ml/min (>60); GFR (African American) 207 ML/MIN (>60)
[2021-07-10 16:12] LABS: Alanine Aminotransferase 28 U/L (12-78); Albumin Level 4.1 g/dl (3.5-5.0); Albumin/Globulin Ratio 1.1 (1.1-1.8); Alkaline Phosphatase 157 U/L (38-126); Anion Gap 11.8 mEq/L (5-15); Aspartate Amino Transferase 26 U/L (14-36); Bilirubin,Total 0.3 mg/dl (0.2-1.3); Calcium 9.4 mg/dl (8.4-10.2); Carbon Dioxide 27 mmol/L (22.0-30.0); Globulin 3.7 g/dL (1.3-3.2); Glucose 246 mg/dl (74-100); Total Protein,Serum 7.8 g/dl (6.3-8.2)
[2021-07-10 16:25] LABS: Acetaminophen < 10 ug/ml (10-30); Ethyl Alcohol < 10 mg/dl (0-10); Salicylate < 1.0 mg/dL (2.0-20.0)
--- NOTE | 2021-07-10 16:34 | PC.NURSE ---
Nikole Ayala RN at BS
[2021-07-10 16:48] VITALS: BP 146/70; PULSE 60; O2SAT 100
--- NOTE | 2021-07-10 16:50 | PC.NURSE ---
patient ambulatory to and from restroom with KENYON Carlton to provide urine specimen; no complications
--- NOTE | 2021-07-10 17:08 | PC.NURSE ---
KENYON Agustin at BS
[2021-07-10 17:11] LABS: Barbiturates Screen,Urine Negative ng/ml (<200)
[2021-07-10 17:12] LABS: Benzodiazepines Screen,Urine Positive ng/ml (<200)
[2021-07-10 17:13] LABS: Amphetamine/Metha Screen,Urine Negative ng/ml (<1000); Cannabinoid Screen,Urine Positive ng/ml (<50)
[2021-07-10 17:14] LABS: Cocaine Screen,Urine Negative ng/ml (<300)
[2021-07-10 17:15] LABS: Methadone Screen,Urine Negative ng/ml (<300); Opiate Screen,Urine Negative ng/ml (<300)
[2021-07-10 17:16] LABS: Phencyclidine Screen,Urine Negative ng/ml (<25)
--- NOTE | 2021-07-10 17:31 | PC.NURSE ---
spoke with evelyn at [facility] requested we fax over pt information and they will review it and call us back
--- NOTE | 2021-07-10 17:33 | PC.NURSE ---
ED MD at speaking with patient
--- NOTE | 2021-07-10 17:35 | PC.NURSE ---
registration fadarreng pt paper work to jerry proctor at this time
--- NOTE | 2021-07-10 17:41 | CT_ITS ---
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 Radiation optimization: All CT scans at this facility use at least one of these dose optimization techniques: automated exposure control; mA and/or kV adjustment per patient size (includes targeted exams where dose is matched to clinical indication); or iterative reconstruction. COMPARISON: CT HEAD/BRAIN WO CON 03/14/2021 7:49 PM FINDINGS: Tubes, catheters and devices: Right-sided WOOL MERCHANT shunt in place via a right frontal approach and the tip located in the anterior horn of the right lateral ventricle. No hydrocephalus. Brain: No mass, mass effect or midline shift. No CT evidence of acute infarct. No intracranial hemorrhage. Cerebral ventricles: No ventriculomegaly. Paranasal sinuses: Visualized sinuses are unremarkable. No fluid levels. Mastoid air cells: Visualized mastoid air cells are well aerated. Bones/joints: Unremarkable. No acute fracture. Soft tissues: Unremarkable. IMPRESSION: No acute intracranial abnormality.
--- NOTE | 2021-07-10 17:47 | PC.NURSE ---
jerry proctor called back stating they did not get all of pts paperwork, resending paperwork
--- NOTE | 2021-07-10 18:08 | PC.NURSE ---
pt requested to speak with someone to file a formal complaint. Lisa housekeeper was notified of pt request and stated she would be down shortly
--- NOTE | 2021-07-10 18:12 | PC.NURSE ---
ASHLEY is in speaking with patient at this time
--- NOTE | 2021-07-10 18:53 | PC.NURSE ---
pt requesting Tylenol for pain
--- NOTE | 2021-07-10 19:27 | PC.NURSE ---
[place] decline pt due cardiac history
--- NOTE | 2021-07-10 19:37 | PC.NURSE ---
ER speaking to Dr. Narayanan at
--- NOTE | 2021-07-10 19:45 | PC.NURSE ---
Pt is very upset and aggressive towards staff requesting i need pain medication now instructed patient they are trying to do the best they can do for her and is angry she can not have pain meds. 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 pt reports wanting to kill herself, but i keep failing myself every time . Rn notified.
--- NOTE | 2021-07-10 19:56 | PC.NURSE ---
Pt not accepted at
[2021-07-10 20:19] VITALS: BP 146/76; PULSE 72; RESP 17; TEMP 36.8; O2SAT 100
[2021-07-10 20:41] LABS: Coronavirus 19, PCR Not Detected (NotDetected); Influenza A, PCR Not Detected (NotDetected); Influenza B, PCR Not Detected (NotDetected)
[2021-07-10 20:42] VITALS: BP 142/74; PULSE 72; RESP 16; TEMP 36.8; O2SAT 99
== END 2021-07-10 20:45 ==
PROVIDERS: Emergency Provider Emergency Medicine; PCP Nurse Practitioner Family
DX: R45.851 Suicidal ideations (principal); M54.50 Low back pain, unspecified; R20.2 Paresthesia of skin; R00.2 Palpitations; R51.9 Headache, unspecified; I11.0 Hypertensive heart disease with heart failure; I50.9 Heart failure, unspecified; I25.2 Old myocardial infarction; F32.A Depression, unspecified; I48.91 Unspecified atrial fibrillation; E78.5 Hyperlipidemia, unspecified; E11.9 Type 2 diabetes mellitus without complications; G91.9 Hydrocephalus, unspecified; F17.210 Nicotine dependence, cigarettes, uncomplicated; Z95.0 Presence of cardiac pacemaker; Z20.822 Contact with and (suspected) exposure to COVID-19; Z79.51 Long term (current) use of inhaled steroids; Z79.899 Other long term (current) drug therapy; Z88.1 Allergy status to other antibiotic agents; Z88.3 Allergy status to other anti-infective agents; Z88.5 Allergy status to narcotic agent; Z88.8 Allergy status to other drugs, medicaments and biological substances; Z86.14 Personal history of Methicillin resistant Staphylococcus aureus infection; Z86.73 Personal history of transient ischemic attack (TIA), and cerebral infarction without residual deficits; Z98.2 Presence of cerebrospinal fluid drainage device; Z82.49 Family history of ischemic heart disease and other diseases of the circulatory system; Z83.3 Family history of diabetes mellitus
CPT/HCPCS: 70450; 80053; 80305; 80329; 85025; 93005; 96374; 99285; C9803; U0003; U0005

== ENCOUNTER 2021-07-18 09:49 | Emergency (ER) | payer MEDICARE, MEDICAID, SELFPAY ==
[2021-07-18] VITALS (13 sets, daily range): BP systolic 87–177; BP diastolic 48–86; PULSE 61–97; RESP 12–20; TEMP 36.6; O2SAT 96–98; BMI 22.1
--- NOTE | 2021-07-18 10:02 | ECG_ITS ---
APPROVED REPORT Exam: Resting ECG HR:84 bpm ECG Measurements Heart Rate 84 AXES WV 171 P -78 QRSd 109 QRS 99 QT 412 T 71 QTc 453 Conclusion ECTOPIC ATRIAL RHYTHM BORDERLINE RIGHT AXIS DEVIATION [QRS AXIS > 90] MODERATE ST DEPRESSION [0.05+ mV ST DEPRESSION] ABNORMAL ECG UNCONFIRMED REPORT Electronically signed by : Evaristo Aguilar MD 07/19/2021 09:51:12
--- NOTE | 2021-07-18 10:10 | XR_ITS ---
FINAL REPORT CLINICAL HISTORY: SYNCOPE COMPARISON: 07/05/2021 FINDINGS: A single PA view of the chest was obtained. The cardiac and mediastinal silhouettes are within normal limits. The patient is status post median sternotomy. Left AICD is present. ROAD DRIVER shunt tubing is seen along the right chest, stable. There is slight worsening in the right basilar opacity, favor atelectasis. There is no effusion or pneumothorax. No acute osseous abnormality is identified. IMPRESSION: Slight worsening in right basilar opacity, favor atelectasis. Reviewed, Interpreted and Dictated by Fidelia Ni MD Transcribed by Donna Reed Authenticated by Fidelia Ni MD on 07/18/2021 12:09:[address] [facility]
--- NOTE | 2021-07-18 10:10 | XR_ITS ---
FINAL REPORT CLINICAL HISTORY: FALL FINDINGS: AP, lateral and oblique views of the right knee were obtained. There is no prior exam for comparison. There is no acute osseous abnormality of the right knee. The joint space is preserved. The soft tissues are normal. There is no joint effusion. IMPRESSION: No acute osseous abnormality of the right knee. Reviewed, Interpreted and Dictated by Fidelia Ni MD Transcribed by Donna Rede Authenticated by Fidelia Ni MD on 07/18/2021 11:38:06 AM [facility]
--- NOTE | 2021-07-18 10:11 | CT_ITS ---
FINAL REPORT TECHNIQUE: Thin section axial images were obtained from skull base to vertex without contrast. This study was performed with techniques to keep radiation doses as low as reasonably achievable (ALARA). Individualized dose reduction techniques using automated exposure control or adjustment of mA and/or kV according to the patient's size were employed. CLINICAL HISTORY: FALL ON XARELTO COMPARISON: 07/10/2021 FINDINGS: There has been no significant interval change in the right COMMERCIAL LENDING VICE PRESIDENT shunt, tip terminates in the region of the 3rd ventricle. There is no mass effect or midline shift. There is no hydrocephalus. The ventricles are symmetric in size and configuration. There is no extra-axial or intraparenchymal hemorrhage. The posterior fossa is without acute abnormality. The basilar cisterns are preserved. There is a small amount of debris in the left maxillary sinus. The soft tissues and osseous structures are otherwise unremarkable. IMPRESSION: No evidence of mass effect, midline shift, or hemorrhage. No change in the COMMERCIAL LENDING VICE PRESIDENT shunt. Reviewed, Interpreted and Dictated by Fidelia Ni MD Transcribed by Donna Reed Authenticated by Fidelia Ni MD on 07/18/2021 11:37:42 AM [facility]
--- NOTE | 2021-07-18 10:11 | XR_ITS ---
FINAL REPORT CLINICAL HISTORY: FALL FINDINGS: AP and lateral views of the right tibia and fibula were obtained. There is no prior exam for comparison. There is no acute fracture of the right tibia or fibula. The knee and ankle appear intact. The soft tissues are normal. IMPRESSION: No acute osseous abnormality of the right tibia or fibula. Reviewed, Interpreted and Dictated by Fidelia Ni MD Transcribed by Donna eRed Authenticated by Fidelia Ni MD on 07/18/2021 12:08:44 PM [facility]
--- NOTE | 2021-07-18 10:28 | HMH.EDGENADL ---
ED Disposition Clinical Impression: UTI (urinary tract infection), Fall, Leg pain Disposition: Home, Self-Care Condition on Discharge: Fair Prescriptions: Cefdinir [Omnicef 300mg Capsule] 300 mg PO BID #20 cap Transmission Status: Pending to [facility] Referrals: Yordan Lake MD [Primary Care Provider] - - Critical Care Critical Care Time: No Attestation: On 07/18/21, the high probability of a clinically significant, sudden or life threatening deterioration of the following system(s) required my full and direct attention, intervention and personal management. The time I documented below is in addition to time spent performing reported procedures but includes the following listed in this critical care notation. Medical Decision Making - Mp Inquiry Pt receiving controlled substance: Yes Mp was queried for this patient: No Risks and benefits of using a controlled substance: were not discussed with pt by me Vital Signs: 07/18/21 09:50 07/18/21 10:00 07/18/21 10:29 Temperature 98 F Temperature Source Oral Pulse Rate 79 86 Pulse Rate [Orthostatic Lying] Pulse Rate [Orthostatic Standing] Pulse Rate [Radial] 97 H Respiratory Rate 18 12 20 Blood Pressure 155/75 H 152/73 H Blood Pressure [Orthostatic Lying] Blood Pressure [Orthostatic Standing] Blood Pressure [Right Arm] 129/70 Blood Pressure Mean 106 112 Blood Pressure Mean [Right Arm] 89 Blood Pressure Position [Right Arm] Sitting 02 Sat by Pulse Oximetry 98 98 98 Oxygen Delivery Method Room Air 07/18/21 10:38 07/18/21 11:01 07/18/21 11:30 Temperature Temperature Source Pulse Rate 88 72 Pulse Rate [Orthostatic Lying] 80 Pulse Rate [Orthostatic Standing] 84 Pulse Rate [Radial] Respiratory Rate 17 16 Blood Pressure 177/86 H 160/80 H Blood Pressure [Orthostatic Lying] 158/80 H Blood Pressure [Orthostatic Standing] 152/73 H Blood Pressure [Right Arm] Blood Pressure Mean 109 113 Blood Pressure Mean [Right Arm] Blood Pressure Position [Right Arm] 02 Sat by Pulse Oximetry 98 97 Oxygen Delivery Method 07/18/21 12:00 07/18/21 12:31 07/18/21 13:00 Temperature Temperature Source Pulse Rate 70 61 65 Pulse Rate [Orthostatic Lying] Pulse Rate [Orthostatic Standing] Pulse Rate [Radial] Respiratory Rate 18 17 18 Blood Pressure 160/74 H 133/71 129/68 Blood Pressure [Orthostatic Lying] Blood Pressure [Orthostatic Standing] Blood Pressure [Right Arm] Blood Pressure Mean 102 91 88 Blood Pressure Mean [Right Arm] Blood Pressure Position [Right Arm] 02 Sat by Pulse Oximetry 98 98 98 Oxygen Delivery Method - Lab Data Lab Results 07/18/21 10:30: WBC 11.0 H, RBC 4.19 L, Hgb 13.4, Hct 40.5, MCV 96.7, MCH 32.0 H, MCHC 33.1, RDW 15.8, Plt Count 292, MPV 8.9, Neut % (Auto) 72.3, Lymph % (Auto) 17.2, [place] % (Auto) 5.8, Eos % (Auto) 3.1, Baso % (Auto) 1.6, Neut # (Auto) 7.9 H, Lymph # (Auto) 1.9, [place] # (Auto) 0.6, Eos # (Auto) 0.3, Baso # (Auto) 0.2 07/18/21 10:30: Sodium 141, Potassium 4.2, Chloride 105, Carbon Dioxide 27, Anion Gap 13.2, BUN 16, Creatinine 0.60, Estimated Creat Clear 128, Estimated GFR 107, Est GFR ( Amer) 130, Glucose 314 H, Calcium 9.3, Total Bilirubin 0.5, AST 39 H, ALT 28, Alkaline Phosphatase 128 H, Troponin I < 0.01, Total Protein 8.2, Albumin 4.3, Globulin 3.9 H, Albumin/Globulin Ratio 1.1 07/18/21 11:00: Urine Color Yellow, Urine Appearance Clear, Urine pH 7.0, Ur Specific [place] 1.010, Urine Protein Negative, Urine Glucose (UA) 3+, Urine Ketones Negative, Urine Blood Negative, Urine Nitrate Negative, Urine Bilirubin Negative, Urine Urobilinogen 0.2, Ur Leukocyte Esterase Negative, Urine RBC 5-10, Urine WBC 5-10, Ur Squamous Epith Cells 3-5, Urine Bacteria 2+ 07/18/21 11:00: Urine HCG, Qual Negative Result diagrams: 07/18/21 10:30 07/18/21 10:30 Orders (Tests/Meds): ED MEDICATIONS Discontinued Medicatio
[2021-07-18 10:37] LABS: Basophils # 0.2 K/mm3 (0-0.2); Basophils % 1.6 % (0.1-2.0); Eosinophils # 0.3 K/mm3 (0.0-0.4); Eosinophils % 3.1 % (0.1-12.0); Hematocrit 40.5 % (37.0-47.0); Hemoglobin 13.4 g/dL (12.2-16.2); Lymphocytes # 1.9 K/mm3 (0.7-4.5); Lymphocytes % 17.2 % (10-50); Mean Corpuscular HGB Conc 33.1 g/dL (31.8-35.4); Mean Corpuscular Volume 96.7 fl (81-99); Mean Platelet Volume 8.9 fl (7.4-10.4); Monocytes # 0.6 K/mm3 (0.1-1.0); Monocytes % 5.8 % (1.7-9.3); Neutrophils # 7.9 K/mm3 (1.8-7.8); Neutrophils % 72.3 % (37.0-80.0); Platelet Count 292 K/mm3 (142-424); Red Blood Count 4.19 M/mm3 (4.20-5.40); Red Cell Distribution Width 15.8 % (11.5-17.5)
[2021-07-18 10:50] LABS: Chloride 105 mmol/L (98-107); Potassium 4.2 mmoL/L (3.5-5.1); Sodium 141 mmol/L (136-145)
[2021-07-18 10:53] LABS: Alanine Aminotransferase 28 U/L (12-78); Alkaline Phosphatase 128 U/L (38-126); Anion Gap 13.2 mEq/L (5-15); Aspartate Amino Transferase 39 U/L (14-36); Bilirubin,Total 0.5 mg/dl (0.2-1.3); Blood Urea Nitrogen 16 mg/dl (7-17); Carbon Dioxide 27 mmol/L (22.0-30.0); Creatinine Clearance Estimated 128 mL/min (50-200); Estimated Glomerular Filt Rate 107 ml/min (>60); GFR (African American) 130 ML/MIN (>60)
[2021-07-18 10:58] LABS: Albumin Level 4.3 g/dl (3.5-5.0); Albumin/Globulin Ratio 1.1 (1.1-1.8); Calcium 9.3 mg/dl (8.4-10.2); Globulin 3.9 g/dL (1.3-3.2); Glucose 314 mg/dl (74-100); Total Protein,Serum 8.2 g/dl (6.3-8.2)
[2021-07-18 11:05] LABS: Microscopic, Urine URINE MICROSCOPIC (MICROSCOPIC)
[2021-07-18 11:11] LABS: Appearance,Urine CLEAR (Clear); Bilirubin,Urine Negative (Negative); Blood, Urine Negative (Negative); Color,Urine YELLOW (Yellow); Glucose,Urine (UA) 3+ (Negative); Ketones,Urine Negative (Negative); Leukocyte Esterase,Urine Negative (Negative); Nitrate,Urine Negative (Negative); Protein,Urine Negative (Negative); Urobilinogen,Urine 0.2 EU/dl (0.2)
[2021-07-18 11:18] LABS: Urine Pregnancy, HCG Qual. Negative (Negative)
[2021-07-18 11:19] LABS: Troponin I < 0.01 ng/ml (0.00-0.034)
[2021-07-18 11:25] LABS: Bacteria,Urine 2+ /lpf
== END 2021-07-18 13:45 | disposition home or self-care (01) ==
PROVIDERS: Emergency Provider Student in an Organized Health Care Education/Training Program; PCP Family Medicine
DX: N39.0 Urinary tract infection, site not specified (principal); B96.20 Unspecified Escherichia coli [E. coli] as the cause of diseases classified elsewhere; B96.89 Other specified bacterial agents as the cause of diseases classified elsewhere; Z16.11 Resistance to penicillins; Z16.31 Resistance to antiparasitic drug(s); Z16.29 Resistance to other single specified antibiotic; M79.604 Pain in right leg; W19.XXXA Unspecified fall, initial encounter; I48.91 Unspecified atrial fibrillation; I42.9 Cardiomyopathy, unspecified; E11.9 Type 2 diabetes mellitus without complications; I10 Essential (primary) hypertension; E78.5 Hyperlipidemia, unspecified; I25.2 Old myocardial infarction; M19.90 Unspecified osteoarthritis, unspecified site
CPT/HCPCS: 70450; 71045; 73562; 73590; 80053; 81001; 81025; 84484; 85025; 87086; 87088; 87186; 93005; 96374; 96375; 96376; 99284

== ENCOUNTER 2021-07-20 12:07 | Emergency (ER) | payer MEDICARE, MEDICAID, SELFPAY ==
[2021-07-20] VITALS (16 sets, daily range): BP systolic 119–192; BP diastolic 68–113; PULSE 75–87; RESP 12–21; TEMP 36.8; O2SAT 94–100; BMI 22.2
--- NOTE | 2021-07-20 12:10 | ECG_ITS ---
APPROVED REPORT Exam: Resting ECG HR:79 bpm ECG Measurements Heart Rate 79 AXES AL 147 P -69 QRSd 105 QRS 97 QT 405 T 85 QTc 440 Conclusion ECTOPIC ATRIAL RHYTHM WITH OCCASIONAL SUPRAVENTRICULAR PREMATURE COMPLEXES BORDERLINE RIGHT AXIS DEVIATION [QRS AXIS > 90] ABNORMAL RHYTHM ECG UNCONFIRMED REPORT Electronically signed by : Evaristo Aguilar MD 07/24/2021 21:24:36
--- NOTE | 2021-07-20 12:16 | PC.NURSE ---
Dr. Martínez at BS
--- NOTE | 2021-07-20 12:20 | PC.NURSE ---
called lab for blood draw
--- NOTE | 2021-07-20 12:20 | PC.NURSE ---
lab aware they need to draw blood from pt for labs ordered
--- NOTE | 2021-07-20 12:26 | PC.NURSE ---
patient to restroom by wheelchair and back to ED room 7 without any complications. pt hooked back up to monitor
--- NOTE | 2021-07-20 12:38 | XR_ITS ---
PROCEDURE INFORMATION: Exam: XR Chest Exam date and time: 07/20/2021 12:39 PM Age: 46 years old Clinical indication: Pain; Chest pressure; Additional info: Chest pain TECHNIQUE: Imaging protocol: XR of the chest. Views: 1 view. Upright portable AP exam 12:40 p.m. COMPARISON: CR XR CHEST PORTABLE 07/18/2021 10:42 AM FINDINGS: Tubes, catheters and devices: MUSIC ENGINEER shunt tubing in the right neck , chest and upper abdomen. Lungs: A persistent 2 cm lenticular opacity projected over the lower right lung, likely focal subsegmental atelectasis in the right middle or lower lobe. Differential would be pneumonia or less likely underlying nodule. This has persisted over serial exams since 07/03/2021, but not seen on 07/02. No focal consolidation. Lungs are overall well inflated. Chronic nonspecific right lower pulmonary interstitial prominence compared with the prior exams; upper pulmonary vessels appear normal, no significant congestion. Pleural spaces: Unremarkable. No significant pleural effusion. No pneumothorax. Heart/Mediastinum: Chronic enlarged cardiac silhouette. Left subclavian AICD appears unchanged. Question prosthetic aortic valve again noted. Bones/joints: Sternotomy wires. Osteopenia.There are spinal degenerative changes, with multilevel disc narrrowing and spondylosis. Lower cervical spine fixation plate and screws. IMPRESSION: 1. No acute findings or significant change compared with 07/18/2021. 2. Persistent 2 cm lenticular density and asymmetric interstitial prominence in the lower right lung, which could be due to atelectasis or pneumonia. 3. Enlarged cardiac silhouette, AICD. Pulmonary vessels do not appear congested. 4. Additional nonemergency and chronic findings as above.
[2021-07-20 12:48] LABS: Basophils # 0.2 K/mm3 (0-0.2); Eosinophils # 0.2 K/mm3 (0.0-0.4); Hematocrit 40.5 % (37.0-47.0); Hemoglobin 13.3 g/dL (12.2-16.2); Lymphocytes # 1.9 K/mm3 (0.7-4.5); Lymphocytes % 24.2 % (10-50); Mean Corpuscular HGB Conc 32.9 g/dL (31.8-35.4); Mean Corpuscular Hemoglobin 31.9 pg (27.0-31.2); Monocytes # 0.4 K/mm3 (0.1-1.0); Monocytes % 5.2 % (1.7-9.3); Neutrophils # 5.3 K/mm3 (1.8-7.8); Neutrophils % 66.7 % (37.0-80.0); Platelet Count 316 K/mm3 (142-424); Red Blood Count 4.18 M/mm3 (4.20-5.40); Red Cell Distribution Width 15.8 % (11.5-17.5)
[2021-07-20 12:52] LABS: Chloride 109 mmol/L (98-107)
[2021-07-20 12:53] LABS: Potassium 4.1 mmoL/L (3.5-5.1); Sodium 142 mmol/L (136-145)
[2021-07-20 12:55] LABS: Alanine Aminotransferase 29 U/L (12-78); Aspartate Amino Transferase 28 U/L (14-36); Blood Urea Nitrogen 15 mg/dl (7-17); Creatinine Clearance Estimated 129 mL/min (50-200); Estimated Glomerular Filt Rate 107 ml/min (>60); GFR (African American) 130 ML/MIN (>60)
[2021-07-20 12:56] LABS: Albumin Level 4.3 g/dl (3.5-5.0); Albumin/Globulin Ratio 1.2 (1.1-1.8); Alkaline Phosphatase 136 U/L (38-126); Anion Gap 12.1 mEq/L (5-15); Bilirubin,Total 0.3 mg/dl (0.2-1.3); Calcium 9.8 mg/dl (8.4-10.2); Carbon Dioxide 25 mmol/L (22.0-30.0); Globulin 3.6 g/dL (1.3-3.2); Glucose 290 mg/dl (74-100); Total Protein,Serum 7.9 g/dl (6.3-8.2)
--- NOTE | 2021-07-20 13:01 | HMH.EDGENADL ---
ED Disposition Clinical Impression: Chest pain Qualifiers: Chest pain type: other chest pain Qualified Code(s): R07.89 - Other chest pain Disposition: Home, Self-Care Condition on Discharge: Fair Additional Instructions: Please follow up with your primary care physician Dr. Lake. Return to the emergency department for any new or acute concerns. Recommend discussing your loss of consciousness with Dr. Lake. Referrals: Provider,Referral, [Primary Care Provider] - - Critical Care Critical Care Time: No Attestation: On 07/20/21, the high probability of a clinically significant, sudden or life threatening deterioration of the following system(s) required my full and direct attention, intervention and personal management. The time I documented below is in addition to time spent performing reported procedures but includes the following listed in this critical care notation. Medical Decision Making - Medical Records Medical records reviewed: Yes: I reviewed the patient's medical records. - Mp Inquiry Pt receiving controlled substance: No Vital Signs: 07/20/21 12:06 07/20/21 12:21 07/20/21 12:36 Temperature 98.3 F Temperature Source Oral Pulse Rate 84 78 Pulse Rate [Left Radial] 87 Respiratory Rate 18 21 14 Blood Pressure 142/83 H 119/74 Blood Pressure [Right Arm] 175/89 H Blood Pressure Mean 125 89 Blood Pressure Mean [Right Arm] 117 Blood Pressure Source [Right Arm] Automatic Cuff Blood Pressure Position [Right Arm] Sitting 02 Sat by Pulse Oximetry 97 97 99 Oxygen Delivery Method Room Air 07/20/21 12:51 07/20/21 13:06 07/20/21 13:21 Temperature Temperature Source Pulse Rate 75 75 Pulse Rate [Left Radial] Respiratory Rate 15 16 17 Blood Pressure 149/113 H 175/89 H 145/95 H Blood Pressure [Right Arm] Blood Pressure Mean 118 117 107 Blood Pressure Mean [Right Arm] Blood Pressure Source [Right Arm] Blood Pressure Position [Right Arm] 02 Sat by Pulse Oximetry 98 99 100 Oxygen Delivery Method 07/20/21 13:36 07/20/21 13:51 07/20/21 14:06 Temperature Temperature Source Pulse Rate Pulse Rate [Left Radial] Respiratory Rate 12 14 14 Blood Pressure 146/69 H 146/71 H 151/83 H Blood Pressure [Right Arm] Blood Pressure Mean 104 96 91 Blood Pressure Mean [Right Arm] Blood Pressure Source [Right Arm] Blood Pressure Position [Right Arm] 02 Sat by Pulse Oximetry Oxygen Delivery Method 07/20/21 14:21 07/20/21 14:36 07/20/21 14:51 Temperature Temperature Source Pulse Rate Pulse Rate [Left Radial] Respiratory Rate 13 12 16 Blood Pressure 122/68 134/69 192/91 H Blood Pressure [Right Arm] Blood Pressure Mean 86 87 101 Blood Pressure Mean [Right Arm] Blood Pressure Source [Right Arm] Blood Pressure Position [Right Arm] 02 Sat by Pulse Oximetry 97 98 94 L Oxygen Delivery Method 07/20/21 15:06 07/20/21 15:21 07/20/21 15:36 Temperature Temperature Source Pulse Rate Pulse Rate [Left Radial] Respiratory Rate 16 16 20 Blood Pressure 128/103 H 119/71 153/83 H Blood Pressure [Right Arm] Blood Pressure Mean 111 93 106 Blood Pressure Mean [Right Arm] Blood Pressure Source [Right Arm] Blood Pressure Position [Right Arm] 02 Sat by Pulse Oximetry 96 98 98 Oxygen Delivery Method Room Air 07/20/21 16:18 Temperature 98.3 F Temperature Source Pulse Rate 75 Pulse Rate [Left Radial] Respiratory Rate 20 Blood Pressure 153/83 H Blood Pressure [Right Arm] Blood Pressure Mean Blood Pressure Mean [Right Arm] Blood Pressure Source [Right Arm] Blood Pressure Position [Right Arm] 02 Sat by Pulse Oximetry Oxygen Delivery Method Room Air - Lab Data Lab results reviewed: Yes: I reviewed the patient's lab results. Lab Results 07/20/21 12:30: WBC 8.0 D, RBC 4.18 L, Hgb 13.3, Hct 40.5, MCV 97.0, MCH 31.9 H, MCHC 32.9, RDW 15.8, Plt Count 316, MPV 9.0, Neut % (Auto) 66.7,
--- NOTE | 2021-07-20 13:09 | PC.NURSE ---
did blood draw for trop
[2021-07-20 13:11] LABS: Troponin I < 0.01 ng/ml (0.00-0.034)
--- NOTE | 2021-07-20 13:31 | PC.NURSE ---
ED MD at
--- NOTE | 2021-07-20 13:56 | PC.NURSE ---
KENYON Carlton at [facility]
--- NOTE | 2021-07-20 14:18 | PC.NURSE ---
pt pacemaker has been interrogated by [employer] machine. calling to get report
--- NOTE | 2021-07-20 14:40 | PC.NURSE ---
Pt is crying; Mother at BS; Dr. Martínez at BS
--- NOTE | 2021-07-20 15:35 | PC.NURSE ---
Sejal Colon, RN at
--- NOTE | 2021-07-20 15:41 | PC.NURSE ---
pt crying; May, RN at
--- NOTE | 2021-07-20 15:43 | PC.NURSE ---
Notified lab that we need 2nd troponin; Lauren is coming to draw it
--- NOTE | 2021-07-20 16:07 | PC.NURSE ---
ED MD at speaking with patient
--- NOTE | 2021-07-20 16:12 | PC.NURSE ---
Sejal Colon, RN at BS going over discharge instructions; Mother at BS; pt crying not understanding why she can't have anymore pain medicine
== END 2021-07-20 16:19 | disposition home or self-care (01) ==
PROVIDERS: Emergency Provider Emergency Medicine
DX: R55 Syncope and collapse (principal); R07.89 Other chest pain; Z95.0 Presence of cardiac pacemaker; I48.0 Paroxysmal atrial fibrillation; I50.9 Heart failure, unspecified; E11.9 Type 2 diabetes mellitus without complications; I10 Essential (primary) hypertension; I25.2 Old myocardial infarction; F17.210 Nicotine dependence, cigarettes, uncomplicated; Z79.899 Other long term (current) drug therapy
CPT/HCPCS: 36415; 71045; 80053; 84484; 85025; 93005; 96374; 96375; 99284

== ENCOUNTER → 2021-08-13 11:50 | Outpatient (CLI) | payer MEDICARE, MEDICAID, SELFPAY ==
--- NOTE | 2021-08-13 11:54 | XR_ITS ---
FINAL REPORT CLINICAL HISTORY: chest pain COMPARISON: July 20, 2021 FINDINGS: Two views of the chest were obtained. There is a left subclavian ICD. There is a right shunt catheter. The heart size and pulmonary vascularity are within normal limits. There has been prior median sternotomy. There is mild atelectasis or scarring in the lung bases. There is no pneumothorax. There are postoperative changes of the lower cervical spine. IMPRESSION: Mild atelectasis or scarring in the lung bases. Reviewed, Interpreted and Dictated by Gareth Serrano III, MD Transcribed by Tg Marina Authenticated and [facility]
[2021-08-13 12:34] LABS: Basophils # 0.1 K/mm3 (0-0.2); Basophils % 1.3 % (0.1-2.0); Eosinophils # 0.2 K/mm3 (0.0-0.4); Eosinophils % 1.5 % (0.1-12.0); Hematocrit 43.2 % (37.0-47.0); Hemoglobin 13.9 g/dL (12.2-16.2); Lymphocytes # 1.5 K/mm3 (0.7-4.5); Lymphocytes % 14.4 % (10-50); Mean Corpuscular HGB Conc 32.1 g/dL (31.8-35.4); Mean Corpuscular Volume 99.7 fl (81-99); Mean Platelet Volume 8.4 fl (7.4-10.4); Monocytes # 0.5 K/mm3 (0.1-1.0); Neutrophils % 77.8 % (37.0-80.0); Platelet Count 314 K/mm3 (142-424); Red Blood Count 4.34 M/mm3 (4.20-5.40); Red Cell Distribution Width 16.5 % (11.5-17.5); White Blood Count 10.3 K/mm3 (4.8-10.8)
[2021-08-13 12:52] LABS: Chloride 105 mmol/L (98-107); Potassium 3.6 mmoL/L (3.5-5.1); Sodium 139 mmol/L (136-145)
[2021-08-13 12:54] LABS: Blood Urea Nitrogen 9 mg/dl (7-17); Estimated Glomerular Filt Rate 132 ml/min (>60); GFR (African American) 160 ML/MIN (>60)
[2021-08-13 12:55] LABS: Alanine Aminotransferase 28 U/L (12-78); Albumin Level 4.7 g/dl (3.5-5.0); Alkaline Phosphatase 147 U/L (38-126); Anion Gap 12.6 mEq/L (5-15); Aspartate Amino Transferase 28 U/L (14-36); Bilirubin,Direct 0.2 mg/dl (0.0-0.4); Bilirubin,Indirect 0.4 mg/dL (0.0-0.9); Bilirubin,Total 0.6 mg/dl (0.2-1.3); Bilirubin,Unconjugated 0.4 mg/dL (0.0-1.1); Calcium 9.8 mg/dl (8.4-10.2); Carbon Dioxide 25 mmol/L (22.0-30.0); Glucose 224 mg/dl (74-100)
[2021-08-13 13:05] LABS: NT Pro Brain Natriuretic Pep. 525 pg/mL (0-125)
[2021-08-13 13:09] LABS: Troponin I < 0.01 ng/ml (0.00-0.034)
[2021-08-13 13:20] LABS: Free T4 (Free Thyroxine) 1.21 ng/dl (0.78-2.19)
[2021-08-13 13:26] LABS: Thyroid Stimulating Hormone 1.47 uIU/mL (0.465-4.68)
== END ==
PROVIDERS: PCP Family Medicine; Visit Provider Nurse Practitioner Family
DX: E11.9 Type 2 diabetes mellitus without complications (principal); E78.5 Hyperlipidemia, unspecified; I10 Essential (primary) hypertension; I48.0 Paroxysmal atrial fibrillation; R07.9 Chest pain, unspecified; R94.31 Abnormal electrocardiogram [ECG] [EKG]; Z72.0 Tobacco use; R06.00 Dyspnea, unspecified; I50.9 Heart failure, unspecified; I63.9 Cerebral infarction, unspecified; Z79.4 Long term (current) use of insulin
CPT/HCPCS: 36415; 71046; 80048; 80076; 83880; 84439; 84443; 84484; 85025

== ENCOUNTER → 2021-09-05 06:00 | Outpatient (CLI) | payer MEDICARE, MEDICAID, SELFPAY ==
[2021-09-04 17:43] LABS: Hemoglobin A1C 8.3 % (4.0-6.0)
== END ==
PROVIDERS: PCP Family Medicine; Visit Provider Family Medicine
DX: E11.9 Type 2 diabetes mellitus without complications (principal); Z79.84 Long term (current) use of oral hypoglycemic drugs
CPT/HCPCS: 83036

== ENCOUNTER 2021-09-07 14:33 | Emergency (ER) | payer MEDICARE, MEDICAID, SELFPAY ==
--- NOTE | 2021-09-07 14:28 | ECG_ITS ---
APPROVED REPORT Exam: Resting ECG HR:60 bpm ECG Measurements Heart Rate 60 AXES NC 206 P 240 QRSd 101 QRS 99 QT 449 T 102 QTc 449 Conclusion ELECTRONIC ATRIAL PACEMAKER BORDERLINE RIGHT AXIS DEVIATION [QRS AXIS > 90] MINIMAL ST DEPRESSION [0.025+ mV ST DEPRESSION] ABNORMAL RHYTHM ECG UNCONFIRMED REPORT Electronically signed by : Evaristo Aguilar MD 09/07/2021 16:23:28
[2021-09-07 14:33] VITALS: BP 169/78; PULSE 60; RESP 16; TEMP 37.1; O2SAT 98; BMI 23.5
--- NOTE | 2021-09-07 14:50 | XR_ITS ---
PROCEDURE INFORMATION: Exam: XR Chest Exam date and time: 09/07/2021 3:04 PM Age: 46 years old Clinical indication: Chest wall pain and left-sided; Prior surgery; Surgery date: 6+ months; Surgery type: HX valvuloplasty x 2, pacemaker, shunt; Patient HX: C/O cp @ sternum radiating into lt side w SOA, tightness & coughing x 1 day. HX of copd, asthma. Smoker TECHNIQUE: Imaging protocol: Radiologic exam of the chest. Views: 1 view. COMPARISON: CR XR CHEST 2V 08/13/2021 12:11 PM FINDINGS: Tubes, catheters and devices: A pacemaker device is present, and its leads are in appropriate position. There are sternal wires consistent with previous sternotomy incision. Tubing overlies the right hemithorax, likely related to a shunt catheter. Lungs: Bilateral hyperinflation is present. Atelectasis and/or early infiltrative changes noted within the right lung base. Atelectatic changes noted within the left lung base. Pleural spaces: Unremarkable. No pleural effusion. No pneumothorax. Heart/Mediastinum: Heart demonstrates mild diffuse enlargement. Bones/joints: Postoperative changes of the lower cervical upper thoracic spine. The thoracic spine demonstrates mild degenerative changes at multiple levels. IMPRESSION: 1. Atelectasis and/or early infiltrative changes noted within the right lung base. 2. Bilateral hyperinflation is present. 3. Mild cardiomegaly.
--- NOTE | 2021-09-07 15:16 | HMH.EDGENADL ---
ED Disposition Clinical Impression: Chest pain Qualifiers: Chest pain type: precordial pain Qualified Code(s): R07.2 - Precordial pain Lower extremity pain Qualifiers: Laterality: bilateral Qualified Code(s): M79.604 - Pain in right leg Disposition: Home, Self-Care Condition on Discharge: Good Instructions: DI for Acute Pain -- Child Prescriptions: Hydrocodone/Acetaminophen [Lortab 7.5/325mg tablet] 1 tab PO Q4HP PRN #10 tab PRN Reason: Severe Pain Doxycycline Hyclate [Doxycycline Hyclate 100mg Tablet] 100 mg PO Q12 10 Days #20 tab Transmission Status: Pending to [id number] Oxycodone HCl/Acetaminophen [Oxycodone-Acetaminophen 5-325] 1 each PO Q6 PRN #6 tab PRN Reason: Severe Pain Transmission Status: Received by [id number] Referrals: Jere Cortes MD [Staff Physician] - Yordan Lake MD [Primary Care Provider] - - Critical Care Critical Care Time: No Attestation: On 09/07/21, the high probability of a clinically significant, sudden or life threatening deterioration of the following system(s) required my full and direct attention, intervention and personal management. The time I documented below is in addition to time spent performing reported procedures but includes the following listed in this critical care notation. Medical Decision Making - Mp Inquiry Pt receiving controlled substance: Yes Mp was queried for this patient: Yes Risks and benefits of using a controlled substance: were discussed with pt by me Vital Signs: 09/07/21 14:33 09/07/21 15:43 09/07/21 16:00 Temperature 98.8 F Temperature Source Oral Pulse Rate 60 68 Pulse Rate [Radial] 60 Respiratory Rate 16 18 11 L Blood Pressure 172/84 H 162/96 H Blood Pressure [Right Arm] 169/78 H Blood Pressure Mean 96 Blood Pressure Mean [Right Arm] 108 Blood Pressure Position [Right Arm] Sitting 02 Sat by Pulse Oximetry 98 98 98 Oxygen Delivery Method Room Air 09/07/21 16:26 Temperature Temperature Source Pulse Rate 68 Pulse Rate [Radial] Respiratory Rate 18 Blood Pressure 149/82 H Blood Pressure [Right Arm] Blood Pressure Mean 104 Blood Pressure Mean [Right Arm] Blood Pressure Position [Right Arm] 02 Sat by Pulse Oximetry Oxygen Delivery Method - Lab Data Lab Results 09/07/21 15:25: WBC 17.2 H, RBC 4.38, Hgb 14.1, Hct 42.0, MCV 96.0, MCH 32.3 H, MCHC 33.6, RDW 14.5, Plt Count 309, MPV 8.1, Neut % (Auto) 76.8, Lymph % (Auto) 16.8, [place] % (Auto) 5.4, Eos % (Auto) 0.6, Baso % (Auto) 0.4, Neut # (Auto) 13.2 H, Lymph # (Auto) 2.9, [place] # (Auto) 0.9, Eos # (Auto) 0.1, Baso # (Auto) 0.1, Total Counted 100, Neutrophils % (Manual) 69, Lymphocytes % (Manual) 25, Monocytes % (Manual) 6, Platelet Estimate Normal 09/07/21 15:25: Sodium 137, Potassium 4.2, Chloride 101, Carbon Dioxide 25, Anion Gap 15.2 H, BUN 16, Creatinine 0.70, Estimated Creat Clear 117, Estimated GFR 90, Est GFR ( Amer) 109, Glucose 331 H, Calcium 10.5 H, Total Bilirubin 0.3, Direct Bilirubin 0.0, Conjugated Bilirubin 0.0, Indirect Bilirubin 0.3, Unconjugated Bilirubin 0.4, AST 27, ALT 28, Alkaline Phosphatase 136 H, Troponin I < 0.01, Total Protein 9.1 H, Albumin 4.6, Lipase 194 09/07/21 15:25: NT-Pro-B Natriuret Pep 884 H Result diagrams: 09/07/21 15:25 09/07/21 15:25 Orders (Tests/Meds): ED MEDICATIONS Generic Name Dose Route Start Last Admin Trade Name Freq PRN Reason Stop Dose Admin Sodium Chloride 10 ml 09/07/21 15:34 Sodium Chloride 0.9% 10ml Flush Syringe IV 10/07/21 15:33 NEEDED PRN Maintain IV Site Discontinued Medications Generic Name Dose Route Start Last Admin Trade Name Freq PRN Reason Stop Dose Admin Hydromorphone HCl 1 mg 09/07/21 16:12 09/07/21 16:14 Hydromorphone 2mg/Ml Syringe IV 09/07/21 16:13 1 mg ONCE ONE Administration Hydromorphone HCl 0.5 mg 09/07/21 16:49 09/07/21 16:51 Hydromorphone 2mg/Ml Syringe IV 09/07/21 16:50 0.5 mg ONC
--- NOTE | 2021-09-07 15:27 | XR_ITS ---
PROCEDURE INFORMATION: Exam: XR Left Foot Exam date and time: 09/07/2021 3:53 PM Age: 46 years old Clinical indication: Pain; Foot; Left; Additional info: Pain, nkt TECHNIQUE: Imaging protocol: Radiologic exam of the Left foot. Views: 3 or more views. COMPARISON: No relevant prior studies available. FINDINGS: Bones/joints: Bones are osteopenic. There is no evidence of acute fracture. There is no evidence of joint malalignment or dislocation. Calcaneal spurs are present. Soft tissues: No focal soft tissue swelling. IMPRESSION: 1. Bones are osteopenic. 2. No evidence of acute fracture. 3. No evidence of acute dislocation.
--- NOTE | 2021-09-07 15:27 | XR_ITS ---
PROCEDURE INFORMATION: Exam: XR Right Foot Exam date and time: 09/07/2021 3:53 PM Age: 46 years old Clinical indication: Pain; Foot; Right; Additional info: Pain, nkt TECHNIQUE: Imaging protocol: Radiologic exam of the Right foot. Views: 3 or more views. COMPARISON: CR XR FOOT RT MIN 3V 04/01/2020 3:21 PM FINDINGS: Bones/joints: Bones are osteopenic. There is no evidence of acute fracture. There is no evidence of joint malalignment or dislocation. Soft tissues: Normal. IMPRESSION: 1. Bones are osteopenic. 2. No evidence of acute fracture. 3. No evidence of acute dislocation.
[2021-09-07 15:41] LABS: Basophils # 0.1 K/mm3 (0-0.2); Basophils % 0.4 % (0.1-2.0); Eosinophils # 0.1 K/mm3 (0.0-0.4); Eosinophils % 0.6 % (0.1-12.0); Hemoglobin 14.1 g/dL (12.2-16.2); Lymphocytes # 2.9 K/mm3 (0.7-4.5); Lymphocytes % 16.8 % (10-50); Mean Corpuscular HGB Conc 33.6 g/dL (31.8-35.4); Mean Corpuscular Hemoglobin 32.3 pg (27.0-31.2); Mean Platelet Volume 8.1 fl (7.4-10.4); Monocytes # 0.9 K/mm3 (0.1-1.0); Monocytes % 5.4 % (1.7-9.3); Neutrophils # 13.2 K/mm3 (1.8-7.8); Neutrophils % 76.8 % (37.0-80.0); Platelet Count 309 K/mm3 (142-424); Red Blood Count 4.38 M/mm3 (4.20-5.40); Red Cell Distribution Width 14.5 % (11.5-17.5); White Blood Count 17.2 K/mm3 (4.8-10.8)
[2021-09-07 15:43] VITALS: BP 172/84; PULSE 60; RESP 18; O2SAT 98
[2021-09-07 15:43] LABS: MANUAL DIFFERENTIAL MANUAL DIFFERENTIAL (MANUAL DIFF)
--- NOTE | 2021-09-07 15:44 | PC.NURSE ---
XRAY DOING PORTABLE FILMS
[2021-09-07 16:00] VITALS: BP 162/96; PULSE 68; RESP 11; O2SAT 98
--- NOTE | 2021-09-07 16:06 | PC.NURSE ---
pt asking for pain meds. aware
[2021-09-07 16:07] LABS: Alanine Aminotransferase 28 U/L (12-78); Albumin Level 4.6 g/dl (3.5-5.0); Alkaline Phosphatase 136 U/L (38-126); Anion Gap 15.2 mEq/L (5-15); Aspartate Amino Transferase 27 U/L (14-36); Bilirubin,Indirect 0.3 mg/dL (0.0-0.9); Bilirubin,Total 0.3 mg/dl (0.2-1.3); Bilirubin,Unconjugated 0.4 mg/dL (0.0-1.1); Blood Urea Nitrogen 16 mg/dl (7-17); Calcium 10.5 mg/dl (8.4-10.2); Carbon Dioxide 25 mmol/L (22.0-30.0); Chloride 101 mmol/L (98-107); Creatinine Clearance Estimated 117 mL/min (50-200); Estimated Glomerular Filt Rate 90 ml/min (>60); GFR (African American) 109 ML/MIN (>60); Glucose 331 mg/dl (74-100); Lipase 194 U/L (23-300); Potassium 4.2 mmoL/L (3.5-5.1); Sodium 137 mmol/L (136-145); Total Protein,Serum 9.1 g/dl (6.3-8.2)
[2021-09-07 16:12] LABS: Lymphocytes % 25 % (10-50); Monocytes % 6 % (2-9); Neutrophils % 69 % (42-76); Total Cells Counted 100
[2021-09-07 16:13] LABS: Platelet Estimate Normal
[2021-09-07 16:15] LABS: NT Pro Brain Natriuretic Pep. 884 pg/mL (0-125)
[2021-09-07 16:19] LABS: Troponin I < 0.01 ng/ml (0.00-0.034)
[2021-09-07 16:26] VITALS: BP 149/82; PULSE 68; RESP 18
[2021-09-07 16:56] VITALS: BP 156/101; PULSE 62; RESP 18
[2021-09-07 18:43] VITALS: BP 168/100; PULSE 87; RESP 20; TEMP 36.6; O2SAT 98
== END 2021-09-07 18:45 | disposition home or self-care (01) ==
PROVIDERS: Emergency Provider Emergency Medicine; PCP Family Medicine
DX: R07.2 Precordial pain (principal); M79.604 Pain in right leg; Z79.899 Other long term (current) drug therapy; Z79.84 Long term (current) use of oral hypoglycemic drugs; I48.91 Unspecified atrial fibrillation; I42.9 Cardiomyopathy, unspecified; E11.9 Type 2 diabetes mellitus without complications; I11.0 Hypertensive heart disease with heart failure; E78.5 Hyperlipidemia, unspecified; I25.2 Old myocardial infarction; I50.9 Heart failure, unspecified; Z95.0 Presence of cardiac pacemaker
CPT/HCPCS: 71045; 73630; 80048; 80076; 83690; 83880; 84484; 85007; 85025; 93005; 96374; 96375; 96376; 99284; J2405

== ENCOUNTER 2021-09-09 12:26 | Emergency (ER) | payer MEDICARE, MEDICAID, SELFPAY ==
[2021-09-09 12:26] VITALS: BP 187/97; PULSE 97; RESP 18; TEMP 37.7; O2SAT 98; BMI 24.3
--- NOTE | 2021-09-09 12:26 | ECG_ITS ---
APPROVED REPORT Exam: Resting ECG HR:72 bpm ECG Measurements Heart Rate 72 AXES MD 186 P -62 QRSd 101 QRS 102 QT 405 T 65 QTc 430 Conclusion NSR RIGHT AXIS DEVIATION [QRS AXIS > 100] SEPTAL MYOCARDIAL INFARCTION , PROBABLY OLD [40+ ms Q WAVE IN V1/V2] ABNORMAL ECG UNCONFIRMED REPORT Electronically signed by : Evaristo Aguilar MD 09/10/2021 21:02:56
--- NOTE | 2021-09-09 12:37 | XR_ITS ---
FINAL REPORT CLINICAL HISTORY: CHEST PAIN COMPARISON: September 02, 2021 FINDINGS: The heart size is enlarged. There is a left subclavian ICD. A right sided shunt catheter is present. There has been prior median sternotomy. There is persistent but mild bibasilar opacity. There is no pleural effusion. There is no pneumothorax. IMPRESSION: Persistent but mild bibasilar opacity favors atelectasis or scarring. Reviewed, Interpreted and Dictated by Gareth Serrano III, MD Transcribed by Farhan Kraus Authenticated and [facility]
--- NOTE | 2021-09-09 12:42 | PC.NURSE ---
OFFERED PT BLANKET, REFUSED AT THIS TIME WITH NO OTHER NEEDS
[2021-09-09 12:46] LABS: Basophils # 0.1 K/mm3 (0-0.2); Basophils % 0.9 % (0.1-2.0); Eosinophils # 0.3 K/mm3 (0.0-0.4); Eosinophils % 2.6 % (0.1-12.0); Hematocrit 43.2 % (37.0-47.0); Hemoglobin 14.2 g/dL (12.2-16.2); Lymphocytes # 2.4 K/mm3 (0.7-4.5); Lymphocytes % 24.9 % (10-50); Mean Corpuscular HGB Conc 32.8 g/dL (31.8-35.4); Mean Corpuscular Hemoglobin 31.8 pg (27.0-31.2); Mean Corpuscular Volume 96.8 fl (81-99); Monocytes # 0.8 K/mm3 (0.1-1.0); Neutrophils # 6.2 K/mm3 (1.8-7.8); Neutrophils % 63.6 % (37.0-80.0); Platelet Count 298 K/mm3 (142-424); Red Blood Count 4.46 M/mm3 (4.20-5.40); Red Cell Distribution Width 14.6 % (11.5-17.5); White Blood Count 9.7 K/mm3 (4.8-10.8)
[2021-09-09 12:49] LABS: Chloride 104 mmol/L (98-107)
[2021-09-09 12:50] LABS: Potassium 4.6 mmoL/L (3.5-5.1); Sodium 134 mmol/L (136-145)
[2021-09-09 12:52] LABS: Blood Urea Nitrogen 32 mg/dl (7-17); Creatinine Clearance Estimated 121 mL/min (50-200); Estimated Glomerular Filt Rate 90 ml/min (>60); GFR (African American) 109 ML/MIN (>60)
[2021-09-09 12:53] LABS: Anion Gap 11.6 mEq/L (5-15); Calcium 9.4 mg/dl (8.4-10.2); Carbon Dioxide 23 mmol/L (22.0-30.0)
[2021-09-09 12:55] LABS: Glucose 436 mg/dl (74-100)
--- NOTE | 2021-09-09 12:55 | PC.NURSE ---
[facility], GLUCOSE 436. NAME AND R/V WITH CINDA IN LAB. DR. HUFF NOTIFIED. NO NEW ORDERS
--- NOTE | 2021-09-09 13:06 | PC.NURSE ---
Sejal B, RN at to check on patient. patient is crying in the room asking for pain medication
--- NOTE | 2021-09-09 13:06 | PC.NURSE ---
PT ASKING FOR SOME PAIN MEDICINE AND NAUSEA MEDICINE. INFORMED PT THAT MD WILL BE TO SEE HER AND WILL BE ABLE TO ORDER THAT IF APPROPRIATE.
[2021-09-09 13:08] LABS: Troponin I < 0.01 ng/ml (0.00-0.034)
--- NOTE | 2021-09-09 13:23 | HMH.EDGENADL ---
ED Disposition Clinical Impression: Bilateral leg pain, Atypical chest pain Disposition: Home, Self-Care Condition on Discharge: Fair Instructions: DI for Atypical Chest Pain Additional Instructions: Dr. Lake is transmitting a prescription for Percocet and gabapentin to your pharmacy. Follow-up with Dr. Lake in the office on as scheduled. Keep your appointment to have ROXANN tests tomorrow ordered by your financial institution president. Additional instructions for CONTROLLED SUBSTANCES: You have been prescribed a medication that is a controlled substance. Controlled substances include pain medications known as opiates and sedative nerve medications known as benzodiazepines. Tramadol, fioricet, and gabapentin are also controlled substances. Some common opiates include: Codeine (such as Tylenol #3) Hydrocodone (Vicodin, Lortab, Lorcet, [place]) Oxycodone (Percocet, Percodan, Oxycodone, Oxy IR) Some common benzodiazepines include: Diazepam (Valium) Lorazepam (Ativan) Alprazolam (Xanax) Clonazepam (Klonopin) Oxazepam (Serax) All of these controlled substances are highly addictive and frequently abused. Misuse can and frequently does lead to addiction as well as overdose and . Medication should be stored in a locked cabinet or other secure storage unit. Do not store the medication in a motor vehicle. Short term supplies, 3 days or less, are prescribed because of the highly addictive nature of the medication. Any of the controlled substance medication NOT taken should be disposed of properly and NOT SAVED. The recommended method of disposing of unused medications is: Place the medicines in a sealable plastic bag. If the medicine is a solid, crush it or add water to dissolve it. Add something undesirable (cat litter, coffee grounds, etc.) Dispose of sealed bag in household trash Do not flush or pour unused medicines down a sink or drain. Controlled substances should not be shared, given away or sold. Because of the addictive nature and frequent abuse, these medications are sometimes stolen. These medications should be kept in a safe place where they cannot be stolen. Do not keep them in your car or purse. Lost or stolen prescriptions for controlled substances WILL NOT BE REFILLED in this emergency department, regardless of whether a police report was filed. Referrals: Provider,Referral, [Primary Care Provider] - - Critical Care Critical Care Time: No Attestation: On 09/09/21, the high probability of a clinically significant, sudden or life threatening deterioration of the following system(s) required my full and direct attention, intervention and personal management. The time I documented below is in addition to time spent performing reported procedures but includes the following listed in this critical care notation. Medical Decision Making - Medical Records Medical records reviewed: Yes: I reviewed the patient's medical records. MR Comment: Reviewed collective notification, patient noted to have been seen at [facility] emergency department 09/06 and here on 09/07. Emergency department note from 09/07 reviewed. Patient also reported being seen recently by her primary care provider and cardiology, Dr. Cortes's office, at which time ABIs were ordered. I reviewed recent PCP note from Dr. Lake 09/04/2021. Of note, the patient was not complaining of her legs at that time although by her history today, she was experiencing severe bilateral leg pain for the past 3 weeks and therefore would have had it at that point. Her most recent cardiology visit was 08/18/2021, reported bilateral leg numbness and pain and ROXANN studies were ordered at that time. - Mp Inquiry Pt receiving controlled substance: Yes Mp was queried for this patient: Yes Risks and benefits of using a controlled substance: were discussed with pt by me Vital Signs: 09/09/21 12:26 09/09/21 13:34 09/09/21 14:00 Temperature 99.8 F H
--- NOTE | 2021-09-09 13:24 | PC.NURSE ---
patient pressed call light; i went in to speak with the patient and she is tearful stating I've been her for an hour, is anyone going to see me? I assured the patient the ER MD would be in shortly; he was seeing other patients at this time but he was making his rounds. She reports no other needs at this time
--- NOTE | 2021-09-09 13:29 | PC.NURSE ---
CRISTI MAZARIEGOS at speaking with patient
[2021-09-09 13:34] VITALS: BP 218/92; PULSE 64; RESP 18; O2SAT 98
--- NOTE | 2021-09-09 13:36 | PC.NURSE ---
paged Dr. Lake for ER MD
[2021-09-09 14:00] VITALS: BP 195/102; PULSE 61; RESP 18; O2SAT 98
--- NOTE | 2021-09-09 14:07 | PC.NURSE ---
[id number] DR[address] HUFF SPEAKING WITH DR. ROSALES
--- NOTE | 2021-09-09 14:22 | PC.NURSE ---
ArmandoRN at bedside medicating pt per MAR and updating her on POC
[2021-09-09 14:31] VITALS: BP 171/81; PULSE 60; RESP 18; O2SAT 98
[2021-09-09 14:35] VITALS: BP 171/81; PULSE 60; RESP 20; TEMP 37; O2SAT 97
== END 2021-09-09 14:39 | disposition home or self-care (01) ==
PROVIDERS: Emergency Provider Emergency Medicine
DX: M79.604 Pain in right leg; M79.605 Pain in left leg; R07.89 Other chest pain; Z79.899 Other long term (current) drug therapy; Z88.1 Allergy status to other antibiotic agents; Z88.5 Allergy status to narcotic agent; Z88.8 Allergy status to other drugs, medicaments and biological substances; I48.91 Unspecified atrial fibrillation; E11.9 Type 2 diabetes mellitus without complications; I11.0 Hypertensive heart disease with heart failure; I50.9 Heart failure, unspecified; I25.2 Old myocardial infarction
CPT/HCPCS: 71045; 80048; 84484; 85025; 93005; 96374; 99284

== ENCOUNTER → 2021-09-11 12:53 | Outpatient (CLI) | payer MEDICARE, MEDICAID, SELFPAY ==
--- NOTE | 2021-09-11 12:53 | US_ITS ---
FINAL REPORT CLINICAL HISTORY: claudication, DM, Neuropathy, Smoker, CAD, ASCVD FINDINGS: ANKLE-BRACHIAL PRESSURE INDICES Pressure indices are as follows: RIGHT LOWER EXTREMITY: Ankle-brachial pressure index: 1.1 Comments: Normal LEFT LOWER EXTREMITY: Ankle-brachial pressure index: 0.86 Comments: Mild CONCLUSION: No evidence of significant obstructive peripheral vascular disease of the right lower extremity. Mild peripheral arterial disease of the left lower extremity. Reviewed, Interpreted and Dictated by Gareth Serrano III, MD Transcribed by Siomara Espinoza Authenticated and [facility]
== END ==
PROVIDERS: Visit Provider Nurse Practitioner Family
DX: I70.213 Atherosclerosis of native arteries of extremities with intermittent claudication, bilateral legs (principal); I25.10 Atherosclerotic heart disease of native coronary artery without angina pectoris; Z72.0 Tobacco use
CPT/HCPCS: 93923

== ENCOUNTER 2021-09-15 15:23 | Emergency (ER) | payer MEDICARE, MEDICAID, SELFPAY ==
--- NOTE | 2021-09-15 15:53 | ECG_ITS ---
APPROVED REPORT Exam: Resting ECG HR:60 bpm ECG Measurements Heart Rate 60 AXES UT 199 P -3 QRSd 114 QRS 100 QT 453 T 108 QTc 453 Conclusion ELECTRONIC ATRIAL PACEMAKER BORDERLINE RIGHT AXIS DEVIATION [QRS AXIS > 90] MODERATE INTRAVENTRICULAR CONDUCTION DELAY [110+ ms QRS DURATION] MODERATE ST DEPRESSION [0.05+ mV ST DEPRESSION] ABNORMAL ECG UNCONFIRMED REPORT Electronically signed by : Evaristo Aguilar MD 09/16/2021 14:15:02
[2021-09-15 16:06] VITALS: BP 191/104; PULSE 67; RESP 20; TEMP 36.7; O2SAT 95; BMI 22.9
[2021-09-15 16:21] LABS: Microscopic, Urine URINE MICROSCOPIC (MICROSCOPIC)
[2021-09-15 16:23] LABS: Appearance,Urine CLEAR (Clear); Bilirubin,Urine Negative (Negative); Blood, Urine 3+ (Negative); Color,Urine YELLOW (Yellow); Glucose,Urine (UA) 3+ (Negative); Ketones,Urine Negative (Negative); Leukocyte Esterase,Urine Negative (Negative); Nitrate,Urine Negative (Negative); PH,Urine 5.5 (5.0-8.5); Protein,Urine TRACE (Negative); Urobilinogen,Urine 0.2 EU/dl (0.2)
[2021-09-15 16:24] LABS: Basophils # 0.1 K/mm3 (0-0.2); Basophils % 0.7 % (0.1-2.0); Eosinophils # 0.1 K/mm3 (0.0-0.4); Eosinophils % 1.6 % (0.1-12.0); Hematocrit 40.6 % (37.0-47.0); Hemoglobin 13.4 g/dL (12.2-16.2); Lymphocytes # 2.1 K/mm3 (0.7-4.5); Lymphocytes % 25.2 % (10-50); Mean Corpuscular Volume 97.2 fl (81-99); Mean Platelet Volume 8.5 fl (7.4-10.4); Monocytes # 0.6 K/mm3 (0.1-1.0); Neutrophils # 5.4 K/mm3 (1.8-7.8); Neutrophils % 65.5 % (37.0-80.0); Platelet Count 246 K/mm3 (142-424); Red Blood Count 4.18 M/mm3 (4.20-5.40); Red Cell Distribution Width 14.4 % (11.5-17.5); White Blood Count 8.3 K/mm3 (4.8-10.8)
[2021-09-15 16:26] LABS: Chloride 106 mmol/L (98-107); Potassium 4.3 mmoL/L (3.5-5.1); Sodium 140 mmol/L (136-145)
[2021-09-15 16:28] LABS: Alanine Aminotransferase 19 U/L (12-78); Aspartate Amino Transferase 22 U/L (14-36); Blood Urea Nitrogen 16 mg/dl (7-17); Creatinine Clearance Estimated 133 mL/min (50-200); Estimated Glomerular Filt Rate 107 ml/min (>60); GFR (African American) 130 ML/MIN (>60)
[2021-09-15 16:29] LABS: Albumin Level 4.5 g/dl (3.5-5.0); Albumin/Globulin Ratio 1.2 (1.1-1.8); Alkaline Phosphatase 112 U/L (38-126); Anion Gap 10.3 mEq/L (5-15); Bilirubin,Total 0.4 mg/dl (0.2-1.3); Carbon Dioxide 28 mmol/L (22.0-30.0); Globulin 3.7 g/dL (1.3-3.2); Total Protein,Serum 8.2 g/dl (6.3-8.2)
[2021-09-15 16:34] LABS: Glucose 174 mg/dl (74-100)
--- NOTE | 2021-09-15 16:34 | PC.NURSE ---
CRISTI MAZARIEGOS at
--- NOTE | 2021-09-15 16:36 | CT_ITS ---
PROCEDURE INFORMATION: Exam: CT Abdomen And Pelvis Without Contrast Exam date and time: 09/15/2021 4:39 PM Age: 46 years old Clinical indication: Abdominal pain; Flank; Lower; Prior surgery; Additional info: Concern for nephrolithiasis, silvia flank pain TECHNIQUE: Imaging protocol: Computed tomography of the abdomen and pelvis without contrast. Radiation optimization: All CT scans at this facility use at least one of these dose optimization techniques: automated exposure control; mA and/or kV adjustment per patient size (includes targeted exams where dose is matched to clinical indication); or iterative reconstruction. COMPARISON: CT ABDOMEN PELVIS W CON 06/19/2021 9:31 AM FINDINGS: Tubes, catheters and devices: TILE DITCHER shunt coiled in the right-side of the abdomen. Lungs: Benign calcified nodule at the right lung base. Minor subsegmental atelectasis at both lung bases. Liver: Mildly lobular contour of the liver capsule. Gallbladder and bile ducts: Cholecystectomy. Pancreas: Normal. No ductal dilation. Spleen: Multiple calcified splenic granulomata. Adrenal glands: Normal. No mass. Kidneys and ureters: Tiny nonobstructing bilateral renal stones. Stomach and bowel: Unremarkable. No obstruction. No mucosal thickening. Appendix: No evidence of appendicitis. Intraperitoneal space: Minor fluid seen adjacent to the anterior margin of the right hepatic lobe. Vasculature: Unremarkable. No abdominal aortic aneurysm. Lymph nodes: Unremarkable. No enlarged lymph nodes. Urinary bladder: Unremarkable as visualized. Reproductive: Hysterectomy. Bones/joints: Unremarkable. No acute fracture. Soft tissues: Unremarkable. IMPRESSION: 1. Bilateral non-obstructing nephrolithiasis. 2. Liver morphological changes may indicate cirrhosis. 3. Incidental/nonacute findings as described.
--- NOTE | 2021-09-15 16:36 | PC.NURSE ---
ED MD AT BEDSIDE TO EVALUATE PT
--- NOTE | 2021-09-15 16:42 | HMH.EDGENADL ---
ED Disposition Clinical Impression: Left against medical advice Urinary tract infection Qualifiers: Urinary tract infection type: acute cystitis Hematuria presence: with hematuria Qualified Code(s): N30.01 - Acute cystitis with hematuria Disposition: Left Against Medical Advice Condition on Discharge: Fair Referrals: Yordan Lake MD [Primary Care Provider] - - Critical Care Critical Care Time: No Attestation: On 09/15/21, the high probability of a clinically significant, sudden or life threatening deterioration of the following system(s) required my full and direct attention, intervention and personal management. The time I documented below is in addition to time spent performing reported procedures but includes the following listed in this critical care notation. Medical Decision Making - Mp Inquiry Pt receiving controlled substance: No Vital Signs: 09/15/21 16:06 09/15/21 17:27 Temperature 98.1 F 0 F L Temperature Source Oral Pulse Rate 0 L Pulse Rate [Left Radial] 67 Respiratory Rate 20 0 L Blood Pressure 0/0 L Blood Pressure [Right Arm] 191/104 H Blood Pressure Mean [Right Arm] 133 02 Sat by Pulse Oximetry 95 Oxygen Delivery Method Room Air - Lab Data Lab Results 09/15/21 16:10: Urine Color Yellow, Urine Appearance Clear, Urine pH 5.5, Ur Specific [place] 1.020, Urine Protein Trace, Urine Glucose (UA) 3+, Urine Ketones Negative, Urine Blood 3+, Urine Nitrate Negative, Urine Bilirubin Negative, Urine Urobilinogen 0.2, Ur Leukocyte Esterase Negative, Urine RBC 50-100, Urine WBC Occasional, Ur Squamous Epith Cells Occasional, Urine Bacteria Trace 09/15/21 16:10: WBC 8.3, RBC 4.18 L, Hgb 13.4, Hct 40.6, MCV 97.2, MCH 32.0 H, MCHC 33.0, RDW 14.4, Plt Count 246, MPV 8.5, Neut % (Auto) 65.5, Lymph % (Auto) 25.2, [place] % (Auto) 7.0, Eos % (Auto) 1.6, Baso % (Auto) 0.7, Neut # (Auto) 5.4, Lymph # (Auto) 2.1, [place] # (Auto) 0.6, Eos # (Auto) 0.1, Baso # (Auto) 0.1 09/15/21 16:10: Sodium 140, Potassium 4.3, Chloride 106, Carbon Dioxide 28, Anion Gap 10.3, BUN 16, Creatinine 0.60, Estimated Creat Clear 133, Estimated GFR 107, Est GFR ( Amer) 130, Glucose 174 H, Calcium 10.0, Total Bilirubin 0.4, AST 22, ALT 19, Alkaline Phosphatase 112, Total Protein 8.2, Albumin 4.5, Globulin 3.7 H, Albumin/Globulin Ratio 1.2 Result diagrams: 09/15/21 16:10 09/15/21 16:10 Orders (Tests/Meds): ED MEDICATIONS Discontinued Medications Generic Name Dose Route Start Last Admin Trade Name Freq PRN Reason Stop Dose Admin Fluconazole 200 mg 09/16/21 16:39 Fluconazole 200mg Tablet PO 09/16/21 16:40 ONCE ONE Ondansetron HCl 4 mg 09/15/21 16:36 09/15/21 16:54 Ondansetron 4mg/2ml Vial IV 09/15/21 16:37 4 mg ONCE ONE Administration Sodium Chloride 10 ml 09/15/21 16:15 Sodium Chloride 0.9% 10ml Flush Syringe IV 10/15/21 16:14 NEEDED PRN Maintain IV Site Medical Decision Narrative: In review this is a 46-year-old female who presents with dysuria, back pain. Hemodynamically stable and nontoxic-appearing. Patient symptoms are most likely consistent with a likely urinary tract infection and with her back pain has a little bit of a concern for developing Pyelo. She also likely has a yeast infection. Due to this we will give her a dose of fluconazole here. Additionally we will evaluate her for possible nephrolithiasis with her pain and to evaluate for any possible pyelonephritis. Her laboratory studies were largely unremarkable but her urine did show blood, leuks which is consistent with her urinary tract infection. Her CT scan did not show any evidence of nephrolithiasis or low nephritis. I went to talk to the patient about treatment of this and I recommended that we give her Pyridium and cefdinir in order to appropriately cover her urinary tract infection. She requested IV pain medication in which I said was not appropriate in this situation she then became hostile w
--- NOTE | 2021-09-15 16:48 | PC.NURSE ---
PT RETURNED FROM RADIOLOGY AT THIS TIME
[2021-09-15 16:59] LABS: WBC,Urine Occasional #/hpf (0-3)
[2021-09-15 17:00] LABS: RBC,Urine 50-100 #/hpf (0-3)
[2021-09-15 17:01] LABS: Bacteria,Urine Trace /lpf; Squamous Epithelial Cell,Urine Occasional #/hpf (0-5)
--- NOTE | 2021-09-15 17:06 | PC.NURSE ---
PT REQUESTING PAIN MEDICATION, ED MD AWARE
--- NOTE | 2021-09-15 17:18 | PC.NURSE ---
notified ER pt is requesting pain medication
--- NOTE | 2021-09-15 17:19 | PC.NURSE ---
PT CONTINUES TO REQUEST PAIN MEDICATION. STATES TAKE MY IV OUT IF IM NOT GOING TO GET ANYTHING IN MY IV MD AWARE
--- NOTE | 2021-09-15 17:21 | PC.NURSE ---
lucrn at updating pt on POC
--- NOTE | 2021-09-15 17:23 | PC.NURSE ---
PT UPDATED ON POC, DEMANDED IV REMOVED IF NOT GETTING IV PAIN MEDICATION. INFORMED THAT SHE WOULD RECEIVE NEW MEDICATIONS PER ED MD. PT BEGAN CURSING AT THIS NURSE. REFUSED TO STAY FOR DISCHARGE INSTRUCTIONS AND NEW RX. FLIPPED STAFF OFF, CURSED AND WALKED OUT. RUCHING MACHINE OPERATOR NOTIFIED
[2021-09-15 17:27] VITALS: BP 0/0; PULSE 0; RESP 0; TEMP -17.7; TEMP 0
== END 2021-09-15 17:25 | disposition left against medical advice (07) ==
LOC: ER 15:54
PROVIDERS: Emergency Provider Student in an Organized Health Care Education/Training Program; PCP Family Medicine
DX: N30.01 Acute cystitis with hematuria (principal); Z79.899 Other long term (current) drug therapy; Z88.6 Allergy status to analgesic agent; Z88.1 Allergy status to other antibiotic agents; Z88.5 Allergy status to narcotic agent; Z88.8 Allergy status to other drugs, medicaments and biological substances; I48.91 Unspecified atrial fibrillation; I42.9 Cardiomyopathy, unspecified; E11.9 Type 2 diabetes mellitus without complications; I10 Essential (primary) hypertension; I25.2 Old myocardial infarction; Z95.0 Presence of cardiac pacemaker
CPT/HCPCS: 74176; 80053; 81001; 85025; 93005; 96374; 99284; J2405

== ENCOUNTER 2023-03-02 11:19 | Outpatient (CLI) | payer MEDICARE, MEDICAID, SELFPAY ==
[2023-03-02 11:45] LABS: Basophils # 0.1 K/mm3 (0-0.2); Basophils % 0.8 % (0.1-2.0); Eosinophils # 0.1 K/mm3 (0.0-0.4); Eosinophils % 0.7 % (0.1-12.0); Hematocrit 40.6 % (37.0-47.0); Hemoglobin 13.7 g/dL (12.2-16.2); Lymphocytes # 2.8 K/mm3 (0.7-4.5); Mean Corpuscular HGB Conc 33.6 g/dL (31.8-35.4); Mean Corpuscular Hemoglobin 30.7 pg (27.0-31.2); Mean Corpuscular Volume 91.2 fl (81-99); Mean Platelet Volume 8.6 fl (7.4-10.4); Monocytes # 0.6 K/mm3 (0.1-1.0); Monocytes % 6.8 % (1.7-9.3); Neutrophils # 5.3 K/mm3 (1.8-7.8); Neutrophils % 59.6 % (37.0-80.0); Platelet Count 250 K/mm3 (142-424); Red Blood Count 4.45 M/mm3 (4.20-5.40); Red Cell Distribution Width 16.1 % (11.5-17.5); White Blood Count 8.9 K/mm3 (4.8-10.8)
[2023-03-02 11:55] LABS: Hemoglobin A1C 7.7 % (4.0-6.0)
[2023-03-02 14:29] LABS: Chloride 106 mmol/L (98-107); Sodium 138 mmol/L (136-145)
[2023-03-02 14:30] LABS: Potassium 4.5 mmoL/L (3.5-5.1)
[2023-03-02 14:32] LABS: Alanine Aminotransferase 19 U/L (12-78); Alkaline Phosphatase 115 U/L (38-126); Anion Gap 14.5 mEq/L (5-15); Aspartate Amino Transferase 25 U/L (14-36); Bilirubin,Direct 0.2 mg/dl (0.0-0.4); Bilirubin,Indirect 0.3 mg/dL (0.0-0.9); Bilirubin,Total 0.5 mg/dl (0.2-1.3); Bilirubin,Unconjugated 0.3 mg/dL (0.0-1.1); Blood Urea Nitrogen 18 mg/dl (7-17); Calcium 8.5 mg/dl (8.4-10.2); Carbon Dioxide 22 mmol/L (22.0-30.0); Chol/HDL Ratio 3.5 (1-3.5); Cholesterol 160 mg/dl (140-200); Estimated Glomerular Filt Rate 89 ml/min (>60); GFR (African American) 108 ML/MIN (>60); Glucose 127 mg/dl (74-100); HDL Cholesterol 46 mg/dl (40-60); Magnesium 1.8 mg/dl (1.6-2.3); Total Protein,Serum 7.8 g/dl (6.3-8.2); Triglycerides 100 mg/dl (30-150); VLDL Cholesterol 20 mg/dL (0-40)
[2023-03-02 14:51] LABS: Free T4 (Free Thyroxine) 0.93 ng/dl (0.78-2.19)
[2023-03-02 15:04] LABS: Thyroid Stimulating Hormone 1.13 uIU/mL (0.465-4.68)
== END 2023-03-02 23:59 ==
LOC: LAB 11:20
PROVIDERS: PCP Family Medicine; Visit Provider Physician Assistant
DX: E11.9 Type 2 diabetes mellitus without complications (principal); E78.5 Hyperlipidemia, unspecified; I10 Essential (primary) hypertension; I48.0 Paroxysmal atrial fibrillation; I65.29 Occlusion and stenosis of unspecified carotid artery; I73.9 Peripheral vascular disease, unspecified; K31.84 Gastroparesis; R07.9 Chest pain, unspecified; R94.31 Abnormal electrocardiogram [ECG] [EKG]; Z79.01 Long term (current) use of anticoagulants; Z95.0 Presence of cardiac pacemaker; Z95.2 Presence of prosthetic heart valve
CPT/HCPCS: 36415; 80048; 80061; 80076; 83036; 83735; 84439; 84443; 85025

== ENCOUNTER 2023-03-09 08:43 | Emergency (ER) | payer MEDICARE, MEDICAID, SELFPAY ==
--- NOTE | 2023-03-09 08:41 | ECG_ITS ---
APPROVED REPORT Exam: Resting ECG HR:63 bpm ECG Measurements Heart Rate 63 AXES DE 180 P -81 QRSd 111 QRS 99 QT 473 T 88 QTc 480 Conclusion ECTOPIC ATRIAL RHYTHM BORDERLINE RIGHT AXIS DEVIATION [QRS AXIS > 90] MODERATE INTRAVENTRICULAR CONDUCTION DELAY [110+ ms QRS DURATION] PROLONGED QT INTERVAL ABNORMAL ECG UNCONFIRMED REPORT Electronically signed by : Evaristo Aguilar MD 03/10/2023 08:38:55
[2023-03-09 08:44] VITALS: BP 144/95; PULSE 63; RESP 20; TEMP 36.9; O2SAT 98; BMI 23.5
[2023-03-09 09:01] VITALS: BP 188/93; PULSE 66; RESP 19; O2SAT 98
--- NOTE | 2023-03-09 09:05 | XR_ITS ---
FINAL REPORT CLINICAL HISTORY: dyspnea chest pain x 1 week smoker x 30 yrs pt stated she had heart attack 1 week ago COMPARISON: August 2021 FINDINGS: There is a left subclavian ICD. There has been prior sternotomy. A shunt tubing overlies the right thorax. The heart size is normal. The mediastinum is within normal limits. There is mild right basilar atelectasis. There is no pleural effusion. There is no pneumothorax. There is a new fracture of the proximal left humerus favored to be subacute. Postoperative changes are seen in the lower cervical spine. IMPRESSION: Mild right base atelectasis. Proximal right humerus fracture is favored subacute. Reviewed, Interpreted and Dictated by Gareth Serrano III, MD Transcribed by Farhan Kraus Authenticated and [facility]
--- NOTE | 2023-03-09 09:11 | HMH.EDGENADL ---
Discharge Plan Disposition Chief Complaint: Chest Pain Prescriptions Prescriptions: No Action buprenorphine-naloxone 8-2 mg film 1 film buccal DAILY Patient Comments: TAKE 1 FILM UNDER THE TONGUE AND ALLOW TO DISSOLVE ONCE A DAY quetiapine [Seroquel] 50 mg tablet See Rx Instructions .ROUTE .COMPLEX Qty: 90 4RF Rx Instructions: one to three hs prn sleep; rivaroxaban 20 mg tablet 20 mg PO DAILY Rx Instructions: must administer with evening meal sucralfate 1 gram tablet 1 g PO QID metoclopramide HCl 5 mg tablet 5 mg PO QID nitroglycerin 0.4 mg tablet, sublingual 0.4 mg sublingual Q5-15M PRN (Reason: chest pain) Qty: 30 1RF Rx Instructions: do not exceed 3 doses per episode Entresto 97-103 mg tablet 1 tab PO BID Qty: 60 4RF metolazone 2.5 mg tablet 2.5 mg PO DAILY PRN (Reason: edema) Qty: 30 3RF fluoxetine 20 mg capsule 60 mg PO DAILY Qty: 90 3RF carvedilol [Coreg] 25 mg tablet 25 mg PO BID Qty: 180 2RF Rx Instructions: give with food (meal/snack) omeprazole 40 MG capsule,delayed release(DR/EC) 40 mg PO AM Rx Instructions: Take 20 min in the morning before food or drink atorvastatin 80 mg tablet 80 mg PO DAILY Clinical Impressions Clinical Impression: Chest pain, Nausea & vomiting Discharge ED Provider: Juan Pablo Edwards General Adult HPI General Chief complaint: Chest Pain Stated complaint: chest pain Time Seen by Provider: 03/09/23 08:53 Mode of Arrival: Ambulatory Source of Information: Patient Limitations: No Limitations Description of Symptoms (Recalled from ER Triage Doc. by RN): Patient reports chest pain, left arm cramping and upper back painfor two weeks. States she has been seen by Dr. Cortes twice in the past couple of weeks and was referred to the ER this morning. States she took one Nitro at 6am that relieved her symptoms for a little bit. History of Present Illness HPI narrative: Patient is a 48-year-old female with a history of a complex cardiac history including rheumatic heart disease and mitral valve disease requiring 2 valve replacements in the past the first she was noncompliant with anticoagulation and had a stroke subsequently she was given a porcine replacement. She also has an AICD for history of ventricular tachycardia. Lastly she claims to have a history of gastroparesis and frequently goes to the emergency department and also has been very noncompliant with medications in the past. She recently saw her cardiology team yesterday and states that she wanted to turn over new leaf for this year and be more compliant with her medications and take care of herself. She states she woke up this morning around midnight with epigastric and substernal chest pain with some radiation into her back. She also states that she was recently in the [facility]. Per their notes this is the description of chest pain she gave them that she is been having for the last year. She had high-sensitivity troponin of 54 that had a delta of 12 down to 42. She had acute kidney injury at that time with a creatinine of 2.5 baseline 0.7. They felt that she did not have a type I CT no further interventions were done from that standpoint. Her blood pressure was controlled. Also she was having complaints of this chest discomfort and epigastric discomfort that she is complaining of today and they treated her for gastroparesis. She is supposed to be following up with a director supply chain regarding this. Today her chest pain is exacerbated by nausea and vomiting is nonexertional she does have some dyspnea associated with this. Denies any fevers or chills or any other symptoms. Related Data Home Medications Medication Instructions Recorded Confirmed omeprazole 40 mg capsule,delayed 40 mg PO AM Acid Reflux 06/12/21 03/09/23 release buprenorphine 8 mg-naloxone 2 mg 1 film buccal DAILY 05/15/22 03/09/23 sublingual film rivaroxaban 20 mg tablet 20 mg PO DAILY 06/03/22 03/09/23 metoclopramide HCl 5 mg tablet 5 mg PO QID 03/02/23 03/09/23 sucralfate 1 gram tablet 1 g PO QID 03/02/23 03/09/23 atorvastatin 80 mg tablet 80 mg PO DAILY 03/09/23 03/09/23 Previous Rx's Medication Instructions Recorded fluoxetine 20 mg capsule 60 mg PO DAILY Depression #90 caps 10/06/21 quetiapine 50 mg tablet (Seroquel) See Rx Instructions .Route 06/30/22 .COMPLEX #90 tabs carvedilol 25 mg tablet (Coreg) 25 mg PO BID #180 tabs 09/10/22 nitroglycerin 0.4 mg sublingual 0.4 mg sublingual Q5-15M PRN chest 03/02/23 tablet pain #30 tabs metolazone 2.5 mg tablet 2.5 mg PO DAILY PRN edema #30 tabs 03/08/23 sacubitril 97 mg-valsartan 103 mg 1 tab PO BID #60 tabs 03/08/23 tablet (Entresto) Allergies Allergy/AdvReac Type Severity Reaction Status Date / Time morphine [MORPHINE] Allergy Mild Verified 03/08/23 14:38 hydrocodone [From LORTAB] Allergy Unknown Verified 03/08/23 14:38 azithromycin Allergy Verified 03/08/23 14:38 bupropion [From Wellbutrin] Allergy Verified 03/08/23 14:38 ketorolac AdvReac Verified 03/08/23 14:38 PFSH [facility] Disclaimer: The information contained in this section may have been updated after the patient was seen, as this information can be updated by other users. Medical History Carotid artery stenosis PAD (peripheral artery disease) Surgical History H/O: hysterectomy History of brain surgery History of cholecystectomy History of heart surgery Social History Smoking Status: Current every day smoker tobacco type: cigarettes packs per day: 1 alcohol intake: never substance use type: opiates, painkillers and prescription drug current occupational status: disabled Travel in the last 8 weeks: None household members: children housing: house caffeine: Yes ROS Obtained: Yes All systems reviewed & no additional complaints except as documented Physical Exam General General appearance: alert and in no apparent distress Respiratory Respiratory exam: Present normal lung sounds bilaterally; Absent respiratory distress Cardiovascular Cardiovascular exam: Present regular rate; Absent tachycardia Abdominal Exam Abdominal exam: Present soft; Absent distention or tenderness Neurological Exam Neurological exam: Present alert Medical Decision Making Mp Inquiry Pt receiving controlled substance: No Vital Signs: 03/09/23 08:44 03/09/23 09:01 Temperature 98.4 F Temperature Source Oral Pulse Rate 66 Pulse Rate [Radial] 63 Respiratory Rate 20 19 Blood Pressure 188/93 H Blood Pressure [Right Arm] 144/95 H Blood Pressure Mean 120 Blood Pressure Mean [Right Arm] 111 Blood Pressure Source [Right Arm] Automatic Cuff Blood Pressure Position [Right Arm] Sitting 02 Sat by Pulse Oximetry 98 98 Oxygen Delivery Method Room Air Lab Data Lab results reviewed: Yes I reviewed the patient's lab results. Lab Results 03/09/23 08:46: D-Dimer 0.49, Sodium 135 L, Potassium 5.0, Chloride 100, Carbon Dioxide 24, Anion Gap 16.0 H, BUN 10, Creatinine 0.60, Estimated Creat Clear 133, Estimated GFR 106, Est GFR ( Amer) 129, Glucose 193 H, Calcium 9.2, Total Bilirubin 1.6 H, AST 48 H, ALT 26, Alkaline Phosphatase 128 H, Total Protein 10.0 H D, Albumin 5.0, Globulin 5.0 H, Albumin/Globulin Ratio 1.0 L, Lipase 80 03/09/23 08:46 Orders (Tests/Meds): ED MEDICATIONS Generic Name Dose Route Start Last Admin Trade Name Freq PRN Reason Stop Dose Admin Lactated Ringer's 1,000 mls @ 999 mls/hr 03/09/23 09:15 03/09/23 09:15 Lactated Ringer's 1000 Ml Bag IV 03/09/23 10:15 999 mls/hr .Q1H1M ALEX Administration Discontinued Medications Generic Name Dose Route Start Last Admin Trade Name Freq PRN Reason Stop Dose Admin Acetaminophen 1,000 mg 03/09/23 09:35 03/09/23 09:38 Acetaminophen 1,000mg/100ml Vial IV 03/09/23 09:36 1,000 mg ONCE ONE Administration Diphenhydramine HCl 25 mg 03/09/23 09:05 03/09/23 09:15 Diphenhydramine 50mg/Ml Vial IV 03/09/23 09:06 25 mg ONCE ONE Administration Metoclopramide HCl 10 mg 03/09/23 09:05 03/09/23 09:15 Metoclopramide Hcl 10mg/2ml Vial IVP 03/09/23 09:06 10 mg ONCE ONE Administration ORDERS Category Date Time Status CXR --portable [XR chest portable] Stat Exams 03/09/23 09:05 Taken CBC w/Auto Diff [Complete Blood Count Auto Diff] Stat Lab 03/09/23 08:46 Received CMP [Comprehensive Metabolic Panel] Stat Lab 03/09/23 08:46 Results D-Dimer Stat Lab 03/09/23 08:46 Completed Lipase Stat Lab 03/09/23 08:46 Results Trop I [Troponin I] Stat Lab 03/09/23 08:46 Results Troponin I Q3H Lab 03/09/23 12:15 Ordered Troponin I Q3H Lab 03/09/23 15:15 Ordered Medical Decision Narrative: EKG performed which I first interpreted shows a ventricular rate of 63 no obvious P waves this seems to be a junctional rhythm there is a moderate interventricular conduction delay associated with this QTc is 480 mildly prolonged no other significant conduction abnormalities no dropped beats does not appear to be a paced rhythm no acute ischemic changes noted there is a borderline right axis deviation this is an abnormal EKG. 48-year-old with extensive cardiac history stated above in HPI. Presents today with chest pain has been ongoing since midnight therefore it has been ongoing unchanged for 9 hours a single troponin will be adequate to rule out acute myocardial injury acute coronary syndrome. She did recently have acute kidney injury and hospitalization [facility]. She does not have coronary disease that we are aware of and has not had any stents in the past and her cardiac disease is primarily secondary to rheumatic heart disease and the distant past. Abdominal exam is benign and not consistent with surgical emergency. I suspect majority of her symptoms today are associated with her gastroparesis. IV Reglan and Benadryl have been ordered as well as IV fluids and will reassess. Reassessment 951 chest x-ray performed which I personally interpreted which shows no acute abnormality there is some right lower lobe atelectasis versus infiltrate which is consistent with old chest x-rays and unchanged. Patient continued to complain of some pain she has a history of opioid use disorder and opiates in particular can slow gastric emptying and indicated this particular situation. IV Tylenol was subsequently ordered. Patient got very frustrated with us and told us we were not adequately treating her symptoms. She decided to leave AMA she understood risk of disability and . Troponin was not yet back and were not able to do serial troponins as well. Patient had a mental capacity make this decision and left AGAINST MEDICAL ADVICE. Critical Care Critical Care Time Critical Care Time: No
[2023-03-09] MEDS: METOCLOPRAMIDE HCL 10MG/2ML VIAL 10 MG IVP (09:15)
[2023-03-09] MEDS: LACTATED RINGERS 1000ML 1,000 ML 999 ML IV (09:15)
[2023-03-09] MEDS: diphenhydrAMINE 50MG/ML VIAL 25 MG IV (09:15)
[2023-03-09 09:20] LABS: Basophils % 0.3 % (0.1-2.0); Eosinophils # 0.1 K/mm3 (0.0-0.4); Eosinophils % 0.9 % (0.1-12.0); Hematocrit 45.4 % (37.0-47.0); Hemoglobin 14.4 g/dL (12.2-16.2); Lymphocytes # 1.5 K/mm3 (0.7-4.5); Lymphocytes % 19.2 % (10-50); Mean Corpuscular HGB Conc 31.7 g/dL (31.8-35.4); Mean Corpuscular Hemoglobin 29.4 pg (27.0-31.2); Mean Corpuscular Volume 92.7 fl (81-99); Mean Platelet Volume 8.6 fl (7.4-10.4); Monocytes # 0.5 K/mm3 (0.1-1.0); Monocytes % 5.8 % (1.7-9.3); Neutrophils # 5.7 K/mm3 (1.8-7.8); Neutrophils % 73.9 % (37.0-80.0); Platelet Count 286 K/mm3 (142-424); Red Cell Distribution Width 16.2 % (11.5-17.5); White Blood Count 7.8 K/mm3 (4.8-10.8)
[2023-03-09 09:23] LABS: D-Dimer 0.49 ug/mL (0.0-0.5)
[2023-03-09 09:25] LABS: Alanine Aminotransferase 26 U/L (12-78); Alkaline Phosphatase 128 U/L (38-126); Aspartate Amino Transferase 48 U/L (14-36); Bilirubin,Total 1.6 mg/dl (0.2-1.3); Blood Urea Nitrogen 10 mg/dl (7-17); Calcium 9.2 mg/dl (8.4-10.2); Carbon Dioxide 24 mmol/L (22.0-30.0); Chloride 100 mmol/L (98-107); Creatinine Clearance Estimated 133 mL/min (50-200); Estimated Glomerular Filt Rate 106 ml/min (>60); GFR (African American) 129 ML/MIN (>60); Glucose 193 mg/dl (74-100); Lipase 80 U/L (23-300); Sodium 135 mmol/L (136-145)
[2023-03-09] MEDS: ACETAMINOPHEN 1,000MG/100ML VIAL 1000 MG IV (09:38)
--- NOTE | 2023-03-09 09:53 | PC.NURSE ---
Pt states that she wants to sign out AMA , states she wants to go home and just lay in the bathtub. PT is aware that after her troponin comes back there is a medicine we can give her for her nausea. Checked with lab, troponin will take 5 more minutes, pt states that she does not want to wait and wants to leave. Pt is instructed that if symptoms are not improved to return for further evaluation, fu with for her chest pain and to take prescribed medicine at home for pain. PT states that she will fu and come back if needed, mother at , aware.
[2023-03-09 09:58] VITALS: BP 139/105; PULSE 60; RESP 20; TEMP 36.9; O2SAT 98
[2023-03-09 10:15] LABS: Troponin I 0.03 ng/ml (0.00-0.034)
== END 2023-03-09 09:58 | disposition left against medical advice (07) ==
PROVIDERS: Emergency Provider Student in an Organized Health Care Education/Training Program; PCP Family Medicine
DX: R07.9 Chest pain, unspecified (principal); R11.2 Nausea with vomiting, unspecified; R06.02 Shortness of breath; I65.29 Occlusion and stenosis of unspecified carotid artery; I73.9 Peripheral vascular disease, unspecified; F17.210 Nicotine dependence, cigarettes, uncomplicated; E78.5 Hyperlipidemia, unspecified; I50.9 Heart failure, unspecified; Z95.3 Presence of xenogenic heart valve; Z95.810 Presence of automatic (implantable) cardiac defibrillator; R94.31 Abnormal electrocardiogram [ECG] [EKG]; I11.0 Hypertensive heart disease with heart failure
CPT/HCPCS: 71045; 80053; 83690; 84484; 85025; 85378; 93005; 96361; 96374; 96375; 99285; J0131

== ENCOUNTER 2023-05-07 07:56 | Outpatient (CLI) | payer MEDICARE, MEDICAID, SELFPAY ==
--- NOTE | 2023-05-07 07:58 | CA_ITS ---
FINAL REPORT TECHNIQUE: Color Doppler, duplex Doppler and levin scale sonography of the bilateral neck vasculature was performed. Velocities were measured in the carotid arteries. Stenosis evaluation based on velocity criteria. CLINICAL HISTORY: CHAPINCITO,HTN,HLD,DM,SMOKER COMPARISON: None FINDINGS: The peak systolic velocity of the right common carotid artery is 89 cm/sec and internal carotid artery 118 cm/sec. The diastolic velocity in the internal carotid artery is 34 cm/sec. The ICA/CCA ratio is 1.6. Visually, a small amount of plaque is seen. These findings are consistent with less than 50% stenosis. The external carotid artery is patent. The right vertebral artery is patent with antegrade flow. The peak systolic velocity of the left common carotid artery is 83 cm/sec and internal carotid artery 110 cm/sec. The diastolic velocity in the internal carotid artery is 36 cm/sec. The ICA/CCA ratio is 1.65. Visually, a small amount of plaque is seen. These findings are consistent with less than 50% stenosis. The external carotid artery is patent. The left vertebral artery is patent with antegrade flow. IMPRESSION: No evidence of significant carotid stenosis. Bilateral patent vertebral arteries. If indicated, CTA or MRA could further evaluate. Reviewed, Interpreted and Dictated by Gareth Serrano III, MD Transcribed by Jennifer Mckeon Authenticated and [facility]
== END 2023-05-07 23:59 ==
LOC: RT 07:56
PROVIDERS: PCP Family Medicine; Visit Provider Physician Assistant
DX: R42 Dizziness and giddiness (principal); I73.9 Peripheral vascular disease, unspecified; I10 Essential (primary) hypertension; I48.0 Paroxysmal atrial fibrillation; R94.31 Abnormal electrocardiogram [ECG] [EKG]; Z95.0 Presence of cardiac pacemaker; Z95.2 Presence of prosthetic heart valve; R07.9 Chest pain, unspecified; I65.29 Occlusion and stenosis of unspecified carotid artery; Z79.01 Long term (current) use of anticoagulants; K31.84 Gastroparesis; E11.9 Type 2 diabetes mellitus without complications; E78.5 Hyperlipidemia, unspecified
CPT/HCPCS: 93880

== ENCOUNTER 2023-05-12 10:51 | Outpatient (CLI) | payer MEDICARE, MEDICAID, SELFPAY ==
--- NOTE | 2023-05-12 11:19 | XR_ITS ---
FINAL REPORT CLINICAL HISTORY: chest pain, pacemaker x2 yrs ago COMPARISON: 04/28/2023 FINDINGS: Two views of the chest were obtained. A left subclavian ICD is present. The heart size and pulmonary vascularity are within normal limits. Prior median sternotomy. There is mild right base scarring or atelectasis. There is no pneumothorax. There is postoperative change in the cervicothoracic junction. Shunt catheter is present. There is a subacute to chronic proximal left humerus fracture. IMPRESSION: Mild right base scarring or atelectasis. Reviewed, Interpreted and Dictated by Gareth Serrano III, MD Transcribed by Franny Das Authenticated and [facility]
[2023-05-12 11:34] LABS: Basophils # 0.1 K/mm3 (0-0.2); Basophils % 1.4 % (0.1-2.0); Eosinophils # 0.1 K/mm3 (0.0-0.4); Eosinophils % 1.4 % (0.1-12.0); Hematocrit 44.1 % (37.0-47.0); Hemoglobin 14.4 g/dL (12.2-16.2); Lymphocytes # 1.5 K/mm3 (0.7-4.5); Mean Corpuscular HGB Conc 32.7 g/dL (31.8-35.4); Mean Corpuscular Hemoglobin 31.7 pg (27.0-31.2); Mean Corpuscular Volume 96.8 fl (81-99); Mean Platelet Volume 8.4 fl (7.4-10.4); Monocytes # 0.5 K/mm3 (0.1-1.0); Monocytes % 4.9 % (1.7-9.3); Neutrophils # 7.3 K/mm3 (1.8-7.8); Neutrophils % 76.3 % (37.0-80.0); Platelet Count 295 K/mm3 (142-424); Red Blood Count 4.56 M/mm3 (4.20-5.40); White Blood Count 9.5 K/mm3 (4.8-10.8)
[2023-05-12 13:09] LABS: Chloride 102 mmol/L (98-107); Free T4 (Free Thyroxine) 1.56 ng/dl (0.78-2.19); Potassium 3.9 mmoL/L (3.5-5.1); Sodium 134 mmol/L (136-145)
[2023-05-12 13:11] LABS: Blood Urea Nitrogen 11 mg/dl (7-17); Estimated Glomerular Filt Rate 89 ml/min (>60); GFR (African American) 108 ML/MIN (>60)
[2023-05-12 13:12] LABS: Alanine Aminotransferase 20 U/L (12-78); Albumin Level 4.5 g/dl (3.5-5.0); Alkaline Phosphatase 124 U/L (38-126); Anion Gap 12.9 mEq/L (5-15); Aspartate Amino Transferase 24 U/L (14-36); Bilirubin,Direct 0.4 mg/dl (0.0-0.4); Bilirubin,Indirect 0.5 mg/dL (0.0-0.9); Bilirubin,Total 0.9 mg/dl (0.2-1.3); Bilirubin,Unconjugated 0.5 mg/dL (0.0-1.1); Carbon Dioxide 23 mmol/L (22.0-30.0); Glucose 250 mg/dl (74-100); Total Protein,Serum 8.6 g/dl (6.3-8.2); Triglycerides 126 mg/dl (30-150); VLDL Cholesterol 25 mg/dL (0-40)
[2023-05-12 13:13] LABS: HDL Cholesterol 52 mg/dl (40-60)
[2023-05-12 13:23] LABS: Direct LDL Cholesterol 187.17 mg/dL (100-129)
[2023-05-12 13:28] LABS: Chol/HDL Ratio 6.1 (1-3.5); Cholesterol 316 mg/dl (140-200)
[2023-05-12 13:44] LABS: Thyroid Stimulating Hormone 2.74 uIU/mL (0.465-4.68)
== END 2023-05-12 23:59 ==
LOC: LAB 10:53
PROVIDERS: PCP Family Medicine; Visit Provider Nurse Practitioner Family
DX: I73.9 Peripheral vascular disease, unspecified; I65.29 Occlusion and stenosis of unspecified carotid artery; R07.2 Precordial pain; E78.2 Mixed hyperlipidemia; Z95.0 Presence of cardiac pacemaker; I48.0 Paroxysmal atrial fibrillation; Z79.01 Long term (current) use of anticoagulants; Z95.2 Presence of prosthetic heart valve; K31.84 Gastroparesis; R79.89 Other specified abnormal findings of blood chemistry; R06.00 Dyspnea, unspecified; E11.69 Type 2 diabetes mellitus with other specified complication; I11.9 Hypertensive heart disease without heart failure; K21.9 Gastro-esophageal reflux disease without esophagitis; Z79.899 Other long term (current) drug therapy
CPT/HCPCS: 36415; 71046; 80048; 80061; 80076; 84439; 84443; 85025

== ENCOUNTER 2023-05-20 06:54 | Outpatient (CLI) | payer MEDICARE, MEDICAID, SELFPAY ==
--- NOTE | 2023-05-20 07:07 | CT_ITS ---
APPROVED REPORT Concession Attendant: CLINICAL INDICATION Chest Pain TECHNIQUE Image Acquisition: A 128 slice MDCT scanner (ProChon Biotecha View) was used for data acquisition. A noncontrast coronary calcium scan was performed. A CT attenuation threshold of 130 Hounsfield units (HU) was used for the detection of calcium in contiguous voxels of 1 sq mm in area to be counted as individual lesions. Bolus tracking in the ascending aorta with a threshold of 180 HU was performed. Immediately afterwards, ECG synchronized cardiac CT was then performed from the cardiac base to apex using retrospective gating with ECG tube current modulation. A total of 85 mL of Isovue 370 mg/mL contrast medium was administered at 5 mL/sec followed by a saline flush using a biphasic injection protocol. A tube voltage of 120 KVp was used. The patient received the following medications prior to the cardiac CT. 0.8 mg of sublingual nitroglycerin The average heart rate at the time of acquisition was 65 bpm and regular. Image Reconstruction Transaxial images were reconstructed at 0.67 mm slide thickness. Data was reviewed interactively on an advanced workstation capable of 2 and 3-dimensional displays in all conventional reconstruction formats, including multiplanar reformations, maximum intensity projections, curved multiplanar reformations, and volume rendered reconstructions. When applicable, selected routine images describing the relevant coronary anatomy and pathology were saved and sent to PACS. Complications None Technical Quality Overall image quality was good. Coronary artery opacification was adequate. Total DLP (Dose-Length Product) is 1866.9 mGy-cm. The reported value represents the total of one or more individual components during the CT acquisition of this date and at this time, and as such, the same value may appear in more than one CT report depending on the interpreting/reporting physicians. COMPARISON None FINDINGS CT Coronary Calcium Scoring LMA (Left Main Artery) = 76 LAD (Left Anterior Descending) = 28 LCX (Left Coronary Circumflex) = 30 RCA (Right Coronary Artery) = 0 Total Calcium Score = 134 using the AJ-130 method. The observed calcium score of 134 is at 99th percentile for subjects of the same age, sex, and race/ethnicity. The interpretation of the calcium heart score is based on the following continuum*: 0 = no calcified plaque detected (risk of coronary artery disease is very low ??? less than 5%) 1-10 = calcium detected in extremely minimal levels (risk of coronary diseases is still low ??? less than 10%) 11-100 = mild levels of plaque detected with certainty (mild or minimal narrowing of heart arteries is likely) 101-400 = definite,at least moderate levels of plaque detected (relatively high risk of a heart attack within 3-5 years) >401-999 = extensive levels of plaque detected (high risk of heart attack, high levels of vascular disease are present, high likelihood of at least one significant coronary narrowing) *The calcium heart score quantifies the burden of coronary calcification/plaque in the coronary arteries. The calcium heart score is not able to evaluate the presence or burden of non-calcified (i.e. soft) plaque. Coronary CT Angiography The coronary arterial system is right dominant. Quantitative Stenosis Grading: Left Main (LM): The left main originates normally from the left sinus of Valsalva. The LM bifurcates into the left anterior descending artery and left circumflex artery. There is calcification at the ostial and proximal LM, with < 30% luminal stenosis. Left Anterior Descending (LAD) and Diagonal Branches: The LAD gives off 3 diagonal branches. There is calcification along the proximal and mid LAD, with a focus of mixed calcified/noncalcified plaque in the mid LAD with up to 70-90% luminal stenosis. There is no evidence of LAD-myocardial bridge. Left Circumflex (LCX) and Obtuse Marginals (OM): The LCX gives off 2 Obtuse Marginal (OM) branches. There is calcification in the proximal LCx, but with no significant luminal stenosis. Right Coronary Artery (RCA): The RCA originates normally from the right sinus of Valsalva. The RCA gives off a posterior descending artery (PDA) and posterolateral (PL) branches. The RCA and its branches are patent with no evidence of atherosclerosis. Non-Coronary Cardiac Findings: Analysis of the left ventricular (LV) structure and function was performed after 3-D reconstruction of the LV from axial images, with user-corrected automatic contouring for assessment of LV volumes and user-defined reconstruction from oblique planes for measurement of 3-D cardiac structure and function. -The left ventricle systolic function is normal. -There is no left atrial appendage filling defect. Two right pulmonary veins and two left pulmonary veins drain normally into the left atrium. -No pericardial thickening or calcification. -Central and branch pulmonary arteries in the [id number] are unremarkable. -Thoracic aorta within the visualized thoracic aortic-branches in the [id number] is unremarkable. -Mitral valve annuloplasty ring is noted. Extracardiac Structures No significant extra-cardiac findings. Note, however, that this study is focused on the cardiac findings. IMPRESSION -Presence of coronary calcification with an Agatston score = 134 using the AJ-130 method. -The observed calcium score of 134 is at 99th percentile for subjects of the same age, sex, and race/ethnicity. -Atherosclerotic plaque noted in the LM, LCx and LAD. There is possible significant flow-limiting atherosclerosis present in the mid LAD segment. -CAD-RADS 4A. Management recommendations per ACC/AHA guidelines*, as clinically appropriate. -Mitral valve annuloplasty ring is noted. *Recommendations: CAD RADS 0: Reassurance. Consider non-atherosclerotic causes of chest pain. CAD RADS 1: Consider non-atherosclerotic causes of chest pain. Consider preventive therapy and risk factor modification. CAD RADS 2: Consider non-atherosclerotic causes of chest pain. Consider preventive therapy and risk factor modification, particularly for patients with nonobstructive plaque in multiple segments. CAD RADS 3: Consider further functional testing. Consider symptom-guided anti-ischemic and preventive pharmacotherapy as well as risk factor modification per published guideline statements. CAD RADS 4A: Consider further functional testing or invasive coronary angiography with revascularization per published guideline statements. Consider symptom-guided anti-ischemic and preventive pharmacotherapy as well as risk factor modification per published guideline statements. CAD RADS 4B: Invasive coronary angiography recommended with revascularization per published guideline statements. Consider symptom-guided anti-ischemic and preventive pharmacotherapy as well as risk factor modification per published guideline statements. CAD RADS 5: Consider invasive angiography and/or viability assessment with revascularization per published guideline statements. Consider symptom-guided anti-ischemic and preventive pharmacotherapy as well as risk factor modification per published guideline statements. CRITICAL RESULT None COMMUNICATION Per this written report The coronary and cardiac findings of this CCTA were reviewed, reported, and signed by Thuan Akins MD (Boiler Repair Supervisor) Conclusion Electronically signed by : Jennifer Akins MD 05/20/2023 12:32:58
[2023-05-20 07:19] VITALS: BMI 22.4
[2023-05-20 07:46] LABS: POC Glucose,Bedside 193 (70-110)
[2023-05-20 08:08] VITALS: BP 161/96; PULSE 60; RESP 16; O2SAT 100
[2023-05-20] MEDS: NITROGLYCERIN 0.4MG SL TABLET 0.800000000000000044 MG SL (08:08)
[2023-05-20 08:11] VITALS: BP 145/68; PULSE 64; RESP 16; O2SAT 100
[2023-05-20 08:14] VITALS: BP 120/69; PULSE 63; RESP 18; O2SAT 100
[2023-05-20 08:25] VITALS: BP 146/73; PULSE 68; RESP 18; O2SAT 100
[2023-05-20] MEDS: SODIUM CHLORIDE 0.9% 10ML SYR (RAD ONLY) 10 ML IV (09:20)
[2023-05-20] MEDS: 0.9 % SODIUM CHLORIDE 50 ML VIAL IV (09:20)
[2023-05-20] MEDS: IOPAMIDOL-370 (76%);100ML BOTTLE 85 ML IV (09:20)
== END 2023-05-20 08:30 | disposition home or self-care (01) ==
PROVIDERS: PCP Family Medicine; Visit Provider Nurse Practitioner Family
DX: I10 Essential (primary) hypertension (principal); E78.5 Hyperlipidemia, unspecified; Z95.0 Presence of cardiac pacemaker; R94.31 Abnormal electrocardiogram [ECG] [EKG]; I48.0 Paroxysmal atrial fibrillation; Z79.01 Long term (current) use of anticoagulants; Z95.2 Presence of prosthetic heart valve; K31.84 Gastroparesis; R07.9 Chest pain, unspecified; E11.9 Type 2 diabetes mellitus without complications; I65.29 Occlusion and stenosis of unspecified carotid artery; I73.9 Peripheral vascular disease, unspecified
CPT/HCPCS: 75571; 75574; 82962; Q9967

== ENCOUNTER 2023-05-31 12:01 | Day surgery (SDC) | payer MEDICARE, MEDICAID, SELFPAY ==
[2023-05-31] VITALS (9 sets, daily range): BP systolic 118–175; BP diastolic 63–101; PULSE 64–79; RESP 16–20; TEMP 36.9; O2SAT 94–100; BMI 22.5
--- NOTE | 2023-05-31 07:06 | IR_ITS ---
APPROVED REPORT Patient Location: Outpatient C Consultant: AHSAN Phillip RT (R) PROCEDURES Pocket revision for permanent pacemaker INDICATION Recalcitrant chest pain at pacemaker insertion site Informed consent was obtained prior to the procedure. COMPLICATIONS NONE Estimated Blood Loss: LESS THAN 10 ML TECHNIQUE Patient was taken to the operating room and sterilely prepped. She underwent anesthesia by anesthesia service and 1% lidocaine was used to anesthetize the anterior aspect of the left chest over the pacemaker insertion site. Careful dissection down to the pacemaker exposed the generator and 2 leads. The leads were dissected and the pacemaker was then reattached in a more cranial location just distal to the left clavicle. Fibrotic tissue was surgically removed. The pocket was flushed with antibiotics and then Prolene was used to close the pocket. Quinton were used to approximate the cutaneous tissue. Patient was transferred to the postop holding in stable condition INTERROGATION Generator Model number: Generator Serial number: Atrial lead model number: Atrial lead serial number: P-wave: Impedence: Threshold: Right Ventricular lead model number: Right Ventricular lead serial number: R-wave: Impedence: Threshold: Left Ventricular lead model number: Left Ventricular lead serial number: R-wave: Impedence: Threshold: Pacing Parameters: Mode: DDDR Base/Max Track:60 ppm / 130 ppm No diaphragmatic stimulation at 10 volts. IMPRESSION Successful pocket revision with movement of the pacemaker out of the left breast and into the immediate subclavicular area PLAN 1. Post Op Wound Care Electronically signed by : Jere Cortes MD 06/04/2023 09:38:52
[2023-05-31 12:33] LABS: Basophils # 0.2 K/mm3 (0-0.2); Basophils % 1.8 % (0.1-2.0); Eosinophils # 0.2 K/mm3 (0.0-0.4); Eosinophils % 2.2 % (0.1-12.0); Hematocrit 41.7 % (37.0-47.0); Hemoglobin 13.7 g/dL (12.2-16.2); Lymphocytes # 2.4 K/mm3 (0.7-4.5); Lymphocytes % 27.5 % (10-50); Mean Corpuscular HGB Conc 32.7 g/dL (31.8-35.4); Mean Corpuscular Hemoglobin 31.7 pg (27.0-31.2); Mean Corpuscular Volume 96.9 fl (81-99); Mean Platelet Volume 8.6 fl (7.4-10.4); Monocytes # 0.5 K/mm3 (0.1-1.0); Monocytes % 6.1 % (1.7-9.3); Neutrophils # 5.4 K/mm3 (1.8-7.8); Neutrophils % 62.4 % (37.0-80.0); Platelet Count 261 K/mm3 (142-424); Red Cell Distribution Width 15.3 % (11.5-17.5); White Blood Count 8.6 K/mm3 (4.8-10.8)
[2023-05-31 12:35] LABS: Chloride 104 mmol/L (98-107); Sodium 137 mmol/L (136-145)
[2023-05-31 12:36] LABS: Potassium 4.4 mmoL/L (3.5-5.1)
[2023-05-31 12:39] LABS: Anion Gap 12.4 mEq/L (5-15); Blood Urea Nitrogen 15 mg/dl (7-17); Calcium 9.6 mg/dl (8.4-10.2); Carbon Dioxide 25 mmol/L (22.0-30.0); Creatinine Clearance Estimated 109 mL/min (50-200); Estimated Glomerular Filt Rate 89 ml/min (>60); GFR (African American) 108 ML/MIN (>60); Glucose 146 mg/dl (74-100)
== END 2023-05-31 14:22 | disposition home or self-care (01) ==
LOC: CATHLAB 12:01
PROVIDERS: PCP Family Medicine; Visit Provider Internal Medicine
DX: Z45.02 Encounter for adjustment and management of automatic implantable cardiac defibrillator (principal); T82.121A Displacement of cardiac pulse generator (battery), initial encounter; T82.847A Pain due to cardiac prosthetic devices, implants and grafts, initial encounter; I11.0 Hypertensive heart disease with heart failure; I50.33 Acute on chronic diastolic (congestive) heart failure; I48.0 Paroxysmal atrial fibrillation; J81.0 Acute pulmonary edema; I25.2 Old myocardial infarction; G89.18 Other acute postprocedural pain; E11.9 Type 2 diabetes mellitus without complications; I42.8 Other cardiomyopathies; Z79.01 Long term (current) use of anticoagulants; Z79.899 Other long term (current) drug therapy
CPT/HCPCS: 33215; 80048; 85025; J2704

== ENCOUNTER 2023-06-04 11:50 | Day surgery (SDC) | payer MEDICARE, MEDICAID, SELFPAY ==
[2023-06-04] VITALS (7 sets, daily range): BP systolic 93–169; BP diastolic 54–94; PULSE 63–70; RESP 16–20; TEMP 36.8; O2SAT 93–97; BMI 23.2
--- NOTE | 2023-06-04 07:12 | IR_ITS ---
APPROVED REPORT Patient Location: Outpatient PROCEDURES Selective coronary angiogram INDICATION Angina pectoris, Abnormal CCTA, Elevated calcium score Informed consent was obtained prior to the procedure. COMPLICATIONS NONE Estimated Blood Loss: LESS THAN 10 ML TECHNIQUE One percent lidocaine used to anesthetize the right anterior aspect of the wrist. The right ulnar artery was accessed via the Seldinger technique. A 6 Croatian sheath was placed in the right ulnar artery. 2.5 mg of Verapamil, 800 mcg of nitroglycerin, 1mg Lidocaine and 5000 U Heparin were given through the arterial sheath. The papa catheter was also used to perform left heart catheterization, left ventriculogram and selective coronary angiogram. At the end of the procedure the sheath was removed good hemostasis was achieved using Traclet band, patient was transferred to the postop holding area in stable condition. ANGIOGRAPHIC RESULTS The left main artery Normal The left anterior descending artery Proximally normal with a mid vessel 30 to 40% concentric stenosis The circumflex artery Dominant normal The right coronary artery Nondominant normal The PHILLIP ventriculogram reveals Not performed The left ventricular end-diastolic pressure Not measured IMPRESSION Moderate mid LAD stenosis as described above PLAN 1. Continue medical management with risk factor modification Electronically signed by : Jere Cortes MD 06/04/2023 13:35:10
--- NOTE | 2023-06-04 11:55 | CA_ITS ---
APPROVED REPORT EXAM: Comprehensive 2D, Doppler, and color-flow Echocardiogram Instrumentation Specialist: Jana Brooke CRT Ht: 5 ft 10 in Wt: 162lbs BSA: 1.91 BP: 146/98 mmHg Indications: MVR 2018, AICD, CM, CHF,AFIB, HTN, HLD, CHF 2D Dimensions LA Volume 64.20 mL LA Volume Index 32.90 mL/m2 (M/F) 16-34 M-Mode Dimensions RVDd 3.42 cm (0.9-2.6) LA Diam 2.99 cm (1.9-4.0) LVDd 4.49 cm (3.5-5.7) LVDs 3.04 cm (3.5-5.7) IVSd 1.56 cm (0.6-1.1) PWd 0.95 cm (0.6-1.1) EF (Teich) 60.70% FS 32.30% EDV (Teich) 92.00 mL TAPSE 0.98 (<1.7) ESV (Teich) 36.20 mL LV Diastology E Decel Time 380 (160-240 msec) E/A Ratio 2.84 MED A' 3.90 cm/s LAT A' 2.10 cm/s Aortic Valve AI PHT 185.00 ms AO Peak GR. 9.50 mmHg Mitral Valve MV A Velocity 64.0 (40-130 cm/s) E/A Ratio 2.84 MV PHT 114.0 ms Tricuspid Valve TR P. Velocity 367.00 cm/s RAP Estimate 10.00 mmHg RVSP 63.80 mmHg Left Ventricle The left ventricle is normal size. The left ventricular systolic function is normal. The left ventricular ejection fraction is within the normal range. There is increased LV wall thickness. The septum is asynchronous. There is a septal flattening consistent with RV volume/pressure overload Diastolic function is indeterminate LVEF is 55%. Right Ventricle The right ventricle is severely dilated. Right ventricular systolic function is moderately to severely reduced. A device lead is present in the right ventricle. Atria The left atrium is mildly dilated. The right atrium is mildly dilated. There is no Doppler evidence of interatrial shunt. Aortic Valve The aortic valve is mildly thickened. Aortic sclerosis, but no evidence of aortic stenosis. Mild aortic regurgitation. Mitral Valve s/p MVR. The mitral valve prosthesis is well-seated. Mild systolic anterior motion of the mitral valve prosthesis. Mean MV gradient 7 mmHg (HR 98 bpm). Peak E velocity 182 cm/s. BNT=933 sec. MVA by PHT is 1.9 cm2 Trace mitral regurgitation. Tricuspid Valve The tricuspid valve leaflets are thin and pliable. Mild tricuspid regurgitation. RVSP is 40-45 mmHg. Pulmonic Valve The pulmonary valve is normal in structure. Trace pulmonic regurgitation. Great Vessels The aortic root is normal in size. The ascending aorta is normal in size. IVC is normal in size and collapses >50% with inspiration. Pericardium There is no pericardial effusion. Other Information Study Quality: Fair Conclusion Normal LV systolic function. Severely dilated RV with moderate to severe reduction in RV function. Asynchronous septum. Septal flattening consistent with RV pressure/volume overload. Mild biatrial dilation. s/p MVR. Trace MR. Mean MV gradient 7 mmHg (HR 98 bpm). Peak E velocity 182 cm/s. TVI=1.8. BJY=390 sec. MVA by PHT is 1.9 cm2. Mild AI, mild TR. Compared to prior study from 2021, the degree of RV dilation and reduction in function is new. Further clinical evaluation is recommended. Given the above MV parameters, the increased MV gradient is likely physiologic due to elevated HR at the time of image acquisition. Electronically signed by : Jennifer Akins MD 06/09/2023 10:36:57
[2023-06-04 12:57] LABS: Basophils # 0.2 K/mm3 (0-0.2); Basophils % 1.6 % (0.1-2.0); Eosinophils # 0.3 K/mm3 (0.0-0.4); Eosinophils % 2.4 % (0.1-12.0); Hematocrit 41.7 % (37.0-47.0); Hemoglobin 13.4 g/dL (12.2-16.2); Lymphocytes # 2.7 K/mm3 (0.7-4.5); Lymphocytes % 26.7 % (10-50); Mean Corpuscular Volume 100.1 fl (81-99); Mean Platelet Volume 9.6 fl (7.4-10.4); Monocytes # 0.6 K/mm3 (0.1-1.0); Monocytes % 6.2 % (1.7-9.3); Neutrophils # 6.4 K/mm3 (1.8-7.8); Neutrophils % 63.2 % (37.0-80.0); Platelet Count 219 K/mm3 (142-424); Red Blood Count 4.17 M/mm3 (4.20-5.40); Red Cell Distribution Width 15.5 % (11.5-17.5); White Blood Count 10.1 K/mm3 (4.8-10.8)
[2023-06-04 13:02] LABS: Chloride 105 mmol/L (98-107); Sodium 138 mmol/L (136-145)
[2023-06-04 13:03] LABS: Potassium 5.3 mmoL/L (3.5-5.1)
[2023-06-04 13:06] LABS: Anion Gap 14.3 mEq/L (5-15); Blood Urea Nitrogen 20 mg/dl (7-17); Calcium 8.9 mg/dl (8.4-10.2); Carbon Dioxide 24 mmol/L (22.0-30.0); Creatinine Clearance Estimated 88 mL/min (50-200); Estimated Glomerular Filt Rate 67 ml/min (>60); GFR (African American) 81 ML/MIN (>60); Glucose 169 mg/dl (74-100)
[2023-06-04] MEDS: 0.9 % SODIUM CHLORIDE 500 ML 25 ML IV (13:17)
[2023-06-04] MEDS: LIDOCAINE 1% 10ML MDV 20 ML IJ (13:17)
[2023-06-04] MEDS: HEPARIN 1,000 UNITS/500ML NS (CATH LAB) 3000 UNIT IV (13:17)
[2023-06-04] MEDS: NITROGLYCERIN 800MCG/8ML SYR (CATH LAB) 800 MCG IA (13:18)
[2023-06-04] MEDS: VERAPAMIL 2.5MG/ML 2ML VIAL 2.5 MG IV (13:18)
[2023-06-04] MEDS: diphenhydrAMINE 50MG/ML VIAL 50 MG IV (13:18)
[2023-06-04] MEDS: PROPOFOL 10MG/ML 20ML VIAL 30 MG IV (13:32)
[2023-06-04] MEDS: IOPAMIDOL-370 (76%);100ML BOTTLE 50 ML IV (14:25)
--- NOTE | 2023-06-04 14:30 | SUR.PHASEII ---
11 onesimo removed from pacemaker incision, sterile dressing of 4x4 and tegaderm applied per dr simms order. Pacemaker incision clean, dry, no drainage or bleeding noted, slight bruising around incision, MD aware. Pt tolerated removal well.
== END 2023-06-04 15:05 | disposition home or self-care (01) ==
LOC: CATHLAB 11:52
PROVIDERS: PCP Family Medicine; Visit Provider Internal Medicine
DX: I50.33 Acute on chronic diastolic (congestive) heart failure (principal); E78.2 Mixed hyperlipidemia; I48.0 Paroxysmal atrial fibrillation; Z95.2 Presence of prosthetic heart valve; K31.84 Gastroparesis; J81.0 Acute pulmonary edema; R79.89 Other specified abnormal findings of blood chemistry; I73.9 Peripheral vascular disease, unspecified; R07.2 Precordial pain; Z95.0 Presence of cardiac pacemaker; R94.31 Abnormal electrocardiogram [ECG] [EKG]; Z79.01 Long term (current) use of anticoagulants; R06.01 Orthopnea; I11.0 Hypertensive heart disease with heart failure; F17.210 Nicotine dependence, cigarettes, uncomplicated; Z79.899 Other long term (current) drug therapy; I25.118 Atherosclerotic heart disease of native coronary artery with other forms of angina pectoris; E11.9 Type 2 diabetes mellitus without complications
CPT/HCPCS: 80048; 85025; 93306; 93454; 99152; C1725; C1769; J1644; Q9967